=== PATIENT | male | born 1950 | race Caucasian/White ===

== ENCOUNTER 2021-09-05 10:42 | Outpatient (CLI) | payer MEDICARE, OTHER, SELFPAY ==
--- NOTE | 2021-09-05 10:46 | ECHOCS_ITS ---
Reason For Study: CHEST PAIN Procedure This was a 2D Doppler, Color Flow transthoracic echocardiogram. The study was technically difficult. Exam performed in department. Left Ventricle Normal LV size. Left ventricular systolic function is normal. The estimated ejection fraction is 60 %. Stage 2 diastolic dysfunction. No regional wall motion abnormalities noted. Right Ventricle Normal RV size. Normal systolic function. Atria The left atrium is moderately enlarged. The right atrium is mildly enlarged. Mitral Valve Anterior leaflet mitral valve prolapse. Mild-Moderate (1-2+) posteriorly directed mitral valve insufficiency. Tricuspid Valve Normal tricuspid valve. Mild (1+) tricuspid valve insufficiency. Pulmonary artery systolic pressure is 42 mmHg. Aortic Valve Normal aortic valve. Trisinus/trileaflet aortic valve. Mild (1+) aortic valve insufficiency. Pulmonic Valve Normal pulmonic valve. Great Vessels Normal aortic root. The pulmonary artery is normal size. Normal inferior vena cava. Pericardium/Pleural No pericardial effusion. Medication 22 gauge I.V. with prn adaptor inserted into right arm. Diluted definity 2.5ml given slow IV push to enhance endocardial definition. MMode/2D Measurements & Calculations LVIDd: 5.4 cm IVSd: 1.0 cm Ao root diam: 3.3 cm LVIDs: 3.7 cm LVPWd: 1.1 cm RVDd: 4.3 cm FS: 30.6 % LAV(MOD-bp): 99.7 ml LVAd ap4: 40.9 cm2 SV(MOD-sp4): 104.7 ml LAV(MOD-bp) Indexed: 45.7 ml/m2 LVLd ap4: 8.8 cm LAV(MOD-sp2): 95.6 ml EDV(MOD-sp4): 160.3 ml LAV(MOD-sp4): 103.3 ml EDV(sp4-el): 161.3 ml LVAs ap4: 21.8 cm2 LVLs ap4: 7.1 cm ESV(MOD-sp4): 55.6 ml ESV(sp4-el): 56.7 ml EF(MOD-sp4): 65.3 % EF(sp4-el): 64.8 % SV(sp4-el): 104.6 ml LA A4 area: 28.6 cm2 LA dimension(2D): 4.7 cm RA A4 area: 21.9 cm2 Time Measurements MV dec time: 0.21 sec Doppler Measurements & Calculations MV E max red: 90.0 cm/sec Lat Peak E' Red: 13.0 cm/sec Med Peak E' Red: 9.6 cm/sec MV A max red: 55.2 cm/sec E/E' lat: 6.9 E/E' med: 9.4 MV E/A: 1.6 Ao V2 max: 129.6 cm/sec AI max red: 496.5 cm/sec LV V1 max: 109.2 cm/sec Ao max P.7 mmHg AI max P.6 mmHg LV V1 max P.8 mmHg AI dec slope: 233.8 cm/sec2 AI P1/2t: 622.1 msec PA V2 max: 93.3 cm/sec TR max red: 313.8 cm/sec TR max P.4 mmHg ECHO/Echo Complete W/ Contrast Interpretation Summary Normal LV size. Left ventricular systolic function is normal. The estimated ejection fraction is 60 %. The left atrium is moderately enlarged. Stage 2 diastolic dysfunction. Mild (1+) aortic valve insufficiency. Pulmonary artery systolic pressure is 42 mmHg. Contrast injection was performed. Ordering Physician: Nathanael Lauren Referring Physician: ROSALES DAVIS Performed By: Iris Matamoros RDCS
== END 2021-09-05 23:59 | disposition home or self-care (01) ==
LOC: CVS 10:44
PROVIDERS: PCP Dentist; Referring Provider Internal Medicine Cardiovascular Disease; Visit Provider Internal Medicine Cardiovascular Disease
DX: R07.9 Chest pain, unspecified (principal); R00.2 Palpitations
CPT/HCPCS: 93306; Q9957; A4216; C8929

== ENCOUNTER 2021-09-16 07:00 | Outpatient (CLI) | payer MEDICARE, OTHER, SELFPAY ==
--- NOTE | 2021-09-16 12:08 | STRESSREP ---
Stress Test Report Exercise myocardial perfusion stress test. 71-year-old man with a history of atrial fibrillation. Stress protocol: Resting KG demonstrates normal sinus rhythm with a rate of 57 bpm normal intervals are noted resting blood pressure is 150/80 mmHg occasional premature ventricular complexes noted. Patient exercised according to regular Chadwick protocol for total duration of 6 minutes and 36 seconds completing 36 seconds into stage III of the Chadwick protocol the maximum heart rate attained was 139 bpm which was 92% of maximum predicted heart rate the maximum workload was 8.8 metabolic equivalents. At rest there were no ST or T wave changes noted suggest ischemia at peak exercise upsloping ST changes were noted with did not meet the criteria for ischemia. No evidence of QRS widening was noted occasional premature ventricular complex was noted. The peak blood pressure was 210/82 mmHg. Myocardial perfusion protocol. 14.6 mCi of technetium 99m sestamibi was injected at rest. The patient exercised according to regular Chadwick protocol. At peak exercise 44.6 mCi of technetium 99m sestamibi was injected stress images were obtained stress and rest images were reconstructed in comparing the short axis vertical long and horizontal long axis. Gated images were also obtained. Perfusion SPECT analysis: Review of the stress images demonstrate normal uptake of tracer noted in all areas of the myocardium. The resting images similarly demonstrate normal uptake of tracer noted in all areas of the myocardium. No areas of reversibility are noted suggest ischemia and no previous infarct is noted. Gated SPECT analysis: The gated ejection fraction is 65%. Conclusion: Normal exercise myocardial perfusion stress test at a high workload. Preserved ejection fraction.
== END 2021-09-16 23:59 | disposition home or self-care (01) ==
LOC: CVS 07:02
PROVIDERS: PCP Dentist; Referring Provider Internal Medicine Cardiovascular Disease; Visit Provider Internal Medicine Cardiovascular Disease
DX: R07.89 Other chest pain (principal); Z79.899 Other long term (current) drug therapy; Z51.81 Encounter for therapeutic drug level monitoring
CPT/HCPCS: 78452; 93017; A9500; A4216

== ENCOUNTER → 2023-01-15 | Outpatient (CLI) | payer MEDICARE, OTHER, SELFPAY | END | disposition home or self-care (01) | LOC: PSN 11:47 | PROVIDERS: PCP Family Medicine; Referring Provider Internal Medicine Cardiovascular Disease; Visit Provider Internal Medicine Cardiovascular Disease | DX: I49.3 Ventricular premature depolarization (principal) | CPT/HCPCS: 93225; 93226 ==

== ENCOUNTER → 2024-03-17 | Outpatient (CLI) | payer MEDICARE, OTHER, SELFPAY ==
[2024-03-17 11:06] LABS: Absolute Lymphocyte Count 1.76 X10^3/uL (0.83-4.51); Absolute Neutrophil Count 4.1 X10^3/uL (2.0-7.7); Basophil# 0.04 X10^3/uL; Basophil% 0.6 % (0-1); Eosinophil# 0.38 X10^3/uL; Eosinophils% 5.4 % (0-5); Hematocrit 47.1 % (40-54); Hemoglobin 15.3 g/dL (13.0-16.5); Lymphocyte # 1.76 X10^3/ul (0.83-4.51); Lymphocyte % 24.8 % (19-41); Mean Corp Hgb Conc 32.5 g/dL (32-36); Mean Corpuscular Hgb 29.6 pg (27.0-32.0); Mean Corpuscular Volume 91.1 fL (80-94); Mean Platelet Vol. 11.1 fl (6.2-12.0); Monocyte# 0.82 X10^3/uL; Monocyte% 11.6 % (0-10); NRBC Flagged by Analyzer 0 % (0-5); Neutrophil # 4.07 X10^3/uL (2.7-7.7); Neutrophil % 57.3 % (47-70); Platelet Count 144 K/mm3 (150-450); RBC Distribution Width CV 12.8 % (11.6-14.6); RBC Distribution Width SD 42.9 fl (35.1-43.9); Red Blood Count 5.17 M/mm3 (4.6-6.2); White Blood Count 7.1 K/mm3 (4.4-11.0)
[2024-03-17 11:30] LABS: ALB/GLOB Ratio 1.1 RATIO (0.9-2.4); AST(SGOT) 14 U/L (15-37); Alanine Aminotransfer ALT/SGPT 21 U/L (16-61); Albumin, Serum 3.5 g/dL (3.2-5.0); Alkaline Phosphatase 61 U/L (45-117); Anion Gap 2 (5-15); BUN 16 mg/dL (7-18); Calcium,Total 9.2 mg/dL (8.5-10.1); Chloride 107 mmol/L (98-107); Creatinine, Serum 0.89 mg/dL (0.70-1.30); EST Glomerular Filtration Rate 90 mL/min (>60); Est Glom Filt Rate - Afr Amer 109 mL/min (>60); Globulin 3.2 g/dL (2.2-4.2); Glucose 79 mg/dL (74-106); Magnesium 2.1 mg/dL (1.6-2.6); Potassium 4.4 mmol/L (3.5-5.1); Protein, Total 6.7 g/dL (6.4-8.2); Sodium Level 139 mmol/L (136-145); T4 Free Direct 0.94 ng/dL (0.76-1.46); Thyroid Stim Hormone (TSH) 0.666 uIU/mL (0.358-3.740)
== END | disposition home or self-care (01) ==
PROVIDERS: PCP Family Medicine; Referring Provider Nurse Practitioner Family; Visit Provider Nurse Practitioner Family
DX: I49.3 Ventricular premature depolarization (principal); R00.2 Palpitations; Z51.81 Encounter for therapeutic drug level monitoring; Z79.899 Other long term (current) drug therapy; I10 Essential (primary) hypertension; I34.1 Nonrheumatic mitral (valve) prolapse
CPT/HCPCS: 36415; 80053; 83735; 84439; 84443; 85025

== ENCOUNTER → 2024-03-28 | Outpatient (CLI) | payer MEDICARE, OTHER, SELFPAY ==
--- NOTE | 2024-03-28 07:00 | ECHOD_ITS ---
Reason For Study: MVP Procedure This was a 2D Doppler, Color Flow transthoracic echocardiogram. Apical window in supine. Exam performed in department. Left Ventricle Normal LV size. Mild concentric left ventricular hypertrophy. Left ventricular systolic function is normal. The left ventricular ejection fraction is 65 %. No regional wall motion abnormalities noted. Right Ventricle Normal RV size. Normal systolic function. Atria The left atrium is moderately enlarged. Normal right atrium. Mitral Valve Bileaflet mitral valve prolapse. Mild-Moderate (1-2+) eccentric mitral valve insufficiency. 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 Mild (1+) tricuspid valve insufficiency. Pulmonary artery systolic pressure is 40 mmHg. Aortic Valve Trisinus/trileaflet aortic valve. Mild (1+) aortic valve insufficiency. Pulmonic Valve Normal pulmonic valve. Great Vessels Normal aortic root. The pulmonary artery is normal size. Inferior vena cava collapse with respiration. Pericardium/Pleural No pericardial effusion. MMode/2D Measurements & Calculations LVIDd: 5.8 cm IVSd: 1.2 cm Ao root diam: 3.5 cm LVIDs: 3.6 cm LVPWd: 1.4 cm RVDd: 4.2 cm FS: 38.2 % LAV(MOD-bp): 97.9 ml LVAd ap4: 40.0 cm2 SV(MOD-sp4): 89.9 ml LAV(MOD-bp) Indexed: 45.5 ml/m2 LVLd ap4: 9.4 cm LAV(MOD-sp2): 86.0 ml EDV(MOD-sp4): 142.9 ml LAV(MOD-sp4): 99.2 ml EDV(sp4-el): 144.1 ml LVAs ap4: 20.7 cm2 LVLs ap4: 7.1 cm ESV(MOD-sp4): 53.0 ml ESV(sp4-el): 51.2 ml EF(MOD-sp4): 62.9 % EF(sp4-el): 64.5 % SV(sp4-el): 92.9 ml LA A4 area: 29.6 cm2 RA A4 area: 21.0 cm2 Time Measurements MV dec time: 0.26 sec Doppler Measurements & Calculations MV E max red: 74.6 cm/sec Lat Peak E' Red: 13.7 cm/sec Med Peak E' Red: 6.2 cm/sec MV A max rde: 60.1 cm/sec E/E' lat: 5.5 E/E' med: 12.1 MV E/A: 1.2 MV V2 max: 75.3 cm/sec Ao V2 max: 113.1 cm/sec MV max P.3 mmHg MV dec slope: 323.6 cm/sec2 Ao max P.1 mmHg MV V2 mean: 46.8 cm/sec Ao V2 mean: 73.0 cm/sec MV mean P.00 mmHg Ao mean P.5 mmHg MV V2 VTI: 26.5 cm Ao V2 VTI: 21.4 cm AV (velocity ratio): 0.90 LV V1 max: 108.7 cm/sec PA V2 max: 104.1 cm/sec TR max red: 302.7 cm/sec LV V1 max P.7 mmHg PA V2 mean: 78.4 cm/sec TR max P.6 mmHg LV V1 mean P.2 mmHg LV V1 mean: 66.7 cm/sec LV V1 VTI: 19.3 cm ECHO/Echo Complete Interpretation Summary Normal LV size. Left ventricular systolic function is normal. The left ventricular ejection fraction is 65 %. Mild concentric left ventricular hypertrophy. Bileaflet mitral valve prolapse. Mild-Moderate (1-2+) eccentric mitral valve insufficiency. 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 Ordering Physician: Rob Carrero Referring Physician: Rob Carrero Performed By: Anamaria Melgar RCS
--- OUTSIDE RECORDS SUMMARY | 2024-03-28 07:02 | XMS RPT_ITS | CCD ---
Author Organization [facility] Care Team Providers Care Quality Internship Name Role Phone RITIKA INFANTE Attending Unavailable RITIKA INFANTE Referring Unavailable RITIKA INFANTE Referring Unavailable RITIKA INFANTE Referring Unavailable RITIKA INFANTE Attending Unavailable RITIKA INFANTE Referring Unavailable Allergies Allergy Classification Reported Allergen(s) Allergy Type Date of Onset Reaction(s) Facility (1 source) Naproxen; Translations: [NAPROXEN] Drug Allergy 03-12-2012 [facility] Repository Problems Active Problems Problem Classification Problem Date Documented Da te Episodic/Chronic Heart valve disorders (1 source) Nonrheumatic mitral (valve) insufficiency; Translations: [Nonrheumatic mitral (valve) insufficiency] Onset: 04-09-2018 Chronic Past or Other Problems Problem Classification Problem Date Documented Da te Episodic/Chronic Cardiac dysrhythmias (1 source) Palpitations; Translations: [Palpitations] Onset: 04-09-2018 Episodic Results Test Name Value Interpretation Reference Range Facil ity Provider Note - ED v3on 10-0 Provider Note - ED v3 Provider Note: Chart Review HISTORY OF PRESENTING ILLNESS TOREY is a 71 year old Male and was seen by me at 08-Mar-2021 11:37. The historian is the patient. Triage Information: Most recent Vital Sign Value Date PAST MEDICAL HISTORY ALLERGIES/INTOLERANCES : Allergy Allergen: naproxen Type: Drug Reaction: Unknown HEALTH HISTORY: History of tachycardia and arrhythmia. No other known health issues. Family history: no pertinent history. Social history: is a [employer]. Non-smoker. OUTPATIENT MEDICATIONS: Home Medications Review Status for Reconciliation: Complete Med Status: Patient Currently Takes Medications Drug Name: propranolol 10 mg oral tablet Instructions: 1 tab(s) orally 2 times a day Drug Name: flecainide Instructions: null Drug Name: Ciprodex 0.3%-0.1% otic suspension Instructions: 4 drop(s) in each affected ear 2 times a day x 10 days Drug Name: Cipro 500 mg oral tablet Instructions: 1 tab(s) orally 2 times a day x 10 days SIGNIFICANT EVENTS: No known significant events or known past surgical history. CRITICAL CARE VITAL SIGNS: T PRBP SpO2O2(LPM) %FiO2 Method 08-Mar-2021 11:28:[id number] 98 MDM MDM/ED COURSE: This note was generated with voice recognition software and may contain errors including spelling, grammar, syntax, and misrecognization of what was dictated. CHIEF COMPLAINT bilat ear irritation HISTORY OF PRESENT ILLNESS Patient presents today for evaluation of bilat ear irritation (L>R) x 5-7 days - reports is now having some trouble hearing out of his L ear - typically has decreased hearing, but it has been worse recently. Reports has had similar sxs intermittently over the past 2 y ears and believes they were r/t seasonal allergies - reports sxs typically resolved without treatment in the past. He denies any known trauma to ear or recent swimming. Denies any recent nasal congestion, watery eyes, sore throat, cough, fevers/chills, lethargy, malaise, headaches, n/v, or other constitutional symptoms. He takes Zyrtec daily, but reports it does not really help his ear symptoms. He has not tried any other OTC medications or conservative measures for his symptoms. Follows regularly with PCP, but has never had these sxs evaluated in the past. REVIEW OF SYSTEMS 10 systems reviewed negative with exception of history of present illness listed above PHYSICAL EXAMINATION General: Pleasant, older male, in no acute distress. + mild hearing impairment. Eyes: Pupils are equal, round and reactive. Bilat conjunctiva clear; no exudate to eyes noted. HENT: Normocephalic. R TM with scaring, whitish discoloration, and distortion; R ear canal mildly edematous and erythematous, with scant milky otorrhea, whitish debris on inferior canal wall, and dark cerumen. Unable to visualize L TM d/t moderately severe edema of ear canal. Mild tenderness with manipulation of bilat tragus; no tenderness with manipulation of either pinna or over either mastoid. Nasal mucosa unremarkable; no sinus tenderness; no audible nasal congestion. Mucous membranes moist. No oral lesions; posterior pharynx unremarkable. Able to swallow without difficulty. Neck: Supple; tender high anterior cervical lymphadenopathy bilat. Respiratory: Respirations are easy and non-labored, with normal rate. Symmetrical chest wall expansion. Lungs are clear to auscultation - no wheezing, rhonchi, or rales. Breath sounds equal. No cough noted. Cardiovascular: Normal rate, Regular rhythm. Normal S1S2. No m/r/g. Musculoskeletal: Grossly normal. Integumentary: [place], warm, dry, and Intact. Normal skin turgor; no rashes appreciated. Neurologic: Alert, Oriented, Sensory and motor function grossly intact for age. Cognition and Speech: Oriented; Speech clear and coherent Psychiatric: Cooperative, Appropriate mood & affect. MEDICAL DECISION MAKING Course: Worsening; stable. Impression/Plan: Symptoms/exam consistent with AOE. Will start Ciprodex drops BID days, but may need f/u with PCP or ENT if sxs persist/worsen despite treatment, especially if swelling/discomfort progresses - if treated for bacterial infection without relief, may want to consider evaluation for fungal cause. Encouraged to prevent any further water/additional liquids from entering the ear canal as able, to rest, to push fluids, and can use PRN Tylenol/ibuprofen for management of discomfort. Warm compress may also be helpful. Reviewed expectations for resolution of infection and improvement in symptoms, and encouraged to RTC or see PCP/ENT if symptoms not improving over the 2-3 days, or to ER sooner if they worsen. Patient seems satisfied and agrees with plan of care; questions were encouraged and answered. Problem: bilat ear pain Data reviewed/analyzed: No lab work, imaging, or tests outside of physical exam done today; no previous documents available (more content not included)... Normal [facility] Provider Note - ED v2on 12-0 Provider Note - ED v2 Provider Note - ED v2: Chart Review: HISTORY OF PRESENTING ILLNESS TOREY is a 70 year old Male and was seen by me at 07-May-2020 13:52 for a chief complaint of cold symptoms . Other complaints include: Patient presents with sinus congestion and ear pressure that has been occurring for about a year. He stated it started with a sinus infection. He was treated with an antibiotic and ever since he has drainage a few days weekly. It has become an annoyance and he has come in to get it checked out. He denies any fever, chills, nausea, vomiting, or exposure to COVID-19. 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 The historian is the patient. Triage Information: Most recent Vital Sign Value Date PAST MEDICAL HISTORY ATTESTATION: I have reviewed and confirmed nurse's/medic's notes for patient's medications, allergies, medical history, and surgical history CURRENT OR FORMER SUBSTANCE USE: NO: Cigarette/Tobacco, e-Cigarette/Vaping, Alcohol and Street Drugs ALLERGIES/INTOLERANCES : Allergy Allergen: naproxen Type: Drug Reaction: Unknown HEALTH HISTORY: No documented data. OUTPATIENT MEDICATIONS: Home Medications Review Status for Reconciliation: Complete Med Status: Patient Currently Takes Medications Drug Name: propranolol 10 mg oral tablet Instructions: 1 tab(s) orally 2 times a day Drug Name: amoxicillin 875 mg oral tablet Instructions: 1 tab(s) orally 2 times a day SIGNIFICANT EVENTS: No documented data. REVIEW OF SYSTEMS CONSTITUTIONAL: Negative for: chills, fever and malaise ENMT Ears: POSITIVE for: discharge (clear) and itching Nose: POSITIVE for: congestion, discharge (clear) and sneezing Throat/Neck: POSITIVE for: throat pain RESULTS/VITAL SIGNS VITAL SIGNS: T PRBP SpO2O2(LPM) %FiO2 Method 07-May-2020 13:46:[id number] 8 97 PHYSICAL EXAM CONSTITUTIONAL: Well appearing, well nourished, awake, alert, oriented to person, place, time/situation and in no apparent distress. HENMT: Airway patent, ears with clear tympanic membranes bilaterally. Nasal mucosa clear. Mouth with normal mucosa. Throat erythematous erythematous and has no vesicles, no oropharyngeal exudates and uvula is midline. Face with no lymph node enlargement. No pressure with palpation over maxillary or frontal sinus cavities. CARDIOVASCULAR: Normal rate, regular rhythm. Heart sounds S1, S2. No murmurs, rubs or gallops. PMI non-displaced. RESPIRATORY: Breath sounds clear and equal bilaterally. MEDICAL DECISION MAKING/ED COURSE MDM/ED COURSE: 70-year-old male with allergies. We have discussed using a daily nonsedating antihistamine and Flonase to control the symptoms. I have ordered a antibiotic that we will be awaiting him in the pharmacy. He was informed to pick this up if he does not improve with the antihistamine and Flonase combination. Patient verbalized understanding of plan of care. CLINICAL IMPRESSION Diagnosis/Annotation: ED Dx Name:Multiple environmental allergies Code:Z91.09 Disposition: discharged Type: home ATTESTATION CRITICAL CARE TIME Is this a critically ill patient: no Electronic Signatures: Amy Walker (LAST TRIMMER-PRIMARY CLINICIAN) (Signed 07-May-2020 14:22) Authored: HPI, PMH, ROS, PE, Results/Vital Signs, MDM/ED Course, Clinical Impression, Attestation, Chart Review, Scores Last Updated: 07-May-2020 14:22 by Amy Walker (LAST TRIMMER-PRIMARY CLINICIAN) References: 1. Data Referenced From Provider Note - ED v2 07-May-2020 14:07 [facility] Provider Note - ED v2 This report has been cancelled. [facility] CNOVon 09-09-2018 CNOV Office Visit (CAWSTR ) TOREY CARBAJAL ([id number]) 1950 M Date Time Provider Department 09/09/18 9:45 AM RITIKA INFANTE During your visit today, we recorded the following information about you: Pulse Blood pressure Weight 55/minute 133/87 95.9 kg Ritika Infante MD 09/09/2018 4:32 PM Signed PERTINENT CARDIAC HISTORY Palpitations - VPDs Anxiety HTN HL MVP - mild MR Pericardial cyst ADHERENCE TO GUIDELINES AR-I or ARB for HF with prior LVEF<40 (NQF 0081) - N/A ASA or Plavix for ASHD (NQF 0067) - N/A Beta urvashi for ASHD with prior DC or prior LVEF<40 (NQF 0070) - N/A Beta urvashi for HF with prior LVEF<40 (NQF 0083) - N/A AR-I or ARB for ASHD with DM or prior LVEF<40 (NQF 0066) - N/A Statin therapy for ASHD or FHL or DM - N/A BMI documented and plan if >25 (NQF 0421) - lifestyle recommendation form Tobacco use screening and referral (NQ 0028) - lifestyle recommendation form Recommendation for whole food, plant based diet - lifestyle recommendation form CLINICAL IMPRESSION/PLAN: Torey Carbajal is doing well. His palpitations are probably due to benign ventricular ectopy. This is well-controlled. His has no evidence of obstructive coronary disease. He has mild valvular heart disease, which appears stable clinically. Echo can be repeated in one to 2 years. I recommend that he continue his current activity and follow-up in 8 months or as needed. Written and verbal health teaching given to patient, patient verbalizes understanding and agrees with treatment plan. DIAGNOSIS FOR VISIT: Palpitations Hypertension HISTORY OF PRESENT ILLNESS Torey Carbajal returns for follow-up of his multiple cardiac issues, as above. He reports stable exercise tolerance. He has been exercising to control his stress and this has been effective. He denies chest pain. He's had no orthopnea, edema, syncope, TIAs, amaurosis or claudication. He's had minimal palpitations He reports blood pressures at home in the 120-130 systolic range. ALLERGIES: ALLERGIES Allergen Reactions - Naproxen Intolerance Headache, not feeling well with it CURRENT OUTPATIENT MEDICATIONS: omeprazole (PRILOSEC) 20 mg capsule Take 40 mg by mouth once daily. lisinopril (ZESTRIL, PRINIVIL) 20 mg tablet Take 1 tablet by mouth twice daily. propranolol (INDERAL) 40 mg tablet Take 0.5 tablets by mouth twice daily. flecainide (TAMBOCOR) 100 mg tablet Take 1 tablet by mouth twice daily. nitroglycerin sublingual 0.4 mg SL tablet Dissolve 1 tablet under the tongue every 5 minutes as needed. FOR CHEST PAIN. IF NO RELIEF after two doses, CALL 911 IBUPROFEN 200 MG ORAL TAB as needed mupirocin (BACTROBAN) 2 % ointment Apply 1 application to affected area three times daily. PHYSICAL EXAMINATION: VITAL SIGNS: BP 133/87 Pulse 55 Wt 211 lb 6.4 oz (95.9kg) Chest: Clear to auscultation. Trachea is midline. Air entry is equal. Cardiac: Regular rhythm. S1 and S2 are normal. PMI is nondisplaced. There is a soft systolic ejection murmur. Carotids are brisk without bruits. JVP is less than 10 cm. Abdomen: Soft and nontender. There are no pulsatile masses or bruits. No liver enlargement. Bowel sounds are active. Extremities: No edema. Pulses are intact and symmetrical. Recent labs reviewed. Renal function is normal. LDL was 102. Magnesium and TSH are normal Electronically Signed: Ritika Infante MD September 09, 2018 10:00 AM CC: No primary care provider on file. Referring Provider: RITIKA INFANTE [[id number]] Allergies As of Date: 09/09/2018 Noted Allergy Reaction NAPROXEN 03/12/2012 5 - Intolerance Comments: Headache, not feeling well with it Date Reviewed: 09/09/2018 Reviewed by: Thomas Flowers RN - Fully Assessed Reason for Visit: Recheck [92] Primary Visit Diagnosis:Palpitations [R00.2] Other Visit Diagnosis:Hypertension , essential [I10] Order(s):nitroglycerin sublingual (NITROQUICK) 0.4 mg SL tabletDissolve 1 tablet under the tongue every 5 minutes as needed. FOR CHEST PAIN. 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 FOR CHEST PAIN. IF NO RELIEF after two doses, CALL 911 Medications Discontinued During This Encounter nitroglycerin sublingual 0.4 mg SL t* 1 Kyle* 5 04/29/2013 09/09/2018 Route: SUBLINGUAL Sig: Dissolve 1 tablet under the tongue every 5 minutes as needed. FOR CHEST PAIN. IF NO RELIEF after two doses, CALL 911 Disc: Reason for discontinue is not on file. Encounter Status:Closed by RITIKA INFANTE MD on 09/09/18 Normal [facility] PROGRESSon 09-09-2018 Protein mass conc HNO ID: [id number] Author: Ritika Infante Service: ? Author Type: Physician Type: Progress Notes Filed: 09/09/2018 4:32 PM Note Text: PERTINENT CARDIAC HISTORY Palpitations - VPDs Anxiety HTN HL MVP - mild MR Pericardial cyst ADHERENCE TO GUIDELINES AR-I or ARB for HF with prior LVEF<40 (NQF 0081) - N/A ASA or Plavix for ASHD (NQF 0067) - N/A Beta urvashi for ASHD with prior DC or prior LVEF<40 (NQF 0070) - N/A Beta urvashi for HF with prior LVEF<40 (NQF 0083) - N/A AR-I or ARB for ASHD with DM or prior LVEF<40 (NQF 0066) - N/A Statin therapy for ASHD or FHL or DM - N/A BMI documented and plan if >25 (NQF 0421) - lifestyle recommendation form Tobacco use screening and referral (NQF 0028) - lifestyle recommendation form Recommendation for whole food, plant based diet - lifestyle recommendation form CLINICAL IMPRESSION/PLAN: Torey Carbaajl is doing well. His palpitations are probably due to benign ventricular ectopy. This is well-controlled. His has no evidence of obstructive coronary disease. He has mild valvular heart disease, which appears stable clinically. Echo can be repeated in one to 2 years. I recommend that he continue his current activity and follow-up in 8 months or as needed. Written and verbal health teaching given to patient, patient verbalizes understanding and agrees with treatment plan. DIAGNOSIS FOR VISIT: Palpitations Hypertension HISTORY OF PRESENT ILLNESS Torey Carbajal returns for follow-up of his multiple cardiac issues, as above. He reports stable exercise tolerance. He has been exercising to control his stress and this has been effective. He denies chest pain. He's had no orthopnea, edema, syncope, TIAs, amaurosis or claudication. He's had minimal palpitations He reports blood pressures at home in the 120-130 systolic range. ALLERGIES: ALLERGIES Allergen Reactions - Naproxen Intolerance Headache, not feeling well with it CURRENT OUTPATIENT MEDICATIONS: omeprazole (PRILOSEC) 20 mg capsule Take 40 mg by mouth once daily. lisinopril (ZESTRIL, PRINIVIL) 20 mg tablet Take 1 tablet by mouth twice daily. propranolol (INDERAL) 40 mg tablet Take 0.5 tablets by mouth twice daily. flecainide (TAMBOCOR) 100 mg tablet Take 1 tablet by mouth twice daily. nitroglycerin sublingual 0.4 mg SL tablet Dissolve 1 tablet under the tongue every 5 minutes as needed. FOR CHEST PAIN. IF NO RELIEF after two doses, CALL 911 IBUPROFEN 200 MG ORAL TAB as needed mupirocin (BACTROBAN) 2 % ointment Apply 1 application to affected area three times daily. PHYSICAL EXAMINATION: VITAL SIGNS: BP 133/87 Pulse 55 Wt 211 lb 6.4 oz (95.9kg) Chest: Clear to auscultation. Trachea is midline. Air entry is equal. Cardiac: Regular rhythm. S1 and S2 are normal. PMI is nondisplaced. There is a soft systolic ejection murmur. Carotids are brisk without bruits. JVP is less than 10 cm. Abdomen: Soft and nontender. There are no pulsatile masses or bruits. No liver enlargement. Bowel sounds are active. Extremities: No edema. Pulses are intact and symmetrical. Recent labs reviewed. Renal function is normal. LDL was 102. Magnesium and TSH are normal Electronically Signed: Ritika Infante MD September 09, 2018 10:00 AM CC: No primary care provider on file. Normal [facility] Basic Metabolic Panlon 04-09 Anion gap molar conc 8 mmol/L Low 9-18 [facility] Calcium mass conc 10.0 mg/dL Normal 8.5-10.2 [facility] Chloride molar conc 101 mmol/L Normal 97-105 [facility] CO2 molar conc 30 mmol/L Normal 22-30 [facility] Creatinine mass conc 0.85 mg/dL Normal 0.73-1.22 [facility] eGFR- Amer. >60 Normal [facility] GFR/1.73 sq M predicted among non-blacks MDRD vol rate/area (S/P/Bld) mL/min/{1.73_m2} Normal [facility] Comment on above: Result Comment: eGFR (Estimated GFR) Units of measure: mL/min/1.73 meters squared eGFR is derived from the reexpressed MDRD Study equation using the following parameters: serum creatinine, age, gender and race. The creatinine assay has been calibrated to be traceable to IDMS. An eGFR <60 mL/min/1.73m2 for >3 months is consistent with chronic kidney disease. Refer to KDOQI guidelines for clinical interpretation. In patients with unstable renal function, e.g. those with acute kidney injury, the eGFR may not accurately reflect actual GFR. Glucose mass conc 82 mg/dL Normal 74-99 [facility] Potassium molar conc 4.6 mmol/L Normal 3.7-5.1 [facility] Sodium molar conc 139 mmol/L Normal 136-144 [facility] Urea nitrogen mass conc 13 mg/dL Normal 7-21 [facility]09[facility] ([facility] TOREY CARBAJAL ([id number]) 1950 M Date Time Provider Department 04/09/18 1:00 PM NURSE CARD ADMIN [facility] CAWSTR During your visit today, we recorded the following information about you: Thomas Flowers RN 04/09/2018 10:08 AM Signed Ekg completed per order. Pt tolerated procedure without distress. Thomas Flowers RN Referring Provider: RITIKA INFANTE [[id number]] Allergies As of Date: 04/09/2018 Noted Allergy Reaction NAPROXEN 03/12/2012 5 - Intolerance Comments: Headache, not feeling well with it Date Reviewed: 04/09/2018 Reviewed by: Thomas Flowers RN - Fully Assessed Reason for Visit: Nurse Visit [792] Visit Diagnoses:Palpitations [R00.2] Non-rheumatic mitral regurgitation [I34.0] Order(s):ECG COMPLETE W INTERPRETATION [ECG01] Order #: [id number] Prescriptions as of 04/09/2018 Sig: LISINOPRIL 20 MG TABLET Take 1 tablet by mouth twice * PROPRANOLOL 40 MG TABLET Take 0.5 tablets by mouth twi* FLECAINIDE 100 MG TABLET Take 1 tablet by mouth twice * MUPIROCIN 2 % TOPICAL OINTMENT Apply 1 application to affect* Patient not taking: Reported on 04/09/2018 NITROGLYCERIN 0.4 MG SUBLINGU* Dissolve 1 tablet under the t* Patient not taking: Reported on 04/09/2018 IBUPROFEN 200 MG TABLET as needed Problem List As Of Date 04/09/2018 Noted Resolved 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 Pt tolerated procedure without distress. Thomas Flowers RN Encounter Status:Closed by THOMAS FLOWERS RN on 04/09/18 [facility] CNOVon 04-09-2018 CNOV Office Visit (CAWSTR ) TOREY CARBAJAL ([id number]) 1950 M Date Time Provider Department 04/09/18 8:45 AM RITIKA INFANTE During your visit today, we recorded the following information about you: Pulse Blood pressure Weight 59/minute 172/87 93.9 kg Ritika Infante MD 04/09/2018 9:45 AM Signed LIFESTYLE CHANGE A healthy lifestyle is the most important component of your overall treatment plan. Please give serious thought to the following areas and commit to making intermediate manager changes. EAT A WHOLE FOOD, PLANT BASED DIET The nutrition your body gets is more important than the medicine you take. What matters most is the overall way you eat. We encourage you to minimize the use of animal products (which include dairy and all meats except fatty fish) and use whole, unprocessed plant foods to provide your protein, vitamins and other nutrients. We have a lot of information to share with you on this topic. This is not a diet . It is a way of life that you will keep with you. EXERCISE REGULARLY It is not important to spend hours in the gym, lifting weights and perspiring heavily. A total of 2-3 hours per week of aerobic (causing you to be moderately short of breath) exercise is sufficient to improve your health. Talk to us before you begin a new exercise program, if you have heart disease or experience shortness of breath or chest pain. REDUCE STRESS Chronic emotional and physical stress leads to disease. Ways of reducing stress include meditation, visualization, prayer, yoga and other forms of relaxation therapy. Consistency is the kaur. Find a technique that works for you and do it every day. CULTIVATE RELATIONSHIPS Loneliness and isolation have a major negative impact on health. Seek out others who can love, care for and nurture you. Avoid hurtful relationships. MAINTAIN IDEAL BODY WEIGHT The best way to do this is to do all the things above. Our bodies naturally find the right weight if we keep moving and feed ourselves the right food. If your BMI is greater than 25, we strongly recommend a referral to a weight management program. Please speak to us or your family physician about available programs. AVOID NICOTINE IN ALL FORMS This includes all tobacco products, whether chewed, smoked, vaped, or rubbed on the skin. Smoking cessation programs, which can make use of tobacco substitutes, medications to suppress cravings and behavior management, are available. Please contact your family physician about programs in your area. Ritika Infante MD 04/09/2018 5:33 PM Signed PERTINENT CARDIAC HISTORY Palpitations - VPDs Anxiety HTN HL MVP - mild MR Pericardial cyst ADHERENCE TO GUIDELINES AR-I or ARB for HF with prior LVEF<40 (NQF 0081) - N/A ASA or Plavix for ASHD (NQF 0067) - N/A Beta urvashi for ASHD with prior DC or prior LVEF<40 (NQF 0070) - N/A Beta urvashi for HF with prior LVEF<40 (NQF 0083) - N/A AR-I or ARB for ASHD with DM or prior LVEF<40 (NQF 0066) - N/A Statin therapy for ASHD or FHL or DM - N/A BMI documented and plan if >25 (NQF 0421) - lifestyle recommendation form Tobacco use screening and referral (NQF 0028) - lifestyle recommendation form Recommendation for whole food, plant based diet - lifestyle recommendation form CLINICAL IMPRESSION/PLAN: Torey Carbajal is doing well. He was reassured that there is no significant arrhythmia. I advised him to continue his current medication. Basic profile and magnesium level will be drawn. He has noted that his blood pressure goes up with stress. His most recent office blood pressures have been in normal range. I will see him in 6 months or as needed. He is advised to try not to miss doses of medication and to call me with a report of his vital signs in the next few weeks. Written and verbal health teaching given to patient, patient verbalizes understanding and agrees with treatment plan. DIAGNOSIS FOR VISIT: Ventricular arrhythmia Hypertension HISTORY OF PRESENT ILLNESS Torey Carbajal returns for follow-up of his palpitations and hypertension. He continues to be quite anxious. He is undergoing some family stress at this time. He has found a refuge in exercising. He reports that he feels quite well when he is working and has had no exertional symptoms of shortness of breath or chest discomfort. His blood pressure has been more elevated and he has increased his lisinopril to twice daily. He occasionally misses doses of his other medication He has had a low-grade tightness in the chest which he relates to anxiety. He does not use nitroglycerin. This occurs at rest. He has had no syncope, TIAs, amaurosis or claudication. Palpitations have been more problematic recently. ALLERGIES: ALLERGIES Allergen Reactions - Naproxen Intolerance Headache, not feeling well with it CURRENT OUTPATIENT MEDICATIONS: lisinopril (ZESTRIL, PRINIVIL) 20 mg tablet Take 1 tablet by mouth once daily. propranolol (INDERAL) 40 mg tablet Take 0.5 tablets by mouth twice daily. flecainide (TAMBOCOR) 100 mg tablet Take 1 tablet by mouth twice daily. IBUPROFEN 200 MG ORAL TAB as needed mupirocin (BACTROBAN) 2 % ointment Apply 1 application to affected area three times daily. nitroglycerin sublingual 0.4 mg SL tablet Dissolve 1 tablet under the tongue every 5 minutes as needed. FOR CHEST PAIN. IF NO RELIEF after two doses, CALL 911 PHYSICAL EXAMINATION: VITAL SIGNS: BP 172/87 Pulse 59 Wt 207 lb 1.6 oz (93.9kg) Chest: Clear to auscultation. Trachea is midline. Air entry is equal. Cardiac: Regular rhythm. S1 and S2 are normal. PMI is nondisplaced. There is a soft systolic ejection murmur.. Carotids are brisk without bruits. JVP is less than 10 cm. Abdomen: Soft and nontender. There are no pulsatile masses or bruits. No liver enlargement. Bowel sounds are active. Extremities: No edema. Pulses are intact and symmetrical. EKG shows sinus bradycardia with first-degree AV block. There is no significant change since 08/31/16. No arrhythmias are seen. Recent labs were reviewed. Renal function is normal. LDL is acceptable. Stress echocardiogram was reviewed. Left ventricular function is normal. He has minimal mitral and aortic insufficiency. No significant changes were noted. There was no evidence of ischemia. Electronically Signed: Ritika Infante MD April 09, 2018 9:45 AM CC: No primary care provider on file. Referring Provider: RITIKA INFANTE [[id number]] Allergies As of Date: 04/09/2018 Noted Allergy Reaction NAPROXEN 03/12/2012 5 - Intolerance Comments: Headache, not feeling well with it Date Reviewed: 04/09/2018 Reviewed by: Thomas Flowers RN - Fully Assessed Reason for Visit: Recheck [92] Primary Visit Diagnosis:Palpitations [R00.2] Other Visit Diagnosis:Non-rheumati c mitral regurgitation [I34.0] Order(s):ECG COMPLETE W INTERPRETATION [ECG01] Order #: [id number] FUTURE BASIC METABOLIC PNL [SQBMP] Order #: [id number] FUTURE MAGNESIUM BLD [SQMG1] Order #: [id number] FUTURE lisinopril (ZESTRIL, PRINIVIL) 20 mg tabletTake 1 tablet by mouth twice daily.Disp: 180 tabletRfl: 3 TSH BLD [SQTSH] Order #: [id number] FUTURE Prescriptions as of 04/09/2018 Sig: LISINOPRIL 20 MG TABLET Take 1 tablet by mouth twice * PROPRANOLOL 40 MG TABLET Take 0.5 tablets by mouth twi* FLECAINIDE 100 MG TABLET Take 1 tablet by mouth twice * IBUPROFEN 200 MG TABLET as needed MUPIROCIN 2 % TOPICAL OINTMENT Apply 1 application to affect* Patient not taking: Reported on 04/09/2018 NITROGLYCERIN 0.4 MG SUBLINGU* Dissolve 1 tablet under the t* Patient not taking: Reported on 04/09/2018 Problem List As Of Date 04/09/2018 Noted Resolved 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 Please give serious thought to the following areas and commit to making intermediate manager changes. EAT A WHOLE FOOD, PLANT BASED DIET The nutrition your body gets is more important than the medicine you take. What matters most is the overall way you eat. We encourage you to minimize the use of animal products (which include dairy and all meats except fatty fish) and use whole, unprocessed plant foods to provide your protein, vitamins and other nutrients. We have a lot of information to share with you on this topic. This is not a diet . It is a way of life that you will keep with you. EXERCISE REGULARLY It is not important to spend hours in the gym, lifting weights and perspiring heavily. A total of 2-3 hours per week of aerobic (causing you to be moderately short of breath) exercise is sufficient to improve your health. Talk to us before you begin a new exercise program, if you have heart disease or experience shortness of breath or chest pain. REDUCE STRESS Chronic emotional and physical stress leads to disease. Ways of reducing stress include meditation, visualization, prayer, yoga and other forms of relaxation therapy. Consistency is the kaur. Find a technique that works for you and do it every day. CULTIVATE RELATIONSHIPS Loneliness and isolation have a major negative impact on health. Seek out others who can love, care for and nurture you. Avoid hurtful relationships. MAINTAIN IDEAL BODY WEIGHT The best way to do this is to do all the things above. Our bodies naturally find the right weight if we keep moving and feed ourselves the right food. If your BMI is greater than 25, we strongly recommend a referral to a weight management program. Please speak to us or your family physician about available programs. AVOID NICOTINE IN ALL FORMS This includes all tobacco products, whether chewed, smoked, vaped, or rubbed on the skin. Smoking cessation programs, which can make use of tobacco substitutes, medications to suppress cravings and behavior management, are available. Please contact your family physician about programs in your area. Prescriptions ordered this encounter Disp Refills Start End LISINOPRIL 20 MG TABLET 180 * 3 04/09/2018 Route: ORAL Sig: Take 1 tablet by mouth twice daily. Medications Discontinued During This Encounter lisinopril (ZESTRIL, PRINIVIL) 20 mg* 90 t* 3 03/14/2018 04/09/2018 Route: ORAL Sig: Take 1 tablet by mouth once daily. Patient taking differently: Take 20 mg by mouth twice daily. Disc: Reason for discontinue is not on file. Encounter Status:Closed by RITIKA INFANTE MD on 04/09/18 [facility] EKG1on 04-09-2018 EKG1 NAME : TOREY CARBAJAL PID : [id number] : 1950 Gender : Male Race : ORD : Procedure Date : Apr 09 2018 10:24:38 Edit Date : Apr 10 2018 08:29:52 Diagnosis:SINUS BRADYCARDIA WITH 1ST DEGREE AV BLOCK INCOMPLETE RIGHT BUNDLE BRANCH BLOCK BORDERLINE ECG NO SIGNIFICANT CHANGE FROM PREVIOUS ECG Confirmed by RITIKA INFANTE MD ([id number]) on 04/10/2018 8:29:47 AM Ventricular Rate : 57 BPM Atrial Rate : 57 BPM P-R Interval : 218 ms QRS Duration : 116 ms Q-T Interval : 410 ms QTC Calculation(Bezet) : 399 ms P Concord : 58 degrees R Concord : 36 degrees T Concord : 43 degrees Test Reason : Location : 136 : [place] Overread By : RITIKA INFANTE MD Edited By : RITIKA INFANTE MD Referred By : RITIKA INFANTE Acquired by : MAJO [facility] EKG1 NAME : TOREY CARBAJAL PID : [id number] : 1950 Gender : Male Race : ORD : Procedure Date : Apr 09 2018 10:24:53 Edit Date : Apr 10 2018 08:29:55 Diagnosis:SINUS BRADYCARDIA WITH 1ST DEGREE AV BLOCK POSSIBLE LEFT ATRIAL ENLARGEMENT INCOMPLETE RIGHT BUNDLE BRANCH BLOCK BORDERLINE ECG Confirmed by RITIKA INFANTE MD ([id number]) on 04/10/2018 8:29:52 AM Ventricular Rate : 57 BPM Atrial Rate : 57 BPM P-R Interval : 216 ms QRS Duration : 118 ms Q-T Interval : 404 ms QTC Calculation(Bezet) : 393 ms P Concord : 65 degrees R Concord : 49 degrees T Concord : 47 degrees Test Reason : Location : 136 : [place] Overread By : RITIKA INFANTE MD Edited By : RITIKA INFANTE MD Referred By : RITIKA INFANTE Acquired by : Veronique KASPER [facility] Magnesiumon 04-09-2018 Magnesium mass conc 2.2 mg/dL Normal 1.7-2.3 [facility] PROGRESSon 04-09-2018 Protein mass conc HNO ID: [id number] Author: Ritika Infante Service: (none) Author Type: Physician Type: Progress Notes Filed: 04/09/2018 5:33 PM Note Text: PERTINENT CARDIAC HISTORY Palpitations - VPDs Anxiety HTN HL MVP - mild MR Pericardial cyst ADHERENCE TO GUIDELINES AR-I or ARB for HF with prior LVEF<40 (NQF 0081) - N/A ASA or Plavix for ASHD (NQF 0067) - N/A Beta urvashi for ASHD with prior DC or prior LVEF<40 (NQF 0070) - N/A Beta urvashi for HF with prior LVEF<40 (NQF 0083) - N/A AR-I or ARB for ASHD with DM or prior LVEF<40 (NQF 0066) - N/A Statin therapy for ASHD or FHL or DM - N/A BMI documented and plan if >25 (NQF 0421) - lifestyle recommendation form Tobacco use screening and referral (NQF 0028) - lifestyle recommendation form Recommendation for whole food, plant based diet - lifestyle recommendation form CLINICAL IMPRESSION/PLAN: Torey Carbajal is doing well. He was reassured that there is no significant arrhythmia. I advised him to continue his current medication. Basic profile and magnesium level will be drawn. He has noted that his blood pressure goes up with stress. His most recent office blood pressures have been in normal range. I will see him in 6 months or as needed. He is advised to try not to miss doses of medication and to call me with a report of his vital signs in the next few weeks. Written and verbal health teaching given to patient, patient verbalizes understanding and agrees with treatment plan. DIAGNOSIS FOR VISIT: Ventricular arrhythmia Hypertension HISTORY OF PRESENT ILLNESS Torey Carbajal returns for follow-up of his palpitations and hypertension. He continues to be quite anxious. He is undergoing some family stress at this time. He has found a refuge in exercising. He reports that he feels quite well when he is working and has had no exertional symptoms of shortness of breath or chest discomfort. His blood pressure has been more elevated and he has increased his lisinopril to twice daily. He occasionally misses doses of his other medication He has had a low-grade tightness in the chest which he relates to anxiety. He does not use nitroglycerin. This occurs at rest. He has had no syncope, TIAs, amaurosis or claudication. Palpitations have been more problematic recently. ALLERGIES: ALLERGIES Allergen Reactions - Naproxen Intolerance Headache, not feeling well with it CURRENT OUTPATIENT MEDICATIONS: lisinopril (ZESTRIL, PRINIVIL) 20 mg tablet Take 1 tablet by mouth once daily. propranolol (INDERAL) 40 mg tablet Take 0.5 tablets by mouth twice daily. flecainide (TAMBOCOR) 100 mg tablet Take 1 tablet by mouth twice daily. IBUPROFEN 200 MG ORAL TAB as needed mupirocin (BACTROBAN) 2 % ointment Apply 1 application to affected area three times daily. nitroglycerin sublingual 0.4 mg SL tablet Dissolve 1 tablet under the tongue every 5 minutes as needed. FOR CHEST PAIN. IF NO RELIEF after two doses, CALL 911 PHYSICAL EXAMINATION: VITAL SIGNS: BP 172/87 Pulse 59 Wt 207 lb 1.6 oz (93.9kg) Chest: Clear to auscultation. Trachea is midline. Air entry is equal. Cardiac: Regular rhythm. S1 and S2 are normal. PMI is nondisplaced. There is a soft systolic ejection murmur.. Carotids are brisk without bruits. JVP is less than 10 cm. Abdomen: Soft and nontender. There are no pulsatile masses or bruits. No liver enlargement. Bowel sounds are active. Extremities: No edema. Pulses are intact and symmetrical. EKG shows sinus bradycardia with first-degree AV block. There is no significant change since 08/31/16. No arrhythmias are seen. Recent labs were reviewed. Renal function is normal. LDL is acceptable. Stress echocardiogram was reviewed. Left ventricular function is normal. He has minimal mitral and aortic insufficiency. No significant changes were noted. There was no evidence of ischemia. Electronically Signed: Ritika Infante MD April 09, 2018 9:45 AM CC: No primary care provider on file. Normal [facility] TSHon 04-09-2018 Thyrotropin Qn 1.200 uU/mL Normal 0.400-5.500 [facility] Comment on above: Performed By: #### T #### [facility] [address] [address] OBSOLETEon 03-15-2017 OBSOLETE Refill (AGCARDWST) ---TOREY CARBAJAL ([id number]) 1950 [facility] Time Provider [id number]/12/17 RITIKA INFANTE During your visit today, we recorded the following information about you:Gloria Harvey MA 03/15/2017 9:00 AM SignedPatient phones requesting refills as follows:Pending Prescriptions Disp Refills LISINOPRIL 20 MG TABLET 90 tablet 3 Sig: Take 1 tablet by mouth once daily. SABINA: No PROPRANOLOL 40 MG TABLET 90 tablet 3 Sig: Take 0.5 tablets by mouth twice daily. SABINA: No FLECAINIDE 100 MG TABLET 180 tablet 3 Sig: Take 1 tablet by mouth twice daily. SABINA: No Please review and advise.Brown Madrigal MD 03/15/2017 12:30 PM SignedThe following approved medication requests have been transmitted electronically.Signed Prescriptions Disp Refills lisinopril (ZESTRIL, PRINIVIL) 20 mg tablet 90 tablet 3 Sig: Take 1 tablet by mouth once daily. SABINA: No Authorizing Provider: RITIKA INFANTE propranolol (INDERAL) 40 mg tablet 90 tablet 3 Sig: Take 0.5 tablets by mouth twice daily. SABINA: No Authorizing Provider: RITIKA INFANTE flecainide (TAMBOCOR) 100 mg tablet 180 tablet 3 Sig: Take 1 tablet by mouth twice daily. SABINA: No Authorizing Provider: RITIKA INFANTE MDAllergies As of Date: 03/15/2017 Noted Allergy ReactionNAPROXEN 03/12/2012 5 - Intolerance Comments: Headache, not feeling well with itDate Reviewed: 09/29/2016Reviewed by: Kia Victoria LPN - Fully AssessedReason for Visit: Refill Request [94]Order(s):lisinopri l (ZESTRIL, PRINIVIL) 20 mg tabletTake 1 tablet by mouth once daily.Disp: 90 tabletRfl: 3 propranolol (INDERAL) 40 mg tabletTake 0.5 tablets by mouth twice daily.Disp: 90 tabletRfl: 3 flecainide (TAMBOCOR) 100 mg tabletTake 1 tablet by mouth twice daily.Disp: 180 tabletRfl: 3Prescriptions as of 03/15/2017 Sig: LISINOPRIL 20 MG TABLET Take 1 tablet by mouth once d* PROPRANOLOL 40 MG TABLET Take 0.5 tablets by mouth twi* FLECAINIDE 100 MG TABLET Take 1 tablet by mouth twice * MUPIROCIN 2 % TOPICAL OINTMENT Apply 1 application to affect* NITROGLYCERIN 0.4 MG SUBLINGU* Dissolve 1 tablet under the t* IBUPROFEN 200 MG TABLET as neededProblem List As Of Date 03/15/2017 Noted Resolved 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 PROPRANOLOL 40 MG TABLET 90 t* 3 03/15/2017 Route: ORAL Sig: Take 0.5 tablets by mouth twice daily. FLECAINIDE 100 MG TABLET 180 * 3 03/15/2017 Route: ORAL Sig: Take 1 tablet by mouth twice daily.Medications Discontinued During This Encounter lisinopril (ZESTRIL, PRINIVIL) 20 mg* 90 t* 3 09/05/2016 03/15/2017 Class: [facility] Route: ORAL Sig: Take 1 tablet by mouth once daily. Disc: Reason for discontinue is not on file. propranolol (INDERAL) 40 mg tablet 90 t* 3 09/05/2016 03/15/2017 Class: [facility] Route: ORAL Sig: Take 0.5 tablets by mouth twice daily. Disc: Reason for discontinue is not on file. flecainide (TAMBOCOR) 100 mg tablet 180 * 3 09/05/2016 03/15/2017 Class: [facility] Route: ORAL Sig: Take 1 tablet by mouth twice daily. Disc: Reason for discontinue is not on file. Status:Closed by GLORIA HARVEY MA on 03/15/17 Normal [facility] Encounters Encounter Date Encounter Type Care Provider Facility Start: 09-09-2018 End: 09-10-2018 Patient encounter procedure RITIKA Carmichael [facility] Start: 04-09-2018 End: 04-09-2018 Patient encounter procedure RITIKA Carmichael [facility] Start: 04-09-2018 End: 04-11-2018 Patient encounter procedure RITIKA Carmichael [facility] Summary Purpose Family History No Family History Records FoundNo Family History Records FoundNo Family History Records Found Advance Directives No Advanced Directives Records FoundNo Advanced Directives Records FoundNo Advanced Directives Records Found Additional Source Comments (unrecognized sect ion and content) No Status Records FoundNo Status Records FoundNo Status Records Found INFORMATION SOURCE (unrecogn ized section and content) DATE CREATED AUTHOR 11/27/2017 [facility] DATE CREATED AUTHOR AUTHOR'S ORGANIZ ATION 09/11/2018 [facility] DATE CREATED AUTHOR AUTHOR'S ORGANIZ ATION 03/17/2021 [facility] FOR RECORDS PERTAINING TO PATIENTS WHO ARE OR HAVE BEEN ENROLLED IN A CHEMICAL DEPENDENCY/SUBSTANCEABUSE PROGRAM, SOME INFORMATION MAY BE OMITTED. This clinical summary was aggregated from multiple sources. Caution should be exercised in using it in the provision of clinical care. This summary normalizes information from multiple sources, and as a consequence, information in this document may materially change the coding, format and clinical context of patient data. In addition, data may be omitted in some cases. CLINICAL DECISIONS SHOULD BE BASED ON THE PRIMARY CLINICAL RECORDS. [facility]. provides no warranty or guarantee of the accuracy or completeness of information in this document.
--- NOTE | 2024-03-28 15:27 | STRESSREP ---
Stress Test Report Exercise myocardial perfusion stress test. 74-year-old man with a history of premature ventricular complexes on flecainide Stress protocol: Resting EKG demonstrates normal sinus rhythm with a rate of 62 bpm resting blood pressure is 148/80 mmHg. The patient exercised according to the regular Chadwick protocol for a total duration of 6 minutes attaining a maximum heart rate of 131 bpm which was 88% of maximum predicted heart rate; the maximum workload was 7.3 metabolic equivalents. At rest there were no ST or T wave changes noted to suggest ischemia and at peak exercise upsloping ST changes only were noted which did not meet the criteria for ischemia. No clinical angina was noted the test was terminated due to the target heart rate being achieved/fatigue. The peak blood pressure was 190/72 mmHg. Rate-pressure product was 24,100. Myocardial perfusion protocol. 9.8 mCi of technetium 99m sestamibi was injected at rest. The patient exercised according to regular Chadwick protocol for total duration of 6 minutes and at peak exercise 32.0 mCi of technetium 99m sestamibi was injected stress images were obtained stress and rest images were reconstructed in comparing the short axis vertical long and horizontal long axis. Gated images were also obtained. Perfusion SPECT analysis: Review of the stress images demonstrate normal uptake of tracer noted in all areas of the myocardium. The resting images similarly demonstrate normal uptake of tracer noted in all areas of the myocardium. No areas of reversibility are noted to suggest ischemia no previous infarct was noted. Gated SPECT analysis: The gated ejection fraction is 71%. Conclusion: Normal exercise myocardial perfusion stress test at a moderate workload Preserved ejection fraction.
== END | disposition home or self-care (01) ==
LOC: CVS 07:00
PROVIDERS: PCP Family Medicine; Referring Provider Nurse Practitioner Family; Visit Provider Nurse Practitioner Family
DX: I34.1 Nonrheumatic mitral (valve) prolapse (principal); I49.3 Ventricular premature depolarization; Z51.81 Encounter for therapeutic drug level monitoring; Z79.899 Other long term (current) drug therapy; I10 Essential (primary) hypertension; I45.10 Unspecified right bundle-branch block; R00.2 Palpitations; R07.9 Chest pain, unspecified
CPT/HCPCS: 78452; 93017; 93306; A9500; A4216

== ENCOUNTER → 2024-11-12 | Outpatient (CLI) | payer MEDICARE, OTHER, SELFPAY ==
[2024-11-12 16:17] LABS: Absolute Lymphocyte Count 2.02 X10^3/uL (0.83-4.51); Basophil# 0.04 X10^3/uL; Basophil% 0.5 % (0-1); Eosinophil# 0.19 X10^3/uL; Eosinophils% 2.4 % (0-5); Hematocrit 47.7 % (40-54); Hemoglobin 16.1 g/dL (13.0-16.5); Lymphocyte # 2.02 X10^3/ul (0.83-4.51); Lymphocyte % 25.1 % (19-41); Mean Corp Hgb Conc 33.8 g/dL (32-36); Mean Corpuscular Hgb 29.9 pg (27.0-32.0); Mean Corpuscular Volume 88.5 fL (80-94); Mean Platelet Vol. 11.4 fl (6.2-12.0); Monocyte# 0.76 X10^3/uL; Monocyte% 9.4 % (0-10); NRBC Flagged by Analyzer 0 % (0-5); Neutrophil # 5.03 X10^3/uL (2.7-7.7); Neutrophil % 62.4 % (47-70); Platelet Count 158 K/mm3 (150-450); RBC Distribution Width CV 13.1 % (11.6-14.6); RBC Distribution Width SD 42.5 fl (35.1-43.9); Red Blood Count 5.39 M/mm3 (4.6-6.2); White Blood Count 8.1 K/mm3 (4.4-11.0)
[2024-11-12 17:33] LABS: Anion Gap 11 (5-15); BUN 19 mg/dL (4-19); BUN/Creat Ratio 22.2 RATIO (10-20); Calcium,Total 9.2 mg/dL (7.6-11.0); Carbon Dioxide 23.7 mmol/L (21.0-32.0); Chloride 108 mmol/L (98-108); Creatinine, Serum 0.87 mg/dL (0.70-1.20); EST Glomerular Filtration Rate 92 (>60); Glucose 104 mg/dL (70-99); Magnesium 2.2 mg/dL (1.5-2.2); Potassium 4.4 mmol/L (3.3-5.1); Sodium Level 142 mmol/L (133-145); Thyroid Stim Hormone (TSH) 0.856 uIU/mL (0.300-4.200)
== END | disposition home or self-care (01) ==
LOC: LAB 15:47
PROVIDERS: PCP Family Medicine; Referring Provider Student in an Organized Health Care Education/Training Program; Visit Provider Student in an Organized Health Care Education/Training Program
DX: I48.91 Unspecified atrial fibrillation (principal)
CPT/HCPCS: 36415; 80048; 83735; 84443; 85025

== ENCOUNTER 2024-12-22 10:14 | Day surgery (SDC) | payer MEDICARE, OTHER, SELFPAY ==
--- NOTE | 2024-12-12 10:22 | RAD_ITS ---
EXAM: XR Chest, 2 Views CLINICAL INDICATION: ATRIAL FIBRILLATION, PREPROCEDURAL FOR DCCV TECHNIQUE: Frontal and lateral views of the chest. COMPARISON: No relevant prior studies available. FINDINGS: LUNGS AND PLEURAL SPACES: Unremarkable. No consolidation. No pneumothorax. HEART: Unremarkable. No cardiomegaly. MEDIASTINUM: Unremarkable. Normal mediastinal contour. BONES/JOINTS: Unremarkable. No acute fracture. RAD/Chest PA and Lateral IMPRESSION: No acute cardiopulmonary process. Reading [facility]
[2024-12-12 12:10] LABS: Prothrombin Time (Protime)PT. 16.4 SECONDS (11.7-14.9)
[2024-12-12 13:10] LABS: Anion Gap 9 (5-15); BUN 17 mg/dL (4-19); BUN/Creat Ratio 19.3 RATIO (10-20); Calcium,Total 9.1 mg/dL (7.6-11.0); Carbon Dioxide 26.3 mmol/L (21.0-32.0); Chloride 106 mmol/L (98-108); Glucose 93 mg/dL (70-99); Potassium 4.2 mmol/L (3.3-5.1)
[2024-12-19 08:52] VITALS: BMI 28.0
--- NOTE | 2024-12-22 12:12 | PRO.PCM_ITS ---
Non-invasive Procedural Procedure Information Date of Procedure: 12/22/24 Pre-Procedure Diagnosis: Atrial fibrillation Post-Procedure Diagnosis: Atrial fibrillation Procedure Performed:: DC cardioversion quality control technician: No Procedure Time Out: 12:00 Procedure Start Time: 12:07 Procedure Stop Time: 12:12 Special Medications: Intravenous propofol 50 mg Description of procedure: Patient was brought to cardiac catheterization lab in the postabsorptive nonsedated state. Informed consent was obtained. Patient was seen by Dr. Ruiz of the critical care division. Anterior posterior pads were applied. Informed consent was obtained. The patient was administered 50 mg of intravenous propofol. 200 J of synchronized biphasic DC cardioversion energy were applied with prompt reversal to sinus rhythm. Patient tolerated the procedure well. Follow-up will be as per office protocol. Procedure findings: Successful DC cardioversion from atrial fibrillation to sinus rhythm. Premature ventricular complexes noted. Complications Complications: No
--- NOTE | 2024-12-22 13:03 | PCM.OP.PRO2 ---
Procedures Pulmonary Pulmonary Procedures /Diagnostic Testin Con Sedation Non-invasive Procedural Procedure Information Date of Procedure: 12/22/24 Description of procedure: CONSCIOUS SEDATION REPORT DATE OF SERVICE: December 22, 2024 BRIEF HISTORY OF PRESENT ILLNESS: The patient is a 74-year-old male who presented to [facility] to undergo an elective outpatient cardioversion due to underlying atrial fibrillation. The patient denied any prior anesthetic complications. He is systemically anticoagulated on Eliquis. His last surface echocardiogram demonstrated an ejection fraction of approximately 65%. He has never been diagnosed with obstructive sleep apnea. PHYSICAL EXAMINATION: VITAL SIGNS: Reviewed and were acceptable. GENERAL: The patient is a male, in no apparent distress, speaking in full sentences. HEENT: Normocephalic, atraumatic. Mucous membranes are moist and pink. Good mouth opening noted. Trachea is midline. MPII CHEST: S1, S2 irregularly irregular. No murmurs, rubs or gallops were noted. LUNGS: Clear to auscultation bilaterally without appreciable wheezes, rales or rhonchi. ABDOMEN: Soft, nontender, nondistended. Positive bowel sounds. EXTREMITIES: There is no clubbing, cyanosis or edema. ASA Class: II DESCRIPTION OF PROCEDURE: After confirmation of informed consent, the patient's anesthesia plan was reviewed in detail. Propofol was chosen. Risks and benefits were reviewed and the patient agreed to proceed. At 1208, the patient was given 50 mg of propofol. The patient achieved an appropriate level of sedation and was given a 200 joule synchronized cardioversion by Dr. Lauren at the bedside. This was successful in achieving normal sinus rhythm. The patient was monitored until 1222, at which time he reached his baseline mental status and function. The patient tolerated the procedure well. COMPLICATIONS: None ESTIMATED BLOOD LOSS: None RECOMMENDATIONS: Okay to recover in usual fashion.
== END 2024-12-22 13:20 | disposition home or self-care (01) ==
PROVIDERS: Student in an Organized Health Care Education/Training Program; PCP Family Medicine; Referring Provider Internal Medicine Cardiovascular Disease; Visit Provider Internal Medicine Cardiovascular Disease
DX: I48.91 Unspecified atrial fibrillation (principal); I49.3 Ventricular premature depolarization; I10 Essential (primary) hypertension; I34.1 Nonrheumatic mitral (valve) prolapse; F41.9 Anxiety disorder, unspecified; Z79.01 Long term (current) use of anticoagulants; Z79.899 Other long term (current) drug therapy
CPT/HCPCS: 36415; 71046; 80048; 85610; 92960; 93005

== ENCOUNTER → 2025-01-02 | Outpatient (CLI) | payer MEDICARE, OTHER, SELFPAY ==
[2025-01-02 11:27] LABS: Hematocrit 49.2 % (40-54); Hemoglobin 16.1 g/dL (13.0-16.5); Immature Granulocytes Count 0.040 X10^3/uL (0.0-0.0); Mean Corp Hgb Conc 32.7 g/dL (32-36); Mean Corpuscular Volume 92.7 fL (80-94); Mean Platelet Vol. 12.0 fl (6.2-12.0); NRBC Flagged by Analyzer 0 % (0-5); Platelet Count 136 K/mm3 (150-450); RBC Distribution Width CV 13.9 % (11.6-14.6); RBC Distribution Width SD 46.8 fl (35.1-43.9); Red Blood Count 5.31 M/mm3 (4.6-6.2); White Blood Count 8.7 K/mm3 (4.4-11.0)
[2025-01-02 12:37] LABS: Anion Gap 8 (5-15); BUN 22 mg/dL (4-19); BUN/Creat Ratio 22.4 RATIO (10-20); Calcium,Total 9.3 mg/dL (7.6-11.0); Carbon Dioxide 26.9 mmol/L (21.0-32.0); Chloride 105 mmol/L (98-108); Glucose 120 mg/dL (70-99); Magnesium 2.2 mg/dL (1.5-2.2); Potassium 5.0 mmol/L (3.3-5.1); Pro- Brain NATRIURETIC PEPTIDE 2709 pg/mL (<=900)
--- OUTSIDE RECORDS SUMMARY | 2025-01-02 17:53 | XMS RPT_ITS | CCD ---
Author Organization [facility] Care Team Providers Care Plant Care Worker Name Role Phone RITIKA VELÁSQUEZ Attending Unavailable CHRISTEN, RITIKA E Referring Unavailable CHRISTEN, RITIKA E Referring Unavailable CHRISTEN, RITIKA E Referring Unavailable CHRISTENRITIKA SUMMERS E Attending Unavailable RITIKA VELÁSQUEZ E Referring Unavailable Dr. Sami Gonzalez Primary Care Provider Dr. Sami Gonzalez Referring Provider Dr. Nathanael Lauren Attending Provider Dr. Nathanael Lauren Referring Provider Dr. Nathanael Lauren Other Provider Dr. Sami Gonzalez Referring Provider Dr. Nathanael Lauren Attending Provider Dr. Devon Vega Primary Care Provider Dr. Devon Vega DO Primary Care Provider Dr. Devon Vega DO Referring Provider Shantal Olivas Attending Provider [phone] Guillaume Ruby Attending Provider [phone] Guillaume Ruby Referring Provider [phone] Dr. Nathanael Lauren MD Attending Provider [phone] Dr. Nathanael Lauren MD Referring Provider [phone] Guillaume Ruby Other Provider Dr. Nathanael Lauren MD Other Provider Dr. lFo Ruiz DO Attending Provider Devon Vega Primary Care Unavailable Devon Vega Referring Unavailable Shantal Perrin NP Attending Unavailable Gary, Devon Primary Care Unavailable Leonidas, Nathanael Referring Unavailable Leonidas, Nathanael Attending Unavailable Roof YEAST CAKE CUTTER, Rob H Attending Unavailable Gary, Devon Primary Care Unavailable Roof YEAST CAKE CUTTER, Rob H Referring Unavailable Roof YEAST CAKE CUTTER, Rob H Attending Unavailable Gary, Devon Primary Care Unavailable Roof YEAST CAKE CUTTER, Rob H Referring Unavailable Gary, Devon Primary Care Unavailable Demiter, Guillaume Referring Unavailable Demiter, Guillaume Attending Unavailable Gary, Devon Primary Care Unavailable Leonidas, Nathanael Attending Unavailable Demiter, Guillaume Consulting Unavailable Leonidas, [place] Referring Unavailable Gary, Devon Primary Care Unavailable Leonidas, [place] Attending Unavailable Gary, Devon Primary Care Unavailable Leonidas, [place] Referring Unavailable Flo Ruiz Attending Unavailable Demiter, Guillaume Consulting Unavailable Leonidas, Nathanael Consulting Unavailable Gary, Devon Primary Care Unavailable Leonidas, [place] Referring Unavailable Leonidas, Nathanael Attending Unavailable Demiter, Guillaume Consulting Unavailable Leonidas, [place] Consulting Unavailable Gary, Devon Primary Care Unavailable Gary, Devon Referring Unavailable Demiter, Guillaume Attending Unavailable Gary, Devon Primary Care Unavailable Gary, Devon Referring Unavailable Demiter, Guillaume Attending Unavailable Gary, Devon Primary Care Unavailable Gary, Devon Referring Unavailable Leonidas, Nathanael Attending Unavailable Roof YEAST CAKE CUTTER, Rob H Attending Unavailable Gary, Devon Referring Unavailable Gary, Devon Primary Care Unavailable Amanda YBRNE, Tiffanie Arboleda Attending Provider Allergies Allergy Classification Reported Allergen(s) Allergy Type Date of Onset Reaction(s) Facility (11 sources) Naproxen; Translations: [NAPROXEN] Drug Allergy 03-12-2012 unknown [facility] Medications Current Medications Medication Drug Class(es) Dates Sig (Normalized) Sig (Original) citalopram 10 mg oral tablet (6 sources) Serotonin Reuptake Inhibitor Start: 09-19-2024 take 1 tablet by mouth once daily Citalopram 10 mg tablet Active 10 mg PO daily September 19, 2024 12:00am furosemide 40 mg oral tablet (1 source) Loop Diuretic Start: 01-02-2025 take 1 tablet by mouth once daily in the morning Furosemide (Lasix) 40 mg tablet Active 40 mg PO EVERY MORNING 10 January 02, 2025 12:00am lisinopril 20 mg oral tablet (20 sources) Angiotensin Converting Enzyme Inhibitor Start: 12-12-2024 End: 12-12-2024 take 1 tablet by mouth once daily Lisinopril 20 mg tablet Active 20 mg PO daily 180 0 December 12, 2024 9:44am Start: 09-22-2024 End: 12-12-2024 take 1 tablet by mouth twice daily Lisinopril 20 mg tablet Discontinued 20 mg PO TWICE A DAY 180 3 September 22, 2024 9:55am December 12, 2024 9:19am Start: 03-31-2024 End: 09-22-2024 take 2 tablets by mouth once daily Lisinopril 20 mg tablet Discontinued 40 mg PO DAILY 90 March 31, 2024 11:06am September 22, 2024 9:56am Start: 09-05-2021 End: 03-31-2024 take 1 tablet by mouth once daily Lisinopril 20 mg tablet Discontinued 20 mg PO DAILY 90 October 30, 2023 10:41am March 31, 2024 11:06am rivaroxaban 20 mg oral tablet (1 source) Factor Xa Inhibitor Start: 12-30-2024 take 1 tablet by mouth once daily at dinner Rivaroxaban (Xarelto) 20 mg tablet Active 20 mg PO daily 90 3 December 30, 2024 12:00am must administer with evening meal Completed/Discontinued Medications Medication Drug Class(es) Dates Sig (Normalized) Sig (Original) apixaban 5 mg oral tablet (11 sources) Factor Xa Inhibitor Start: 11-12-2024 End: 12-30-2024 take 1 tablet by mouth twice daily Apixaban (Eliquis) 5 mg tablet Discontinued 5 mg PO TWICE A DAY 180 3 November 14, 2024 4:28pm December 30, 2024 11:08am Faxing to [facility] Reference ID: [id number] Patient phone: [phone] aspirin 81 mg delayed release oral tablet (6 sources) Platelet Aggregation Inhibitor, Nonsteroidal Anti-inflammatory Drug Start: 11-11-2024 End: 11-12-2024 take 1 tablet by mouth once daily Aspirin (Adult Aspirin Regimen) 81 mg tablet,delayed release (DR/EC) Discontinued 81 mg PO daily November 11, 2024 12:00am November 12, 2024 3:51pm flecainide acetate 100 mg oral tablet (20 sources) Antiarrhythmic Start: 08-11-2021 End: 01-02-2025 take 1 tablet by mouth every twelve hours Flecainide 100 mg tablet Discontinued 100 mg PO Q12H 180 September 22, 2024 9:56am January 02, 2025 10:13am omeprazole 40 mg delayed release oral capsule (9 sources) Proton Pump Inhibitor Start: 08-11-2021 End: 08-12-2021 take 1 capsule by mouth once daily Omeprazole 40 mg capsule,delayed release(DR/EC) Discontinued 40 mg PO DAILY August 11, 2021 1:00am August 12, 2021 12:15pm propranolol hydrochloride 10 mg oral tablet (20 sources) beta-Adrenergic Bhupendra Start: 12-12-2024 End: 12-12-2024 take 1 tablet by mouth once daily in the evening Propranolol 10 mg tablet Discontinued 10 mg PO EVERY EVENING December 12, 2024 9:18am December 12, 2024 9:46am Start: 09-19-2024 End: 11-12-2024 take 1 tablet by mouth at bedtime Propranolol 10 mg tablet Discontinued 10 mg PO AT BEDTIME 30 September 19, 2024 9:29am November 12, 2024 3:51pm Start: 09-19-2024 End: 01-02-2025 take 1 tablet by mouth twice daily Propranolol 10 mg tablet Discontinued 10 mg PO TWICE A DAY December 12, 2024 9:45am January 02, 2025 10:13am Start: 10-30-2023 End: 09-19-2024 take 1 tablet by mouth at bedtime Propranolol 20 mg tablet Discontinued 20 mg PO AT BEDTIME 90 October 30, 2023 10:41am September 19, 2024 9:32am Start: 09-05-2021 End: 10-30-2023 Propranolol 40 mg tablet Discontinued 20 mg PO AT BEDTIME 90 September 16, 2021 1:20pm January 04, 2023 9:06am Start: 09-05-2021 End: 01-04-2023 take 20 mg by mouth at bedtime Propranolol Active 20 M G PO AT BEDTIME January 04, 2023 9:05am Start: 08-12-2021 End: 09-05-2021 Propranolol 40 mg tablet Discontinued 20 mg PO TWICE A DAY August 12, 2021 12:15pm September 05, 2021 6:02pm Start: 08-12-2021 End: 09-05-2021 take 20 mg by mouth twice daily Propranolol Discontinu ed 20 MG PO TWICE A DAY August 12, 2021 12:15pm September 05, 2021 6:02pm Start: 08-11-2021 End: 08-12-2021 take 1 tablet by mouth once daily Propranolol 40 mg tablet Discontinued 40 mg PO DAILY August 11, 2021 1:00am August 12, 2021 12:15pm Problems Problem Classification Problem Date Documented Da te Episodic/Chronic Cardiac dysrhythmias (20 sources) Multiple premature ventricular complexes; Translations: [Ventricular premature depolarization] Onset: 12-22-2024 Chronic Cardiac dysrhythmias (11 sources) Palpitations; Translations: [Intermittent palpitations] Onset: 04-09-2018 08-11-2021 Episodic Conduction disorders (10 sources) Incomplete right bundle branch block; Translations: [Unspecified right bundle-branch block] Onset: 12-29-2024 08-11-2021 Chronic Essential hypertension (20 sources) Essential hypertension; Translations: [Essential (primary) hypertension] Onset: 03-17-2024 Chronic Heart valve disorders (20 sources) Nonrheumatic mitral (valve) insufficiency; Translations: [Mitral valve prolapse] Onset: 04-09-2018 Chronic Other aftercare (3 sources) Patient encounter status; Translations: [Encounter for therapeutic drug level monitoring] 08-11-2021 Episodic Other aftercare (3 sources) Encounter for therapeutic drug level monitoring; Translations: [Encounter for therapeutic drug monitoring] Onset: 12-29-2024 Episodic Other aftercare (13 sources) Long-term current use of drug therapy; Translations: [Encounter for therapeutic drug level monitoring] 08-11-2021 Episodic Other aftercare (1 source) Other roasterman (current) drug therapy; Translations: [Other chcf (current) drug therapy] Onset: 12-29-2024 Episodic Results Test Name Value Interpretation Reference Range Facility Procedure Reporton Procedure Report [facility] Medical Records Department [facility] [place] [address] [place] [address] Procedure Report 12/22/24 1303 MR#: [id number] Acct: [id number] Name: TOREY CARBAJAL Rep #: [id number] : 1950 74 From: Flo Ruiz DO PCP: Dr. Devon Vega DO Status:REG [facility] Location: [facility] Procedures Pulmonary Pulmonary Procedures /Diagnostic Testin Con Sedation Non-invasive Procedural Procedure Information Date of Procedure: 12/22/24 Description of procedure: CONSCIOUS SEDATION REPORT DATE OF SERVICE: December 22, 2024 BRIEF HISTORY OF PRESENT ILLNESS: The patient is a 74-year-old male who presented to [facility] to undergo an elective outpatient cardioversion due to underlying atrial fibrillation. The patient denied any prior anesthetic complications. He is systemically anticoagulated on Eliquis. His last surface echocardiogram demonstrated an ejection fraction of approximately 65%. He has never been diagnosed with obstructive sleep apnea. PHYSICAL EXAMINATION: VITAL SIGNS: Reviewed and were acceptable. GENERAL: The patient is a male, in no apparent distress, speaking in full sentences. HEENT: Normocephalic, atraumatic. Mucous membranes are moist and pink. Good mouth opening noted. Trachea is midline. MPII CHEST: S1, S2 irregularly irregular. No murmurs, rubs or gallops were noted. LUNGS: Clear to auscultation bilaterally without appreciable wheezes, rales or rhonchi. ABDOMEN: Soft, nontender, nondistended. Positive bowel sounds. EXTREMITIES: There is no clubbing, cyanosis or edema. ASA Class: II DESCRIPTION OF PROCEDURE: After confirmation of informed consent, the patient's anesthesia plan was reviewed in detail. Propofol was chosen. Risks and benefits were reviewed and the patient agreed to proceed. At 1208, the patient was given 50 mg of propofol. The patient achieved an appropriate level of sedation and was given a 200 joule synchronized cardioversion by Dr. Lauren at the bedside. This was successful in achieving normal sinus rhythm. The patient was monitored until 1222, at which time he reached his baseline mental status and function. The patient tolerated the procedure well. COMPLICATIONS: None ESTIMATED BLOOD LOSS: None RECOMMENDATIONS: Okay to recover in usual fashion. 12/22/24 1305 Cosigner Signature (if applicable): CC: Dr. Nathanael Lauren MD; Dr. Flo Ruiz DO; Dr. Devon Vega DO Signed Normal [facility] Procedure Report [facility] Medical Records Department [address] [place] [address] Procedure Report 12/22/24 1212 MR#: [id number] Acct: [id number] Name: TOREY CARBAJAL Rep #: [id number] : 1950 74 From: Nathanael Lauren MD PCP: Dr. Devon Vega DO Status:REG [facility] Location: [facility] Non-invasive Procedural Procedure Information Date of Procedure: 12/22/24 Pre-Procedure Diagnosis: Atrial fibrillation Post-Procedure Diagnosis: Atrial fibrillation Procedure Performed:: DC cardioversion computer education teacher: No Procedure Time Out: 12:00 Procedure Start Time: 12:07 Procedure Stop Time: 12:12 Special Medications: Intravenous propofol 50 mg Description of procedure: Patient was brought to cardiac catheterization lab in the postabsorptive nonsedated state. Informed consent was obtained. Patient was seen by Dr. Ruiz of the critical care division. Anterior posterior pads were applied. Informed consent was obtained. The patient was administered 50 mg of intravenous propofol. 200 J of synchronized biphasic DC cardioversion energy were applied with prompt reversal to sinus rhythm. Patient tolerated the procedure well. Follow-up will be as per office protocol. Procedure findings: Successful DC cardioversion from atrial fibrillation to sinus rhythm. Premature ventricular complexes noted. Complications Complications: No 12/22/24 1214 Cosigner Signature (if applicable): CC: Dr. Nathanael Lauren MD; Dr. Devon Vega DO Signed Normal [facility] Anion gap in Serum or Plasma Ordered By: Guillaume Singh on 12-12-2024 Anion gap [Moles/Vol] 9 mmol/L - [facility] BUN/creatinine ratioOrdered By: Guillaume Singh on 12-12-2024 Urea nitrogen/Creatinine [Mass ratio] 19.3 mg/mg - [facility] Basic Metabolic Profile (BMP )on 12-12-2024 BUN/CRE 19.3 RATIO Normal - [facility] Comment on above: Performed By: #### L 500.2500, L300.3900 #### [facility] [address] [place], [address] Calcium [Mass/Vol] 9.1 mg/dL Normal 7.6-11.0 [facility] Comment on above: Performed By: #### L 500.2500, L300.3900 #### [facility] [address] [place], [address] Chloride [Moles/Vol] 106 mmol/L Normal 98-108 [facility] Comment on above: Performed By: #### L 500.2500, L300.3900 #### [facility] [address] [place], [address] CO2 [Moles/Vol] 26.3 mmol/L Normal 21.0-32.0 [facility] Comment on above: Performed By: #### L 500.2500, L300.3900 #### [facility] [address] [place], [address] Creatinine [Mass/Vol] 0.88 mg/dL Normal 0.70-1.20 [facility] Comment on above: Performed By: #### L 500.2500, L300.3900 #### [facility] [address] [place], [address] GAP 9 Normal 5-15 [facility] Comment on above: Performed By: #### L 500.2500, L300.3900 #### [facility] [address] [place], [address] GFR/1.73 sq M.predicted among non-blacks MDRD (S/P/Bld) [Vol rate/Area] 91 mL/min/{1.73_m2} Normal >60 [facility] Comment on above: Result Comment: mL/m in/1.73m2 CKD-EPI Creatinine Equation (2020) Performed By: #### L 500.2500, L300.3900 #### [facility] [address] [place], [address] Glucose [Mass/Vol] 93 mg/dL Normal 70-99 [facility] Comment on above: Performed By: #### L 500.2500, L300.3900 #### [facility] [address] [place], [address] Potassium [Moles/Vol] 4.2 mmol/L Normal 3.3-5.1 [facility] Comment on above: Performed By: #### L 500.2500, L300.3900 #### [facility] [address] [place], [address] Sodium [Moles/Vol] 141 mmol/L Normal 133-145 [facility] Comment on above: Performed By: #### L 500.2500, L300.3900 #### [facility] [address] [place], [address] Urea nitrogen [Mass/Vol] 17 mg/dL Normal 4-19 [facility] Comment on above: Performed By: #### L 500.2500, L300.3900 #### [facility] [address] [place], [address] Carbon dioxide, total [Moles /volume] in Central venous bloodOrdered By: Guillaume Singh on 12-12-2024 CO2 [Moles/Vol] 26.3 mmol/L 21.0-32.0 [facility] Cardiology Visit Reporton Cardiology Visit Report [facility] [address] [place] [address] OFFICE VISIT Date of Service: 12/12/24 MR#: [id number] Acct: [id number] Name: TOREY CARBAJAL Rep #: [id number] : 1950 Provider: CATY Manuel Age/Sex: 74/M [place] [facility] [place]: Signed HPI HPI History of Present Illness Details: Torey Carbajal is a 74-year-old male who presents to office today with acute concerns of palpitations and irregular heart rhythm that began on 11/07/2024. Patient called our office 11/11/2024 with concerns of elevated heart rate at 120 and a blood pressure 100/60 with associated dizziness and chest pain. Family member checked him out and had concerns of atrial fibrillation. His chest pain resolved; however, he continued to experience constant fluttering. Patient was seen here approximately 2 months ago and was instructed to decrease his propranolol; however, he had discontinued it altogether approximately 1 week ago. Patient does have a history of PVCs which was treated with flecainide and beta-bhupendra in the past and a history of mitral valve prolapse. Upon presentation today, patient reports he still notices palpitations. He reports he feels his heart is racing at most times. He notices this most at rest, specifically with lying down. A month ago, he was experiencing chest pain but reports this has mostly resolved. He continues to notice very mild pressure with no direct correlation, nothing makes this occur, worse, or better. He was riding his bike yesterday and denies any anginal or anginal equivalent symptoms at that time. He notices occasional dizziness, lightheadedness and hot flashes. Further ROS below. Intake Vital Signs 11/12/24 06:48 12/12/24 09:16 Height 6 ft 6 ft Weight: 207 lb 207 lb BMI 28.0 28.0 BP 136/93 H 127/88 H Blood Pressure Location Lt brachial Lt brachial Position Sitting Sitting Respiration 18 18 Pulse 113 H 77 Pulse Source Monitor Monitor Pulse Oximetry (%) 96 95 Oxygen Delivery Method room air Intake Visit Reasons: 4 WK FU Diamond Die Maker Required: No Accompanied by: Self Is patient in pain?: No Allergies naproxen Adverse Reaction (Verified 12/12/24 09:16) unknown Medications ???Medication ???Instructions ???Recorded ???Confirmed ???Type citalopram 10 mg tablet 10 mg PO QDAY 09/19/24 12/12/24 Hi story flecainide 100 mg tablet 100 mg PO Q12H #180 tabs 09/22/24 12/12/24 Rx apixaban 5 mg tablet (Eliquis) 5 mg PO BID [facility]ing [facility] 12/12/24 Rx [facility] tabs lisinopril 20 mg tablet 20 mg PO QDAY #180 tabs 12/12/24 Rx propranolol 10 mg tablet 10 mg PO BID 12/12/24 12/12/24 His tory Have you fallen in the past year?: No PFSH Medical History Multiple premature ventricular complexes Nonrheumatic mitral (valve) prolapse Renal stone Anxiety Incomplete right bundle branch block Essential hypertension Social History Smoking Status: Never smoker alcohol intake: current alcohol intake frequency: a few times a week substance use type: does not use caffeine: Yes Type: coffee Number of servings: 1 ROS Const Const: Negative for fatigue or weakness Eyes Eyes: Negative for blurry vision or change in vision ENT ENT: Positive for dizziness (occasional); Negative for balance problems Cardio Chest Pain: Yes Palpitations: Yes Edema: None Muscle aches with walking: None Resp Respiratory: Negative for SOB with activity, SOB at rest or SOB orthopnea SOB lying down GI GI: Negative nausea, vomiting or heartburn : Negative for hematuria Musc Musc: Negative for muscle weakness or balance problems Neuro Neuro: Positive for dizziness (occasional); Negative for lightheadedness, near syncope, syncope, weakness or blurry vision Endo Endo: Negative for fatigue Cardiology Exam Const Appearance: cooperative, comfortable, no acute distress and well developed; Negative diaphoretic or ill appearing Nutritional Appearance: average body habitus Orientation: alert and oriented x3 Ambulating without assistive device Head Head: normal to inspection, normocephalic and atraumatic Ears: hearing grossly normal bilaterally Nose: external nose normal and Negative epistaxis Face and Sinus: face symmetric Eyes General: appearance normal, both eyes and all related structures Eyelids: eyelids normal Conjunctivae: conjunctivae normal; Negative scleral icterus EOM: EOM intact bilaterally Neck Neck: no JVD Carotids: normal carotid upstroke; Negative bruit Neck Mass: Negative Neck mass Chest Chest inspection: normal respiratory effort; Negative respiratory distress, audible wheezes or tachypneic Au (more content not included)... Normal [facility] Chest PA and Lateralon 12-12 Chest PA and Lateral [facility] [address] [place] [address] Chest PA and Lateral MR#: [id number] Acct: [id number] Name: TOREY CARBAJAL Rep #: [id number] : 1950 M 74 From: [place] MD PCP: Dr. Devon Vega DO Status: PRE SDC Study: Chest PA and Lateral Date of Exam: 12/12/24 Exam# [id number] Ordering Dr: Guillaume Singh EXAM: XR Chest, 2 Views CLINICAL INDICATION: ATRIAL FIBRILLATION, PREPROCEDURAL FOR DCCV TECHNIQUE: Frontal and lateral views of the chest. COMPARISON: No relevant prior studies available. FINDINGS: LUNGS AND PLEURAL SPACES: Unremarkable. No consolidation. No pneumothorax. HEART: Unremarkable. No cardiomegaly. MEDIASTINUM: Unremarkable. Normal mediastinal contour. BONES/JOINTS: Unremarkable. No acute fracture. RAD/Chest PA and Lateral IMPRESSION: No acute cardiopulmonary process. Reading Location: [facility] CC: Dr. Devon Vega DO; CATY Manuel Dental Technician Apprentice: Signed Normal [facility] Chloride assayOrdered By: Susanne Singh on 12-12-2024 Chloride [Moles/Vol] 106 mmol/L 98-108 [facility] Glomerular filtration rate ( GFR) estimation/1.73 sq m using serum, plasma, or whole bOrdered By: Guillaume Singh on 12-12-2024 GFR/1.73 sq M.predicted among non-blacks MDRD (S/P/Bld) [Vol rate/Area] 91 mL/min/{1.73_m2} >60 [facility] Comment on above: mL/min/1.73m2 CKD-EP I Creatinine Equation (2020) International normalized rat io (INR) calculationOrdered By: Guillaume Singh on 12-12-2024 INR Coag (Bld) [Relative time] 1.3 {INR} [facility] Potassium measurement (mass/ volume)Ordered By: Guillaume Singh on 12-12-2024 Potassium (Unsp spec) [Mass/Vol] 4.2 mmol/L 3.3-5.1 [facility] Prothrombin Time w/INRon INR Coag (PPP) [Relative time] 1.3 {INR} Normal [facility] Comment on above: Performed By: #### L 500.2500, L300.3900 #### [facility] [address] [place], [address] PT Coag (PPP) [Time] 16.4 s High 11.7-14.9 [facility] Comment on above: Performed By: #### L 500.2500, L300.3900 #### [facility] [address] [place], [place], [address] Prothrombin timeOrdered By: Guillaume Singh on 12-12-2024 PT Coag (PPP) [Time] 16.4 s High 11.7-14.9 [facility] Serum creatinine measurement (mass/volume)Ordered By: Guillaume Singh on 12-12-2024 Creatinine [Mass/Vol] 0.88 mg/dL 0.70-1.20 [facility] Serum glucose measurement (m ass/volume)Ordered By: Guillaume Singh on 12-12-2024 Glucose [Mass/Vol] 93 mg/dL 70-99 [facility] Serum or plasma calcium jaime urement (mass/volume)Ordered By: Guillaume Singh on 12-12-2024 Calcium [Mass/Vol] 9.1 mg/dL 7.6-11.0 [facility] Serum or plasma urea nitroge n measurement (mass/volume)Ordered By: Guillaume Singh on 12-12-2024 Urea nitrogen [Mass/Vol] 17 mg/dL 4-19 [facility] Sodium levelOrdered By: Catarina Singh on 12-12-2024 Sodium [Moles/Vol] 141 mmol/L 133-145 [facility] Absolute lymphocyte countOrd ered By: Guillaume Singh on 11-12-2024 Lymphocytes Auto (Unsp spec) [#/Vol] 2.02 10*3/uL 0.83-4.51 [facility] Absolute neutrophil countOrd ered By: Guillaume Singh on 11-12-2024 Neutrophils (Bld) [#/Vol] 5.0 10*3/uL 2.0-7.7 [facility] Anion gap in Serum or Plasma Ordered By: Guillaume Singh on 11-12-2024 Anion gap [Moles/Vol] 11 mmol/L 5-15 [facility] Automated lymphocyte count a s percentage of total leukocytesOrdered By: Guillaume Singh on 11-12-2024 Lymphocytes/100 WBC Auto (Unsp spec) 25.1 % 19-41 [facility] BUN/creatinine ratioOrdered By: Guillaume Singh on 11-12-2024 Urea nitrogen/Creatinine [Mass ratio] 22.2 mg/mg High 10-20 [facility] Basic Metabolic Profile (BMP )on 11-12-2024 BUN/CRE 22.2 RATIO High - [facility] Comment on above: Performed By: #### L 100.0100, L501.5200, L500.2500, L501.9520 #### [facility] [address] [place], [address] Calcium [Mass/Vol] 9.2 mg/dL Normal 7.6-11.0 [facility] Comment on above: Performed By: #### L 100.0100, L501.5200, L500.2500, L501.9520 #### [facility] [address] [place], [address] Chloride [Moles/Vol] 108 mmol/L Normal 98-108 [facility] Comment on above: Performed By: #### L 100.0100, L501.5200, L500.2500, L501.9520 #### [facility] [address] [place], [address] CO2 [Moles/Vol] 23.7 mmol/L Normal 21.0-32.0 [facility] Comment on above: Performed By: #### L 100.0100, L501.5200, L500.2500, L501.9520 #### [facility] [address] [place], [address] Creatinine [Mass/Vol] 0.87 mg/dL Normal 0.70-1.20 [facility] Comment on above: Performed By: #### L 100.0100, L501.5200, L500.2500, L501.9520 #### [facility] [address] [place], [address] GAP 11 Normal 5-15 [facility] Comment on above: Performed By: #### L 100.0100, L501.5200, L500.2500, L501.9520 #### [facility] [address] [place], [address] GFR/1.73 sq M.predicted among non-blacks MDRD (S/P/Bld) [Vol rate/Area] 92 mL/min/{1.73_m2} Normal >60 [facility] Comment on above: Result Comment: mL/m in/1.73m2 CKD-EPI Creatinine Equation (2020) Performed By: #### L 100.0100, L501.5200, L500.2500, L501.9520 #### [facility] [address] [place], [address] Glucose [Mass/Vol] 104 mg/dL High 70-99 [facility] Comment on above: Performed By: #### L 100.0100, L501.5200, L500.2500, L501.9520 #### [facility] [address] [place], [address] Potassium [Moles/Vol] 4.4 mmol/L Normal 3.3-5.1 [facility] Comment on above: Performed By: #### L 100.0100, L501.5200, L500.2500, L501.9520 #### [facility] [address] [place], [address] Sodium [Moles/Vol] 142 mmol/L Normal 133-145 [facility] Comment on above: Performed By: #### L 100.0100, L501.5200, L500.2500, L501.9520 #### [facility] [address] [place], [address] Urea nitrogen [Mass/Vol] 19 mg/dL Normal 4-19 [facility] Comment on above: Performed By: #### L 100.0100, L501.5200, L500.2500, L501.9520 #### [facility] [address] [place], [address] Basophil percentageOrdered B y: Guillaume Adameiter on 11-12-2024 Basophils/100 WBC (Bld) 0.5 % 0-1 [facility] [place] CBC W/Diff, Automatedon 11-02 Absolute Lymph 2.02 X10 3/uL Normal 0.83-4.51 [facility] Comment on above: Performed By: #### L 100.0100, L501.5200, L500.2500, L501.9520 #### [facility] [address] [place], [address] Absolute Neut 5.0 X10 3/uL Normal 2.0-7.7 [facility] Comment on above: Performed By: #### L 100.0100, L501.5200, L500.2500, L501.9520 #### [facility] [address] [place], [address] Basophils/100 WBC (Bld) 0.5 % Normal 0-1 [facility] Comment on above: Performed By: #### L 100.0100, L501.5200, L500.2500, L501.9520 #### [facility] [address] [place], [address] Eosinophils/100 WBC (Bld) 2.4 % Normal 0-5 [facility] Comment on above: Performed By: #### L 100.0100, L501.5200, L500.2500, L501.9520 #### [facility] [address] [place], [address] Erythrocyte distribution width (RBC) [Ratio] 13.1 % Normal 11.6-14.6 [facility] Comment on above: Performed By: #### L 100.0100, L501.5200, L500.2500, L501.9520 #### [facility] [address] [place], [address] Hematocrit (Bld) [Volume fraction] 47.7 % Normal 40-54 [facility] Comment on above: Performed By: #### L 100.0100, L501.5200, L500.2500, L501.9520 #### [facility] [address] [place], [address] Hemoglobin (Bld) [Mass/Vol] 16.1 g/dL Normal 13.0-16.5 [facility] Comment on above: Performed By: #### L 100.0100, L501.5200, L500.2500, L501.9520 #### [facility] [address] [place], [address] IG% 0.200 Normal 0.0-0.9 [facility] Comment on above: Result Comment: IG% - Immature Granulocytes (promyelocytes, myelocytes and metamyelocytes) > 1% indicates that a LEFT SHIFT is Present. Performed By: #### L 100.0100, L501.5200, L500.2500, L501.9520 #### [facility] [address] [place], [address] Lymphocytes/100 WBC (Bld) 25.1 % Normal 19-41 [facility] Comment on above: Performed By: #### L 100.0100, L501.5200, L500.2500, L501.9520 #### [facility] [address] [place], [address] MCH (RBC) [Entitic mass] 29.9 pg Normal 27.0-32.0 [facility] Comment on above: Performed By: #### L 100.0100, L501.5200, L500.2500, L501.9520 #### [facility] [address] [place], [address] MCHC (RBC) [Mass/Vol] 33.8 g/dL Normal 32-36 [facility] Comment on above: Performed By: #### L 100.0100, L501.5200, L500.2500, L501.9520 #### [facility] [address] [place], [address] MCV (RBC) [Entitic vol] 88.5 fL Normal 80-94 [facility] Comment on above: Performed By: #### L 100.0100, L501.5200, L500.2500, L501.9520 #### [facility] [address] [place], [address] Monocytes/100 WBC (Bld) 9.4 % Normal 0-10 [facility] Comment on above: Performed By: #### L 100.0100, L501.5200, L500.2500, L501.9520 #### [facility] [address] [place], [address] Neutrophils/100 WBC (Bld) 62.4 % Normal 47-70 [facility] Comment on above: Performed By: #### L 100.0100, L501.5200, L500.2500, L501.9520 #### [facility] [address] [place], [address] Nucleated RBC (Bld) [#/Vol] 0 10*3/uL Normal 0-5 [facility] Comment on above: Performed By: #### L 100.0100, L501.5200, L500.2500, L501.9520 #### [facility] [address] [place], [address] Platelet mean volume (Bld) [Entitic vol] 11.4 fL Normal 6.2-12.0 [facility] Comment on above: Performed By: #### L 100.0100, L501.5200, L500.2500, L501.9520 #### [facility] [address] [place], [address] Platelets (Bld) [#/Vol] 158 10*3/uL Normal 150-450 [facility] Comment on above: Performed By: #### L 100.0100, L501.5200, L500.2500, L501.9520 #### [facility] [address] [place], [address] RBC (Bld) [#/Vol] 5.39 10*6/uL Normal 4.6-6.2 [facility] Comment on above: Performed By: #### L 100.0100, L501.5200, L500.2500, L501.9520 #### [facility] [address] [place], [address] RDW SD 42.5 fl Normal 35.1-43.9 [facility] Comment on above: Performed By: #### L 100.0100, L501.5200, L500.2500, L501.9520 #### [facility] [address] [place], [address] WBC (Bld) [#/Vol] 8.1 10*3/uL Normal 4.4-11.0 [facility] Comment on above: Performed By: #### L 100.0100, L501.5200, L500.2500, L501.9520 #### [facility] [address] [place], [address] Carbon dioxide, total [Moles /volume] in Central venous bloodOrdered By: Guillaume Singh on 11-12-2024 CO2 [Moles/Vol] 23.7 mmol/L 21.0-32.0 [facility] Cardiology Visit Reporton Cardiology Visit Report [facility] [address] [place] [address] OFFICE VISIT Date of Service: 11/12/24 MR#: [id number] Acct: [id number] Name: TOREY CARBAJAL Rep #: [id number] : 1950 Provider: CATY Manuel Age/Sex: 74/M [place] [facility]: Signed HPI HPI History of Present Illness Details: Torey Carbajal is a 74-year-old male who presents to office today with acute concerns of palpitations and irregular heart rhythm that began on 11/07/2024. Patient called our office 11/11/2024 with concerns of elevated heart rate at 120 and a blood pressure 100/60 with associated dizziness and chest pain. Family member checked him out and had concerns of atrial fibrillation. His chest pain resolved; however, he continued to experience constant fluttering. Patient was seen here approximately 2 months ago and was instructed to decrease his propranolol; however, he had discontinued it altogether approximately 1 week ago. Patient does have a history of PVCs which was treated with flecainide and beta-bhupendra in the past and a history of mitral valve prolapse. Upon presentation to office today, patient reports ongoing palpitations described as feeling like his heart is beating fast at times. He reports chronic shortness of breath at rest and with activity that is unchanged and he relates this to aging. He reports ongoing chest pain that is described as an aching feeling with intermittent sharp pains that is most noticed at rest and resolves with activity. After experiencing palpitations/rapid heart rate on Sunday and his son-in-law's concerns of irregular rhythm, patient initiated baby aspirin daily and restarted his propranolol at 10 mg twice daily. Further ROS below. 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 Is patient in pain?: No Allergies naproxen Adverse Reaction (Verified 11/12/24 14:36) unknown Medications ???Medication ???Instructions ???Recorded ???Confirmed ???Type citalopram 10 mg tablet 10 mg PO QDAY 09/19/24 11/12/24 Hi story flecainide 100 mg tablet 100 mg PO Q12H #180 tabs 09/22/24 11/12/24 Rx lisinopril 20 mg tablet 20 mg PO BID #180 tabs 09/22/24 Rx propranolol 10 mg tablet 10 mg PO BID 11/12/24 History apixaban 5 mg tablet (Eliquis) 5 mg PO BID Faxing to [facility] tabs Ejection fraction %: 65 Have you fallen in the past year?: No PFSH Medical History Multiple premature ventricular complexes Nonrheumatic mitral (valve) prolapse Renal stone Anxiety Incomplete right bundle branch block Essential hypertension Social History Smoking Status: Never smoker alcohol intake: current alcohol intake frequency: a few times a week substance use type: does not use caffeine: Yes Type: coffee Number of servings: 1 ROS Const Const: Negative for fatigue, weakness, headache(s) or frequent falls Eyes Eyes: Negative for blurry vision ENT ENT: Negative for headache(s), dizziness or Nosebleed/epistaxis Cardio Chest Pain: Yes Palpitations: Yes Edema: None Muscle aches with walking: None Resp Respiratory: Positive for SOB with activity and SOB at rest; Negative for SOB orthopnea SOB lying down GI GI: Negative nausea, vomiting, heartburn, bright, red blood in stools or black,tarry stools : Negative for hematuria Neuro Neuro: Negative for dizziness, lightheadedness, near syncope, syncope, frequent falls, headache(s), weakness or blurry vision Endo Endo: Negative for fatigue Cardiology Exam Const Appearance: cooperative, comfortable, no acute distress and well developed; Negative diaphoretic or ill appearing Nutritional Appearance: average body habitus Orientation: alert and oriented x3 Ambulating without assistive device Head Head: normal to inspection, normocephalic and atraumatic Ears: hearing grossly normal bilaterally Nose: external nose normal and Negative epistaxis Face and Sinus: face symmetric Eyes General: appearance normal, both eyes and all related structures Eyelids: eyelids normal Conjunctivae: conjunctivae normal; Negative scleral icterus EOM: EOM intact bilaterally Neck Neck: no JVD Neck Mass: Negative Neck mass Chest Chest inspection: normal respiratory effort; Negative respiratory distress, audible wheezes or tachypneic Auscultation: Bi (more content not included)... Normal [facility] Chloride assayOrdered By: Susanne Singh on 11-12-2024 Chloride [Moles/Vol] 108 mmol/L 98-108 [facility] Eosinophil percentageOrdered By: Guillaume Singh on 11-12-2024 Eosinophils/100 WBC (Bld) 2.4 % 0-5 [facility] Erythrocyte distribution wid th ratioOrdered By: Guillaume Singh on 11-12-2024 Erythrocyte distribution width (RBC) [Ratio] 13.1 % 11.6-14.6 [facility] Erythrocyte distribution wid th standard deviationOrdered By: Guillaume Singh on 11-12-2024 Erythrocyte distribution width (RBC) [Ratio] 42.5 fl 35.1-43.9 [facility] Glomerular filtration rate ( GFR) estimation/1.73 sq m using serum, plasma, or whole bOrdered By: Guillaume Singh on 11-12-2024 GFR/1.73 sq M.predicted among non-blacks MDRD (S/P/Bld) [Vol rate/Area] 92 mL/min/{1.73_m2} >60 [facility] Comment on above: mL/min/1.73m2 CKD-EP I Creatinine Equation (2020) Hematocrit Auto (Bld) [Volum e fraction]Ordered By: Guillaume Sinhg on 11-12-2024 Hematocrit (Bld) [Volume fraction] 47.7 % 40-54 [facility] Hemoglobin measurementOrdere d By: Guillaume Singh on 11-12-2024 Hemoglobin (Bld) [Mass/Vol] 16.1 g/dL 13.0-16.5 [facility] Immature granulocytes/100 WB C Auto (Bld)Ordered By: Guillaume Singh on 11-12-2024 Immature granulocytes/100 WBC (Bld) 0.200 % 0.0-0.9 [facility] Comment on above: IG% - Immature Granu locytes (promyelocytes, myelocytes and metamyelocytes) > 1% indicates that a LEFT SHIFT is Present. MCV (mean corpuscular volume ) determinationOrdered By: Guillaume Singh on 11-12-2024 MCV (RBC) [Entitic vol] 88.5 fL 80-94 [facility] Magnesiumon 11-12-2024 Magnesium [Mass/Vol] 2.2 mg/dL Normal 1.5-2.2 [facility] Comment on above: Performed By: #### L 501.9520, L500.4050, L506.0400, L100.0100, L501.5200 #### [facility] [address] [place] [address], [address] Magnesium measurement (mass/ volume)Ordered By: Guillaume Singh on 11-12-2024 Magnesium (Unsp spec) [Mass/Vol] 2.2 mg/dL 1.5-2.2 [facility] Mean corpuscular hemoglobin (MCH) determinationOrdered By: Guillaume Singh on 11-12-2024 MCH (RBC) [Entitic mass] 29.9 pg 27.0-32.0 [facility] Mean corpuscular hemoglobin concentration (MCHC) determinationOrdered By: Guillaume Singh on 11-12-2024 MCHC (RBC) [Mass/Vol] 33.8 g/dL 32-36 [facility] Mean platelet volume determi nationOrdered By: Guillaume Singh on 11-12-2024 Platelet mean volume (Bld) [Entitic vol] 11.4 fL 6.2-12.0 [facility] Monocyte percentageOrdered B y: Guillaume Singh on 11-12-2024 Monocytes/100 WBC (Bld) 9.4 % 0-10 [facility] Neutrophil percentageOrdered By: Guillaume Singh on 11-12-2024 Neutrophils/100 WBC (Bld) 62.4 % 47-70 [facility] Nucleated red blood cell per centageOrdered By: Guillaume Singh on 11-12-2024 Nucleated RBC/100 WBC (Bld) [Ratio] 0 % 0-5 [facility] Platelet countOrdered By: Susanne Singh on 11-12-2024 Platelets (Bld) [#/Vol] 158 10*3/uL 150-450 [facility] Potassium measurement (mass/ volume)Ordered By: Guillaume Singh on 11-12-2024 Potassium (Unsp spec) [Mass/Vol] 4.4 mmol/L 3.3-5.1 [facility] RBC Auto (Bld) [#/Vol]Ordere d By: Guillaume Singh on 11-12-2024 RBC (Bld) [#/Vol] 5.39 10*6/uL 4.6-6.2 [facility] Serum creatinine measurement (mass/volume)Ordered By: Guillaume Singh on 11-12-2024 Creatinine [Mass/Vol] 0.87 mg/dL 0.70-1.20 [facility] Serum glucose measurement (m ass/volume)Ordered By: Guillaume Singh on 11-12-2024 Glucose [Mass/Vol] 104 mg/dL High 70-99 [facility] Serum or plasma calcium jaime urement (mass/volume)Ordered By: Guillaume Singh on 11-12-2024 Calcium [Mass/Vol] 9.2 mg/dL 7.6-11.0 [facility] Serum or plasma urea nitroge n measurement (mass/volume)Ordered By: Guillaume Singh on 11-12-2024 Urea nitrogen [Mass/Vol] 19 mg/dL 4-19 [facility] Sodium levelOrdered By: Catarina Singh on 11-12-2024 Sodium [Moles/Vol] 142 mmol/L 133-145 [facility] TSH DL <= 0.005 mIU/L QnOrde red By: Guillaume Singh on 11-12-2024 TSH Qn 0.856 uIU/mL 0.300-4.200 [facility] Thyroid Stim Hormone (TSH)on 11-12-2024 TSH 0.856 uIU/mL Normal 0.300-4.200 [facility] Comment on above: Performed By: #### L 501.9520, L500.4050, L506.0400, L100.0100, L501.5200 #### [facility] [address] [place], [address] White blood cell (WBC) count Ordered By: Guillaume Singh on 11-12-2024 WBC (Bld) [#/Vol] 8.1 10*3/uL 4.4-11.0 [facility] 12 Lead EKG performed by [facility] on 09-19-2024 12 Lead EKG performed by [facility] [address] [place] [address] 12 Lead EKG performed by [facility] 09/19/24 0732 MR#: [id number] Acct: [id number] Name: TOREY CRABAJAL Rep #: [id number] : 1950 74 From: Shantal Perrin [employer]C Attending Dr: Shantal Perrin, [employer] Status: DEP A MB Ordering Dr: Shantal Perrin [employer]TER [employer] Date: 09/19/24 Location: [facility] Sex: M C Admitted: [facility]/12 Lead EKG performed by [facility] ECG Report Interpretation ------Sinus Bradycardia -First degree A-V block Dominguez = 242-Nonspecific QRS widening. -Poor R-wave progression -nonspecific -consider old anterior infarct. [employer] ally signed on 09/24/2024 at 16:26 by Nathanael Lauren Software Version [id number] 09/24/24 1630 Date Shantal Perrin NP [employer] CC: Dr. Devon Vega DO Date Dictated: 09/19/2432 Date Transcribed: 09/19/24731 Dental Technician Apprentice: LUISITO Signed Normal [facility] Cardiology Visit Reporton Cardiology Visit Report [facility] [address] [place] [address] OFFICE VISIT Date of Service: 09/19/24 MR#: [id number] Acct: [id number] Name: TOREY CARBAJAL Rep #: [id number] : 1950 Provider: MALINDA squires Age/Sex: 74/M [place] [facility]: Signed HPI HPI History of Present Illness Details: This is a 74-year-old man who presents today for a cardiovascular outpatient follow-up. He initially established in August 2021. He apparently had premature ventricular complexes many years ago with mild mitral valve prolapse and was put on flecainide as well as a beta-bhupendra. He says that he has tolerated this quite well with occasional palpitations only. He has been having serial echocardiograms performed. His last echocardiogram from September 2021 demonstrated an ejection fraction of 60%, stage II diastolic dysfunction, and mild aortic regurgitation. His stress test from the same visit demonstrated no evidence of ischemia at a high workload. He does also have a history of anxiety. From a cardiac standpoint, the patient is doing well. He does have palpitations daily. He does have occasional midsternal chest pain. He describes this as an aching/burning sensation after eating/meals/laying flat. He states this is nothing new. He takes TUMS occasionally. He states that he does clear his throat frequently. He denies pressure or heaviness. He denies SOB, Orthopnea, and PND. He does not have bleeding issues; no blood in urine, stool, or nosebleeds. He denies any decrease in energy level, myalgias, or claudication. He does not have edema, or sudden weight gain. He denies lightheadedness, dizziness, syncopal or near syncopal episodes, and headaches. 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 Is patient in pain?: No Allergies naproxen Adverse Reaction (Verified 09/19/24 09:23) unknown Medications ???Medication ???Instructions ???Recorded ???Confirmed ???Type lisinopril 20 mg tablet 40 mg (2 x 20 mg) PO DAILY #90 tab s 03/31/24 09/19/24 Rx citalopram 10 mg tablet 10 mg PO QDAY 09/19/24 09/19/24 Hi story flecainide 100 mg tablet 100 mg PO Q12H #180 tabs 09/19/24 09/19/24 Rx propranolol 10 mg tablet 10 mg PO QHS #30 tabs 09/19/24 Rx Ejection fraction %: 65 Have you fallen in the past year?: Yes PFSH Medical History Multiple premature ventricular complexes Nonrheumatic mitral (valve) prolapse Renal stone Anxiety Incomplete right bundle branch block Essential hypertension Social History Smoking Status: Never smoker alcohol intake: current alcohol intake frequency: a few times a week substance use type: does not use caffeine: Yes Type: coffee Number of servings: 1 ROS Const Const: Negative for fatigue, weakness, headache(s) or frequent falls Eyes Eyes: Negative for blurry vision ENT ENT: Negative for headache(s), dizziness or Nosebleed/epistaxis Cardio Chest Pain: Yes Frequency: daily Character: other (aching/burning) Onset: with meals and positional Location: mid sternal Palpitations: Yes Edema: None Muscle aches with walking: None Resp Respiratory: Negative for SOB with activity, SOB at rest or SOB orthopnea SOB lying down GI GI: Negative nausea, vomiting, heartburn, bright, red blood in stools or black,tarry stools : Negative for hematuria Neuro Neuro: Negative for dizziness, lightheadedness, near syncope, syncope, frequent falls, headache(s), weakness or blurry vision Endo Endo: Negative for fatigue Cardiology Exam Const Appearance: cooperative, healthy appearing, comfortable and no acute distress Nutritional Appearance: well nourished and overweight Orientation: alert, awake and oriented x3 Head Head: normal to inspection Ears: hearing grossly normal bilaterally Nose: external nose normal Face and Sinus: face symmetric Mouth: oral mucosae normal Eyes General: appearance normal, both eyes and all related structures Eyelids: eyelids normal EOM: EOM intact bilaterally Neck Neck: normal visual inspection and no JVD Carotids: normal carotid upstroke Chest Chest inspection: normal inspection of the chest, symmetric chest movement and normal respiratory effort; Negative cough Auscultation: Bilateral: Clear to Auscultation Cardio Rate: bradycardic Rhythm: regular rhythm and ectopic beats Heart sounds: S1 normal, S2 normal and murmur; Negative rub or gallop Murmur (more content not included)... Normal [facility] Echo Completeon 03-28-2024 Echo Complete [facility] [address] [place] [address] Echo Complete 03/28/24 0935 MR#: [id number] Acct: [id number] Name: TOREY CARBAJAL Rep #: [id number] : 1950 74 From: Nathanael Lauren MD Attending Dr: MALINDA Escobedo Status: REG I Ordering Dr: Rob Carrero NP [employer] Date: 03/28/24 Location: [facility] [facility] Sex: M C Admitted: Reason For Study: MVP Procedure This was a 2D Doppler, Color Flow transthoracic echocardiogram. Apical window in supine. Exam performed in department. Left Ventricle Normal LV size. Mild concentric left ventricular hypertrophy. Left ventricular systolic function is normal. The left ventricular ejection fraction is 65 %. No regional wall motion abnormalities noted. Right Ventricle Normal RV size. Normal systolic function. Atria The left atrium is moderately enlarged. Normal right atrium. Mitral Valve Bileaflet mitral valve prolapse. Mild-Moderate (1-2+) eccentric mitral valve insufficiency. 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 Mild (1+) tricuspid valve insufficiency. Pulmonary artery systolic pressure is 40 mmHg. Aortic Valve Trisinus/trileaflet aortic valve. Mild (1+) aortic valve insufficiency. Pulmonic Valve Normal pulmonic valve. Great Vessels Normal aortic root. The pulmonary artery is normal size. Inferior vena cava collapse with respiration. Pericardium/Pleural No pericardial effusion. MMode/2D Measurements Calculations LVIDd: 5.8 cm IVSd: 1.2 cm Ao root diam: 3.5 cm LVIDs: 3.6 cm LVPWd: 1.4 cm RVDd: 4.2 cm FS: 38.2 % _ LAV(MOD-bp): 97.9 ml LVAd ap4: 40.0 cm2 SV(MOD-sp4): 89.9 ml LAV(MOD-bp) Indexed: 45.5 ml/m2 LVLd ap4: 9.4 cm LAV(MOD-sp2): 86.0 ml EDV(MOD-sp4): 142.9 ml LAV(MOD-sp4): 99.2 ml EDV(sp4-el): 144.1 ml LVAs ap4: 20.7 cm2 LVLs ap4: 7.1 cm ESV(MOD-sp4): 53.0 ml ESV(sp4-el): 51.2 ml EF(MOD-sp4): 62.9 % EF(sp4-el): 64.5 % _ SV(sp4-el): 92.9 ml LA A4 area: 29.6 cm2 RA A4 area: 21.0 cm2 Time Measurements MV dec time: 0.26 sec Doppler Measurements Calculations MV E max red: 74.6 cm/sec Lat Peak E' Red: 13.7 cm/sec Med Peak E' Red: 6.2 cm/sec MV A max red: 60.1 cm/sec E/E' lat: 5.5 E/E' med: 12.1 MV E/A: 1.2 _ MV V2 max: 75.3 cm/sec Ao V2 max: 113.1 cm/sec MV max P.3 mmHg MV dec slope: 323.6 cm/sec2 Ao max P.1 mmHg MV V2 mean: 46.8 cm/sec Ao V2 mean: 73.0 cm/sec MV mean P.00 mmHg Ao mean P.5 mmHg MV V2 VTI: 26.5 cm Ao V2 VTI: 21.4 cm AV (velocity ratio): 0.90 _ LV V1 max: 108.7 cm/sec PA V2 max: 104.1 cm/sec TR max red: 302.7 cm/sec LV V1 max P.7 mmHg PA V2 mean: 78.4 cm/sec TR max P.6 mmHg LV V1 mean P.2 mmHg LV V1 mean: 66.7 cm/sec LV V1 VTI: 19.3 cm ECHO/Echo Complete Interpretation Summary Normal LV size. Left ventricular systolic function is normal. The left ventricular ejection fraction is 65 %. Mild concentric left ventricular hypertrophy. Bileaflet mitral valve prolapse. Mild-Moderate (1-2+) eccentric mitral valve insufficiency. 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 Ordering Physician: Rob Carrero Referring Physician: Rob Carrero Performed By: Anamaria Melgar RCS 03/28/24 1232 Date Nathanael Lauren MD CC: YE[employer] CAKE CUTTER-C Rob Carrero; Dr. Devon Vega, DO Date Dictated: 03/28/2435 Date Transcribed: 03/28/24 123 Dental Technician Apprentice: Signed Normal [facility] Stress Reporton 03-28-2024 Stress Report [facility] [address] [place] [address] MR#: [id number] Acct: [id number] Name: TOREY CARBAJAL Rep #: [id number] : 1950 74 From: Nathanael Lauren MD Primary Care: Dr. Devon Vega, DO Status: REG CLI Referring Dr: Rob Carrero NP [employer] C[employer]TER-C Sex: M C Stress Test Report Exercise myocardial perfusion stress test. 74-year-old man with a history of premature ventricular complexes on flecainide Stress protocol: Resting EKG demonstrates normal sinus rhythm with a rate of 62 bpm resting blood pressure is 148/80 mmHg. The patient exercised according to the regular Chadwick protocol for a total duration of 6 minutes attaining a maximum heart rate of 131 bpm which was 88% of maximum predicted heart rate; the maximum workload was 7.3 metabolic equivalents. At rest there were no ST or T wave changes noted to suggest ischemia and at peak exercise upsloping ST changes only were noted which did not meet the criteria for ischemia. No clinical angina was noted the test was terminated due to the target heart rate being achieved/fatigue. The peak blood pressure was 190/72 mmHg. Rate-pressure product was 24,100. Myocardial perfusion protocol. 9.8 mCi of technetium 99m sestamibi was injected at rest. The patient exercised according to regular Chadwick protocol for total duration of 6 minutes and at peak exercise 32.0 mCi of technetium 99m sestamibi was injected stress images were obtained stress and rest images were reconstructed in comparing the short axis vertical long and horizontal long axis. Gated images were also obtained. Perfusion SPECT analysis: Review of the stress images demonstrate normal uptake of tracer noted in all areas of the myocardium. The resting images similarly demonstrate normal uptake of tracer noted in all areas of the myocardium. No areas of reversibility are noted to suggest ischemia no previous infarct was noted. Gated SPECT analysis: The gated ejection fraction is 71%. Conclusion: Normal exercise myocardial perfusion stress test at a moderate workload Preserved ejection fraction. 03/28/241528 Date Nathanael Lauren MD CC: YE[employer] CAKE CUTTER-C Rob Carrero; Dr. Devon Vega, DO Date Dictated: 03/28/241526 Date Transcribed: 03/28/241526 Dental Technician Apprentice: CO Signed Normal [facility] 12 Lead EKG performed by [facility] on 03-17-2024 12 Lead EKG performed by [facility] [address] [place] [address] 12 Lead EKG performed by [facility] 03/17/24819 MR#: [id number] Acct: [id number] Name: TOREY CARBAJAL Rep #: [id number] : 1950 74 From: Rob Carrero NP [employer]KE CUTTER-C Attending Dr: Rob Carrero YE[employer] CAKE CUTTER-C Status: DEP AMB Ordering Dr: Rob Carrero NP [employer] C[employer]TER-C Date: 03/17/24 [place] [facility] [place] C Admitted: [facility]/12 Lead EKG performed by [facility] ECG Report Interpretation ------Sinus Bradycardia -First degree A-V block Dominguez = 248-Incomplete right bundle branch block. ABNORMAL Electronically signed on 03/21/2024 at 09:57 by Nathanael Lauren Software Version [id number] 03/21/2458 Date Rob Carrero NP [employer] C[employer]TER-C CC: Dr. Devon Vega, DO Date Dictated: 03/17/24819 Date Transcribed: 10/14/24 0820 Dental Technician Apprentice: JHR Signed Normal [facility] CBC W/Diff, Automatedon 10- Absolute Lymph 1.76 X10 3/uL Normal 0.83-4.51 [facility] Comment on above: Performed By: #### L 501.9520, L500.4050, L506.0400, L100.0100, L501.5200 #### [facility] [address] [place], [address] Absolute Neut 4.1 X10 3/uL Normal 2.0-7.7 [facility] Comment on above: Performed By: #### L 501.9520, L500.4050, L506.0400, L100.0100, L501.5200 #### [facility] [address] [place], [address] Basophils/100 WBC (Bld) 0.6 % Normal 0-1 [facility] Comment on above: Performed By: #### L 501.9520, L500.4050, L506.0400, L100.0100, L501.5200 #### [facility] [address] [place], [address] Eosinophils/100 WBC (Bld) 5.4 % High 0-5 [facility] Comment on above: Performed By: #### L 501.9520, L500.4050, L506.0400, L100.0100, L501.5200 #### [facility] [address] [place], [address] Erythrocyte distribution width (RBC) [Ratio] 12.8 % Normal 11.6-14.6 [facility] Comment on above: Performed By: #### L 501.9520, L500.4050, L506.0400, L100.0100, L501.5200 #### [facility] [address] [place], [address] Hematocrit (Bld) [Volume fraction] 47.1 % Normal 40-54 [facility] Comment on above: Performed By: #### L 501.9520, L500.4050, L506.0400, L100.0100, L501.5200 #### [facility] [address] [place], [address] Hemoglobin (Bld) [Mass/Vol] 15.3 g/dL Normal 13.0-16.5 [facility] Comment on above: Performed By: #### L 501.9520, L500.4050, L506.0400, L100.0100, L501.5200 #### [facility] [address] [place], [address] IG% 0.300 Normal 0.0-0.9 [facility] Comment on above: Result Comment: IG% - Immature Granulocytes (promyelocytes, myelocytes and metamyelocytes) > 1% indicates that a LEFT SHIFT is Present. Performed By: #### L 501.9520, L500.4050, L506.0400, L100.0100, L501.5200 #### [facility] [address] [place], [address] Lymphocytes/100 WBC (Bld) 24.8 % Normal 19-41 [facility] Comment on above: Performed By: #### L 501.9520, L500.4050, L506.0400, L100.0100, L501.5200 #### [facility] [address] [place], [address] MCH (RBC) [Entitic mass] 29.6 pg Normal 27.0-32.0 [facility] Comment on above: Performed By: #### L 501.9520, L500.4050, L506.0400, L100.0100, L501.5200 #### [facility] [address] [place], [address] MCHC (RBC) [Mass/Vol] 32.5 g/dL Normal 32-36 [facility] Comment on above: Performed By: #### L 501.9520, L500.4050, L506.0400, L100.0100, L501.5200 #### [facility] [address] [place], [address] MCV (RBC) [Entitic vol] 91.1 fL Normal 80-94 [facility] Comment on above: Performed By: #### L 501.9520, L500.4050, L506.0400, L100.0100, L501.5200 #### [facility] [address] [place], [address] Monocytes/100 WBC (Bld) 11.6 % High 0-10 [facility] Comment on above: Performed By: #### L 501.9520, L500.4050, L506.0400, L100.0100, L501.5200 #### [facility] [address] [place], [address] Neutrophils/100 WBC (Bld) 57.3 % Normal 47-70 [facility] Comment on above: Performed By: #### L 501.9520, L500.4050, L506.0400, L100.0100, L501.5200 #### [facility] [address] [place], [address] Nucleated RBC (Bld) [#/Vol] 0 10*3/uL Normal 0-5 [facility] Comment on above: Performed By: #### L 501.9520, L500.4050, L506.0400, L100.0100, L501.5200 #### [facility] [address] [place], [address] Platelet mean volume (Bld) [Entitic vol] 11.1 fL Normal 6.2-12.0 [facility] Comment on above: Performed By: #### L 501.9520, L500.4050, L506.0400, L100.0100, L501.5200 #### [facility] [address] [place], [address] Platelets (Bld) [#/Vol] 144 10*3/uL Low 150-450 [facility] Comment on above: Performed By: #### L 501.9520, L500.4050, L506.0400, L100.0100, L501.5200 #### [facility] [address] [place], [address] RBC (Bld) [#/Vol] 5.17 10*6/uL Normal 4.6-6.2 [facility] Comment on above: Performed By: #### L 501.9520, L500.4050, L506.0400, L100.0100, L501.5200 #### [facility] [address] [place], [address] RDW SD 42.9 fl Normal 35.1-43.9 [facility] Comment on above: Performed By: #### L 501.9520, L500.4050, L506.0400, L100.0100, L501.5200 #### [facility] [address] [place], [address] WBC (Bld) [#/Vol] 7.1 10*3/uL Normal 4.4-11.0 [facility] Comment on above: Performed By: #### L 501.9520, L500.4050, L506.0400, L100.0100, L501.5200 #### [facility] [address] [place], [address] Cardiology Visit Reporton Cardiology Visit Report [facility] [address] [place] [address] OFFICE VISIT Date of Service: 03/17/24 MR#: [id number] Acct: [id number] Name: TOREY CARBAJAL Rep #: [id number] : 1950 Provider: MALINDA gillis Age/Sex: 74/M Location: [facility] Status: Signed [facility] History of Present Illness Details: 74-year-old man who is here for a cardiovascular outpatient follow-up. He initially established in August 2021. He apparently had premature ventricular complexes many years ago with mild mitral valve prolapse and was put on flecainide as well as a beta-bhupendra. He says that he has tolerated this quite well with occasional palpitations only. He has been having serial echocardiograms performed. His last echocardiogram from September 2021 demonstrated an ejection fraction of 60%, stage II diastolic dysfunction, and mild aortic regurgitation. His stress test from the same visit demonstrated no evidence of ischemia at a high workload. He does also have a history of anxiety. He states intermittent chest pain with stress/anxiety. He denies chest pain with activity and states he feels better with activity. He denies arm, jaw, or neck discomfort. He acknowledges occasional palpitations during increased stress or when he forgets his medications. He denies bilateral lower extremity edema. He denies shortness of breath with activity, shortness of breath at rest, orthopnea, cough, or PND. He denies lightheadedness, dizziness, near-syncope, or syncope. He denies fatigue or weakness. He states lower blood pressure after eating a big meal. 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 Is patient in pain?: No Allergies naproxen Adverse Reaction (Verified 03/17/24 09:29) unknown Medications ???Medication ???Instructions ???Recorded ???Confirmed ???Type flecainide 100 mg tablet 100 mg PO Q12H #180 tabs 10/30/23 03/17/24 Rx lisinopril 20 mg tablet 20 mg PO DAILY #90 tabs 10/30/23 03/17/24 Rx propranolol 20 mg tablet 20 mg PO QHS #90 tabs 10/30/23 03/17/24 Rx Have you fallen in the past year?: No PFSH Medical History Anxiety Essential hypertension Incomplete right bundle branch block Multiple premature ventricular complexes Nonrheumatic mitral (valve) prolapse Renal stone Social History Smoking Status: Never smoker alcohol intake: current alcohol intake frequency: a few times a week substance use type: does not use caffeine: Yes Type: coffee Number of servings: 1 ROS Const Const: Negative for fatigue, weakness, headache(s), frequent falls, difficulty sleeping or excessive sweating Eyes Eyes: Negative for loss of peripheral vision, transient loss of vision, blurry vision, double vision or tunnel vision ENT ENT: Negative for headache(s), dizziness, Nosebleed/epistaxis or balance problems Cardio Chest Pain: Yes Palpitations: Yes Edema: None Muscle aches with walking: None Resp Respiratory: Negative for SOB with activity, SOB at rest, SOB orthopnea SOB lying down, Cough or paroxysmal nocturnal dyspnea GI GI: Negative nausea, vomiting or heartburn : Negative for hematuria Musc Musc: Negative for muscle aches/ myalgia, muscle weakness, joint pain or balance problems Skin Skin: Negative non-healing lesions, rash or unusual bruising Neuro Neuro: Negative for dizziness, lightheadedness, near syncope, syncope, orthostatic symptoms, frequent falls, headache(s), weakness, confusion, memory loss, blurry vision, double vision, vertigo or lack of coordination [place] Hematologic/Lymphati c: Negative for easy bleeding or easy bruising Endo Endo: Negative for fatigue, excessive sweating, flushing or increased thirst/drinking Psych Psych: Negative for anxiety or depression Allergy Allergy/Immunology: Negative for hives and Negative for rash Cardiology Exam Const Appearance: cooperative, healthy appearing, comfortable and no acute distress Nutritional Appearance: well nourished and overweight Orientation: alert, awake and oriented x3 Head Head: normal to inspection Ears: hearing grossly normal bilaterally Nose: external nose normal Face and Sinus: face symmetric Mouth: oral mucosae normal Eyes General: appearance normal, both eyes and all related structures Eyelids: eyelids normal EOM: EOM intact bilaterally Neck Neck: normal visual inspection and no JVD Carotids: normal carotid upstroke Chest Chest inspec (more content not included)... Normal [facility] Comprehensive Metabolic Prof ilon 03-17-2024 Albumin [Mass/Vol] 3.5 g/dL Normal 3.2-5.0 [facility] Comment on above: Performed By: #### L 501.9520, L500.4050, L506.0400, L100.0100, L501.5200 #### [facility] [address] [place], [address] Albumin/Globulin [Mass ratio] 1.1 {ratio} Normal 0.9-2.4 [facility] Comment on above: Performed By: #### L 501.9520, L500.4050, L506.0400, L100.0100, L501.5200 #### [facility] [address] [place], [address] ALK P 61 U/L Normal 45-117 [facility] Comment on above: Performed By: #### L 501.9520, L500.4050, L506.0400, L100.0100, L501.5200 #### [facility] [address] [place], [address] ALT [Catalytic activity/Vol] 21 U/L Normal 16-61 [facility] Comment on above: Performed By: #### L 501.9520, L500.4050, L506.0400, L100.0100, L501.5200 #### [facility] [address] [place], [address] AST [Catalytic activity/Vol] 14 U/L Low 15-37 [facility] Comment on above: Performed By: #### L 501.9520, L500.4050, L506.0400, L100.0100, L501.5200 #### [facility] [address] [place], [address] Bilirubin [Mass/Vol] 1.30 mg/dL High 0.20-1.00 [facility] Comment on above: Result Comment: For patients on eltrombopag therapy, use of Dimension [place] TBIL is not recommended. Performed By: #### L 501.9520, L500.4050, L506.0400, L100.0100, L501.5200 #### [facility] [address] [place], [address] BUN/CRE 18.0 RATIO Normal 10-20 [facility] Comment on above: Performed By: #### L 501.9520, L500.4050, L506.0400, L100.0100, L501.5200 #### [facility] [address] [place], [address] CA,Total 9.2 mg/dL Normal 8.5-10.1 [facility] Comment on above: Performed By: #### L 501.9520, L500.4050, L506.0400, L100.0100, L501.5200 #### [facility] [address] [place], [address] Chloride [Moles/Vol] 107 mmol/L Normal 98-107 [facility] Comment on above: Performed By: #### L 501.9520, L500.4050, L506.0400, L100.0100, L501.5200 #### [facility] [address] [place], [address] CO2 [Moles/Vol] 30.0 mmol/L Normal 21.0-32.0 [facility] Comment on above: Performed By: #### L 501.9520, L500.4050, L506.0400, L100.0100, L501.5200 #### [facility] [address] [place], [address] Creatinine [Mass/Vol] 0.89 mg/dL Normal 0.70-1.30 [facility] Comment on above: Result Comment: The validity of the calculated GFR GFRAA in patients over 70 years has not been determined. Clinical correlation is essential. Performed By: #### L 501.9520, L500.4050, L506.0400, L100.0100, L501.5200 #### [facility] [address] [place], [address] EST GFR - AA 109 mL/min Normal >60 [facility] Comment on above: Result Comment: Afri can Cymraes GFR Calc Performed By: #### L 501.9520, L500.4050, L506.0400, L100.0100, L501.5200 #### [facility] [address] [place], [address] GAP 2 Low 5-15 [facility] Comment on above: Performed By: #### L 501.9520, L500.4050, L506.0400, L100.0100, L501.5200 #### [facility] [address] [place], [address] GFR/1.73 sq M.predicted among non-blacks MDRD (S/P/Bld) [Vol rate/Area] 90 mL/min/{1.73_m2} Normal >60 [facility] Comment on above: Result Comment: Non- GFR Calc Performed By: #### L 501.9520, L500.4050, L506.0400, L100.0100, L501.5200 #### [facility] [address] [place], [address] Globulin (S) [Mass/Vol] 3.2 g/dL Normal 2.2-4.2 [facility] Comment on above: Performed By: #### L 501.9520, L500.4050, L506.0400, L100.0100, L501.5200 #### [facility] [address] [place], [address] Glucose [Mass/Vol] 79 mg/dL Normal 74-106 [facility] Comment on above: Performed By: #### L 501.9520, L500.4050, L506.0400, L100.0100, L501.5200 #### [facility] [address] [place], [address] Potassium [Moles/Vol] 4.4 mmol/L Normal 3.5-5.1 [facility] Comment on above: Performed By: #### L 501.9520, L500.4050, L506.0400, L100.0100, L501.5200 #### [facility] [address] [place], [address] Sodium [Moles/Vol] 139 mmol/L Normal 136-145 [facility] Comment on above: Performed By: #### L 501.9520, L500.4050, L506.0400, L100.0100, L501.5200 #### [facility] [address] [place], [address] T PROT 6.7 g/dL Normal 6.4-8.2 [facility] Comment on above: Performed By: #### L 501.9520, L500.4050, L506.0400, L100.0100, L501.5200 #### [facility] [address] [place], [address] Urea nitrogen [Mass/Vol] 16 mg/dL Normal 7-18 [facility] Comment on above: Performed By: #### L 501.9520, L500.4050, L506.0400, L100.0100, L501.5200 #### [facility] [address] [place], [address] Magnesiumon 03-17-2024 Magnesium [Mass/Vol] 2.1 mg/dL Normal 1.6-2.6 [facility] Comment on above: Performed By: #### L 501.9520, L500.4050, L506.0400, L100.0100, L501.5200 #### [facility] [address] [place], [address] T4 Free Directon 03-17-2024 T4 FREE DIRECT 0.94 ng/dL Normal 0.76-1.46 [facility] Comment on above: Performed By: #### L 501.9520, L500.4050, L506.0400, L100.0100, L501.5200 #### [facility] [address] [place], [address] Thyroid Stim Hormone (TSH)on 03-17-2024 TSH 0.666 uIU/mL Normal 0.358-3.740 [facility] Comment on above: Performed By: #### L 501.9520, L500.4050, L506.0400, L100.0100, L501.5200 #### [facility] [address] [place], [place], [address] Provider Note - ED v3on Provider Note - ED v3 Provider Note: Chart Review HISTORY OF PRESENTING ILLNESS TOREY is a 71 year old Male and was seen by me at 08-Mar-2021 11:37. The historian is the patient. Triage Information: Most recent Vital Sign Value Date PAST MEDICAL HISTORY ALLERGIES/INTOLERANC ES: Allergy Allergen: naproxen Type: Drug Reaction: Unknown [...] SIGNS: T PRBP SpO2O2(LPM) %FiO2 Method 08-Mar-2021 11:28:[id number] /87 98 MDM MDM/ED COURSE: This note was [...] S1S2. No m/r/g. Musculoskeletal: Grossly normal. Integumentary: [place], warm, dry, and Intact. Normal skin turgor; [...] documents available (more content not included)... Normal [facility] Provider Note - ED v2on 12-0 Provider [...] NO: Cigarette/Tobacco, e-Cigarette/Vaping, Alcohol and Street Drugs ALLERGIES/INTOLERANC ES: Allergy Allergen: naproxen Type: Drug Reaction: Unknown [...] SIGNS: T PRBP SpO2O2(LPM) %FiO2 Method 07-May-2020 13:46:[id number] /78 97 PHYSICAL EXAM CONSTITUTIONAL: Well appearing, well [...] understanding of plan of care. CLINICAL IMPRESSION Diagnosis/Annotation : ED Dx Name:Multiple environmental allergies Code:Z91.09 Disposition: discharged Type: home ATTESTATION CRITICAL CARE TIME Is this a critically ill patient: no Electronic Signatures: Amy Walker (PALLET RECTIFIER-PRIMARY CLASS TEACHER) (Signed 07-May-2020 14:22) Authored: HPI, PMH, ROS, PE, Results/Vital Signs, MDM/ED Course, Clinical Impression, Attestation, Chart Review, Scores Last Updated: 07-May-2020 14:22 by Amy Walker (PALLET RECTIFIER-PRIMARY CLASS TEACHER) References: 1. Data Referenced From Provider Note - ED v2 07-May-2020 14:07 [facility] Provider Note - ED v2 This report has be en cancelled. [facility] CNOVon 09-09-2018 CNOV Office Visit (CAWSTR) TOREY CARBAJAL ([id number]) 1950 M Date Time Provider Department 09/09/18 9:45 AM RITIKA VELÁSQUEZWSTR During your visit today, we recorded the following information about you: Pulse Blood pressure Weight 55/minute 133/87 95.9 kg Ritika Velásquez MD 09/09/2018 4:32 PM Signed PERTINENT CARDIAC HISTORY Palpitations - VPDs Anxiety HTN HL MVP - mild MR Pericardial cyst ADHERENCE TO GUIDELINES AR-I or ARB for HF with prior LVEF<40 (NQF 0081) - N/A ASA or Plavix for ASHD (NQF 0067) - N/A Beta bhupendra for ASHD with prior NH or prior LVEF<40 (NQF 0070) - N/A Beta bhupendra for HF with prior LVEF<40 (NQF 0083) [...] and TSH are normal Electronically Signed: Ritika Velásquez MD September 09, 2018 10:00 AM CC: No primary care provider on file. Referring Provider: RITIKA VELÁSQUEZ [[id number]] Allergies As of Date: 09/09/2018 Noted Allergy Reaction NAPROXEN 03/12/2012 5 - Intolerance Comments: Headache, not feeling well with it Date Reviewed: 09/09/2018 Reviewed by: Thomas Flowers RN - Fully Assessed Reason for Visit: Recheck [92] Primary Visit Diagnosis:Palpitatio ns [R00.2] Other Visit Diagnosis:Hypertensi on, essential [I10] Order(s):nitroglycer in sublingual (NITROQUICK) 0.4 mg SL tabletDissolve 1 [...] not on file. Encounter Status:Closed by RITIKA VELÁSQUEZ MD on 09/09/18 Normal [facility] PROGRESSon 09-09-2018 Protein mass conc HNO ID: [id number] Author: Ritika Velásquez Service: ? Author Type: Physician Type: Progress Notes Filed: 09/09/2018 4:32 PM Note Text: PERTINENT CARDIAC HISTORY Palpitations - VPDs Anxiety HTN HL MVP - mild MR Pericardial cyst ADHERENCE TO GUIDELINES AR-I or ARB for HF with prior LVEF<40 (NQF 0081) - N/A ASA or Plavix for ASHD (NQF 0067) - N/A Beta bhupendra for ASHD with prior NH or prior LVEF<40 (NQF 0070) - N/A Beta bhupendra for HF with prior LVEF<40 (NQF 0083) [...] and TSH are normal Electronically Signed: Ritika Velásquez MD September 09, 2018 10:00 AM CC: No primary care provider on file. Normal [facility] Basic Metabolic Panlon 04-09 Anion gap molar conc 8 mmol/L Low 9-18 [facility] Calcium mass conc 10.0 mg/dL Normal 8.5-10.2 [facility] Chloride molar conc 101 mmol/L Normal 97-105 [facility] CO2 molar conc 30 mmol/L Normal 22-30 [facility] Creatinine mass conc 0.85 mg/dL Normal 0.73-1.22 [facility] eGFR- Amer. >60 Normal [facility] GFR/1.73 sq M predicted among non-blacks MDRD vol rate/area (S/P/Bld) mL/min/{1.73_m2} Normal [facility] Comment on above: Result Comment: eGFR (Estimated [...] Glucose mass conc 82 mg/dL Normal 74-99 [facility] Potassium molar conc 4.6 mmol/L Normal 3.7-5.1 [facility] Sodium molar conc 139 mmol/L Normal 136-144 [facility] Urea nitrogen mass conc 13 mg/dL Normal 7-21 [facility] CNNURSEon 04-09-2018 [facility] TOREY CARBAJAL ([id number]) 1950 M Date Time Provider Department 04/09/18 1:00 PM NURSE CARD ADMIN [facility] CAWSTR During your visit today, we recorded the following information about you: Thomas Flowers RN 04/09/2018 10:08 AM Signed Ekg completed per order. Pt tolerated procedure without distress. Thomas Flowers RN Referring Provider: RITIKA VELÁSQUEZ [[id number]] Allergies As of Date: 04/09/2018 Noted Allergy Reaction NAPROXEN 03/12/2012 5 - Intolerance Comments: Headache, not feeling well with it Date Reviewed: 04/09/2018 Reviewed by: Thomas Flowers RN - Fully Assessed Reason for Visit: Nurse Visit [792] Visit Diagnoses:Palpitatio ns [R00.2] Non-rheumatic mitral regurgitation [I34.0] Order(s):ECG COMPLETE W INTERPRETATION [ECG01] Order #: [id number] Prescriptions as of 04/09/2018 Sig: LISINOPRIL 20 [...] Status:Closed by THOMAS FLOWERS RN on 04/09/18 [facility] CNOVon 04-09-2018 CNOV Office Visit (CAWSTR) TOREY CARBAJAL ([id number]) 1950 M Date Time Provider Department 04/09/18 8:45 AM RITIKA VELÁSQUEZ During your visit today, we recorded the following information about you: Pulse Blood pressure Weight 59/minute 172/87 93.9 kg Ritika Velásquez MD 04/09/2018 9:45 AM Signed LIFESTYLE CHANGE A healthy lifestyle is the most important component of your overall treatment plan. Please give serious thought to the following areas and commit to making roasterman changes. EAT A WHOLE FOOD, PLANT BASED [...] on this topic. This is not a diet. It is a way of life that [...] physician about programs in your area. Ritika Velásquez MD 04/09/2018 5:33 PM Signed PERTINENT CARDIAC HISTORY Palpitations - VPDs Anxiety HTN HL MVP - mild MR Pericardial cyst ADHERENCE TO GUIDELINES AR-I or ARB for HF with prior LVEF<40 (NQF 0081) - N/A ASA or Plavix for ASHD (NQF 0067) - N/A Beta bhupendra for ASHD with prior NH or prior LVEF<40 (NQF 0070) - N/A Beta bhupendra for HF with prior LVEF<40 (NQF 0083) [...] no evidence of ischemia. Electronically Signed: Ritika Velásquez MD April 09, 2018 9:45 AM CC: No primary care provider on file. Referring Provider: RITIKA VELÁSQUEZ [[id number]] Allergies As of Date: 04/09/2018 Noted Allergy Reaction NAPROXEN 03/12/2012 5 - Intolerance Comments: Headache, not feeling well with it Date Reviewed: 04/09/2018 Reviewed by: Thomas Flowers RN - Fully Assessed Reason for Visit: Recheck [92] Primary Visit Diagnosis:Palpitatio ns [R00.2] Other Visit Diagnosis:Non-rheuma tic mitral regurgitation [I34.0] Order(s):ECG COMPLETE W INTERPRETATION [ECG01] Order #: [id number] FUTURE BASIC METABOLIC PNL [SQBMP] Order #: [id number] FUTURE MAGNESIUM BLD [SQMG1] Order #: [id number] FUTURE lisinopril (ZESTRIL, PRINIVIL) 20 mg tabletTake 1 tablet by mouth twice daily.Disp: 180 tabletRfl: 3 TSH BLD [SQTSH] Order #: [id number] FUTURE Prescriptions as of 04/09/2018 Sig: LISINOPRIL [...] the following areas and commit to making chcf changes. EAT A WHOLE FOOD, PLANT BASED [...] on this topic. This is not a diet. It is a way of life that [...] not on file. Encounter Status:Closed by RITIKA VELÁSQUEZ MD on 04/09/18 [facility] EKG1on 04-09-2018 EKG1 NAME : TOREY CARBAJAL PID : [id number] : 1950 Gender : Male Race : ORD : Procedure Date : Apr 09 2018 10:24:38 Edit Date : Apr 10 2018 08:29:52 Diagnosis:SINUS BRADYCARDIA WITH 1ST DEGREE AV BLOCK INCOMPLETE RIGHT BUNDLE BRANCH BLOCK BORDERLINE ECG NO SIGNIFICANT CHANGE FROM PREVIOUS ECG Confirmed by RITIKA VELÁSQUEZ MD ([id number]) on 04/10/2018 8:29:47 AM Ventricular Rate : 57 BPM Atrial Rate : 57 BPM P-R Interval : 218 ms QRS Duration : 116 ms Q-T Interval : 410 ms QTC Calculation(Bezet) : 399 ms P Rockholds : 58 degrees R Rockholds : 36 degrees T Rockholds : 43 degrees Test Reason : Location : 136 : [facility] Overread By : RITIKA VELÁSQUEZ MD Edited By : RITIKA VELÁSQUEZ MD Referred By : RITIKA VELÁSQUEZ Acquired by : MAJO [facility] EKG1 NAME : TOREY CARBAJAL PID : [id number] : 1950 Gender : Male Race : ORD : Procedure Date : Apr 09 2018 10:24:53 Edit Date : Apr 10 2018 08:29:55 Diagnosis:SINUS BRADYCARDIA WITH 1ST DEGREE AV BLOCK POSSIBLE LEFT ATRIAL ENLARGEMENT INCOMPLETE RIGHT BUNDLE BRANCH BLOCK BORDERLINE ECG Confirmed by RITIKA VELÁSQUEZ MD ([id number]) on 04/10/2018 8:29:52 AM Ventricular Rate : 57 BPM Atrial Rate : 57 BPM P-R Interval : 216 ms QRS Duration : 118 ms Q-T Interval : 404 ms QTC Calculation(Bezet) : 393 ms P Rockholds : 65 degrees R Rockholds : 49 degrees T Rockholds : 47 degrees Test Reason : Location : 136 : [facility] Overread By : RITIKA VELÁSQUEZ MD Edited By : RITIKA VELÁSQUEZ MD Referred By : RITIKA VELÁSQUEZ Acquired by : Veronique KASPER [facility] Magnesiumon 04-09-2018 Magnesium mass conc 2.2 mg/dL Normal 1.7-2.3 [facility] PROGRESSon 04-09-2018 Protein mass conc HNO ID: [id number] Author: Ritika Velásquez Service: (none) Author Type: Physician Type: Progress Notes Filed: 04/09/2018 5:33 PM Note Text: PERTINENT CARDIAC HISTORY Palpitations - VPDs Anxiety HTN HL MVP - mild MR Pericardial cyst ADHERENCE TO GUIDELINES AR-I or ARB for HF with prior LVEF<40 (NQF 0081) - N/A ASA or Plavix for ASHD (NQF 0067) - N/A Beta bhupendra for ASHD with prior NH or prior LVEF<40 (NQF 0070) - N/A Beta bhupendra for HF with prior LVEF<40 (NQF 0083) [...] no evidence of ischemia. Electronically Signed: Ritika Velásquez MD April 09, 2018 9:45 AM CC: No primary care provider on file. Normal [facility] TSHon 04-09-2018 Thyrotropin Qn 1.200 uU/mL Normal 0.400-5.500 [facility] Comment on above: Performed By: #### T #### [facility] [address] [address] OBSOLETEon 03-15-2017 OBSOLETE Refill (AGCARDWST)--------- CAREN CARBAJAL ([id number]) 1950 [place] Time Provider Promrygjft84/12/17 RITIKA VELÁSQUEZ During your visit today, we recorded the [...] following approved medication requests have been transmitted electronically.Nini d Prescriptions Disp Refills lisinopril (ZESTRIL, PRINIVIL) 20 mg tablet 90 tablet 3 Sig: Take 1 tablet by mouth once daily. SABINA: No Authorizing Provider: RITIKA VELÁSQUEZ propranolol (INDERAL) 40 mg tablet 90 tablet 3 Sig: Take 0.5 tablets by mouth twice daily. SABINA: No Authorizing Provider: RITIKA VELÁSQUEZ flecainide (TAMBOCOR) 100 mg tablet 180 tablet 3 Sig: Take 1 tablet by mouth twice daily. SABINA: No Authorizing Provider: RITIKA VELÁSQUEZ MDAllergies As of Date: 03/15/2017 Noted Allergy ReactionNAPROXEN 03/12/2012 5 - Intolerance Comments: Headache, not feeling well with itDate Reviewed: 09/29/2016Reviewed by: Kia Victoria LOCK MAINTENANCE SUPERVISOR - Fully AssessedReason for Visit: Refill Request [94]Order(s):lisinop ril (ZESTRIL, PRINIVIL) 20 mg tabletTake 1 tablet [...] [I49.49] INVALID FOR* Atrial fibrillation [I48.91] INVALID FOR*03/12/2012Prescr iptions ordered this encounter Disp Refills Start End [...] Status:Closed by GLORIA HARVEY MA on 03/15/17 [facility] Vital Signs Date Time Vital Sign Value Performing Clinician Frank quiñonez 01-02-2025 07:10-0400 Body height 182.[address] Devon Vega DO Work Phone: [facility] 01-02-2025 07:10-0400 Body mass index (BMI) [Ratio] 29.4 kg/m2 Dr. Devon Vega DO Work Phone: [facility] 01-02-2025 07:10-0400 Body weight 98.[address] Devon Vega DO Work Phone: [facility] 01-02-2025 07:10-0400 Diastolic blood pressure 90 mm[Hg] Dr. Devon Vega DO Work Phone: [facility] 01-02-2025 07:10-0400 Heart rate 43 /min Dr. Devon Vega DO Work Phone: [facility] 01-02-2025 07:10-0400 Respiratory rate 18 /min Dr. Devon Vega DO Work Phone: [facility] 01-02-2025 07:10-0400 SaO2% (BldA) [Mass fraction] 98 % Dr. Devon Vega DO Work Phone: [facility] 01-02-2025 07:10-0400 Systolic blood pressure 124 mm[Hg] Dr. Devon Vega DO Work Phone: [facility] 12-22-2024 10:49-0400 Body height 182.[address] Devon Vega DO Work Phone: [facility] 12-22-2024 10:49-0400 Body weight 93.[address] Devon Vega DO Work Phone: [facility] 12-19-2024 08:52-0400 Body mass index (BMI) [Ratio] 28 kg/m2 Dr. Devon Vega DO Work Phone: [facility] 12-12-2024 09:16-0400 Body height 182.[address] Devon Vega DO Work Phone: [facility] 12-12-2024 09:16-0400 Body mass index (BMI) [Ratio] 28 kg/m2 Dr. Devon Vega DO Work Phone: [facility] 12-12-2024 09:16-0400 Body weight 93.[address] Devon Vega DO Work Phone: [facility] 12-12-2024 09:16-0400 Diastolic blood pressure 88 mm[Hg] Dr. Devon Vega DO Work Phone: [facility] 12-12-2024 09:16-0400 Heart rate 77 /min Dr. Devon Vega DO Work Phone: [facility] 12-12-2024 09:16-0400 Respiratory rate 18 /min Dr. Devon Vega DO Work Phone: [facility] 12-12-2024 09:16-0400 SaO2% (BldA) [Mass fraction] 95 % Dr. Devon Vega DO Work Phone: [facility] 12-12-2024 09:16-0400 Systolic blood pressure 127 mm[Hg] Dr. Devon Vega DO Work Phone: [facility] 11-12-2024 06:48-0400 Body height 182.[address] Devon Vega DO Work Phone: [facility] 11-12-2024 06:48-0400 Body mass index (BMI) [Ratio] 28 kg/m2 Dr. Devon Vega DO Work Phone: [facility] 11-12-2024 06:48-0400 Body weight 93.[address] Devon Vega DO Work Phone: [facility] 11-12-2024 06:48-0400 Diastolic blood pressure 93 mm[Hg] Dr. Devon Vega DO Work Phone: [facility] 11-12-2024 06:48-0400 Heart rate 113 /min Dr. Devon Vega DO Work Phone: [facility] 11-12-2024 06:48-0400 Respiratory rate 18 /min Dr. Devon Vega DO Work Phone: [facility] 11-12-2024 06:48-0400 SaO2% (BldA) [Mass fraction] 96 % Dr. Devon Vega DO Work Phone: [facility] 11-12-2024 06:48-0400 Systolic blood pressure 136 mm[Hg] Dr. Devon Vega DO Work Phone: [facility] 09-19-2024 07:33-0400 Body mass index (BMI) [Ratio] 27.9 kg/m2 Dr. Devon Vega DO Work Phone: [facility] 09-19-2024 07:33-0400 Body weight 93.[address] Devon Vega DO Work Phone: [facility] 09-19-2024 07:33-0400 Diastolic blood pressure 78 mm[Hg] Dr. Devon Vega DO Work Phone: [facility] 09-19-2024 07:33-0400 Heart rate 56 /min Dr. Devon Vega DO Work Phone: [facility] 09-19-2024 07:33-0400 Respiratory rate 18 /min Dr. Devon Vega DO Work Phone: [facility] 09-19-2024 07:33-0400 SaO2% (BldA) [Mass fraction] 97 % Dr. Devon Vega DO Work Phone: [facility] 09-19-2024 07:33-0400 Systolic blood pressure 132 mm[Hg] Dr. Devon Vega DO Work Phone: [facility] 01-04-2023 09:06-0400 Body weight 92.[address] Sami Gonzalez Work Phone: [facility] 01-04-2023 09:06-0400 Diastolic blood pressure 78 mm[Hg] Dr. Sami Gonzalez Work Phone: [facility] 01-04-2023 09:06-0400 Heart rate 47 /min Dr. Sami Gonzalez Work Phone: [facility] 01-04-2023 09:06-0400 Respiratory rate 18 /min Dr. Sami Gonzalez Work Phone: [facility] 01-04-2023 09:06-0400 Systolic blood pressure 143 mm[Hg] Dr. Sami Gonzalez Work Phone: [facility] 01-04-2023 08:37-0400 Body height 182.[address] Sami Gonzalez Work Phone: [facility] 08-12-2021 10:15-0500 Body height 182.[address] Sami Gonzalez Work Phone: [facility] Work Phone: 08-12-2021 10:15-0500 Body mass index (BMI) [Ratio] 28.6 kg/m2 Dr. Sami Gonzalez Work Phone: [facility] Work Phone: 08-12-2021 10:15-0500 Body weight 95.[address] Sami Gonzalez Work Phone: [facility] Work Phone: 08-12-2021 10:15-0500 Diastolic blood pressure 85 mm[Hg] Dr. Sami Gonzalez Work Phone: [facility] Work Phone: 08-12-2021 10:15-0500 Heart rate 54 /min Dr. Sami Gonzalez Work Phone: [facility] Work Phone: 08-12-2021 10:15-0500 Respiratory rate 16 /min Dr. Sami Gonzalez Work Phone: [facility] Work Phone: 08-12-2021 10:15-0500 SaO2% (BldA) [Mass fraction] 97 % Dr. Sami Gonzalez Work Phone: [facility] Work Phone: 08-12-2021 10:15-0500 Systolic blood pressure 156 mm[Hg] Dr. Sami Gonzalez Work Phone: [facility] Work Phone: Encounters Encounter Date Encounter Type Care Provider Facility Start: 01-05-2025 ambulatory Devon Vega Facility: [facility] Start: 01-02-2025 End: 01-02-[address] Devon Vega DO Work Phone: -[facility] Start: 01-02-2025 End: 01-02-2025 Patient encounter procedure Tiffanie BYRNE -[facility] Work Phone: Start: 12-29-2024 End: 12-29-[address] Nathanael Lauren MD -[facility] Work Phone: Start: 12-29-2024 End: 12-29-[address] Devon Vega DO Work Phone: [facility] Start: 12-22-2024 ambulatory Devon Vega Facility: [facility] Start: 12-22-2024 Non-patient / Non-visit Dr. Flo briggs DO -[facility] Start: 12-22-2024 End: 12-22-2024 Admission to same day surgery center Dr. Nathanael Lauren MD -[facility] Procedures Work Phone: Start: 12-22-2024 End: 12-22-[address] Devon Vega DO Work Phone: -[facility]/Special Procedures Start: 12-12-2024 End: 12-12-2024 Patient encounter procedure Guillaume Singh PA -[facility] Work Phone: Start: 12-12-2024 End: 12-12-[address] Devon Vega DO Work Phone: -[facility] Start: 11-12-2024 End: 11-12-[address] Devon Vega DO Work Phone: [facility] Work Phone: Start: 11-12-2024 End: 11-12-2024 Patient encounter procedure Guillaume Singh PA -Laboratory Work Phone: Start: 11-12-2024 End: 11-12-2024 Patient encounter procedure Guillaumeann Singh PA -[facility] Work Phone: Start: 11-12-2024 End: 11-12-[address] Devon Vega DO Work Phone: [facility] Work Phone: Start: 11-12-2024 End: 11-12-2024 ambulatory Devon Vega Facility:[facility] Start: 09-19-2024 End: 09-19-2024 Patient encounter procedure Shantal Perrin [employer]-C -[facility] Work Phone: Start: 09-19-2024 End: 09-19-2024 ambulatory Devon ReillyGary Facility:[facility] Start: 03-28-2024 ambulatory Devon [facility] Facility: [facility] Start: 03-28-2024 End: 03-28-2024 ambulatory Rob Downs Magan [employer] Facility:[facility] Start: 03-17-2024 End: 03-17-2024 ambulatory Rob Downs Magna [employer] Facility:[facility] Start: 03-17-2024 End: 03-17-2024 ambulatory Rob Downs Magan [employer] Facility:[facility] Start: 01-15-2023 End: 01-15-[address] aSmi Gonzalez Work Phone: [facility] Work Phone: Start: 01-15-2023 End: 01-15-[address] Sami Gonzalez Work Phone: [facility]-Pulmonary Services/Neurology Work Phone: Start: 01-04-2023 End: 01-04-[address] Sami Gonzalez Work Phone: [facility] Work Phone: Start: 09-16-2021 Non-patient / Non-visit Dr. Becky Gonzalez Work Phone: [facility] Start: 09-16-2021 End: 09-16-[address] [facility] Start: 09-05-2021 Non-patient / Non-visit Dr. Becky Gonzalez Work Phone: [facility] Start: 09-05-2021 End: 09-05-[address] [facility] Start: 08-12-2021 End: 08-12-[address] [facility] Start: 09-09-2018 End: 09-10-2018 Patient encounter procedure RITIKA VELÁSQUEZ [facility] Start: 04-09-2018 End: 04-09-2018 Patient encounter procedure RITIKA VELÁSQUEZ [facility] Start: 04-09-2018 End: 04-11-2018 Patient encounter procedure RITIKA VELÁSQUEZ [facility] Procedures Date Procedure Procedure Detail Performing Clinician Start: 12-12-2024 X-ray of chest, PA a nd lateral views Dr. Devon Vega DO Work Phone: Start: 09-19-2024 Evaluation of diagno stic study results Dr. Devon Vega DO Work Phone: Start: 09-16-2021 Radionuclide imaging of perfusion of myocardium under exercise stress Dr. Sami Gonzalez Work Phone: Plan of Treatment Date Care Activity Detail Author Start: 01-02-2025 Evaluation of diagno stic study results [facility] Start: 12-29-2024 Evaluation of diagno stic study results [facility] Start: 12-22-2024 Patient discharge [facility] Start: 12-12-2024 Evaluation of diagno stic study results [facility] Start: 11-12-2024 Evaluation of diagno stic study results [facility] Basic metabolic 2007 panel with ionized calcium - Serum or Plasma [facility] Basic metabolic 2007 panel with ionized calcium - Serum or Plasma [facility] Basic metabolic 2007 panel with ionized calcium - Serum or Plasma [facility] Cardioversion [facility] CBC W Auto Different ial panel - Blood [facility] CBC W Auto Different ial panel - Blood [facility] Electrocardiographic procedure [facility] Magnesium measurement [facility] Magnesium measurement [facility] Natriuretic peptide. B prohormone N-Terminal [Mass/volume] in Serum or Plasma [facility] Prothrombin time [facility] Thyroid stimulating hormone measurement [facility] Thyroid stimulating hormone measurement [facility] XR Chest PA and Lateral [facility] Payers Date Payer Category Payer Self-pay [id number] 2024 Medicare [id number] 2024 Private Health Insurance [id number] Unknown [id number] Unknown [id number] 2.16.8 [id number] Unknown [id number] 2.16.8 [id number] Unknown [id number] 2.16.8 [id number] Unknown [id number] 2.16.8 [id number] Unknown [id number] 2.16.8 [id number] Unknown [id number] 2.16.8 [id number] Unknown [id number] 2.16.8 [id number] Unknown [id number] 2.16.8 [id number] Unknown [id number] 2.16.8 [id number] Unknown [id number] 2.16.8 [id number] Unknown [id number] 2.16.8 [id number] Unknown [id number] 2.16.8 [id number] Unknown [id number] 2.16.8 [id number] Social History Date Type Detail Facility Start: 08-12-2021 End: 01-04-2023 Tobacco smoking status NHIS Unknown if ever smoked [facility] Start: 1950 Sex Assigned At Male W [facility] Start: 02-05-2024 End: 12-22-2024 Tobacco smoking status NHIS Never smoked tobacco (finding) [facility] Procedure note 12-22-2024 Note Date & Type Note Facility 12-22-2024 Procedure note [facility] Procedure note 12-22-2024 Note Date & Type Note Facility 12-22-2024 Procedure note [facility] Radiology Diagnostic study note 12-12-2024 Note Date & Type Note Facility 12-12-2024 Radiology Diagnostic study note [facility] Imaging Services [address] [place], [place] [address] Chest PA and Lateral MR#: [id number] Acct: [id number] Name: TOREY CARBAJAL Rep #: [id number] : 1950 M 74 From: [place] MD PCP: Dr. Devon Vega DO Status: PRE SDC Study:Chest PA and Lateral Date of Exam: 12/12/24 Exam# [id number] Ordering Dr: Guillaume Singh EXAM: XR Chest, 2 Views CLINICAL INDICATION: ATRIAL FIBRILLATION, PREPROCEDURAL FOR DCCV TECHNIQUE: Frontal and lateral views of the chest. COMPARISON: No relevant prior studies available. FINDINGS: LUNGS AND PLEURAL SPACES: Unremarkable. No consolidation. No pneumothorax. HEART: Unremarkable. No cardiomegaly. MEDIASTINUM: Unremarkable. Normal mediastinal contour. BONES/JOINTS: Unremarkable. No acute fracture. RAD/Chest PA and Lateral IMPRESSION: No acute cardiopulmonary process. Reading [facility] CC: Dr. Devon Vega DO; CATY Manuel ~ Dental Technician Apprentice: Signed [facility] Evaluation note 09-19-2024 Note Date & Type Note Facility 09-19-2024 Evaluation note Diagnosis Onset Date Resolution Encounter for monitoring flecainide therapy acute September 19, 2024 8:53am Multiple premature ventricular complexes acute September 8:53am Essential hypertension chronic Ap 2024 8:53am Nonrheumatic mitral (valve) prolapse chronic September 19 8:53am [facility] Work Phone: Evaluation note 09-19-2024 Note Date & Type Note Facility 09-19-2024 Evaluation note Diagnosis Onset Date Resolution Encounter for monitoring flecainide therapy acute September 19, 2024 8:53am Essential hypertension chronic Ap ril 2024 8:53am Multiple premature ventricular complexes chronic September 8:53am Nonrheumatic mitral (valve) prolapse chronic September 19 8:53am New onset atrial fibrillation acute November 12, 2024 2:30pm Essential hypertension chronic Ju ne 2024 2:30pm Multiple premature ventricular complexes chronic November 12, 2024 2:30pm Nonrheumatic mitral (valve) prolapse chronic November 12, 2024 2:30pm [facility] Work Phone: Evaluation note 09-19-2024 Note Date & Type Note Facility 09-19-2024 Evaluation note Diagnosis Onset Date Resolution Encounter for monitoring flecainide therapy acute September 19, 2024 8:53am Essential hypertension chronic Ap ril 2024 8:53am Multiple premature ventricular complexes chronic September 8:53am Nonrheumatic mitral (valve) prolapse chronic September 19 8:53am New onset atrial fibrillation acute November 12, 2024 2:30pm Essential hypertension chronic Ju ne 2024 2:30pm Multiple premature ventricular complexes chronic November 12, 2024 2:30pm Nonrheumatic mitral (valve) prolapse chronic November 12, 2024 2:30pm New onset atrial fibrillation acute December 12, 2024 9:09am Essential hypertension chronic Ju ly 2024 9:09am Multiple premature ventricular complexes chronic December 12, 2024 9:09am Nonrheumatic mitral (valve) prolapse chronic December 12, 2024 9:09am [facility] Work Phone: Evaluation note 09-19-2024 Note Date & Type Note Facility 09-19-2024 Evaluation note Diagnosis Onset Date Resolution Encounter for monitoring flecainide therapy acute September 19, 2024 8:53am Essential hypertension chronic Ap ril 2024 8:53am Multiple premature ventricular complexes chronic September 8:53am Nonrheumatic mitral (valve) prolapse chronic September 19 8:53am New onset atrial fibrillation acute November 12, 2024 2:30pm Essential hypertension chronic Ju 2024 2:30pm Multiple premature ventricular complexes chronic November 12, 2024 2:30pm Nonrheumatic mitral (valve) prolapse chronic November 12, 2024 2:30pm New onset atrial fibrillation acute December 12, 2024 9:09am Essential hypertension chronic Ju 2024 9:09am Multiple premature ventricular complexes chronic December 12, 2024 9:09am Nonrheumatic mitral (valve) prolapse chronic December 12, 2024 9:09am Encounter for monitoring flecainide therapy acute January 02, 2025 9:16am New onset atrial fibrillation acute January 02, 2025 9:16am Essential hypertension chronic Au 2024 9:16am Nonrheumatic mitral (valve) prolapse chronic January 02 9:16am [facility] Work Phone: Evaluation note Note Date & Type Note Facility Evaluation note Diagnosis Onset Date Encounter for monitoring flecainide therapy acute Essential hypertension acute Multiple premature ventricular complexes acute Nonrheumatic mitral (valve) prolapse [facility] Work Phone: Evaluation note Note Date & Type Note Facility Evaluation note Diagnosis Onset Date Multiple premature ventricular complexes acute Essential hypertension chron ic Nonrheumatic mitral (valve) prolapse [facility] Work Phone: Reason for referral (narrative) Note Date & Type Note Facility Reason for referral (narrative) No reason for referral information available [facility] Work Phone: Summary Purpose Family History No Family History Records FoundNo Family History Records FoundNo Family History Records FoundNo Family History Records Found Advance Directives Advance Directive Response Recorded Date/ Time Advance Directives on File No December 22, 2024 10:49am Living Will Yes December 22, 2024 10:49am Do you have a Healthcare Power of Manager Food Safety? Yes December 22, 2024 10:49am Name of Medical Power of Manager Food Safety spouse December 22, 2024 10:49am Advance Directives Yes December 22 10:49am Chief Complaint and Reason for Visit Chief Complaint PALP. EST CARE. CHEST PAIN Reason for Visit Encounter for monito ring flecainide therapy Essential hypertension Multiple premature ventricular complexes Nonrheumatic mitral (valve) prolapse Chief Complaint PALP. EST CARE. CHEST PAIN DRUG MONITORING DRUG MONITORING Reason for Visit Encounter for monito ring flecainide therapy Essential hypertension Multiple premature ventricular complexes Nonrheumatic mitral (valve) prolapse Chief Complaint 1 Y FU Ventricular premature depolarization Reason for Visit Multiple premature v entricular complexes Essential hypertension Nonrheumatic mitral (valve) prolapse Chief Complaint Admit Date 6 M FU September 19, 2024 8:5 3am New onset a-fib?see clinical note November [id number] 2:30pm Reason for Visit Admit Date Encounter for monitoring flecainide ther apy September 19, 2024 8:53am Multiple premature ventricular complexes September 19, 2024 8:53am Essential hypertension September 19, 2024 8:53am Nonrheumatic mitral (valve) prolapse Apr 2024 8:53am Chief Complaint Admit Date 6 M FU September 19, 2024 8:5 3am New onset a-fib?see clinical note November [id number] 2:30pm E-ORDER November 12, 2024 3:42 pm Reason for Visit Admit Date Encounter for monitoring flecainide ther apy September 19, 2024 8:53am Essential hypertension September 19, 2024 8:53am Multiple premature ventricular complexes September 19, 2024 8:53am Nonrheumatic mitral (valve) prolapse Apr 2024 8:53am New onset atrial fibrillation November 12, 2024 2:30pm Essential hypertension November 12, 2024 2 :30pm Multiple premature ventricular complexes November 12, 2024 2:30pm Nonrheumatic mitral (valve) prolapse Ruben 2024 2:30pm Chief Complaint Admit Date 6 M FU September 19, 2024 8:5 3am New onset a-fib?see clinical note November [id number] 2:30pm E-ORDER November 12, 2024 3:42 pm 4 WK FU December 12, 2024 9:09 am Reason for Visit Admit Date Encounter for monitoring flecainide ther apy September 19, 2024 8:53am Essential hypertension September 19, 2024 8:53am Multiple premature ventricular complexes September 19, 2024 8:53am Nonrheumatic mitral (valve) prolapse Apr 2024 8:53am New onset atrial fibrillation November 12, 2024 2:30pm Essential hypertension November 12, 2024 2 :30pm Multiple premature ventricular complexes November 12, 2024 2:30pm Nonrheumatic mitral (valve) prolapse Ruben e 2024 2:30pm New onset atrial fibrillation December 12, 2024 9:09am Essential hypertension December 12, 2024 9 :09am Multiple premature ventricular complexes December 12, 2024 9:09am Nonrheumatic mitral (valve) prolapse Hussein 2024 9:09am Chief Complaint Admit Date 6 M FU September 19, 2024 8:5 3am New onset a-fib?see clinical note November [id number] 2:30pm E-ORDER November 12, 2024 3:42 pm 4 WK FU December 12, 2024 9:09 am Unspecified atrial fibrillation December 10:14am Unspecified atrial fibrillation December 12:12pm Unspecified atrial fibrillation December 1:03pm Chief Complaint Admit Date 6 M FU September 19, 2024 8:5 3am New onset a-fib?see clinical note November [id number] 2:30pm E-ORDER November 12, 2024 3:42 pm 4 WK FU December 12, 2024 9:09 am Unspecified atrial fibrillation December 10:14am Unspecified atrial fibrillation December 12:12pm Unspecified atrial fibrillation December 1:03pm 1 W DCCV December 29, 2024 12:5 9pm Chief Complaint Admit Date 6 M FU September 19, 2024 8:5 3am New onset a-fib?see clinical note November [id number] 2:30pm E-ORDER November 12, 2024 3:42 pm 4 WK December 12, 2024 9:09 am Unspecified atrial fibrillation December 10:14am Unspecified atrial fibrillation December 12:12pm Unspecified atrial fibrillation December 1:03pm 1 W DCCV December 29, 2024 12:5 9pm See Clinical Note January 02, 2025 9:1 6am Reason for Visit Admit Date Encounter for monitoring flecainide ther apy September 19, 2024 8:53am Essential hypertension September 19, 2024 8:53am Multiple premature ventricular complexes September 19, 2024 8:53am Nonrheumatic mitral (valve) prolapse Apr 2024 8:53am New onset atrial fibrillation November 12, 2024 2:30pm Essential hypertension November 12, 2024 2 :30pm Multiple premature ventricular complexes November 12, 2024 2:30pm Nonrheumatic mitral (valve) prolapse Ruben 2024 2:30pm New onset atrial fibrillation December 12, 2024 9:09am Essential hypertension December 12, 2024 9 :09am Multiple premature ventricular complexes December 12, 2024 9:09am Nonrheumatic mitral (valve) prolapse Dec 9:09am Encounter for monitoring flecainide ther apy January 02, 2025 9:16am New onset atrial fibrillation January 9:16am Essential hypertension January 02, 2025 9:16am Nonrheumatic mitral (valve) prolapse Jan 9:16am Additional Source Comments (unrecognized sect ion and content) No Status Records FoundNo Status Records FoundNo Status Records FoundNo Status Records Found INFORMATION SOURCE (unrecogn ized section and content) DATE CREATED AUTHOR 11/27/2017 [facility] DATE CREATED AUTHOR AUTHOR'S ORGANIZ ATION 09/11/2018 [facility] DATE CREATED AUTHOR AUTHOR'S ORGANIZ ATION 03/17/2021 [facility] DATE CREATED AUTHOR AUTHOR'S ORGANIZ ATION 01/01/2025 [facility] Goals (unrecognized section and content) Goals may be documented in a n alternate sectionGoals may be documented in an alternate sectionGoals may be documented in an alternate sectionGoals may be documented in an alternate sectionGoals may be documented in an alternate sectionGoals may be documented in an alternate sectionGoals may be documented in an alternate sectionGoals may be documented in an alternate sectionGoals may be documented in an alternate section Care Teams (unrecognized sec tion and content) Team Status: Active Member Role Status Dates Dr. Sami Gonzalez MD Family Provider Active Dr. Devon Vega DO Primary Care Provider Active Team Status: Inactive Member Role Status Dates Dr. Sami Gonzalez MD Referring Provider Active Dr. Nathanael Lauren MD Attending Provider Active Dr. Devon Vega DO Primary Care Provider Active Team Status: Inactive Member Role Status Dates Dr. Devon Vega DO Primary Care Provider Active Dr. Nathanael Lauren MD Attending Provider, Referring Pro vider Active Team Status: Active Member Role Status Dates Dr. Devon Vega DO Primary Care Provider Active Team Status: Inactive Member Role Status Dates Dr. Devon Vega DO Primary Care Provider Active Start: September 19, 2024 End: September 19, 2024 Dr. Devon Vega DO Referring Provider Active Start: September 19, 2024 End: September 19, 2024 Shantal Perrin NP, [employer] Attending Provider Active Start: September 19, 2024 End: September 19, 2024 Team Status: Inactive Member Role Status Dates Dr. Devon Vega DO Primary Care Provider Active Start: November 12, 2024 End: November 12, 2024 Dr. Devon Vega DO Referring Provider Active Start: November 12, 2024 End: November 12, 2024 CATY Manuel Attending Provider Active St art: November 12, 2024 End: November 12, 2024 Team Status: Inactive Member Role Status Dates Dr. Devon Vega DO Primary Care Provider Active Start: November 12, 2024 End: November 12, 2024 CATY Manuel Attending Provider Active St art: November 12, 2024 End: November 12, 2024 CATY Manuel Referring Provider Active St art: November 12, 2024 End: November 12, 2024 Team Status: Active Member Role/Relationship Status Dates Dr. Devon Vega DO Primary Care Provider Active Team Status: Inactive Member Role/Relationship Status Dates Dr. Devon Vega DO Primary Care Provider Active Start: September 19, 2024 End: September 19, 2024 Dr. Devon Vega DO Referring Provider Active Start: September 19, 2024 End: September 19, 2024 Shantal Perrin NP, [employer] Attending Provider Active Start: September 19, 2024 End: September 19, 2024 Team Status: Inactive Member Role/Relationship Status Dates Dr. Devon Vega DO Primary Care Provider Active Start: November 12, 2024 End: November 12, 2024 Dr. Devon Vega DO Referring Provider Active Start: November 12, 2024 End: November 12, 2024 CATY Manuel Attending Provider Active St art: November 12, 2024 End: November 12, 2024 Team Status: Inactive Member Role/Relationship Status Dates Dr. Devon Vega DO Primary Care Provider Active Start: November 12, 2024 End: November 12, 2024 CATY Manuel Attending Provider Active St art: November 12, 2024 End: November 12, 2024 CATY Manuel Referring Provider Active St art: November 12, 2024 End: November 12, 2024 Team Status: Inactive Member Role/Relationship Status Dates Dr. Devon Vega DO Primary Care Provider Active Start: December 12, 2024 End: December 12, 2024 Dr. Devon Vega DO Referring Provider Active Start: December 12, 2024 End: December 12, 2024 CATY Manuel Attending Provider Active St art: December 12, 2024 End: December 12, 2024 Team Status: Inactive Member Role/Relationship Status Dates Dr. Devon Vega DO Primary Care Provider Active Start: December 22, 2024 End: December 22, 2024 Dr. Nathanael Lauren MD Attending Provider Active S tart: December 22, 2024 End: December 22, 2024 Dr. Nathanael Lauren MD Referring Provider Active S tart: December 22, 2024 End: December 22, 2024 CATY Manuel Other Provider Active Start: December 22, 2024 End: December 22, 2024 Team Status: Active Member Role/Relationship Status Dates Dr. Devon Vega DO Primary Care Provider Active Start: December 22, 2024 Dr. Nathanael Lauren MD Attending Provider Active S tart: December 22, 2024 Dr. Nathanael Lauren MD Referring Provider Active S tart: December 22, 2024 Dr. Nathanael Lauren MD Other Provider Active Start : December 22, 2024 CATY Manuel Other Provider Active Start: December 22, 2024 Team Status: Active Member Role/Relationship Status Dates Dr. Devon Vega DO Primary Care Provider Active Start: December 22, 2024 Dr. Nathanael Lauren MD Referring Provider Active S tart: December 22, 2024 Dr. Nathanael Lauren MD Other Provider Active Start : December 22, 2024 CATY Manuel Other Provider Active Start: December 22, 2024 Dr. Flo Ruiz DO Attending Provider Active S tart: December 22, 2024 Team Status: Inactive Member Role/Relationship Status Dates Dr. Devon Vega DO Primary Care Provider Active Start: December 29, 2024 End: December 29, 2024 Dr. Devon Vega DO Referring Provider Active Start: December 29, 2024 End: December 29, 2024 Dr. Nathanael Lauren MD Attending Provider Active S tart: December 29, 2024 End: December 29, 2024 Team Status: Inactive Member Role/Relationship Status Dates Dr. Devon Vega DO Primary Care Provider Active Start: January 02, 2025 End: January 02, 2025 Dr. Devon Vega DO Referring Provider Active Start: January 02, 2025 End: January 02, 2025 Tiffanie BYRNE, PA Attending Provider Active Start: January 02, 2025 End: January 02, 2025 FOR RECORDS PERTAINING TO PATIENTS WHO ARE [...] BE BASED ON THE PRIMARY CLINICAL RECORDS. [facility] [employer] provides no warranty or guarantee of the accuracy or completeness of information in this document.
== END | disposition home or self-care (01) ==
LOC: LAB 10:42
PROVIDERS: PCP Family Medicine; Referring Provider Physician Assistant Medical; Visit Provider Physician Assistant Medical
DX: I48.91 Unspecified atrial fibrillation (principal); Z51.81 Encounter for therapeutic drug level monitoring; Z79.899 Other long term (current) drug therapy; R06.09 Other forms of dyspnea
CPT/HCPCS: 36415; 80048; 83735; 83880; 84443; 85025

== ENCOUNTER → 2025-01-05 | Outpatient (CLI) | payer MEDICARE, OTHER, SELFPAY ==
--- NOTE | 2025-01-05 07:04 | EKG12_ITS ---
Test Reason : PVC'S Blood Pressure : */* mmHG Vent. Rate : 61 BPM Atrial Rate : 61 BPM P-R Int : 188 ms QRS Dur : 108 ms QT Int : 426 ms P-R-T Axes : 45 30 71 degrees QTcB Int : 428 ms Sinus rhythm with occasional Premature ventricular complexes Possible Left atrial enlargement Incomplete right bundle branch block Possible Anterior infarct , age undetermined Abnormal ECG Confirmed by DORA LENNON, NATHANAEL ([id number]), state editor LIZ FLORES ([id number]) on 01/05/2025 8:23:54 AM Referred By: Nathanael Lauren Confirmed By: NATHANAEL LAUREN MD
--- OUTSIDE RECORDS SUMMARY | 2025-01-05 07:16 | XMS RPT_ITS | CCD ---
Author Organization [facility] Team Providers Care Vegetable Cutter Name Role Phone RITIKA VELÁSQUEZ Attending Unavailable CHRISTEN, RITIKA E Referring Unavailable CHRISTEN, RITIKA E Referring Unavailable CHRISTENLANEY SUMMERSNETH E Referring Unavailable CHRISTENRITIKA SUMMERS E Attending Unavailable RITIKA VELÁSQUEZ Referring Unavailable Dr. Sami Gonzalez Primary Care Provider Dr. Sami Gonzalez Referring Provider Dr. Nathanael Lauren Attending Provider [phone] Nathanael Lauren Referring Provider [phone] Nathanael Lauren Other Provider Dr. Sami Gonzalez Referring Provider Dr. Nathanael Lauren Attending Provider [phone] Devon Vega Primary Care Provider Dr. Devon Vega DO Primary Care Provider Dr. Devon Vega DO Referring Provider Shantal Olivas Attending Provider [phone] Guillaume Ruby Attending Provider [phone] Guillaume Ruby Referring Provider [phone] Dr. Nathanael Lauren MD Attending Provider [phone] Dr. Nathanael Lauren MD Referring Provider [phone] Guillaume Ruby Other Provider Dr. Nathanael Lauren MD Other Provider Dr. Flo Ruiz DO Attending Provider Tiffanie Andrade Attending Provider [phone] Gary, Devon Primary Care Unavailable Roof HEAD OF CYTOGENETICS, Rob Downs Attending Unavailable Magan HEAD OF CYTOGENETICS, Rob Downs Referring Unavailable Demiter, Guillaume Attending Unavailable Demiter, Guillaume Referring Unavailable Gary, Devon Primary Care Unavailable Leonidas, Nathanael Attending Unavailable Leonidas, Towner Referring Unavailable Gary, Devon Primary Care Unavailable Demiter, Guillaume Consulting Unavailable Leonidas, Nathanael Attending Unavailable Leonidas, Nathanael Referring Unavailable Gary, Devon Primary Care Unavailable Flo Ruiz Attending Unavailable Leonidas, Towner Referring Unavailable Gary, Devon Primary Care Unavailable Demiter, Guillaume Consulting Unavailable Leonidas, Nathanael Consulting Unavailable Gary, Deovn Referring Unavailable Gary, Devon Primary Care Unavailable Demiter, Guillaume Attending Unavailable Leonidas, Nathanael Attending Unavailable Gary, Devon Referring Unavailable Gary, Devon Primary Care Unavailable Tiffanie Andrade Attending Unavail able Gary, Devon Referring Unavailable Gary, Devon Primary Care Unavailable Gary, Devon Primary Care Unavailable Gary, Devon Referring Unavailable Roof HEAD OF CYTOGENETICS, Rob Downs Attending Unavailable Shantal Perrin NP Attending Unavailable Gary, Devon Referring Unavailable Gary, Devon Primary Care Unavailable Demiter, Guillaume Attending Unavailable Gary, Devon Referring Unavailable Gary, Devon Primary Care Unavailable Leonidas, Nathanael Attending Unavailable Gary, Devon Primary Care Unavailable Leonidas, Towner Attending Unavailable Leonidas, Nathanael Referring Unavailable Gary, Devon Primary Care Unavailable Demiter, Guillaume Consulting Unavailable Leonidas, Nathanael Consulting Unavailable Tiffanie Andrade Attending Unavail able Tiffanie Andrade Referring Unavail able Gary, Devon Primary Care Unavailable Gary, Devon Primary Care Unavailable Magan HEAD OF CYTOGENETICS, Rob Downs Attending Unavailable Magan HEAD OF CYTOGENETICS, Rob Downs Referring Unavailable Allergies Allergy Classification Reported Allergen(s) Allergy Type Date of Onset Reaction(s) Facility (11 sources) Naproxen; Translations: [NAPROXEN] Drug Allergy 03-12-2012 unknown [facility] Repository Medications Current Medications Medication Drug Class(es) [...] tablet Active 20 mg PO daily 180 December 12, 2024 9:44am Start: 09-22-2024 End: 12-12-2024 take 1 tablet by mouth twice daily Lisinopril 20 mg tablet Discontinued 20 mg PO TWICE A DAY 180 September 22, 2024 9:55am December 12, 2024 [...] tablet Active 20 mg PO daily 90 December 30, 2024 12:00am must administer with evening meal Completed/Discontinued Medications Medication Drug Class(es) Dates Sig (Normalized) Sig (Original) apixaban 5 mg oral tablet (11 sources) Factor Xa Inhibitor Start: 11-12-2024 End: 12-30-2024 take 1 tablet by mouth twice daily Apixaban (Eliquis) 5 mg tablet Discontinued 5 mg PO TWICE A DAY 180 November 14, 2024 4:28pm December 30, 2024 11:08am Faxing to [facility] Reference ID: [id number] Patient phone: [phone] aspirin 81 mg delayed release oral tablet [...] Active 20 M G PO AT BEDTIME 90 January 04, 2023 9:05am Start: 08-12-2021 End: [...] Essential hypertension; Translations: [Essential (primary) hypertension] Onset: 01-02-2025 Chronic Heart valve disorders (20 sources) Nonrheumatic mitral (valve) insufficiency; Translations: [Mitral valve prolapse] Onset: 04-09-2018 Chronic Other aftercare (3 sources) Patient encounter status; Translations: [Encounter for therapeutic drug level monitoring] 08-11-2021 Episodic Other aftercare (3 sources) Encounter for therapeutic drug level monitoring; Translations: [Encounter for therapeutic drug monitoring] Onset: 01-02-2025 Episodic Other aftercare (13 sources) Long-term current use of drug therapy; Translations: [Encounter for therapeutic drug level monitoring] 08-11-2021 Episodic Other aftercare (1 source) Other terminal manager (current) drug therapy; Translations: [Other terminal manager (current) drug therapy] Onset: 01-02-2025 Episodic Other lower respiratory disease (1 source) Other forms of dyspnea; Translations: [Other forms of dyspnea] Onset: 01-02-2025 Episodic Results Test Name Value Interpretation Reference Range Facility Basic Metabolic Profile (BMP )on 01-02-2025 BUN/CRE 22.4 RATIO High 10-20 [facility] Comment on above: Performed By: #### L 500.2500, L503.7505, L100.0100, L501.5200, L501.9520 #### [facility] [address] [place], [address] Calcium [Mass/Vol] 9.3 mg/dL Normal 7.6-11.0 [facility] Comment on above: Performed By: #### L 500.2500, L503.7505, L100.0100, L501.5200, L501.9520 #### [facility] [address] [place], [address] Chloride [Moles/Vol] 105 mmol/L Normal 98-108 [facility] Comment on above: Performed By: #### L 500.2500, L503.7505, L100.0100, L501.5200, L501.9520 #### [facility] [address] [place], [address] CO2 [Moles/Vol] 26.9 mmol/L Normal 21.0-32.0 [facility] Comment on above: Performed By: #### L 500.2500, L503.7505, L100.0100, L501.5200, L501.9520 #### [facility] [address] [place], [address] Creatinine [Mass/Vol] 0.98 mg/dL Normal 0.70-1.20 [facility] Comment on above: Performed By: #### L 500.2500, L503.7505, L100.0100, L501.5200, L501.9520 #### [facility] [address] [place], [address] GAP 8 Normal 5-15 [facility] Comment on above: Performed By: #### L 500.2500, L503.7505, L100.0100, L501.5200, L501.9520 #### [facility] [address] [place], [address] GFR/1.73 sq M.predicted among non-blacks MDRD (S/P/Bld) [Vol rate/Area] 82 mL/min/{1.73_m2} Normal >60 [facility] Comment on above: Result Comment: mL/m in/1.73m2 CKD-EPI Creatinine Equation (2020) Performed By: #### L 500.2500, L503.7505, L100.0100, L501.5200, L501.9520 #### [facility] [address] [place], [address] Glucose [Mass/Vol] 120 mg/dL High 70-99 [facility] Comment on above: Performed By: #### L 500.2500, L503.7505, L100.0100, L501.5200, L501.9520 #### [facility] [address] [place], [address] Potassium [Moles/Vol] 5.0 mmol/L Normal 3.3-5.1 [facility] Comment on above: Performed By: #### L 500.2500, L503.7505, L100.0100, L501.5200, L501.9520 #### [facility] [address] [place], [address] Sodium [Moles/Vol] 141 mmol/L Normal 133-145 [facility] Comment on above: Performed By: #### L 500.2500, L503.7505, L100.0100, L501.5200, L501.9520 #### [facility] [address] [place], [address] Urea nitrogen [Mass/Vol] 22 mg/dL High 4-19 [facility] Comment on above: Performed By: #### L 500.2500, L503.7505, L100.0100, L501.5200, L501.9520 #### [facility] [address] [place], [address] CBC W/Diff, Automatedon 08-0 1-2024 Absolute Lymph 1.29 X10 3/uL Normal 0.83-4.51 [facility] Comment on above: Performed By: #### L 500.2500, L503.7505, L100.0100, L501.5200, L501.9520 #### [facility] [address] [place], [address] Absolute Neut 6.3 X10 3/uL Normal 2.0-7.7 [facility] Comment on above: Performed By: #### L 500.2500, L503.7505, L100.0100, L501.5200, L501.9520 #### [facility] [address] [place], [address] Basophils/100 WBC (Bld) 0.3 % Normal 0-1 [facility] Comment on above: Performed By: #### L 500.2500, L503.7505, L100.0100, L501.5200, L501.9520 #### [facility] [address] [place], [address] Eosinophils/100 WBC (Bld) 1.5 % Normal 0-5 [facility] Comment on above: Performed By: #### L 500.2500, L503.7505, L100.0100, L501.5200, L501.9520 #### [facility] [address] [place], [address] Erythrocyte distribution width (RBC) [Ratio] 13.9 % Normal 11.6-14.6 [facility] Comment on above: Performed By: #### L 500.2500, L503.7505, L100.0100, L501.5200, L501.9520 #### [facility] [address] [place], [address] Hematocrit (Bld) [Volume fraction] 49.2 % Normal 40-54 [facility] Comment on above: Performed By: #### L 500.2500, L503.7505, L100.0100, L501.5200, L501.9520 #### [facility] [address] [place], [address] Hemoglobin (Bld) [Mass/Vol] 16.1 g/dL Normal 13.0-16.5 [facility] Comment on above: Performed By: #### L 500.2500, L503.7505, L100.0100, L501.5200, L501.9520 #### [facility] [address] [place], [address] IG% 0.500 Normal 0.0-0.9 [facility] Comment on above: Result Comment: IG% - Immature Granulocytes (promyelocytes, myelocytes and metamyelocytes) > 1% indicates that a LEFT SHIFT is Present. Performed By: #### L 500.2500, L503.7505, L100.0100, L501.5200, L501.9520 #### [facility] [address] [place], [address] Lymphocytes/100 WBC (Bld) 14.8 % Low 19-41 [facility] Comment on above: Performed By: #### L 500.2500, L503.7505, L100.0100, L501.5200, L501.9520 #### [facility] [address] [place], [address] MCH (RBC) [Entitic mass] 30.3 pg Normal 27.0-32.0 [facility] Comment on above: Performed By: #### L 500.2500, L503.7505, L100.0100, L501.5200, L501.9520 #### [facility] [address] [place], [address] MCHC (RBC) [Mass/Vol] 32.7 g/dL Normal 32-36 [facility] Comment on above: Performed By: #### L 500.2500, L503.7505, L100.0100, L501.5200, L501.9520 #### [facility] [address] [place], [address] MCV (RBC) [Entitic vol] 92.7 fL Normal 80-94 [facility] Comment on above: Performed By: #### L 500.2500, L503.7505, L100.0100, L501.5200, L501.9520 #### [facility] [address] [place], [address] Monocytes/100 WBC (Bld) 11.1 % High 0-10 [facility] Comment on above: Performed By: #### L 500.2500, L503.7505, L100.0100, L501.5200, L501.9520 #### [facility] [address] [place], [address] Neutrophils/100 WBC (Bld) 71.8 % High 47-70 [facility] Comment on above: Performed By: #### L 500.2500, L503.7505, L100.0100, L501.5200, L501.9520 #### [facility] [address] [place], [address] Nucleated RBC (Bld) [#/Vol] 0 10*3/uL Normal 0-5 [facility] Comment on above: Performed By: #### L 500.2500, L503.7505, L100.0100, L501.5200, L501.9520 #### [facility] [address] [place], [address] Platelet mean volume (Bld) [Entitic vol] 12.0 fL Normal 6.2-12.0 [facility] Comment on above: Performed By: #### L 500.2500, L503.7505, L100.0100, L501.5200, L501.9520 #### [facility] [address] [place], [address] Platelets (Bld) [#/Vol] 136 10*3/uL Low 150-450 [facility] Comment on above: Performed By: #### L 500.2500, L503.7505, L100.0100, L501.5200, L501.9520 #### [facility] [address] [place], [address] RBC (Bld) [#/Vol] 5.31 10*6/uL Normal 4.6-6.2 [facility] Comment on above: Performed By: #### L 500.2500, L503.7505, L100.0100, L501.5200, L501.9520 #### [facility] [address] [place], [address] RDW SD 46.8 fl High 35.1-43.9 [facility] Comment on above: Performed By: #### L 500.2500, L503.7505, L100.0100, L501.5200, L501.9520 #### [facility] [address] [place], [address] WBC (Bld) [#/Vol] 8.7 10*3/uL Normal 4.4-11.0 [facility] Comment on above: Performed By: #### L 500.2500, L503.7505, L100.0100, L501.5200, L501.9520 #### [facility] [address] [place], [address] Cardiology Visit Reporton Cardiology Visit Report [facility] [address] [place], [place] [address] OFFICE VISIT Date of Service: 01/02/25 MR#: [id number] Acct: [id number] Name: TOREY CARBAJAL Rep #: [id number] : 1950 Provider: CATY Melvin Age/Sex: 74/M Location: [facility] Status: Signed HPI HPI History of Present Illness Details: Torey Carbajal is a 74-year-old male with a history of atrial fibrillation, hypertension and mitral valve prolapse. He also has a history of PVCs. In September of this year patient was noted to have bradycardia. His propranolol was decreased. He was asked to obtain a 24-hour Holter monitor. Pt stopped propranolol in september d/t low HR. then developed Afib. then did DDCV, developed swelling and still low HR, fatigued, SOB, Patient then stopped his propranolol on his own. He presented to the office in November of this year where he was noted to be in atrial fibrillation with RVR. He was not anticoagulated at that time as it had been quite sometime since he has had atrial fibrillation. His Eliquis was started. His propranolol was also restarted. He underwent a cardioversion on 12/22/2024. He had called our office the following day and noted his heart rate was in the 40s. He also noted that he was more short of breath with exertion and also had new onset of orthopnea. He had a post cardioversion on 12/29 which demonstrated sinus bradycardia with first-degree AV block. He then called our office on December for first with concerns over a 15 pound weight gain, legs swollen. He is concerned that this was related to his Eliquis. He is here today for further evaluation of this. Preliminary EKG demonstrates AV disassociation with PVCs and a heart rate of 43. Intake Vital Signs 12/22/24 10:49 01/02/25 07:10 Height 6 ft 6 ft Weight: 217 lb BMI 29.4 BP 124/90 H Blood Pressure Location Lt brachial Position Sitting Respiration 18 Pulse 43 L Pulse Source Monitor Pulse Oximetry (%) 98 Intake Visit Reasons: See Clinical Note Colorer Machine Required: No Is patient in pain?: No Allergies naproxen Adverse Reaction (Verified 12/12/24 09:16) unknown Medications ???Medication ???Instructions ???Recorded ???Confirmed ???Type citalopram 10 mg tablet 10 mg PO QDAY 09/19/24 01/02/25 Hi story lisinopril 20 mg tablet 20 mg PO QDAY #180 tabs 12/12/24 0 01/02/25 Rx rivaroxaban 20 mg tablet (Xarelto) 20 mg PO QDAY #90 tabs 12/30/24 12/30/24 Rx furosemide 40 mg tablet (Lasix) 40 mg PO QAM #10 tabs 01/02/2506/28 Rx Ejection fraction %: 65 Have you fallen in the past year?: No Nurse's Note: taking Eliquis, not taking Xarelto because he has not got it yet. [facility] Medical History Multiple premature ventricular complexes Nonrheumatic mitral (valve) prolapse Renal stone Anxiety Incomplete right bundle branch block Essential hypertension Social History Smoking Status: Never smoker alcohol intake: current alcohol intake frequency: a few times a week substance use type: does not use caffeine: Yes Type: coffee Number of servings: 1 ROS Const Const: Positive for fatigue, weakness and headache(s); Negative for frequent falls Eyes Eyes: Negative for blurry vision ENT ENT: Positive for headache(s) and dizziness; Negative for Nosebleed/epistaxis Cardio Chest Pain: Yes Palpitations: No Edema: Bilateral and None Muscle aches with walking: None Resp Respiratory: Positive for SOB with activity; Negative for SOB at rest or SOB orthopnea SOB lying down GI GI: Positive for heartburn; Negative nausea, vomiting, bright, red blood in stools or black,tarry stools : Negative for hematuria Neuro Neuro: Positive for dizziness, lightheadedness, headache(s) and weakness; Negative for near syncope, syncope, frequent falls or blurry vision Endo Endo: Positive for fatigue Cardiology Exam Const Appearance: cooperative, comfortable, no acute distress and well developed; Negative diaphoretic Nutritional Appearance: average body habitus Orientation: alert [...] effort; Negative respiratory distress, audible wheezes or tachyp (more content not included)... Normal [facility] Magnesiumon 01-02-2025 Magnesium [Mass/Vol] 2.2 mg/dL Normal 1.5-2.2 [facility] Comment on above: Performed By: #### L 500.2500, L503.7505, L100.0100, L501.5200, L501.9520 #### [facility] [address] [place], [place], [id number] Pro- Brain NATRIURETIC PEPTI Disha 01-02-2025 Natriuretic peptide B (Bld) [Mass/Vol] 2709 pg/mL High <=900 [facility] Comment on above: Result Comment: Hear t Failure Unlikely: < 300 pg/mL Heart Failure Likely < 50 Years: > 450 pg/mL 50-75 Years: > 900 pg/mL >75 Years: > 1800 pg/mL Performed By: #### L 500.2500, L300.3900 #### [facility] [address] [place], [address] Thyroid Stim Hormone (TSH)on 01-02-2025 TSH 1.210 uIU/mL Normal 0.300-4.200 [facility] Comment on above: Performed By: #### L 500.2500, L503.7505, L100.0100, L501.5200, L501.9520 #### [facility] [address] [place], [place], [address] Procedure Reporton Procedure Report [facility] Medical Records Department [address] [place] [address] Procedure Report 12/22/24 1303 MR#: [id number] Acct: [id number] Name: TOREY CARBAJAL Rep #: [id number] : 1950 74 From: Flo Ruiz DO PCP: Dr. Devon Vega DO Status:REG [facility] Location: [facility] Procedures Pulmonary Pulmonary Procedures /Diagnostic Testin Con Sedation Non-invasive Procedural Procedure Information Date of Procedure: 12/22/24 Description of procedure: CONSCIOUS SEDATION REPORT DATE OF SERVICE: December 22, 2024 BRIEF HISTORY OF PRESENT ILLNESS: The patient is a 74-year-old male who presented to [facility] to undergo an elective outpatient cardioversion due [...] DO; Dr. Devon Vega DO Signed Normal [facility] Procedure Report [facility] Medical Records Department [address] [place] [address] Procedure Report 12/22/24 1212 MR#: [id number] Acct: [id number] Name: TOREY CARBAJAL Rep #: [id number] : 1950 74 From: Nathanael Lauren MD PCP: Dr. Devon Vega DO Status:REG [facility] Location: [facility] Non-invasive Procedural Procedure Information Date of Procedure: 12/22/24 Pre-Procedure Diagnosis: Atrial fibrillation Post-Procedure Diagnosis: Atrial fibrillation Procedure Performed:: DC cardioversion hospice office coordinator: No Procedure Time Out: 12:00 Procedure Start [...] MD; Dr. Devon Vega DO Signed Normal [facility] Anion gap in Serum or Plasma Ordered By: Guillaume Singh on 12-12-2024 Anion gap [Moles/Vol] 9 mmol/L 10-16 [facility] BUN/creatinine ratioOrdered By: Guillaume Singh on 12-12-2024 Urea nitrogen/Creatinine [Mass ratio] 19.3 mg/mg - [facility] Basic Metabolic Profile (BMP )on 12-12-2024 BUN/CRE 19.3 RATIO Normal 03-23 [facility] Comment on above: Performed By: #### L 500.2500, L300.3900 #### [facility] [address] [place], [address] Calcium [Mass/Vol] 9.1 mg/dL Normal 7.6-11.0 [facility] Comment on above: Performed By: #### L 500.2500, L300.3900 #### [facility] [address] [place], [address] Chloride [Moles/Vol] 106 mmol/L Normal 98-108 [facility] Comment on above: Performed By: #### L 500.2500, L300.3900 #### [facility] [address] [place], [address] CO2 [Moles/Vol] 26.3 mmol/L Normal 21.0-32.0 [facility] Comment on above: Performed By: #### L 500.2500, L300.3900 #### [facility] [address] [place], [address] Creatinine [Mass/Vol] 0.88 mg/dL Normal 0.70-1.20 [facility] Comment on above: Performed By: #### L 500.2500, L300.3900 #### [facility] [address] [place], [address] GAP 9 Normal 5-15 [facility] Comment on above: Performed By: #### L 500.2500, L300.3900 #### [facility] [address] [place], [address] GFR/1.73 sq M.predicted among non-blacks MDRD (S/P/Bld) [Vol rate/Area] 91 mL/min/{1.73_m2} Normal >60 [facility] Comment on above: Result Comment: mL/m in/1.73m2 CKD-EPI Creatinine Equation (2020) Performed By: #### L 500.2500, L300.3900 #### [facility] [address] [place], [address] Glucose [Mass/Vol] 93 mg/dL Normal 70-99 [facility] Comment on above: Performed By: #### L 500.2500, L300.3900 #### [facility] [address] [place], [address] Potassium [Moles/Vol] 4.2 mmol/L Normal 3.3-5.1 [facility] Comment on above: Performed By: #### L 500.2500, L300.3900 #### [facility] [address] [place], [address] Sodium [Moles/Vol] 141 mmol/L Normal 133-145 [facility] Comment on above: Performed By: #### L 500.2500, L300.3900 #### [facility] [address] [place], [address] Urea nitrogen [Mass/Vol] 17 mg/dL Normal 4-19 [facility] Comment on above: Performed By: #### L 500.2500, L300.3900 #### [facility] [address] [place], [address] Carbon dioxide, total [Moles /volume] in Central venous bloodOrdered By: Guillaume Singh on 12-12-2024 CO2 [Moles/Vol] 26.3 mmol/L 21.0-32.0 [facility] Cardiology Visit Reporton Cardiology Visit Report [facility] [address] [place] [address] OFFICE VISIT Date of Service: 12/12/24 MR#: [id number] Acct: [id number] Name: TOREY CABRAJAL Rep #: [id number] : 1950 Provider: CATY Manuel Age/Sex: 74/M Location: [facility] Status: Signed HPI HPI History of Present [...] air Intake Visit Reasons: 4 WK FU Colorer Machine Required: No Accompanied by: Self Is patient [...] tachypneic Au (more content not included)... Normal [facility] Chest PA and Lateralon 12-12 Chest PA and Lateral [facility] Imaging Services [address] [place] [address] Chest PA and Lateral MR#: [id number] Acct: [id number] Name: TOREY CARBAJAL Rep #: [id number] : 1950 M 74 From: Devon Beach MD PCP: Dr. Devon Vega DO Status: PRE SDC Study: Chest PA and Lateral Date of Exam: 12/12/24 Exam# [id number] Ordering Dr: Guillaume Singh EXAM: XR Chest, [...] IMPRESSION: No acute cardiopulmonary process. Reading [facility] CC: Dr. Devon Vega DO; CATY Manuel Lean [employer] Sigma Black Belt: Signed Normal [facility] Chloride assayOrdered By: Susanne Singh on 12-12-2024 Chloride [Moles/Vol] 106 mmol/L 98-108 [facility] Glomerular filtration rate ( GFR) estimation/1.73 sq m using serum, plasma, or whole bOrdered By: Guillaume Singh on 12-12-2024 GFR/1.73 sq M.predicted among non-blacks MDRD (S/P/Bld) [Vol rate/Area] 91 mL/min/{1.73_m2} >60 [facility] Comment on above: mL/min/1.73m2 CKD-EP I Creatinine Equation (2020) International normalized rat io (INR) calculationOrdered By: Guillaume Singh on 12-12-2024 INR Coag (Bld) [Relative time] 1.3 {INR} [facility] Potassium measurement (mass/ volume)Ordered By: Guillaume Singh on 12-12-2024 Potassium (Unsp spec) [Mass/Vol] 4.2 mmol/L 3.3-5.1 [facility] Prothrombin Time w/INRon INR Coag (PPP) [Relative time] 1.3 {INR} Normal [facility] Comment on above: Performed By: #### L 500.2500, L300.3900 #### [facility] Laboratory [address] [place], [address] PT Coag (PPP) [Time] 16.4 s High 11.7-14.9 [facility] Comment on above: Performed By: #### L 500.2500, L300.3900 #### [facility] [address] [place], [address] Prothrombin timeOrdered By: Guillaume Singh on 12-12-2024 PT Coag (PPP) [Time] 16.4 s High 11.7-14.9 [facility] Serum creatinine measurement (mass/volume)Ordered By: Guillaume Singh on 12-12-2024 Creatinine [Mass/Vol] 0.88 mg/dL 0.70-1.20 [facility] Serum glucose measurement (m ass/volume)Ordered By: Guillaume Singh on 12-12-2024 Glucose [Mass/Vol] 93 mg/dL 70-99 [facility] Serum or plasma calcium jaime urement (mass/volume)Ordered By: Guillaume Singh on 12-12-2024 Calcium [Mass/Vol] 9.1 mg/dL 7.6-11.0 [facility] Serum or plasma urea nitroge n measurement (mass/volume)Ordered By: Guillaume Singh on 12-12-2024 Urea nitrogen [Mass/Vol] 17 mg/dL 4-19 [facility] Sodium levelOrdered By: Catarina Signh on 12-12-2024 Sodium [Moles/Vol] 141 mmol/L 133-145 [facility] Absolute lymphocyte countOrd ered By: Guillaume Singh on 11-12-2024 Lymphocytes Auto (Unsp spec) [#/Vol] 2.02 10*3/uL 0.83-4.51 [facility] Absolute neutrophil countOrd ered By: Guillaume Singh on 11-12-2024 Neutrophils (Bld) [#/Vol] 5.0 10*3/uL 2.0-7.7 [facility] Anion gap in Serum or Plasma Ordered By: Guillaume Singh on 11-12-2024 Anion gap [Moles/Vol] 11 mmol/L 5-15 [facility] Automated lymphocyte count a s percentage of total leukocytesOrdered By: Guillaume Singh on 11-12-2024 Lymphocytes/100 WBC Auto (Unsp spec) 25.1 % -41 [facility] BUN/creatinine ratioOrdered By: Guillaume Singh on 11-12-2024 Urea nitrogen/Creatinine [Mass ratio] 22.2 mg/mg High 03-23 [facility] Basic Metabolic Profile (BMP )on 11-12-2024 BUN/CRE 22.2 RATIO High 03-23 [facility] Comment on above: Performed By: #### L 100.0100, L501.5200, L500.2500, L501.9520 #### [facility] [address] [place], [address] Calcium [Mass/Vol] 9.2 mg/dL Normal 7.6-11.0 [facility] Comment on above: Performed By: #### L 100.0100, L501.5200, L500.2500, L501.9520 #### [facility] [address] [place], [address] Chloride [Moles/Vol] 108 mmol/L Normal 98-108 [facility] Comment on above: Performed By: #### L 100.0100, L501.5200, L500.2500, L501.9520 #### [facility] [address] [place], [address] CO2 [Moles/Vol] 23.7 mmol/L Normal 21.0-32.0 [facility] Comment on above: Performed By: #### L 100.0100, L501.5200, L500.2500, L501.9520 #### [facility] [address] [place], [address] Creatinine [Mass/Vol] 0.87 mg/dL Normal 0.70-1.20 [facility] Comment on above: Performed By: #### L 100.0100, L501.5200, L500.2500, L501.9520 #### [facility] [address] [place], [address] GAP 11 Normal 5-15 [facility] Comment on above: Performed By: #### L 100.0100, L501.5200, L500.2500, L501.9520 #### [facility] [address] [place], [address] GFR/1.73 sq M.predicted among non-blacks MDRD (S/P/Bld) [Vol rate/Area] 92 mL/min/{1.73_m2} Normal >60 [facility] Comment on above: Result Comment: mL/m in/1.73m2 CKD-EPI Creatinine Equation (2020) Performed By: #### L 100.0100, L501.5200, L500.2500, L501.9520 #### [facility] [address] [place], [address] Glucose [Mass/Vol] 104 mg/dL High 70-99 [facility] Comment on above: Performed By: #### L 100.0100, L501.5200, L500.2500, L501.9520 #### [facility] [address] [place], [address] Potassium [Moles/Vol] 4.4 mmol/L Normal 3.3-5.1 [facility] Comment on above: Performed By: #### L 100.0100, L501.5200, L500.2500, L501.9520 #### [facility] [address] [place], [address] Sodium [Moles/Vol] 142 mmol/L Normal 133-145 [facility] Comment on above: Performed By: #### L 100.0100, L501.5200, L500.2500, L501.9520 #### [facility] [address] [place], [address] Urea nitrogen [Mass/Vol] 19 mg/dL Normal 4-19 [facility] Comment on above: Performed By: #### L 100.0100, L501.5200, L500.2500, L501.9520 #### [facility] [address] [place], [address] Basophil percentageOrdered B y: Guillaume Singh on 11-12-2024 Basophils/100 WBC (Bld) 0.5 % 0-1 [facility] CBC W/Diff, Automatedon 11-02-2024 Absolute Lymph 2.02 X10 3/uL Normal 0.83-4.51 [facility] Comment on above: Performed By: #### L 100.0100, L501.5200, L500.2500, L501.9520 #### [facility] [address] [place], [address] Absolute Neut 5.0 X10 3/uL Normal 2.0-7.7 [facility] Comment on above: Performed By: #### L 100.0100, L501.5200, L500.2500, L501.9520 #### [facility] [address] [place], [address] Basophils/100 WBC (Bld) 0.5 % Normal 0-1 [facility] Comment on above: Performed By: #### L 100.0100, L501.5200, L500.2500, L501.9520 #### [facility] [address] [place], [address] Eosinophils/100 WBC (Bld) 2.4 % Normal 0-5 [facility] Comment on above: Performed By: #### L 100.0100, L501.5200, L500.2500, L501.9520 #### [facility] [address] [place], [address] Erythrocyte distribution width (RBC) [Ratio] 13.1 % Normal 11.6-14.6 [facility] Comment on above: Performed By: #### L 100.0100, L501.5200, L500.2500, L501.9520 #### [facility] [address] [place], [address] Hematocrit (Bld) [Volume fraction] 47.7 % Normal 40-54 [facility] Comment on above: Performed By: #### L 100.0100, L501.5200, L500.2500, L501.9520 #### [facility] [address] [place], [address] Hemoglobin (Bld) [Mass/Vol] 16.1 g/dL Normal 13.0-16.5 [facility] Comment on above: Performed By: #### L 100.0100, L501.5200, L500.2500, L501.9520 #### [facility] [address] [place], [address] IG% 0.200 Normal 0.0-0.9 [facility] Comment on above: Result Comment: IG% - Immature Granulocytes (promyelocytes, myelocytes and metamyelocytes) > 1% indicates that a LEFT SHIFT is Present. Performed By: #### L 100.0100, L501.5200, L500.2500, L501.9520 #### [facility] [address] [place], [address] Lymphocytes/100 WBC (Bld) 25.1 % Normal 19-41 [facility] Comment on above: Performed By: #### L 100.0100, L501.5200, L500.2500, L501.9520 #### [facility] [address] [place], [address] MCH (RBC) [Entitic mass] 29.9 pg Normal 27.0-32.0 [facility] Comment on above: Performed By: #### L 100.0100, L501.5200, L500.2500, L501.9520 #### [facility] [address] [place], [address] MCHC (RBC) [Mass/Vol] 33.8 g/dL Normal 32-36 [facility] Comment on above: Performed By: #### L 100.0100, L501.5200, L500.2500, L501.9520 #### [facility] [address] [place], [address] MCV (RBC) [Entitic vol] 88.5 fL Normal 80-94 [facility] Comment on above: Performed By: #### L 100.0100, L501.5200, L500.2500, L501.9520 #### [facility] [address] [place], [address] Monocytes/100 WBC (Bld) 9.4 % Normal 0-10 [facility] Comment on above: Performed By: #### L 100.0100, L501.5200, L500.2500, L501.9520 #### [facility] [address] [place], [address] Neutrophils/100 WBC (Bld) 62.4 % Normal 47-70 [facility] Comment on above: Performed By: #### L 100.0100, L501.5200, L500.2500, L501.9520 #### [facility] [address] [place], [address] Nucleated RBC (Bld) [#/Vol] 0 10*3/uL Normal 0-5 [facility] Comment on above: Performed By: #### L 100.0100, L501.5200, L500.2500, L501.9520 #### [facility] [address] [place], [address] Platelet mean volume (Bld) [Entitic vol] 11.4 fL Normal 6.2-12.0 [facility] Comment on above: Performed By: #### L 100.0100, L501.5200, L500.2500, L501.9520 #### [facility] [address] [place], [address] Platelets (Bld) [#/Vol] 158 10*3/uL Normal 150-450 [facility] Comment on above: Performed By: #### L 100.0100, L501.5200, L500.2500, L501.9520 #### [facility] [address] [place], [address] RBC (Bld) [#/Vol] 5.39 10*6/uL Normal 4.6-6.2 [facility] Comment on above: Performed By: #### L 100.0100, L501.5200, L500.2500, L501.9520 #### [facility] [address] [place], [address] RDW SD 42.5 fl Normal 35.1-43.9 [facility] Comment on above: Performed By: #### L 100.0100, L501.5200, L500.2500, L501.9520 #### [facility] [address] [place], [address] WBC (Bld) [#/Vol] 8.1 10*3/uL Normal 4.4-11.0 [facility] Comment on above: Performed By: #### L 100.0100, L501.5200, L500.2500, L501.9520 #### [facility] [address] [place], [address] Carbon dioxide, total [Moles /volume] in Central venous bloodOrdered By: Guillaume Singh on 11-12-2024 CO2 [Moles/Vol] 23.7 mmol/L 21.0-32.0 [facility] Cardiology Visit Reporton Cardiology Visit Report [facility] [address] [place] [address] OFFICE VISIT Date of Service: 11/12/24 MR#: [id number] Acct: [id number] Name: TOREY CARBAJAL Rep #: [id number] : 1950 Provider: CATY Manuel Age/Sex: 74/M Location: [facility] Status: Signed HPI HPI History of Present [...] Visit Reasons: New onset a-fib?see clinical note Colorer Machine Required: No Is patient in pain?: No [...] Auscultation: Bi (more content not included)... Normal [facility] Chloride assayOrdered By: Susanne Singh on 11-12-2024 Chloride [Moles/Vol] 108 mmol/L 98-108 [facility] Eosinophil percentageOrdered By: Guillaume Singh on 11-12-2024 Eosinophils/100 WBC (Bld) 2.4 % 0-5 [facility] Erythrocyte distribution wid th ratioOrdered By: Guillaume Singh on 11-12-2024 Erythrocyte distribution width (RBC) [Ratio] 13.1 % 11.6-14.6 [facility] Erythrocyte distribution wid th standard deviationOrdered By: Guillaume Singh on 11-12-2024 Erythrocyte distribution width (RBC) [Ratio] 42.5 fl 35.1-43.9 [facility] Glomerular filtration rate ( GFR) estimation/1.73 sq m using serum, plasma, or whole bOrdered By: Guillaume Singh on 11-12-2024 GFR/1.73 sq M.predicted among non-blacks MDRD (S/P/Bld) [Vol rate/Area] 92 mL/min/{1.73_m2} >60 [facility] Comment on above: mL/min/1.73m2 CKD-EP I Creatinine Equation (2020) Hematocrit Auto (Bld) [Volum e fraction]Ordered By: Guillaume Singh on 11-12-2024 Hematocrit (Bld) [Volume fraction] 47.7 % 40-54 [facility] Hemoglobin measurementOrdere d By: Guillaume Singh on 11-12-2024 Hemoglobin (Bld) [Mass/Vol] 16.1 g/dL 13.0-16.5 [facility] Immature granulocytes/100 WB C Auto (Bld)Ordered By: Guillaume Singh on 11-12-2024 Immature granulocytes/100 WBC (Bld) 0.200 % 0.0-0.9 [facility] Comment on above: IG% - Immature Granu locytes (promyelocytes, myelocytes and metamyelocytes) > 1% indicates that a LEFT SHIFT is Present. MCV (mean corpuscular volume ) determinationOrdered By: Guillaume Singh on 11-12-2024 MCV (RBC) [Entitic vol] 88.5 fL 80-94 [facility] Magnesiumon 11-12-2024 Magnesium [Mass/Vol] 2.2 mg/dL Normal 1.5-2.2 [facility] Comment on above: Performed By: #### L 100.0100, L501.5200, L500.2500, L501.9520 #### [facility] [address] [place] [address], [id number] Magnesium measurement (mass/ volume)Ordered By: Guillaume Singh on 11-12-2024 Magnesium (Unsp spec) [Mass/Vol] 2.2 mg/dL 1.5-2.2 [facility] Mean corpuscular hemoglobin (MCH) determinationOrdered By: Guillaume Singh on 11-12-2024 MCH (RBC) [Entitic mass] 29.9 pg 27.0-32.0 [facility] Mean corpuscular hemoglobin concentration (MCHC) determinationOrdered By: Guillaume Singh on 11-12-2024 MCHC (RBC) [Mass/Vol] 33.8 g/dL 32-36 [facility] Mean platelet volume determi nationOrdered By: Guillaume Singh on 11-12-2024 Platelet mean volume (Bld) [Entitic vol] 11.4 fL 6.2-12.0 [facility] Monocyte percentageOrdered B y: Guillaume Singh on 11-12-2024 Monocytes/100 WBC (Bld) 9.4 % 0-10 [facility] Neutrophil percentageOrdered By: Guillaume Singh on 11-12-2024 Neutrophils/100 WBC (Bld) 62.4 % 47-70 [facility] Nucleated red blood cell per centageOrdered By: Guillaume Singh on 11-12-2024 Nucleated RBC/100 WBC (Bld) [Ratio] 0 % 0-5 [facility] Platelet countOrdered By: Susanne Singh on 11-12-2024 Platelets (Bld) [#/Vol] 158 10*3/uL 150-450 [facility] Potassium measurement (mass/ volume)Ordered By: Guillaume Singh on 11-12-2024 Potassium (Unsp spec) [Mass/Vol] 4.4 mmol/L 3.3-5.1 [facility] RBC Auto (Bld) [#/Vol]Ordere d By: Guillaume Singh on 11-12-2024 RBC (Bld) [#/Vol] 5.39 10*6/uL 4.6-6.2 [facility] Serum creatinine measurement (mass/volume)Ordered By: Guillaume Singh on 11-12-2024 Creatinine [Mass/Vol] 0.87 mg/dL 0.70-1.20 [facility] Serum glucose measurement (m ass/volume)Ordered By: Guillaume Singh on 11-12-2024 Glucose [Mass/Vol] 104 mg/dL High 70-99 [facility] Serum or plasma calcium jaime urement (mass/volume)Ordered By: Guillaume Singh on 11-12-2024 Calcium [Mass/Vol] 9.2 mg/dL 7.6-11.0 [facility] Serum or plasma urea nitroge n measurement (mass/volume)Ordered By: Guillaume Singh on 11-12-2024 Urea nitrogen [Mass/Vol] 19 mg/dL 4-19 [facility] Sodium levelOrdered By: Catarina Singh on 11-12-2024 Sodium [Moles/Vol] 142 mmol/L 133-145 [facility] TSH DL <= 0.005 mIU/L QnOrde red By: Guillaume Singh on 11-12-2024 TSH Qn 0.856 uIU/mL 0.300-4.200 [facility] Thyroid Stim Hormone (TSH)on 11-12-2024 TSH 0.856 uIU/mL Normal 0.300-4.200 [facility] Comment on above: Performed By: #### L 100.0100, L501.5200, L500.2500, L501.9520 #### [facility] [address] [place], [address] White blood cell (WBC) count Ordered By: Guillaume Singh on 11-12-2024 WBC (Bld) [#/Vol] 8.1 10*3/uL 4.4-11.0 [facility] 12 Lead EKG performed by [facility] on 09-19-2024 12 Lead EKG performed by [facility] [address] [place] [address] 12 Lead EKG performed by [facility] 09/19/24 0732 MR#: [id number] Acct: [id number] Name: TOREY CARBAJAL Rep #: [id number] : 1950 74 From: Shantal Perrin [facility]TOGENETICS [facility] Attending Dr: Shantal Perrin, [facility]TO[facility]ETICS-C Status: DEP A PEDRO Ordering Dr: Shantal Perrin HEAD OF CYTOGENETICS [facility]TOGENETICS-C Date: 09/19/24 Location: [facility] [place] Sex: M C Admitted: [facility]/12 Lead EKG performed by [facility] ECG Report Interpretation ------Sinus Bradycardia -First degree A-V block Dominguez = 242-Nonspecific QRS widening. -Poor R-wave progression -nonspecific -consider old anterior infarct. BORDERLINEElectronic ally signed on 09/24/2024 at 16:26 by Nathanael Lauren Software Version [id number] 09/24/24 1630 Date Shantal Perrin NP [facility] CYTOGENETICS-C CC: Dr. Devon Vega, Date Dictated: 09/19/24 0732 Date Transcribed: 09/19/24731 Lean [employer] Black Belt: KR Signed Normal [facility] Cardiology Visit Reporton Cardiology Visit Report [facility] [address] [place] [address] OFFICE VISIT Date of Service: 09/19/24 MR#: [id number] Acct: [id number] Name: TOREY CARBAJAL Rep #: [id number] : 1950 Provider: MALINDA squires Age/Sex: 74/M Location: [facility] [place] Status: Signed HPI HPI History of Present [...] 97 Intake Visit Reasons: 6 M FU Colorer Machine Required: No Is patient in pain?: No [...] gallop Murmur (more content not included)... Normal [facility] Echo Completeon 03-28-2024 Echo Complete [facility] [address] [place] [address] Echo Complete 03/28/24 0935 MR#: [id number] Acct: [id number] Name: TOREY CARBAJAL Rep #: [id number] : 1950 74 From: Nathanael Lauren MD Attending Dr: MALINDA Escobedo [facility]: Rob Carrero NP [facility] CYTOGENETICS-C Date: 03/28/24 Location: [facility] Sex: M C Admitted: Reason For Study: [...] 03/28/24 1232 Date Nathanael Lauren MD CC: [facility] CYTOGENETICS-C Rob Carrero; Dr. Devon Vega, Date Dictated: 03/28/2435 Date Transcribed: 03/28/24 123 [employer] Black Belt: Signed Normal [facility] Stress Reporton 03-28-2024 Stress Report [facility] [address] [place] [address] MR#: [id number] Acct: [id number] Name: TOREY CARBAJAL Rep #: [id number] : 1950 74 From: Nathanael Lauren MD Primary Care: Dr. Devon Vega, Status: REG CLI Referring Dr: Rob Carrero NP [facility] OF CYTOGENETICS-C Sex: M C Stress Test Report Exercise [...] at a moderate workload Preserved ejection fraction. 03/28/24 1529 Date Nathanael Lauren MD CC: [facility] CYTOGENETICS-C Rob Carrero; Dr. Devon Vega, DO Date Dictated: 03/28/241526 Date Transcribed: 03/28/241526 Lean [employer] Black Belt: [place] Signed [facility] 12 Lead EKG performed by [facility] on 03-17-2024 12 Lead EKG performed by [address] [place] [address] 12 Lead EKG performed by [facility] 03/17/24819 MR#: [id number] Acct: [id number] Name: TOREY CARBAJAL Rep #: [id number] : 1950 74 From: Rob Carrero NP HEAD OF CYTOGENETICS-C Attending Dr: MALINDA Escobedo Status: DEP AMB Ordering Dr: Rob Carrero NP HEAD OF CYTOGENETICS-C Date: 03/17/24 Location: [facility] [place] Sex: M C Admitted: [facility]/12 Lead EKG performed by [facility] ECG Report Interpretation ------Sinus Bradycardia -First degree A-V block Dominguez = 248-Incomplete right bundle branch block. ABNORMAL Electronically signed on 03/21/2024 at 09:57 by Nathanael Lauren Software Version [id number] 03/21/24 0958 Date Rob Carrero NP HEAD OF CYTOGENETICS-C CC: Dr. Devon Vega, DO Date Dictated: 03/17/24819 Date Transcribed: 03/17/24819 Lean [employer] Black Belt: JHR Signed Normal [facility] CBC W/Diff, Automatedon 10- Absolute Lymph 1.76 X10 3/uL Normal 0.83-4.51 [facility] Comment on above: Performed By: #### L 100.0100, L501.5200, L500.2500, L501.9520 #### [facility] [address] [place], [address] Absolute Neut 4.1 X10 3/uL Normal 2.0-7.7 [facility] Comment on above: Performed By: #### L 100.0100, L501.5200, L500.2500, L501.9520 #### [facility] [address] [place], [address] Basophils/100 WBC (Bld) 0.6 % Normal 0-1 [facility] Comment on above: Performed By: #### L 100.0100, L501.5200, L500.2500, L501.9520 #### [facility] [address] [place], [address] Eosinophils/100 WBC (Bld) 5.4 % High 0-5 [facility] Comment on above: Performed By: #### L 100.0100, L501.5200, L500.2500, L501.9520 #### [facility] [address] [place], [address] Erythrocyte distribution width (RBC) [Ratio] 12.8 % Normal 11.6-14.6 [facility] Comment on above: Performed By: #### L 100.0100, L501.5200, L500.2500, L501.9520 #### [facility] [address] [place], [address] Hematocrit (Bld) [Volume fraction] 47.1 % Normal 40-54 [facility] Comment on above: Performed By: #### L 100.0100, L501.5200, L500.2500, L501.9520 #### [facility] [address] [place], [address] Hemoglobin (Bld) [Mass/Vol] 15.3 g/dL Normal 13.0-16.5 [facility] Comment on above: Performed By: #### L 100.0100, L501.5200, L500.2500, L501.9520 #### [facility] [address] [place], [address] IG% 0.300 Normal 0.0-0.9 [facility] Comment on above: Result Comment: IG% - Immature Granulocytes (promyelocytes, myelocytes and metamyelocytes) > 1% indicates that a LEFT SHIFT is Present. Performed By: #### L 100.0100, L501.5200, L500.2500, L501.9520 #### [facility] [address] [place], [address] Lymphocytes/100 WBC (Bld) 24.8 % Normal 19-41 [facility] Comment on above: Performed By: #### L 100.0100, L501.5200, L500.2500, L501.9520 #### [facility] [address] [place], [address] MCH (RBC) [Entitic mass] 29.6 pg Normal 27.0-32.0 [facility] Comment on above: Performed By: #### L 100.0100, L501.5200, L500.2500, L501.9520 #### [facility] [address] [place], [address] MCHC (RBC) [Mass/Vol] 32.5 g/dL Normal 32-36 [facility] Comment on above: Performed By: #### L 100.0100, L501.5200, L500.2500, L501.9520 #### [facility] [address] [place], [address] MCV (RBC) [Entitic vol] 91.1 fL Normal 80-94 [facility] Comment on above: Performed By: #### L 100.0100, L501.5200, L500.2500, L501.9520 #### [facility] [address] [place], [address] Monocytes/100 WBC (Bld) 11.6 % High 0-10 [facility] Comment on above: Performed By: #### L 100.0100, L501.5200, L500.2500, L501.9520 #### [facility] [address] [place], [address] Neutrophils/100 WBC (Bld) 57.3 % Normal 47-70 [facility] Comment on above: Performed By: #### L 100.0100, L501.5200, L500.2500, L501.9520 #### [facility] [address] [place], [address] Nucleated RBC (Bld) [#/Vol] 0 10*3/uL Normal 0-5 [facility] Comment on above: Performed By: #### L 100.0100, L501.5200, L500.2500, L501.9520 #### [facility] [address] [place], [address] Platelet mean volume (Bld) [Entitic vol] 11.1 fL Normal 6.2-12.0 [facility] Comment on above: Performed By: #### L 100.0100, L501.5200, L500.2500, L501.9520 #### [facility] [address] [place], [address] Platelets (Bld) [#/Vol] 144 10*3/uL Low 150-450 [facility] Comment on above: Performed By: #### L 100.0100, L501.5200, L500.2500, L501.9520 #### [facility] [address] [place], [address] RBC (Bld) [#/Vol] 5.17 10*6/uL Normal 4.6-6.2 [facility] Comment on above: Performed By: #### L 100.0100, L501.5200, L500.2500, L501.9520 #### [facility] [address] [place], [address] RDW SD 42.9 fl Normal 35.1-43.9 [facility] Comment on above: Performed By: #### L 100.0100, L501.5200, L500.2500, L501.9520 #### [facility] [address] [place], [address] WBC (Bld) [#/Vol] 7.1 10*3/uL Normal 4.4-11.0 [facility] Comment on above: Performed By: #### L 100.0100, L501.5200, L500.2500, L501.9520 #### [facility] [address] [place], [address] Cardiology Visit Reporton Cardiology Visit Report [facility] [address] [place] [address] OFFICE VISIT Date of Service: 03/17/24 MR#: [id number] Acct: [id number] Name: TOREY CARBAJAL Rep #: [id number] : 1950 Provider: MALINDA gillis Age/Sex: 74/M Location: [facility] [place] Status: Signed [facility] History of Present Illness Details: 74-year-old man [...] 98 Intake Visit Reasons: 1 Y FU Colorer Machine Required: No Is patient in pain?: No [...] Chest inspec (more content not included)... Normal [facility] Comprehensive Metabolic Prof nena 03-17-2024 Albumin [Mass/Vol] 3.5 g/dL Normal 3.2-5.0 [facility] Comment on above: Performed By: #### L 100.0100, L501.5200, L500.2500, L501.8220 #### [facility] [address] [place], [address] Albumin/Globulin [Mass ratio] 1.1 {ratio} Normal 0.9-2.4 [facility] Comment on above: Performed By: #### L 100.0100, L501.5200, L500.2500, L501.9520 #### [facility] [address] [place], [address] ALK P 61 U/L Normal 45-117 [facility] Comment on above: Performed By: #### L 100.0100, L501.5200, L500.2500, L501.9520 #### [facility] [address] [place], [address] ALT [Catalytic activity/Vol] 21 U/L Normal 16-61 [facility] Comment on above: Performed By: #### L 100.0100, L501.5200, L500.2500, L501.9520 #### [facility] [address] [place], [address] AST [Catalytic activity/Vol] 14 U/L Low 15-37 [facility] Comment on above: Performed By: #### L 100.0100, L501.5200, L500.2500, L501.9520 #### [facility] [address] [place], [address] Bilirubin [Mass/Vol] 1.30 mg/dL High 0.20-1.00 [facility] Comment on above: Result Comment: For patients on eltrombopag therapy, use of Dimension [place] TBIL is not recommended. Performed By: #### L 100.0100, L501.5200, L500.2500, L501.9520 #### [facility] [address] [place], [address] BUN/CRE 18.0 RATIO Normal 10-20 [facility] Comment on above: Performed By: #### L 100.0100, L501.5200, L500.2500, L501.9520 #### [facility] [address] [place], [address] CA,Total 9.2 mg/dL Normal 8.5-10.1 [facility] Comment on above: Performed By: #### L 100.0100, L501.5200, L500.2500, L501.9520 #### [facility] [address] [place], [address] Chloride [Moles/Vol] 107 mmol/L Normal 98-107 [facility] Comment on above: Performed By: #### L 100.0100, L501.5200, L500.2500, L501.9520 #### [facility] [address] [place], [address] CO2 [Moles/Vol] 30.0 mmol/L Normal 21.0-32.0 [facility] Comment on above: Performed By: #### L 100.0100, L501.5200, L500.2500, L501.9520 #### [facility] [address] [place], [address] Creatinine [Mass/Vol] 0.89 mg/dL Normal 0.70-1.30 [facility] Comment on above: Result Comment: The validity of the calculated GFR GFRAA in patients over 70 years has not been determined. Clinical correlation is essential. Performed By: #### L 100.0100, L501.5200, L500.2500, L501.9520 #### [facility] [address] [place], [address] EST GFR - AA 109 mL/min Normal >60 [facility] Comment on above: Result Comment: Afri can Micronesian GFR Calc Performed By: #### L 100.0100, L501.5200, L500.2500, L501.9520 #### [facility] [address] [place], [address] GAP 2 Low 5-15 [facility] Comment on above: Performed By: #### L 100.0100, L501.5200, L500.2500, L501.9520 #### [facility] [address] [place], [address] GFR/1.73 sq M.predicted among non-blacks MDRD (S/P/Bld) [Vol rate/Area] 90 mL/min/{1.73_m2} Normal >60 [facility] Comment on above: Result Comment: Non- GFR Calc Performed By: #### L 100.0100, L501.5200, L500.2500, L501.9520 #### [facility] [address] [place], [address] Globulin (S) [Mass/Vol] 3.2 g/dL Normal 2.2-4.2 [facility] Comment on above: Performed By: #### L 100.0100, L501.5200, L500.2500, L501.9520 #### [facility] [address] [place], [address] Glucose [Mass/Vol] 79 mg/dL Normal 74-106 [facility] Comment on above: Performed By: #### L 100.0100, L501.5200, L500.2500, L501.9520 #### [facility] [address] [place], [address] Potassium [Moles/Vol] 4.4 mmol/L Normal 3.5-5.1 [facility] Comment on above: Performed By: #### L 100.0100, L501.5200, L500.2500, L501.9520 #### [facility] [address] [place], [address] Sodium [Moles/Vol] 139 mmol/L Normal 136-145 [facility] Comment on above: Performed By: #### L 100.0100, L501.5200, L500.2500, L501.9520 #### [facility] [address] [place], [address] T PROT 6.7 g/dL Normal 6.4-8.2 [facility] Comment on above: Performed By: #### L 100.0100, L501.5200, L500.2500, L501.9520 #### [facility] [address] [place], [address] Urea nitrogen [Mass/Vol] 16 mg/dL Normal 7-18 [facility] Comment on above: Performed By: #### L 100.0100, L501.5200, L500.2500, L501.9520 #### [facility] [address] [place], [address] Magnesiumon 03-17-2024 Magnesium [Mass/Vol] 2.1 mg/dL Normal 1.6-2.6 [facility] Comment on above: Performed By: #### L 100.0100, L501.5200, L500.2500, L501.9520 #### [facility] [address] [place], [address] T4 Free Directon 03-17-2024 T4 FREE DIRECT 0.94 ng/dL Normal 0.76-1.46 [facility] Comment on above: Performed By: #### L 100.0100, L501.5200, L500.2500, L501.9520 #### [facility] [address] [place], [address] Thyroid Stim Hormone (TSH)on 03-17-2024 TSH 0.666 uIU/mL Normal 0.358-3.740 [facility] Comment on above: Performed By: #### L 100.0100, L501.5200, L500.2500, L501.9520 #### [facility] [address] [place], [address] Provider Note - ED v3on 10-0 Provider [...] SIGNS: T PRBP SpO2O2(LPM) %FiO2 Method 08-Mar-2021 11:28:[id number] /87 98 MDM MDM/ED COURSE: This note [...] S1S2. No m/r/g. Musculoskeletal: Grossly normal. Integumentary: [place], warm, dry, and Intact. Normal skin turgor; [...] documents available (more content not included)... Normal [facility] Provider Note - ED v2on 12 Provider Note - ED v2 Provider Note [...] SIGNS: T PRBP SpO2O2(LPM) %FiO2 Method 07-May-2020 13:46:[id number] /78 97 PHYSICAL EXAM CONSTITUTIONAL: Well appearing, [...] ill patient: no Electronic Signatures: Amy Walker (JACK TAMP OPERATOR-EDGE BONDER) (Signed 07-May-2020 14:22) Authored: HPI, PMH, ROS, PE, Results/Vital Signs, MDM/ED Course, Clinical Impression, Attestation, Chart Review, Scores Last Updated: 07-May-2020 14:22 by Amy Walker (JACK TAMP OPERATOR-EDGE BONDER) References: 1. Data Referenced From Provider Note - ED v2 07-May-2020 14:07 [facility] Provider Note - ED v2 This report has be en cancelled. [facility] CNOVon 09-09-2018 CNOV Office Visit (CAWSTR) TOREY CARBAJAL ([id number]) 1950 M Date Time Provider Department 09/09/18 9:45 AM RITIKA VELÁSQUEZ During your visit today, [...] N/A Beta bhupendra for ASHD with prior [place] or prior LVEF<40 (NQF 0070) - N/A [...] - lifestyle recommendation form CLINICAL IMPRESSION/PLAN: Torey Cabrajal is doing well. His palpitations are probably [...] provider on file. Referring Provider: RITIKA VELÁSQUEZ [[id number]] Allergies As of Date: 09/09/2018 Noted Allergy [...] Status:Closed by RITIKA VELÁSQUEZ MD on 09/09/18 [facility] PROGRESSon 09-09-2018 Protein mass conc HNO ID: [id number] Author: Ritika Velásquez Service: ? Author Type: Physician Type: Progress Notes Filed: 09/09/2018 4:32 PM Note Text: PERTINENT CARDIAC HISTORY Palpitations - VPDs Anxiety HTN HL MVP - mild MR Pericardial cyst ADHERENCE TO GUIDELINES AR-I or ARB for HF with prior LVEF<40 (NQF 0081) - N/A ASA or Plavix for ASHD (NQF 0067) - N/A Beta bhupendra for ASHD with prior [place] or prior LVEF<40 (NQF 0070) - N/A [...] No primary care provider on file. Normal [facility] Basic Metabolic Panlon 04-09 Anion gap molar conc 8 mmol/L Low 9-18 [facility] Calcium mass conc 10.0 mg/dL Normal 8.5-10.2 [facility] Chloride molar conc 101 mmol/L Normal 97-105 [facility] CO2 molar conc 30 mmol/L Normal 22-30 [facility] Creatinine mass conc 0.85 mg/dL Normal 0.73-1.22 [facility] eGFR- Amer. >60 Normal [facility] GFR/1.73 sq M predicted among non-blacks MDRD vol rate/area (S/P/Bld) mL/min/{1.73_m2} Normal [facility] Comment on above: Result Comment: eGFR [...] Glucose mass conc 82 mg/dL Normal 74-99 [facility] Potassium molar conc 4.6 mmol/L Normal 3.7-5.1 [facility] Sodium molar conc 139 mmol/L Normal 136-144 [facility] Urea nitrogen mass conc 13 mg/dL Normal 7-21 [facility] CNNURSEon 04-09-2018 [facility] Nurse Visit (CAWSTR) TOREY CARBAJAL ([id number]) 1950 M Date Time Provider Department 04/09/18 1:00 PM NURSE CARD ADMIN [facility] CAWSTR During your visit today, we recorded the following information about you: Thomas Flowers RN 04/09/2018 10:08 AM Signed Ekg completed per order. Pt tolerated procedure without distress. Thomas Flowers RN Referring Provider: RITIKA VELÁSQUEZ [[id number]] Allergies As of Date: 04/09/2018 Noted Allergy Reaction NAPROXEN 03/12/2012 5 - Intolerance Comments: Headache, not feeling well with it Date Reviewed: 04/09/2018 Reviewed by: Thomas Flowers RN - Fully Assessed Reason for Visit: Nurse Visit [792] Visit Diagnoses:Palpitatio ns [R00.2] Non-rheumatic mitral regurgitation [I34.0] Order(s):ECG COMPLETE W INTERPRETATION [ECG01] Order #: [id number] Prescriptions as of 04/09/2018 Sig: LISINOPRIL 20 [...] Status:Closed by THOMAS FLOWERS RN on 04/09/18 [facility] CNOVon 04-09-2018 CNOV Office Visit (CAWSTR) LISSETTE CARBAJALEN Vane ([id number]) 1950 M Date Time Provider Department 04/09/18 8:45 AM RITIKA VELÁSQUEZ CAWSTR During your visit today, we recorded the following information about you: Pulse Blood pressure Weight 59/minute 172/87 93.9 kg Ritika Velásquez MD 04/09/2018 9:45 AM Signed LIFESTYLE CHANGE A healthy lifestyle is the most important component of your overall treatment plan. Please give serious thought to the following areas and commit to making terminal manager changes. EAT A WHOLE FOOD, PLANT [...] N/A Beta bhupendra for ASHD with prior [place] or prior LVEF<40 (NQF 0070) - N/A [...] provider on file. Referring Provider: RITIKA VELÁSQUEZ [[id number]] Allergies As of Date: 04/09/2018 Noted Allergy Reaction NAPROXEN 03/12/2012 5 - Intolerance Comments: Headache, not feeling well with it Date Reviewed: 04/09/2018 Reviewed by: Thomas Flowers RN - Fully Assessed Reason for Visit: Recheck [92] Primary Visit Diagnosis:Palpitatio ns [R00.2] Other Visit Diagnosis:Non-rheuma tic mitral regurgitation [I34.0] Order(s):ECG COMPLETE W INTERPRETATION [ECG01] Order #: [id number] FUTURE BASIC METABOLIC PNL [SQBMP] Order #: [id number] FUTURE MAGNESIUM BLD [SQMG1] Order #: [id number] FUTURE lisinopril (ZESTRIL, PRINIVIL) 20 mg tabletTake 1 tablet by mouth twice daily.Disp: 180 tabletRfl: 3 TSH BLD [SQTSH] Order #: [id number] FUTURE Prescriptions as of 04/09/2018 Sig: LISINOPRIL [...] the following areas and commit to making terminal manager changes. EAT A WHOLE FOOD, PLANT [...] Status:Closed by RITIKA VELÁSQUEZ MD on 04/09/18 [facility] EKG1on 04-09-2018 EKG1 NAME : TOREY CARBAJAL PID : [id number] : 1950 Gender : Male Race : [...] ms QTC Calculation(Bezet) : 399 ms P Gordon : 58 degrees R Gordon : 36 degrees T Gordon : 43 degrees Test Reason : Location : 136 : [place] Overread By : RITIKA VELÁSQUEZ MD Edited By : RITIKA VELÁSQUEZ MD Referred By : RITIKA VELÁSQUEZ Acquired by : Veronique KASPER [facility] EKG1 NAME : TOREY CARBAJAL PID : [id number] : 1950 Gender : Male Race : [...] ms QTC Calculation(Bezet) : 393 ms P Gordon : 65 degrees R Gordon : 49 degrees T Gordon : 47 degrees Test Reason : Location : 136 : [place] Overread By : RITIKA VELÁSQUEZ MD Edited By : RITIKA VELÁSQUEZ MD Referred By : RITIKA VELÁSQUEZ Acquired by : Veronique KASPER [facility] Magnesiumon 04-09-2018 Magnesium mass conc 2.2 mg/dL Normal 1.7-2.3 [facility] PROGRESSon 04-09-2018 Protein mass conc HNO ID: [id number] Author: Ritika Velásquez Service: (none) Author Type: Physician Type: Progress Notes Filed: 04/09/2018 5:33 PM Note Text: PERTINENT CARDIAC HISTORY Palpitations - VPDs Anxiety HTN HL MVP - mild MR Pericardial cyst ADHERENCE TO GUIDELINES AR-I or ARB for HF with prior LVEF<40 (NQF 0081) - N/A ASA or Plavix for ASHD (NQF 0067) - N/A Beta bhupendra for ASHD with prior WI or prior LVEF<40 (NQF 0070) - N/A [...] No primary care provider on file. Normal [facility] TSHon 04-09-2018 Thyrotropin Qn 1.200 uU/mL Normal 0.400-5.500 [facility] Comment on above: Performed By: #### T #### [facility] [address] [place], [place] [address] OBSOLETEon 03-15-2017 OBSOLETE Refill (AGCARDWST)--------- CAREN CARBAJAL ([id number]) 1950 MDate Time Provider Ncdimgbwlu36/12/17 RITIKA VELÁSQUEZ AGCARDWST During your visit today, we recorded the [...] Status:Closed by GLORIA HARVEY MA on 03/15/17 [facility] Vital Signs Date Time Vital Sign Value Performing Clinician Frank quiñonez 01-02-2025 07:10-0400 Body height 182.[address] Devon Vega DO Work Phone: [facility] 01-02-2025 07:10-0400 Body mass index (BMI) [Ratio] 29.4 kg/m2 Dr. Devon Vega DO Work Phone: [facility] 01-02-2025 07:10-0400 Body weight 98.[address] Devon Vega DO Work Phone: [facility] 01-02-2025 07:10-0400 Diastolic blood pressure 90 mm[Hg] Dr. Devon Vega DO Work Phone: [facility] 01-02-2025 07:10-0400 Heart rate 43 /min Dr. Devon Vega DO Work Phone: [facility] 01-02-2025 07:10-0400 Respiratory rate 18 /min Dr. Devon Vega DO Work Phone: [facility] 01-02-2025 07:10-0400 SaO2% (BldA) [Mass fraction] 98 % Dr. Devon Vega DO Work Phone: [facility] 01-02-2025 07:10-0400 Systolic blood pressure 124 mm[Hg] Dr. Devon Vega DO Work Phone: [facility] 12-22-2024 10:49-0400 Body height 182.[address] Devon Vega DO Work Phone: [facility] 12-22-2024 10:49-0400 Body weight 93.[address] Devon Vega DO Work Phone: [facility] 12-19-2024 08:52-0400 Body mass index (BMI) [Ratio] 28 kg/m2 Dr. Devon Vega DO Work Phone: [facility] 12-12-2024 09:16-0400 Body height 182.[address] Devon Vega DO Work Phone: [facility] 12-12-2024 09:16-0400 Body mass index (BMI) [Ratio] 28 kg/m2 Dr. Devon Vega DO Work Phone: [facility] 12-12-2024 09:16-0400 Body weight 93.[address] Devon Vega DO Work Phone: [facility] 12-12-2024 09:16-0400 Diastolic blood pressure 88 mm[Hg] Dr. Devon Vega DO Work Phone: [facility] 12-12-2024 09:16-0400 Heart rate 77 /min Dr. Devon Vega DO Work Phone: [facility] 12-12-2024 09:16-0400 Respiratory rate 18 /min Dr. Devon Vega DO Work Phone: [facility] 12-12-2024 09:16-0400 SaO2% (BldA) [Mass fraction] 95 % Dr. Devon Vega DO Work Phone: [facility] 12-12-2024 09:16-0400 Systolic blood pressure 127 mm[Hg] Dr. Devon Vega DO Work Phone: [facility] 11-12-2024 06:48-0400 Body height 182.[address] Devon Vega DO Work Phone: [facility] 11-12-2024 06:48-0400 Body mass index (BMI) [Ratio] 28 kg/m2 Dr. Devon Vega DO Work Phone: [facility] 11-12-2024 06:48-0400 Body weight 93.[address] Devon Vega DO Work Phone: [facility] 11-12-2024 06:48-0400 Diastolic blood pressure 93 mm[Hg] Dr. Devon Vega DO Work Phone: [facility] 11-12-2024 06:48-0400 Heart rate 113 /min Dr. Devon Vega DO Work Phone: [facility] 11-12-2024 06:48-0400 Respiratory rate 18 /min Dr. Devon Vega DO Work Phone: [facility] 11-12-2024 06:48-0400 SaO2% (BldA) [Mass fraction] 96 % Dr. Devon Vega DO Work Phone: [facility] 11-12-2024 06:48-0400 Systolic blood pressure 136 mm[Hg] Dr. Devon Vega DO Work Phone: [facility] 09-19-2024 07:33-0400 Body mass index (BMI) [Ratio] 27.9 kg/m2 Dr. Devon Vega DO Work Phone: [facility] 09-19-2024 07:33-0400 Body weight 93.[address] Devon Vega DO Work Phone: [facility] 09-19-2024 07:33-0400 Diastolic blood pressure 78 mm[Hg] Dr. Devon Vega DO Work Phone: [facility] 09-19-2024 07:33-0400 Heart rate 56 /min Dr. Devon Vega DO Work Phone: [facility] 09-19-2024 07:33-0400 Respiratory rate 18 /min Dr. Devon Vega DO Work Phone: [facility] 09-19-2024 07:33-0400 SaO2% (BldA) [Mass fraction] 97 % Dr. Devon Vega DO Work Phone: [facility] 09-19-2024 07:33-0400 Systolic blood pressure 132 mm[Hg] Dr. Devon Vega DO Work Phone: [facility] 01-04-2023 09:06-0400 Body weight 92.[address] Sami Gonzalez Work Phone: 2(520)[phone] [place] [address] 01-04-2023 09:06-0400 Diastolic blood pressure 78 mm[Hg] Dr. Sami Gonzalez Work Phone: 0(291)[phone] [place] [address] 01-04-2023 09:06-0400 Heart rate 47 /min Dr. Sami Gonzalez Work Phone: 4(759)[phone] [address] 01-04-2023 09:06-0400 Respiratory rate 18 /min Dr. Sami Gonzalez Work Phone: 1(846)952-090062 [address] 01-04-2023 09:06-0400 Systolic blood pressure 143 mm[Hg] Dr. Sami Gonzalez Work Phone: 1(902)327-796162 [place] [address] 01-04-2023 08:37-0400 Body height 182.[address] Sami Gonzalez Work Phone: 1(970)[phone] [place] [address] 08-12-2021 10:15-0500 Body height 182.[address] Sami Gonzalez Work Phone: 9(817)[phone] [address] Work Phone: 08-12-2021 10:15-0500 Body mass index (BMI) [Ratio] 28.6 kg/m2 Dr. Sami Gonzalez Work Phone: [facility] Work Phone: 08-12-2021 10:15-0500 Body weight 95.[address] Sami Gonzalez Work Phone: 7(697)[phone] [address] Work Phone: 08-12-2021 10:15-0500 Diastolic blood pressure 85 mm[Hg] Dr. Sami Gonzalez Work Phone: [facility] Work Phone: 08-12-2021 10:15-0500 Heart rate 54 /min Dr. Sami Gonzalez Work Phone: [facility] Work Phone: 08-12-2021 10:15-0500 Respiratory rate 16 /min Dr. Sami Gonzalez Work Phone: [facility] Work Phone: 08-12-2021 10:15-0500 SaO2% (BldA) [Mass fraction] 97 % Dr. Sami Gonzalez Work Phone: [facility] Work Phone: 08-12-2021 10:15-0500 Systolic blood pressure 156 mm[Hg] Dr. Sami Gonzalez Work Phone: [facility] Work Phone: Encounters Encounter Date Encounter Type Care Provider Facility Start: 01-05-2025 ambulatory Nathanael Lauren Facility:[facility] Start: 01-02-2025 ambulatory Tiffanie BYRNE Facility:[facility] Start: 01-02-2025 End: 01-02-2025 Patient encounter procedure Tiffanie BYRNE -[facility] Work Phone: Start: 01-02-2025 End: 01-02-[address] Devon Vega DO Work Phone: -[facility] Start: 12-29-2024 End: 12-29-[address] Nathanael Lauren MD -[facility] Work Phone: Start: 12-29-2024 End: 12-29-[address] Devon Vega DO Work Phone: -[facility] Start: 12-22-2024 ambulatory Flo Ruiz Facility:[facility] Start: 12-22-2024 Non-patient / Non-visit Dr. Flo briggs DO -[facility] Start: 12-22-2024 End: 12-22-2024 Admission to same day surgery center Dr. Nathanael Lauren MD -[facility] Work Phone: Start: 12-22-2024 End: 12-22-[address] Devon Vega DO Work Phone: -[facility] Start: 12-12-2024 End: 12-12-2024 Patient encounter procedure Guillaume BYRNE -[facility] Work Phone: Start: 12-12-2024 End: 12-12-[address] Devon Vega DO Work Phone: -[facility] Start: 11-12-2024 End: 11-12-[address] Devon Vega DO Work Phone: [facility] Work Phone: Start: 11-12-2024 End: 11-12-2024 Patient encounter procedure Guillaume Singh PA -Laboratory Work Phone: Start: 11-12-2024 End: 11-12-2024 Patient encounter procedure Guillaume Singh PA -[facility] Work Phone: Start: 11-12-2024 End: 11-12-[address] Devon Vega DO Work Phone: [facility] Work Phone: Start: 11-12-2024 End: 11-12-2024 ambulatory Guillaume Singh Facility:[facility] Start: 09-19-2024 End: 09-19-2024 Patient encounter procedure Shantal Perrin HEAD OF CYTOGENETICS-C -[facility] Work Phone: Start: 09-19-2024 End: 09-19-2024 ambulatory Shantal Perrin NP Facility:[facility] Start: 03-28-2024 ambulatory Nathanael Lauren Facility:[facility] Start: 03-28-2024 End: 03-28-2024 ambulatory [facility] Facility:[facility] Start: 03-17-2024 End: 03-17-2024 ambulatory [facility] Facility:[facility] Start: 03-17-2024 End: 03-17-2024 ambulatory [facility] Facility:[facility] Start: 01-15-2023 End: 01-15-[address] Sami Gonzalez Work Phone: [facility] Work Phone: Start: 01-15-2023 End: 01-15-[address] Sami Gonzalez Work Phone: [facility]-Pulmonary Services/Neurology Work Phone: Start: 01-04-2023 End: 01-04-[address] Sami Gonzalez Work Phone: [facility] Work Phone: Start: 09-16-2021 Non-patient / Non-visit Dr. Becky Gonzalez Work Phone: [facility] Start: 09-16-2021 End: 09-16-[address] [facility] Start: 09-05-2021 Non-patient / Non-visit Dr. Becky Gonzalez Work Phone: [facility] Start: 09-05-2021 End: 09-05-[address] Sami Gonzalez Work Phone: [facility] Start: 08-12-2021 End: 08-12-[address] Sami Gonzalez Work Phone: [facility] Start: 09-09-2018 End: 09-10-2018 Patient encounter procedure RITIKA E [facility] Start: 04-09-2018 End: 04-09-2018 Patient encounter procedure RITIKA Carmichael [facility] Start: 04-09-2018 End: 04-11-2018 Patient encounter procedure RITIKA Amol [facility] Procedures Date Procedure Procedure Detail Performing [...] 01-02-2025 Evaluation of diagno stic study results [facility] Start: 12-29-2024 Evaluation of diagno stic study results [facility] Start: 12-22-2024 Patient discharge [facility] Start: 12-12-2024 Evaluation of diagno [facility] study results [facility] Start: 11-12-2024 [facility] Basic metabolic 2007 panel with ionized calcium - Serum or Plasma [facility] Basic metabolic 2008 panel with ionized calcium - Serum or Plasma [facility] Basic metabolic 2008 panel with ionized calcium - Serum or Plasma [facility] Cardioversion [facility] CBC W Auto Different ial panel - Blood [facility] CBC W Auto Different ial panel - Blood [facility] Electrocardiographic procedure [facility] Magnesium measurement [facility] Magnesium measurement [facility] Natriuretic peptide. B prohormone N-Terminal [Mass/volume] in Serum or Plasma [facility] Prothrombin time [facility] Thyroid stimulating hormone measurement [facility] Thyroid stimulating hormone measurement [facility] XR Chest PA and Lateral [facility] Payers Date Payer Category Payer Self-pay [id number] 2024 Medicare [id number] 2024 Private Health Insurance [id number] Unknown [id number] Unknown [id number] 2.16.8 [id number] Unknown [id number] 2.16.8 [id number] Unknown [id number] 2.16.8 [id number] Unknown [id number] 2.16.8 [id number] Unknown [id number] 2.16.8 [id number] Unknown [id number] 2.16.8 [id number] Unknown [id number] 2.16.8 [id number] Unknown [id number] 2.16.8 40.1.802133.3.579.2.462 Unknown [id number] 2.16.8 40.1.175178.3.579.2.462 Unknown [id number] 2.16.8 40.1.650771.3.579.2.462 Unknown [id number] 2.16.8 [id number] Unknown [id number] 2.16.8 40.1.752861.3.579.2.462 Unknown [id number] 2.16.8 40.1.960078.3.579.2.462 Unknown [id number] 2.16.8 [id number] Unknown [id number] 2.16.8 [id number] Social History Date Type Detail Facility Start: 08-12-2021 End: 01-04-2023 Tobacco smoking status NHIS Unknown if ever smoked [facility] Start: 1950 Sex Assigned At Male [facility] Start: 02-05-2024 End: 12-22-2024 Tobacco smoking status NHIS Never smoked tobacco (finding) [facility] Procedure note 12-22-2024 Note Date & Type Note Facility 12-22-2024 Procedure note [facility] Procedure note 12-22-2024 Note Date & Type Note Facility 12-22-2024 Procedure note [facility] Radiology Diagnostic study note 12-12-2024 Note Date & Type Note Facility 12-12-2024 Radiology Diagnostic study note [facility] Imaging Services [address] [place] [address] Chest PA and Lateral MR#: [id number] Acct: [id number] Name: TOREY CARBAJAL Rep #: [id number] : 1950 M 74 From: [place] MD PCP: Dr. Devon Vega DO Status: PRE [facility] Study:Chest PA and Lateral Date of Exam: 12/12/24 Exam# [id number] Ordering Dr: Guillaume Singh EXAM: XR Chest, [...] IMPRESSION: No acute cardiopulmonary process. Reading [facility] CC: Dr. Devon Vega DO; CATY Manuel ~ [employer]: Signed [facility] Evaluation note 09-19-2024 Note Date & Type Note Facility 09-19-2024 Evaluation note Diagnosis Onset Date Resolution Encounter for monitoring flecainide therapy acute September 19, 2024 8:53am Multiple premature ventricular complexes acute September 8:53am Essential hypertension chronic Ap ril 2024 8:53am Nonrheumatic mitral (valve) prolapse chronic September 19 8:53am [facility] Work Phone: Evaluation note 09-19-2024 [...] (valve) prolapse chronic November 12, 2024 2:30pm [facility] Work Phone: Evaluation note 09-19-2024 Note Date [...] (valve) prolapse chronic December 12, 2024 9:09am [employer] Work Phone: Evaluation note 09-19-2024 Note Date [...] mitral (valve) prolapse chronic January 02 9:16am [employer] Work Phone: Evaluation note Note Date & Type Note Facility Evaluation note Diagnosis Onset Date Encounter for monitoring flecainide therapy acute Essential hypertension acute Multiple premature ventricular complexes acute Nonrheumatic mitral (valve) prolapse [facility] Work Phone: Evaluation note Note Date & Type Note Facility Evaluation note Diagnosis Onset Date Multiple premature ventricular complexes acute Essential hypertension chron ic Nonrheumatic mitral (valve) prolapse [facility] Work Phone: Reason for referral (narrative) Note Date & Type Note Facility Reason for referral (narrative) No reason for referral information available [employer] [facility] Work Phone: Summary Purpose Family History No Family History Records FoundNo Family History Records FoundNo Family History Records FoundNo Family History Records Found Advance Directives No Advanced Directives Records Found Advance Directive Response Recorded Date/ Time Advance Directives on File No December 22, 2024 10:49am Living Will Yes December 22, 2024 10:49am Do you have a Healthcare Power of Entry Tech? Yes December 22, 2024 10:49am Name of Medical Power of Entry Tech spouse December 22, 2024 10:49am Advance Directives [...] 12, 2024 2:30pm Nonrheumatic mitral (valve) prolapse Nov 2:30pm Chief Complaint Admit Date 8 M [...] 12, 2024 2:30pm Nonrheumatic mitral (valve) prolapse Nov 2:30pm New onset atrial fibrillation December 12, 2024 9:09am Essential hypertension December 12, 2024 9 :09am Multiple premature ventricular complexes December 12, 2024 9:09am Nonrheumatic mitral (valve) prolapse Dec 9:09am Chief Complaint Admit Date 6 M [...] 12, 2024 2:30pm Nonrheumatic mitral (valve) prolapse Nov 2:30pm New onset atrial fibrillation December 12, 2024 9:09am Essential hypertension December 12, 2024 9 :09am Multiple premature ventricular complexes December 12, 2024 9:09am Nonrheumatic mitral (valve) prolapse Hussein 2024 9:09am Encounter for monitoring flecainide ther apy January 02, 2025 9:16am New onset atrial fibrillation January 9:16am Essential hypertension January 02, 2025 9:16am Nonrheumatic mitral (valve) prolapse Aug ust 2024 9:16am Additional Source Comments (unrecognized sect ion and content) No Status Records FoundNo Status Records FoundNo Status Records FoundNo Status Records Found INFORMATION SOURCE (unrecogn ized section and content) DATE CREATED AUTHOR 11/27/2017 [facility] DATE CREATED AUTHOR AUTHOR'S ORGANIZ ATION 09/11/2018 [facility] DATE CREATED AUTHOR AUTHOR'S ORGANIZ ATION 03/17/2021 [facility] DATE CREATED AUTHOR AUTHOR'S ORGANIZ ATION 01/04/2025 [facility] Goals (unrecognized section and content) Goals [...] 2024 End: September 19, 2024 Shantal Perrin HEAD OF CYTOGENETICS, [employer] OF CYTOGENETICS-C Attending Provider Active Start: September 19, 2024 [...] 2024 End: September 19, 2024 Shantal Perrin HEAD OF CYTOGENETICS, HEAD OF CYTOGENETICS-C Attending Provider Active Start: September 19, 2024 [...] BE BASED ON THE PRIMARY CLINICAL RECORDS. [facility]. provides no warranty or guarantee of the accuracy or completeness of information in this document.
== END | disposition home or self-care (01) ==
LOC: PSN 07:03
PROVIDERS: PCP Family Medicine; Referring Provider Internal Medicine Cardiovascular Disease; Visit Provider Internal Medicine Cardiovascular Disease
DX: I49.3 Ventricular premature depolarization (principal); I48.91 Unspecified atrial fibrillation; R42 Dizziness and giddiness; Z51.81 Encounter for therapeutic drug level monitoring; Z79.899 Other long term (current) drug therapy; I10 Essential (primary) hypertension; I34.1 Nonrheumatic mitral (valve) prolapse
CPT/HCPCS: 93005; 93225; 93226

== ENCOUNTER → 2025-01-20 | Outpatient (CLI) | payer MEDICARE, OTHER, SELFPAY ==
[2025-01-20 13:40] LABS: Anion Gap 11 (5-15); BUN 15 mg/dL (4-19); BUN/Creat Ratio 15.4 RATIO (10-20); Calcium,Total 9.1 mg/dL (7.6-11.0); Carbon Dioxide 24.0 mmol/L (21.0-32.0); Chloride 105 mmol/L (98-108); Glucose 104 mg/dL (70-99); Potassium 4.6 mmol/L (3.3-5.1)
--- OUTSIDE RECORDS SUMMARY | 2025-01-20 21:27 | XMS RPT_ITS | CCD ---
Author Organization [facility] Team Providers Care Cured Meat Packing Supervisor Name Role Phone JORGE VELÁSQUEZ E Attending Unavailable CHRISTEN, JORGE E Referring Unavailable CHRISTEN, JORGE E Referring Unavailable CHRISTEN, JORGE E Referring Unavailable CHRISTEN, JORGE E Attending Unavailable CHRISTEN, JORGE E Referring Unavailable Dr. Sami Gonzalez Primary Care Provider Dr. Sami Gonzalez Referring Provider Dr. Nathanael Lauren Attending Provider [phone] Nathanael Lauren Referring Provider Dr. Nathanael Lauren Other Provider Dr. Sami Gonzalez Referring Provider Dr. Nathanael Lauren Attending Provider Dr. Devon Vega Primary Care Provider Dr. Devon Vega DO Primary Care Provider Dr. Devon Vega DO Referring Provider [phone] Shantal Olivas Attending Provider [phone] Guillaume Ruby Attending Provider [phone] Guillaume Ruby Referring Provider [phone] Dr. Nathanael Lauren MD Attending Provider [phone] Dr. Nathanael Lauren MD Referring Provider [phone] Guillaume Ruby Other Provider Dr. Nathanael Lauren MD Other Provider Dr. Flo Ruiz DO Attending Provider Tiffanie Andrade Attending Provider Tiffanie Andrade Referring Provider Unavailable Primary Care Provider Unavailabl e Gary, Devon Referring Unavailable Shantal Perrin Attending Unavailable Gary, Devon Primary Care Unavailable Gary, Devon Referring Unavailable Roof CASHIER PARKING LOT, Rob Downs Attending Unavailable Gary, Devon Primary Care Unavailable Gary, Devon Referring Unavailable Demiter, Guillaume Attending Unavailable Gary, Devon Primary Care Unavailable Gary, Devon Primary Care Unavailable Leonidas, Nathanael Attending Unavailable Tiffanie Andrade Referring Unavail able Gary, Devon Referring Unavailable Leonidas, [place] Attending Unavailable Gary, Devon Primary Care Unavailable Gary, Devon Primary Care Unavailable Gary, Devon Referring Unavailable Tiffanie Andrade Attending Unavail able Gary, Devon Primary Care Unavailable Gary, Devon Referring Unavailable Tiffanie Andrade Attending Unavail able Gary, Devon Referring Unavailable Gary, Devon Primary Care Unavailable Tiffanie Andrade Attending Unavail able Gary, Devon Referring Unavailable Demiter, Guillaume Attending Unavailable Gary, Devon Primary Care Unavailable Leonidas, Nathanael Attending Unavailable Gary, Devon Primary Care Unavailable Leonidas, Nathanael Referring Unavailable Gary, Devon Primary Care Unavailable Leonidas, Nathanael Attending Unavailable Demiter, Guillaume Consulting Unavailable Leonidas, Nathanael Attending Unavailable Leonidas, [place] Referring Unavailable Gary, Devon Primary Care Unavailable Leonidas, Nathanael Consulting Unavailable Flo Ruiz Attending Unavailable Demiter, Guillaume Consulting Unavailable Leonidas, Nathanael Referring Unavailable Gary, Devon Primary Care Unavailable Leonidas, Nathanael Consulting Unavailable Demiter, Guillaume Consulting Unavailable Gary, Devon Primary Care Unavailable Leonidas, [place] Attending Unavailable Leonidas, Nathanael Referring Unavailable Roof CASHIER PARKING [employer], Rob H Referring Unavailable Roof CASHIER [employer]ARKING [employer], Rob H Attending Unavailable Gary, Devon Primary Care Unavailable Roof C[employer]ARKING [employer], Rob H Referring Unavailable Roof CASHIER [employer]ARKING [employer], Rob H Attending Unavailable Gary, Devon Primary Care Unavailable Gary, Devon Primary Care Unavailable Leonidas, [place] Attending Unavailable Leonidas, Nathanael Referring Unavailable Gary, Devon Primary Care Unavailable Tiffanie Andrade Referring Unavail able Tiffanie Andrade Attending Unavail able Demiter, Guillaume Referring Unavailable Guillaume Singh Attending Unavailable Devon Vega Primary Care Unavailable Allergies Allergy Classification Reported Allergen(s) Allergy Type Date of Onset Reaction(s) Facility (16 sources) Naproxen; Translations: [NAPROXEN] Drug Allergy 03-12-2012 Intolerance [facility] Repository Medications Current Medications Medication Drug Class(es) Dates Sig (Normalized) Sig (Original) amiodarone hydrochloride 200 mg oral tablet (5 sources) Antiarrhythmic Start: 01-15-2025 Amiodarone 200 mg tablet Active 200 mg PO .COMPLEX 37 January 15, 2025 10:04am 200 mg orally twice a day for 7 days, then once a day Start: 01-08-2025 End: 01-15-2025 take 1 tablet by mouth once daily Amiodarone 200 mg tablet Discontinued 200 mg PO daily 30 January 08, 2025 12:00am January 15, 2025 10:05am apixaban 5 mg oral tablet (20 sources) Factor Xa Inhibitor Start: 01-08-2025 take 1 tablet by mouth twice daily Apixaban (Eliquis) 5 mg tablet Active 5 mg PO TWICE A DAY January 08, 2025 12:00am Start: 11-12-2024 End: 12-30-2024 take 1 tablet by mouth twice daily Apixaban (Eliquis) 5 mg tablet Discontinued 5 mg PO TWICE A DAY 180 3 November 14, 2024 4:28pm December 30, 2024 11:08am Faxing to [facility] Reference ID: [id number] Patient phone: [phone] citalopram 10 mg oral tablet (10 sources) Serotonin Reuptake Inhibitor Start: 09-19-2024 take 1 tablet by mouth once daily Citalopram 10 mg tablet Active 10 mg PO daily September 19, 2024 12:00am ibuprofen 200 mg oral tablet (1 source) Nonsteroidal Anti-inflammatory Drug Start: 02-24-2005 IBUPROFEN 200 MG ORAL TAB as needed 0 02/24/2005 Active lisinopril 20 mg oral tablet (20 sources) Angiotensin Converting Enzyme Inhibitor Start: 12-12-2024 End: 12-12-2024 take 1 tablet by mouth once daily Lisinopril 20 mg tablet Active 20 mg PO daily 180 0 December 12, 2024 9:44am Start: 03-31-2024 End: 09-22-2024 take 2 tablets by mouth once daily Lisinopril 20 mg tablet Discontinued 40 mg PO DAILY 90 3 March 31, 2024 11:06am September 22, 2024 9:56am Start: 09-05-2021 End: 03-31-2024 take 1 tablet by mouth once daily Lisinopril 20 mg tablet Discontinued 20 mg PO DAILY 90 October 30, 2023 10:41am March 31, 2024 11:06am Start: 04-09-2018 End: 12-12-2024 take 1 tablet by mouth twice daily Lisinopril 20 mg tablet Discontinued 20 mg PO TWICE A DAY 180 3 September 22, 2024 9:55am December 12, 2024 9:19am mupirocin 0.02 mg/mg topical ointment (1 source) RNA Synthetase Inhibitor Antibacterial Start: 09-29-2016 mupirocin (BACTROBAN) 2 % ointment Indications: Local infection of skin and subcutaneous tissue Apply 1 application to affected area three times daily. 1 Tube 09/29/2016 Active nitroglycerin 0.4 mg sublingual tablet (1 source) Nitrate Vasodilator Start: 09-09-2018 nitroglycerin sublingual (NITROQUICK) 0.4 mg SL tablet Dissolve 1 tablet under the tongue every 5 minutes as needed. FOR CHEST PAIN. IF NO RELIEF after two doses, CALL 911 1 Bottle of 25 5 09/09/2018 Active rivaroxaban 20 mg oral tablet (9 sources) Factor Xa Inhibitor Start: 12-30-2024 End: 01-08-2025 take 1 tablet by mouth once daily Rivaroxaban (Xarelto) 20 mg tablet Active 20 mg PO daily January 08, 2025 9:31am Will start once he receives it and stop eliquis Completed/Discontinued Medications Medication Drug Class(es) Dates Sig (Normalized) Sig (Original) aspirin 81 mg delayed release oral tablet (10 sources) Platelet Aggregation Inhibitor, Nonsteroidal Anti-inflammatory Drug [...] tablet Discontinued 100 mg PO Q12H 180 3 September 22, 2024 9:56am January 02, 2025 10:13am Start: 03-14-2018 take 1 tablet by fatmata th twice daily flecainide (TAMBOCOR) 100 mg tablet Take 1 tablet by mouth twice daily. 180 tablet 3 03/14/2018 Active furosemide 40 mg oral tablet (9 sources) Loop Diuretic Start: 01-02-2025 End: 01-15-2025 take 1 tablet by mouth once daily in the morning as needed Furosemide (Lasix) 40 mg tablet Discontinued 40 mg PO EVERY MORNING as needed January 08, 2025 9:30am January 15, 2025 9:18am omeprazole 40 mg delayed release oral capsule (14 sources) Proton Pump Inhibitor Start: 08-11-2021 End: 08-12-2021 take 1 capsule by mouth once daily Omeprazole 40 mg capsule,delayed release(DR/EC) Discontinued 40 mg PO DAILY August 11, 2021 1:00am August 12, 2021 12:15pm take 2 capsules by mouth once da narinder omeprazole (PRILOSEC) 20 mg capsule Take 40 mg by mouth once daily. Active propranolol hydrochloride 10 mg oral tablet (20 sources) beta-Adrenergic Urvashi Start: 12-12-2024 End: 12-12-2024 take 1 tablet by mouth once daily in the evening Propranolol 10 mg tablet Discontinued 10 mg PO EVERY EVENING December 12, 2024 9:18am December 12, 2024 9:46am Start: 09-19-2024 End: 11-12-2024 take 1 tablet by mouth at bedtime Propranolol 10 mg tablet Discontinued 10 mg PO AT BEDTIME 30 3 September 19, 2024 9:29am November 12, 2024 3:51pm Start: 09-19-2024 End: 01-02-2025 take 1 tablet by mouth twice daily Propranolol 10 mg tablet Discontinued 10 mg PO TWICE A DAY December 12, 2024 9:45am January 02, 2025 10:13am Start: 10-30-2023 End: 09-19-2024 take 1 tablet by mouth at bedtime Propranolol 20 mg tablet Discontinued 20 mg PO AT BEDTIME 90 3 October 30, 2023 10:41am September 19, 2024 9:32am Start: 09-05-2021 End: 10-30-2023 Propranolol 40 mg tablet Discontinued 20 mg PO AT BEDTIME 90 3 September 16, 2021 1:20pm January 04, 2023 [...] 11, 2021 1:00am August 12, 2021 12:15pm Start: 03-14-2018 take 0.5 tablet by m outh twice daily propranolol (INDERAL) 40 mg tablet Take 0.5 tablets by mouth twice daily. 90 tablet 3 03/14/2018 Active Problems Problem Classification Problem Date Documented Da te Episodic/Chronic Cardiac dysrhythmias (20 sources) Multiple premature ventricular complexes; Translations: [Ventricular premature depolarization] Onset: 06-05-2007 Resolved: 03-12-2012 Chronic Cardiac dysrhythmias (15 sources) Palpitations; Translations: [Intermittent palpitations] Onset: 04-09-2018 08-11-2021 Episodic Conduction disorders (14 sources) Incomplete right bundle branch block; Translations: [Unspecified right bundle-branch block] Onset: 12-29-2024 08-11-2021 Chronic Essential hypertension (20 sources) Essential hypertension; Translations: [Essential (primary) hypertension] Onset: 01-08-2025 Chronic Heart valve disorders (20 sources) Nonrheumatic mitral (valve) insufficiency; Translations: [Mitral valve prolapse] Onset: 06-05-2007 Chronic Other aftercare (3 sources) Patient encounter status; Translations: [Encounter for therapeutic drug level monitoring] 08-11-2021 Episodic Other aftercare (3 sources) Encounter for therapeutic drug level monitoring; Translations: [Encounter for therapeutic drug monitoring] Onset: 01-02-2025 Episodic Other aftercare (20 sources) Long-term current use of drug therapy; Translations: [Encounter for therapeutic drug level monitoring] 08-11-2021 Episodic Other aftercare (1 source) Other long term care phlebotomist (current) drug therapy; Translations: [Other long term care phlebotomist (current) drug therapy] Onset: 01-02-2025 Episodic Other lower respiratory disease (1 source) Other forms of dyspnea; Translations: [Other forms of dyspnea] Onset: 01-02-2025 Episodic Thyroid disorders (1 source) Non-toxic uninodular goiter; Translations: [Nontoxic single thyroid nodule] Onset: 02-24-2005 09-30-2024 Chronic Unclassified (4 sources) New onset atrial fibrillation Unclassified (8 sources) I48.91 - Unspecified atrial fibrillation Results Test Name Value Interpretation Reference Range Facility Cardiology Visit Reporton Cardiology Visit Report [facility] [address] [place] [address] OFFICE VISIT Date of Service: 01/15/25 MR#: [id number] Acct: [id number] Name: MARK CARBAJAL Rep #: [id number] : 1950 Provider: CATY Melvin Age/Sex: 74/M [place] [facility] Status: Signed HPI HPI History of Present Illness Details: Mark Carbajal is a 74-year-old male with a history of atrial fibrillation, hypertension and mitral valve prolapse. He also has a history of PVCs. He was put on flecainide for his PVCs. In September of this year patient was noted to have bradycardia. His propranolol was decreased. He was asked to obtain a 24-hour Holter monitor. In November 2024 he presented to the office with palpitations and was noted to be in atrial fibrillation. EKG demonstrated atrial fibrillation/flutter with RVR and aberrantly conducted complexes. His QRS was noted to be slightly wider than previous. At that time it was noted that he stopped his propranolol on his own due to his bradycardia that he noted at home. He was then started on Eliquis with plans of a cardioversion after he had been anticoagulated for 30 days. His propranolol was restarted at 10 mg daily. He did undergo a successful cardioversion. EKG on December 29 demonstrated sinus rhythm with first-degree AV block. QRS complex was more narrow. However after the cardioversion he had continued to call our office with concerns over palpitations, weight gain and shortness of breath. He then did present to the office on January 02, 2025 and was noted to have bradycardia with a heart rate of 43 . EKG demonstrated wide complex QRS rhythm with frequent PVCs, AV disassociation, right bundle branch block. With his EKG his flecainide and propranolol was stopped. He was continued with his Eliquis. He was also given a short course of Lasix because he had gained 10 pounds and his proBNP was elevated. January 05, 2025 EKG demonstrated sinus rhythm with occasional premature ventricular complexes. Incomplete right bundle branch block. Possible anterior infarct. QRS was more narrow.He presented to the hospital on Sunday for an EKG. 01/05/2025-He underwent a 24-hour Holter monitor. This demonstrated sinus rhythm with periods of paroxysmal atrial fibrillation, PACs and PVCs with aberrancy noted. Average heart rate was 99, minimum heart rate 54 bpm and sinus bradycardia, maximum heart rate 171 bpm in atrial fibrillation. He did have atrial fibrillation 47% of the time. He presented back to the office on January 08, 2025. EKG demonstrated atrial fibrillation with RVR with PVCs. QRS was more narrow. Heart rate is 112. He did lose weight. He did feel better than when he did the previous week. Because of his continued atrial fibrillation we he was started on amiodarone 200 mg. We also reviewed for him to EP. Pt notes he has not heard back from EP yet, however admits to not answering blocked calls. He does occasionally have SOB but not like he did before. He is able to do chores without problems. He does have some GI upset with the amiodarone and does have some swelling in his ankles. Weight has stayed the same. Intake Vital Signs 01/08/25 09:26 01/15/25 09:17 Height 6 ft 6 ft Weight: 207 lb 206 lb BMI 28.0 27.9 BP 115/84 H 131/82 H Blood Pressure Location Lt brachial Rt brachial Position Sitting Sitting Respiration 18 16 Pulse 67 94 Pulse Source NIBP Monitor Intake Visit Reasons: 1 WK FU/Needs EKG Accompanied by: Self Is patient in pain?: No Allergies naproxen Adverse Reaction (Verified 01/15/25 09:17) unknown Medications ???Medication ???Instructions ???Recorded ???Confirmed ???Type citalopram 10 mg tablet 10 mg PO QDAY 09/19/24 01/15/25 Hi story lisinopril 20 mg tablet 20 mg PO QDAY #180 tabs 12/12/24 0 01/15/25 Rx apixaban 5 mg tablet (Eliquis) 5 mg PO BID 01/08/25 01/15/25 Hist ory rivaroxaban 20 mg tablet (Xarelto) 20 mg PO QDAY 01/08/25 History amiodarone 200 mg tablet 200 mg PO .COMPLEX #37 tabs 01/15/25 Rx Ejection fraction %: 65 Have you fallen in the past year?: Yes (1. standing on chair and fell off) PFSH Medical History PAF (paroxysmal atrial fibrillation) Multiple premature ventricular complexes Nonrheumatic mitral (valve) prolapse Renal stone Anxiety Incomplete right bundle branch block Essential hypertension Surgical History Hx of eye surgery Hx of hernia repair History of cardioversion ( 12/22/24) Social History Smoking Status: Never smoker alcohol intake: current alcohol intake frequency: a few times a week substance use type: does not use caffeine: Yes Type: coffee Number of servings: 1 (more content not included)... Normal [facility] Cardiology Visit Reporton Cardiology Visit Report [facility] [address] [place], [place] [address]. [address] [place] [address] OFFICE VISIT Date of Service: 01/08/25 MR#: [id number] Acct: [id number] Name: MARK CABRAJAL Rep #: [id number] : 1950 Provider: CATY Melvin Age/Sex: 74/M Location[place] [facility] Status: Signed HPI HPI History of Present Illness Details: Mrak Carbajal is a 74-year-old male with a history of atrial fibrillation, hypertension and mitral valve prolapse. He also has a history of PVCs. He was put on flecainide for his PVCs. In September of this year patient was noted to have bradycardia. His propranolol was decreased. He was asked to obtain a 24-hour Holter monitor. In November 2024 he presented to the office with palpitations and was noted to be in atrial fibrillation. EKG demonstrated atrial fibrillation/flutter with RVR and aberrantly conducted complexes. His QRS was noted to be slightly wider than previous. At that time it was noted that he stopped his propranolol on his own due to his bradycardia that he noted at home. He was then started on Eliquis with plans of a cardioversion after he had been anticoagulated for 30 days. His propranolol was restarted at 10 mg daily. He did undergo a successful cardioversion. EKG on December 29 demonstrated sinus rhythm with first-degree AV block. QRS complex was more narrow. However after the cardioversion he had continued to call our office with concerns over palpitations, weight gain and shortness of breath. He then did present to the office on January 02, 2025 and was noted to have bradycardia with a heart rate of 43 . EKG demonstrated wide complex QRS rhythm with frequent PVCs, AV disassociation, right bundle branch block. With his EKG his flecainide and propranolol was stopped. He was continued with his Eliquis. He was also given a short course of Lasix because he had gained 10 pounds and his proBNP was elevated. He presented to the hospital on Sunday for an EKG. EKG then did demonstrate sinus rhythm He underwent a 24-hour Holter monitor. This demonstrated sinus rhythm with periods of paroxysmal atrial fibrillation, PACs and PVCs with aberrancy noted. Average heart rate was 99, minimum heart r ate 54 bpm and sinus bradycardia, maximum heart rate 171 bpm in atrial fibrillation. He did have atrial fibrillation 47% of the time. He presents here today EKG does demonstrate atrial fibrillation with RVR with PVCs. His heart rate is 112. He does feel better. He still feels his palpitations and his heart racing at times. However since he is lost his 10 pounds he does feel significantly better he is back to base weight. He does not have any lightheadedness or dizziness and he feels that his exercise tolerance has improved. He however is still concerned about his atrial fibrillation Intake Vital Signs 01/02/25 07:10 01/08/25 09:26 Height 6 ft 6 ft Weight: 217 lb 207 lb BMI 29.4 28.0 BP 124/90 H 115/84 H Blood Pressure Location Lt brachial Lt brachial Position Sitting Sitting Respiration 18 18 Pulse 43 L 67 Pulse Source Monitor NIBP Pulse Oximetry (%) 98 Intake Visit Reasons: 1 W FU Dietary Worker Required: No Is patient in pain?: No Allergies naproxen Adverse Reaction (Verified 01/08/25 09:29) unknown Medications ???Medication ???Instructions ???Recorded ???Confirmed ???Type citalopram 10 mg tablet 10 mg PO QDAY 09/19/24 01/08/25 Hi story lisinopril 20 mg tablet 20 mg PO QDAY #180 tabs 12/12/24 0 01/08/25 Rx amiodarone 200 mg tablet 200 mg PO QDAY #30 tabs 01/08/25 0 01/08/25 Rx apixaban 5 mg tablet (Eliquis) 5 mg PO BID 01/08/25 01/08/25 Hist ory furosemide 40 mg tablet (Lasix) 40 mg PO QAM PRN 01/08/25 History rivaroxaban 20 mg tablet (Xarelto) 20 mg PO QDAY 01/08/25 History Ejection fraction %: 65 Have you fallen in the past year?: No [facility] Medical History (Updated 01/08/25 @ 10:11 by Tiffanie BYRNE, PA) PAF (paroxysmal atrial fibrillation) Multiple premature ventricular complexes Nonrheumatic mitral (valve) prolapse Renal stone Anxiety Incomplete right bundle branch block Essential hypertension Surgical History History of cardioversion ( 12/22/24) Social History Smoking Status: Never smoker alcohol intake: current alcohol intake frequency: a few times a week substance use type: does not use caffeine: Yes Type: coffee Number of servings: 1 ROS Const Const: Negative for fatigue or weakness Eyes Eyes: Negative for change in vision ENT ENT: Negative for dizziness or balance problems Cardio Chest Pain: No Palpitations: Yes feels like its: skipping Edema: Bilateral Resp Respiratory: Negative for SOB with activity, SOB at rest or SOB orthopnea SOB lyi (more content not included)... Normal [facility] 12 Lead EKGon 01-05-2025 12 Lead EKG [facility] [address] [place] [address] 12 Lead EKG 01/05/25 0713 MR#: [id number] Acct: [id number] Name: MARK CARBAJAL Rep #: [id number] : 1950 74 From: Nathanael Lauren MD Attending Dr: Dr. Nathanael Lauren MD Status: REG C Ordering Dr: Tiffanie Patel PA Date: 09/26 Location: PSN Sex: M C Admitted: Test Reason : PVC'S Blood Pressure : */* mmHG Vent. Rate : 61 BPM Atrial Rate : 61 BPM P-R Int : 188 ms QRS Dur : 108 ms QT Int : 426 ms P-R-T Axes : 45 30 71 degrees QTcB Int : 428 ms Sinus rhythm with occasional Premature ventricular complexes Possible Left atrial enlargement Incomplete right bundle branch block Possible Anterior infarct , age undetermined Abnormal ECG Confirmed by NATHANAEL LAUREN MD ([id number]), editorial director LIZ FLORES ([id number]) on 01/05/2025 8:23:54 AM Referred By: Nathanael Lauren Confirmed By: NATHANAEL LAUREN MD 01/05/25822 Date Nathanael Lauren MD CC: Dr. Nathanael Lauren MD; Dr. Devon Vega DO; Tiffanie Patel PA Signed Normal [facility] Electrocardiogram reportOrde red By: Nathanael Lauren on 01-05-2025 EKG study [facility] [address] [place] [address] 12 Lead EKG 01/05/25 0713 MR#: [id number] Acct: [id number] Name: MARK CARBAJAL Rep #:[id number] : 1950 74 From: Nathanael Lauren MD Attending Dr: Dr. Nathanael Lauren MD S tatus: REG CLI Ordering Dr: Tiffanie Patel Date: 01/05/25 Location: N Sex: M C Admitted: Test Reason : PVC'S Blood Pressure : */* mmHG Vent. Rate : 61 BPM Atrial Rate : 61 BPM P-R Int : 188 ms QRS Dur : 108 ms QT Int : 426 ms P-R-T Axes : 45 30 71 degrees QTcB Int : 428 ms Sinus rhythm with occasional Premature ventricular complexes Possible Left atrial enlargement Incomplete right bundle branch block Possible Anterior infarct , age undetermined Abnormal ECG Confirmed by NATHANAEL LAUREN MD ([id number]), editorial director LIZ FLORES ([id number]) on 01/05/2025 8:23:54 AM Referred By: Nathanael Lauren Confirmed By: NATHANAEL LAUREN MD 01/05/25822 Date _ Nathanael Lauren MD CC: Dr. Nathanael Lauren MD; Dr. Devon Vega DO; CATY Patel ~ Signed [facility] Work Phone: Absolute lymphocyte countOrd ered By: Tiffanie Patel on 01-02-2025 Lymphocytes Auto (Unsp spec) [#/Vol] 1.29 10*3/uL 0.83-4.51 [facility] Absolute neutrophil countOrd ered By: Tiffanie Patel on 01-02-2025 Neutrophils (Bld) [#/Vol] 6.3 10*3/uL 2.0-7.7 [facility] Anion gap in Serum or Plasma Ordered By: Tiffanie Patel on 01-02-2025 Anion gap [Moles/Vol] 8 mmol/L 5-15 [facility] Automated lymphocyte count a s percentage of total leukocytesOrdered By: Tiffanie Patel on 01-02-2025 Lymphocytes/100 WBC Auto (Unsp spec) 14.8 % Low 19-41 [facility] BUN/creatinine ratioOrdered By: Tiffanie Patel on 01-02-2025 Urea nitrogen/Creatinine [Mass ratio] 22.4 mg/mg High 10 [facility] Basic Metabolic Profile (BMP )on 01-02-2025 BUN/CRE 22.4 RATIO High 10- [facility] Comment on above: Performed By: #### L 500.2500, L503.7505, L100.0100, L501.5200, L501.9520 ####[facility] [address] [place], [address] Calcium [Mass/Vol] 9.3 mg/dL Normal 7.6-11.0 [facility] Comment on above: Performed By: #### L 500.2500, L503.7505, L100.0100, L501.5200, L501.9520 ####[facility] [address] [place], [address] Chloride [Moles/Vol] 105 mmol/L Normal 98-108 [facility] Comment on above: Performed By: #### L 500.2500, L503.7505, L100.0100, L501.5200, L501.9520 ####[facility] [address] [place], [address] CO2 [Moles/Vol] 26.9 mmol/L Normal 21.0-32.0 [facility] Comment on above: Performed By: #### L 500.2500, L503.7505, L100.0100, L501.5200, L501.9520 ####[facility] [address] [place], [address] Creatinine [Mass/Vol] 0.98 mg/dL Normal 0.70-1.20 [facility] Comment on above: Performed By: #### L 500.2500, L503.7505, L100.0100, L501.5200, L501.9520 ####[facility] [address] [place], [address] GAP 8 Normal 5-15 [facility] Comment on above: Performed By: #### L 500.2500, L503.7505, L100.0100, L501.5200, L501.9520 ####[facility] [address] [place], [address] GFR/1.73 sq M.predicted among non-blacks MDRD (S/P/Bld) [Vol rate/Area] 82 mL/min/{1.73_m2} Normal >60 [facility] Comment on above: Result Comment: mL/m in/1.73m2 CKD-EPI Creatinine Equation (2020) Performed By: #### L 500.2500, L503.7505, L100.0100, L501.5200, L501.9520 ####[facility] [address] [place], [address] Glucose [Mass/Vol] 120 mg/dL High 70-99 [facility] Comment on above: Performed By: #### L 500.2500, L503.7505, L100.0100, L501.5200, L501.9520 ####[facility] [address] [place], [address] Potassium [Moles/Vol] 5.0 mmol/L Normal 3.3-5.1 [facility] Comment on above: Performed By: #### L 500.2500, L503.7505, L100.0100, L501.5200, L501.9520 ####[facility] [address] [place], [address] Sodium [Moles/Vol] 141 mmol/L Normal 133-145 [facility] Comment on above: Performed By: #### L 500.2500, L503.7505, L100.0100, L501.5200, L501.9520 ####[facility] [address] [place], [address] Urea nitrogen [Mass/Vol] 22 mg/dL High 4-19 [facility] Comment on above: Performed By: #### L 500.2500, L503.7505, L100.0100, L501.5200, L501.9520 ####[facility] [address] [place], [address] Basophil percentageOrdered B y: Tiffanie Patel on 01-02-2025 Basophils/100 WBC (Bld) 0.3 % 0-1 [facility] CBC W/Diff, Automatedon Absolute Lymph 1.29 X10 3/uL Normal 0.83-4.51 [facility] Comment on above: Performed By: #### L 500.2500, L503.7505, L100.0100, L501.5200, L501.9520 ####[facility] [address] [place], [address] Absolute Neut 6.3 X10 3/uL Normal 2.0-7.7 [facility] Comment on above: Performed By: #### L 500.2500, L503.7505, L100.0100, L501.5200, L501.9520 ####[facility] [address] [place], [address] Basophils/100 WBC (Bld) 0.3 % Normal 0-1 [facility] Comment on above: Performed By: #### L 500.2500, L503.7505, L100.0100, L501.5200, L501.9520 ####[facility] [address] [place], [address] Eosinophils/100 WBC (Bld) 1.5 % Normal 0-5 [facility] Comment on above: Performed By: #### L 500.2500, L503.7505, L100.0100, L501.5200, L501.9520 ####[facility] [address] [place], [address] Erythrocyte distribution width (RBC) [Ratio] 13.9 % Normal 11.6-14.6 [facility] Comment on above: Performed By: #### L 500.2500, L503.7505, L100.0100, L501.5200, L501.9520 ####[facility] [address] [place], [address] Hematocrit (Bld) [Volume fraction] 49.2 % Normal 40-54 [facility] Comment on above: Performed By: #### L 500.2500, L503.7505, L100.0100, L501.5200, L501.9520 ####[facility] [address] [place], [address] Hemoglobin (Bld) [Mass/Vol] 16.1 g/dL Normal 13.0-16.5 [facility] Comment on above: Performed By: #### L 500.2500, L503.7505, L100.0100, L501.5200, L501.9520 ####[facility] [address] [place], [address] IG% 0.500 Normal 0.0-0.9 [facility] Comment on above: Result Comment: IG% - Immature Granulocytes (promyelocytes, myelocytes and metamyelocytes) > 1% indicates that a LEFT SHIFT is Present. Performed By: #### L 500.2500, L503.7505, L100.0100, L501.5200, L501.9520 ####[facility] [address] [place], [address] Lymphocytes/100 WBC (Bld) 14.8 % Low 19-41 [facility] Comment on above: Performed By: #### L 500.2500, L503.7505, L100.0100, L501.5200, L501.9520 ####[facility] [address] [place], [address] MCH (RBC) [Entitic mass] 30.3 pg Normal 27.0-32.0 [facility] Comment on above: Performed By: #### L 500.2500, L503.7505, L100.0100, L501.5200, L501.9520 ####[facility] [address] [place], [address] MCHC (RBC) [Mass/Vol] 32.7 g/dL Normal 32-36 [facility] Comment on above: Performed By: #### L 500.2500, L503.7505, L100.0100, L501.5200, L501.9520 ####[facility] [address] [place], [address] MCV (RBC) [Entitic vol] 92.7 fL Normal 80-94 [facility] Comment on above: Performed By: #### L 500.2500, L503.7505, L100.0100, L501.5200, L501.9520 ####[facility] [address] [place], [address] Monocytes/100 WBC (Bld) 11.1 % High 0-10 [facility] Comment on above: Performed By: #### L 500.2500, L503.7505, L100.0100, L501.5200, L501.9520 ####[facility] [address] [place], [address] Neutrophils/100 WBC (Bld) 71.8 % High 47-70 [facility] Comment on above: Performed By: #### L 500.2500, L503.7505, L100.0100, L501.5200, L501.9520 ####[facility] [address] [place], [address] Nucleated RBC (Bld) [#/Vol] 0 10*3/uL Normal 0-5 [facility] Comment on above: Performed By: #### L 500.2500, L503.7505, L100.0100, L501.5200, L501.9520 ####[facility] [address] [place], [address] Platelet mean volume (Bld) [Entitic vol] 12.0 fL Normal 6.2-12.0 [facility] Comment on above: Performed By: #### L 500.2500, L503.7505, L100.0100, L501.5200, L501.9520 ####[facility] [address] [place], [address] Platelets (Bld) [#/Vol] 136 10*3/uL Low 150-450 [facility] Comment on above: Performed By: #### L 500.2500, L503.7505, L100.0100, L501.5200, L501.9520 ####[facility] [address] [place], [address] RBC (Bld) [#/Vol] 5.31 10*6/uL Normal 4.6-6.2 [facility] Comment on above: Performed By: #### L 500.2500, L503.7505, L100.0100, L501.5200, L501.9520 ####[facility] [address] [place], [address] RDW SD 46.8 fl High 35.1-43.9 [facility] Comment on above: Performed By: #### L 500.2500, L503.7505, L100.0100, L501.5200, L501.9520 ####[facility] [address] [place], [address] WBC (Bld) [#/Vol] 8.7 10*3/uL Normal 4.4-11.0 [facility] Comment on above: Performed By: #### L 500.2500, L503.7505, L100.0100, L501.5200, L501.9520 ####[facility] [address] [place], [address] Carbon dioxide, total [Moles /volume] in Central venous bloodOrdered By: Tiffanie Patel on 01-02-2025 CO2 [Moles/Vol] 26.9 mmol/L 21.0-32.0 [facility] Cardiology Visit Reporton Cardiology Visit Report [facility] [address] [place], [place] [address] OFFICE VISIT Date of Service: 01/02/25 MR#: [id number] Acct: [id number] Name: MARK CARBAJAL Rep #: [id number] : 1950 Provider: CATY Melvin Age/Sex: 74/M [place] [facility] Status: Signed HPI HPI History of Present Illness Details: Mark Carbajal is a 74-year-old male with a [...] 98 Intake Visit Reasons: See Clinical Note Dietary Worker Required: No Is patient in pain?: No [...] because he has not got it yet. [facility] Medical History Multiple premature ventricular complexes [...] or tachyp (more content not included)... Normal [facility] Chloride assayOrdered By: Sapna Patel on 01-02-2025 Chloride [Moles/Vol] 105 mmol/L 98-108 [facility] Eosinophil percentageOrdered By: Tiffanie Patel on 01-02-2025 Eosinophils/100 WBC (Bld) 1.5 % 0-5 [facility] Erythrocyte distribution wid th ratioOrdered By: Tiffanie Patel on 01-02-2025 Erythrocyte distribution width (RBC) [Ratio] 13.9 % 11.6-14.6 [facility] Erythrocyte distribution wid th standard deviationOrdered By: Tiffanie Patel on 01-02-2025 Erythrocyte distribution width (RBC) [Ratio] 46.8 fl High 35.1-43.9 [facility] Glomerular filtration rate ( GFR) estimation/1.73 sq m using serum, plasma, or whole bOrdered By: Tiffanie Patel on 01-02-2025 GFR/1.73 sq M.predicted among non-blacks MDRD (S/P/Bld) [Vol rate/Area] 82 mL/min/{1.73_m2} >60 [facility] Comment on above: mL/min/1.73m2 CKD-EP I Creatinine Equation (2020) Hematocrit Auto (Bld) [Volum e fraction]Ordered By: Tiffanie Patel on 01-02-2025 Hematocrit (Bld) [Volume fraction] 49.2 % 40-54 [facility] Hemoglobin measurementOrdere d By: Tiffanie Paetl on 01-02-2025 Hemoglobin (Bld) [Mass/Vol] 16.1 g/dL 13.0-16.5 [facility] Immature granulocytes/100 WB C Auto (Bld)Ordered By: Tiffanie Patel on 01-02-2025 Immature granulocytes/100 WBC (Bld) 0.500 % 0.0-0.9 [facility] Comment on above: IG% - Immature Granu locytes (promyelocytes, myelocytes and metamyelocytes) > 1% indicates that a LEFT SHIFT is Present. MCV (mean corpuscular volume ) determinationOrdered By: Tiffanie Patel on 01-02-2025 MCV (RBC) [Entitic vol] 92.7 fL 80-94 [facility] Magnesiumon 01-02-2025 Magnesium [Mass/Vol] 2.2 mg/dL Normal 1.5-2.2 [facility] Comment on above: Performed By: #### L 500.2500, L503.7505, L100.0100, L501.5200, L501.9520 ####[facility] [address] [place], [address] Magnesium measurement (mass/ volume)Ordered By: Tiffanie Patel on 01-02-2025 Magnesium (Unsp spec) [Mass/Vol] 2.2 mg/dL 1.5-2.2 [facility] Mean corpuscular hemoglobin (MCH) determinationOrdered By: Tiffanie Patel on 01-02-2025 MCH (RBC) [Entitic mass] 30.3 pg 27.0-32.0 [facility] Mean corpuscular hemoglobin concentration (MCHC) determinationOrdered By: Tiffanie Patel on 01-02-2025 MCHC (RBC) [Mass/Vol] 32.7 g/dL 32-36 [facility] Mean platelet volume determi nationOrdered By: Tiffanie Patel on 01-02-2025 Platelet mean volume (Bld) [Entitic vol] 12.0 fL 6.2-12.0 [facility] Monocyte percentageOrdered B y: Tiffanie Patel on 01-02-2025 Monocytes/100 WBC (Bld) 11.1 % High 0-10 [facility] Natriuretic peptide.B prohor julio N-Terminal [Mass/volume] in Serum or PlasmaOrdered By: Tiffanie Patel on 01-02-2025 Natriuretic peptide.B prohormone N-Terminal [Mass/Vol] 2709 pg/mL High <900 [facility] Comment on above: Heart Failure Unlike ly: < 300 pg/mLHeart Failure Likely< 50 Years: > 450 pg/mL50-75 Years: > 900 pg/mL>75 Years: > 1800 pg/mL Neutrophil percentageOrdered By: Tiffanie Patel on 01-02-2025 Neutrophils/100 WBC (Bld) 71.8 % High 47-70 [facility] Nucleated red blood cell per centageOrdered By: Tiffanie Patel on 01-02-2025 Nucleated RBC/100 WBC (Bld) [Ratio] 0 % 0-5 [facility] Platelet countOrdered By: Sapna Patel on 01-02-2025 Platelets (Bld) [#/Vol] 136 10*3/uL Low 150-450 [facility] Potassium measurement (mass/ volume)Ordered By: Tiffanie Patel on 01-02-2025 Potassium (Unsp spec) [Mass/Vol] 5.0 mmol/L 3.3-5.1 [facility] Pro- Brain NATRIURETIC PEPTI Disha 01-02-2025 Natriuretic peptide B (Bld) [Mass/Vol] 2709 pg/mL High <=900 [facility] Comment on above: Result Comment: Hear t Failure Unlikely: < 300 pg/mL Heart Failure Likely < 50 Years: > 450 pg/mL 50-75 Years: > 900 pg/mL >75 Years: > 1800 pg/mL Performed By: #### L 500.2500, L503.7505, L100.0100, L501.5200, L501.9520 ####[facility] [address] [place], [address] RBC Auto (Bld) [#/Vol]Ordere d By: Tiffanie Patel on 01-02-2025 RBC (Bld) [#/Vol] 5.31 10*6/uL 4.6-6.2 [facility] Serum creatinine measurement (mass/volume)Ordered By: Tiffanie Patel on 01-02-2025 Creatinine [Mass/Vol] 0.98 mg/dL 0.70-1.20 [facility] Serum glucose measurement (m ass/volume)Ordered By: Tiffanie Patel on 01-02-2025 Glucose [Mass/Vol] 120 mg/dL High 70-99 [facility] Serum or plasma calcium jaime urement (mass/volume)Ordered By: Tiffanie Patel on 01-02-2025 Calcium [Mass/Vol] 9.3 mg/dL 7.6-11.0 [facility] Serum or plasma urea nitroge n measurement (mass/volume)Ordered By: Tiffanie Patel on 01-02-2025 Urea nitrogen [Mass/Vol] 22 mg/dL High 4-19 [facility] Sodium levelOrdered By: Nick Patel on 01-02-2025 Sodium [Moles/Vol] 141 mmol/L 133-145 [facility] TSH DL <= 0.005 mIU/L QnOrde red By: Tiffanie Patel on 01-02-2025 TSH Qn 1.210 uIU/mL 0.300-4.200 [facility] Thyroid Stim Hormone (TSH)on 01-02-2025 TSH 1.210 uIU/mL Normal 0.300-4.200 [facility] Comment on above: Performed By: #### L 500.2500, L503.7505, L100.0100, L501.5200, L501.9520 ####[facility] [address] [place], [address] White blood cell (WBC) count Ordered By: Tiffanie Patel on 01-02-2025 WBC (Bld) [#/Vol] 8.7 10*3/uL 4.4-11.0 [facility] Procedure Reporton Procedure Report [facility] Medical Records Department [address] [place] [address] Procedure Report 12/22/24 1303 MR#: [id number] Acct: [id number] Name: MARK CARBAJAL Rep #: [id number] : 1950 74 From: Flo Ruiz DO PCP: Dr. Devon eVga, Status:[facility] [place] [place] Location: [facility] Procedures Pulmonary Pulmonary Procedures /Diagnostic Testin Con Sedation Non-invasive Procedural Procedure Information Date of Procedure: 12/22/24 Description of procedure: CONSCIOUS SEDATION REPORT DATE OF SERVICE: December 22, 2024 BRIEF HISTORY OF PRESENT ILLNESS: The patient is a 74-year-old male who presented to [facility] to undergo an elective outpatient cardioversion due [...] DO; Dr. Devon Vega DO Signed Normal [facility] Procedure Report [facility] Medical Records Department [address] [place] [address] Procedure Report 12/22/24 1212 MR#: [id number] Acct: [id number] Name: MARK CARBAJAL Rep #: [id number] : 1950 74 From: Nathanael Lauren MD PCP: Dr. Devon Vega DO Status:[facility] Location: [facility] Non-invasive Procedural Procedure Information Date of Procedure: 12/22/24 Pre-Procedure Diagnosis: Atrial fibrillation Post-Procedure Diagnosis: Atrial fibrillation Procedure Performed:: DC cardioversion broom bundler: No Procedure Time Out: 12:00 Procedure Start [...] MD; Dr. Devon Vega DO Signed Normal [facility] Anion gap in Serum or Plasma Ordered By: Guillaume Singh on 12-12-2024 Anion gap [Moles/Vol] 9 mmol/L 5-15 [facility] BUN/creatinine ratioOrdered By: Guillaume Singh on 12-12-2024 Urea nitrogen/Creatinine [Mass ratio] 19.3 mg/mg 10- [facility] Basic Metabolic Profile (BMP )on 12-12-2024 BUN/CRE 19.3 RATIO Normal - [facility] Comment on above: Performed By: #### L 500.2500, L300.3900 ####[facility] [address] [place], [address] Calcium [Mass/Vol] 9.1 mg/dL Normal 7.6-11.0 [facility] Comment on above: Performed By: #### L 500.2500, L300.3900 ####[facility] [address] [place], [address] Chloride [Moles/Vol] 106 mmol/L Normal 98-108 [facility] Comment on above: Performed By: #### L 500.2500, L300.3900 ####[facility] [address] [place], [address] CO2 [Moles/Vol] 26.3 mmol/L Normal 21.0-32.0 [facility] Comment on above: Performed By: #### L 500.2500, L300.3900 ####[facility] [address] [place], [address] Creatinine [Mass/Vol] 0.88 mg/dL Normal 0.70-1.20 [facility] Comment on above: Performed By: #### L 500.2500, L300.3900 ####[facility] [address] [place], [address] GAP 9 Normal 5-15 [facility] Comment on above: Performed By: #### L 500.2500, L300.3900 ####[facility] [address] [place], [address] GFR/1.73 sq M.predicted among non-blacks MDRD (S/P/Bld) [Vol rate/Area] 91 mL/min/{1.73_m2} Normal >60 [facility] Comment on above: Result Comment: mL/m in/1.73m2 CKD-EPI Creatinine Equation (2020) Performed By: #### L 500.2500, L300.3900 ####[facility] [address] [place], [address] Glucose [Mass/Vol] 93 mg/dL Normal 70-99 [facility] Comment on above: Performed By: #### L 500.2500, L300.3900 ####[facility] [address] [place], [address] Potassium [Moles/Vol] 4.2 mmol/L Normal 3.3-5.1 [facility] Comment on above: Performed By: #### L 500.2500, L300.3900 ####[facility] [address] [place], [address] Sodium [Moles/Vol] 141 mmol/L Normal 133-145 [facility] Comment on above: Performed By: #### L 500.2500, L300.3900 ####[facility] [address] [place], [address] Urea nitrogen [Mass/Vol] 17 mg/dL Normal 4-19 [facility] Comment on above: Performed By: #### L 500.2500, L300.3900 ####[facility] [address] [place], [address] Carbon dioxide, total [Moles /volume] in Central venous bloodOrdered By: Guillaume Singh on 12-12-2024 CO2 [Moles/Vol] 26.3 mmol/L 21.0-32.0 [facility] Cardiology Visit Reporton Cardiology Visit Report [facility] [address] [place] [address] OFFICE VISIT Date of Service: 12/12/24 MR#: [id number] Acct: [id number] Name: MARK CARBAJAL Rep #: [id number] : 1950 Provider: CATY Manuel Age/Sex: 74/M [place] [facility] [place] Status: Signed HPI HPI History of Present Illness Details: Mark Carbajal is a 74-year-old male who presents [...] PVCs which was treated with flecainide and beta-urvashi in the past and a history of [...] air Intake Visit Reasons: 4 WK FU Dietary Worker Required: No Accompanied by: Self Is patient [...] tachypneic Au (more content not included)... Normal [facility] Chest PA and Lateralon 12-12 Chest PA and Lateral [facility] Services [address] [place], [place] [address] Chest PA and Lateral MR#: [id number] Acct: [id number] Name: MARK CARBAJAL Rep #: [id number] : 1950 M 74 From: Devon Beach MD PCP: Dr. Devon Vega DO Status: PRE SDC Study: Chest PA and Lateral Date of Exam: 12/12/24 Exam# [id number] Ordering Dr: Guillaume Singh EXAM: XR Chest, [...] IMPRESSION: No acute cardiopulmonary process. Reading [facility] CC: Dr. Devon Vega DO; CATY Manuel Medical Billing Specialist: Signed Normal [facility] Chloride assayOrdered By: Susanne Singh on 12-12-2024 Chloride [Moles/Vol] 106 mmol/L 98-108 [facility] Glomerular filtration rate ( GFR) estimation/1.73 sq m using serum, plasma, or whole bOrdered By: Guillaume Singh on 12-12-2024 GFR/1.73 sq M.predicted among non-blacks MDRD (S/P/Bld) [Vol rate/Area] 91 mL/min/{1.73_m2} >60 [facility] Comment on above: mL/min/1.73m2 CKD-EP I Creatinine Equation (2020) International normalized rat io (INR) calculationOrdered By: Guillaume Singh on 12-12-2024 INR Coag (Bld) [Relative time] 1.3 {INR} [facility] Potassium measurement (mass/ volume)Ordered By: Guillaume Singh on 12-12-2024 Potassium (Unsp spec) [Mass/Vol] 4.2 mmol/L 3.3-5.1 [facility] Prothrombin Time w/INRon INR Coag (PPP) [Relative time] 1.3 {INR} Normal [facility] Comment on above: Performed By: #### L 500.2500, L300.3900 ####[facility] [address] [place], [place], [id number] PT Coag (PPP) [Time] 16.4 s High 11.7-14.9 [facility] Comment on above: Performed By: #### L 500.2500, L300.3900 ####[facility] [address] [place], [address] Prothrombin timeOrdered By: Guillaume Singh on 12-12-2024 PT Coag (PPP) [Time] 16.4 s High 11.7-14.9 [facility] Serum creatinine measurement (mass/volume)Ordered By: Guillaume Singh on 12-12-2024 Creatinine [Mass/Vol] 0.88 mg/dL 0.70-1.20 [facility] Serum glucose measurement (m ass/volume)Ordered By: Guillaume Singh on 12-12-2024 Glucose [Mass/Vol] 93 mg/dL 70-99 [facility] Serum or plasma calcium jaime urement (mass/volume)Ordered By: Guillaume Singh on 12-12-2024 Calcium [Mass/Vol] 9.1 mg/dL 7.6-11.0 [facility] Serum or plasma urea nitroge n measurement (mass/volume)Ordered By: Guillaume Singh on 12-12-2024 Urea nitrogen [Mass/Vol] 17 mg/dL 4-19 [facility] Sodium levelOrdered By: Catarina Singh on 07-11-2025 Sodium [Moles/Vol] 141 mmol/L 133-145 [facility] Absolute lymphocyte countOrd ered By: Guillaume Singh on 11-12-2024 Lymphocytes Auto (Unsp spec) [#/Vol] 2.02 10*3/uL 0.83-4.51 [facility] Absolute neutrophil countOrd ered By: Guillaumejemal Singh on 11-12-2024 Neutrophils (Bld) [#/Vol] 5.0 10*3/uL 2.0-7.7 [facility] Anion gap in Serum or Plasma Ordered By: Guillaumejemal Singh on 11-12-2024 Anion gap [Moles/Vol] 11 mmol/L 5-15 [facility] Automated lymphocyte count a s percentage of total leukocytesOrdered By: Guillaume Singh on 11-12-2024 Lymphocytes/100 WBC Auto (Unsp spec) 25.1 % 19-41 [facility] BUN/creatinine ratioOrdered By: Guillaumejemal Singh on 11-12-2024 Urea nitrogen/Creatinine [Mass ratio] 22.2 mg/mg High 10-20 [facility] Basic Metabolic Profile (BMP )on 11-12-2024 BUN/CRE 22.2 RATIO High 10- [facility] Comment on above: Performed By: #### L 100.0100, L501.5200, L500.2500, L501.9520 #### [facility] [address] [place], [address] Calcium [Mass/Vol] 9.2 mg/dL Normal 7.6-11.0 [facility] Comment on above: Performed By: #### L 100.0100, L501.5200, L500.2500, L501.9520 #### [facility] [address] [place], [address] Chloride [Moles/Vol] 108 mmol/L Normal 98-108 [facility] Comment on above: Performed By: #### L 100.0100, L501.5200, L500.2500, L501.9520 #### [facility] [address] [place], [address] CO2 [Moles/Vol] 23.7 mmol/L Normal 21.0-32.0 [facility] Comment on above: Performed By: #### L 100.0100, L501.5200, L500.2500, L501.9520 #### [facility] [address] [place], [address] Creatinine [Mass/Vol] 0.87 mg/dL Normal 0.70-1.20 [facility] Comment on above: Performed By: #### L 100.0100, L501.5200, L500.2500, L501.9520 #### [facility] [address] [place], [address] GAP 11 Normal 5-15 [facility] Comment on above: Performed By: #### L 100.0100, L501.5200, L500.2500, L501.9520 #### [facility] Laboratory [address] [place], [address] GFR/1.73 sq M.predicted among non-blacks MDRD (S/P/Bld) [Vol rate/Area] 92 mL/min/{1.73_m2} Normal >60 [facility] Comment on above: Result Comment: mL/m in/1.73m2 CKD-EPI Creatinine Equation (2020) Performed By: #### L 100.0100, L501.5200, L500.2500, L501.9520 #### [facility] Laboratory [address] [place], [address] Glucose [Mass/Vol] 104 mg/dL High 70-99 [facility] Comment on above: Performed By: #### L 100.0100, L501.5200, L500.2500, L501.9520 #### [facility] Laboratory [address] [place], [address] Potassium [Moles/Vol] 4.4 mmol/L Normal 3.3-5.1 [facility] Comment on above: Performed By: #### L 100.0100, L501.5200, L500.2500, L501.9520 #### [facility] [address] [place], [address] Sodium [Moles/Vol] 142 mmol/L Normal 133-145 [facility] Comment on above: Performed By: #### L 100.0100, L501.5200, L500.2500, L501.9520 #### [facility] [address] [place], [address] Urea nitrogen [Mass/Vol] 19 mg/dL Normal 4-19 [facility] Comment on above: Performed By: #### L 100.0100, L501.5200, L500.2500, L501.9520 #### [facility] Laboratory [address] [place], [address] Basophil percentageOrdered B y: Guillaume Adameiter on 11-12-2024 Basophils/100 WBC (Bld) 0.5 % 0-1 [facility] CBC W/Diff, Automatedon 11-02 Absolute Lymph 2.02 X10 3/uL Normal 0.83-4.51 [facility] Comment on above: Performed By: #### L 100.0100, L501.5200, L500.2500, L501.9520 #### [facility] Laboratory [address] [place], [address] Absolute Neut 5.0 X10 3/uL Normal 2.0-7.7 [facility] Comment on above: Performed By: #### L 100.0100, L501.5200, L500.2500, L501.9520 #### [facility] Laboratory [address] [place], [address] Basophils/100 WBC (Bld) 0.5 % Normal 0-1 [facility] Comment on above: Performed By: #### L 100.0100, L501.5200, L500.2500, L501.9520 #### [facility] [address] [place], [address] Eosinophils/100 WBC (Bld) 2.4 % Normal 0-5 [facility] Comment on above: Performed By: #### L 100.0100, L501.5200, L500.2500, L501.9520 #### [facility] [address] [place], [address] Erythrocyte distribution width (RBC) [Ratio] 13.1 % Normal 11.6-14.6 [facility] Comment on above: Performed By: #### L 100.0100, L501.5200, L500.2500, L501.9520 #### [facility] [address] [place], [address] Hematocrit (Bld) [Volume fraction] 47.7 % Normal 40-54 [facility] Comment on above: Performed By: #### L 100.0100, L501.5200, L500.2500, L501.9520 #### [facility] [address] [place], [address] Hemoglobin (Bld) [Mass/Vol] 16.1 g/dL Normal 13.0-16.5 [facility] Comment on above: Performed By: #### L 100.0100, L501.5200, L500.2500, L501.9520 #### [facility] [address] [place], [address] IG% 0.200 Normal 0.0-0.9 [facility] Comment on above: Result Comment: IG% - Immature Granulocytes (promyelocytes, myelocytes and metamyelocytes) > 1% indicates that a LEFT SHIFT is Present. Performed By: #### L 100.0100, L501.5200, L500.2500, L501.9520 #### [facility] [address] [place], [address] Lymphocytes/100 WBC (Bld) 25.1 % Normal 19-41 [facility] Comment on above: Performed By: #### L 100.0100, L501.5200, L500.2500, L501.9520 #### [facility] Laboratory [address] [place], [address] MCH (RBC) [Entitic mass] 29.9 pg Normal 27.0-32.0 [facility] Comment on above: Performed By: #### L 100.0100, L501.5200, L500.2500, L501.9520 #### [facility] [address] [place], [address] MCHC (RBC) [Mass/Vol] 33.8 g/dL Normal 32-36 [facility] Comment on above: Performed By: #### L 100.0100, L501.5200, L500.2500, L501.9520 #### [facility] [address] [place], [address] MCV (RBC) [Entitic vol] 88.5 fL Normal 80-94 [facility] Comment on above: Performed By: #### L 100.0100, L501.5200, L500.2500, L501.9520 #### [facility] [address] [place], [address] Monocytes/100 WBC (Bld) 9.4 % Normal 0-10 [facility] Comment on above: Performed By: #### L 100.0100, L501.5200, L500.2500, L501.9520 #### [facility] [address] [place], [address] Neutrophils/100 WBC (Bld) 62.4 % Normal 47-70 [facility] Comment on above: Performed By: #### L 100.0100, L501.5200, L500.2500, L501.9520 #### [facility] [address] [place], [address] Nucleated RBC (Bld) [#/Vol] 0 10*3/uL Normal 0-5 [facility] Comment on above: Performed By: #### L 100.0100, L501.5200, L500.2500, L501.9520 #### [facility] [address] [place], [address] Platelet mean volume (Bld) [Entitic vol] 11.4 fL Normal 6.2-12.0 [facility] Comment on above: Performed By: #### L 100.0100, L501.5200, L500.2500, L501.9520 #### [facility] [address] [place], [address] Platelets (Bld) [#/Vol] 158 10*3/uL Normal 150-450 [facility] Comment on above: Performed By: #### L 100.0100, L501.5200, L500.2500, L501.9520 #### [facility] [address] [place], [address] RBC (Bld) [#/Vol] 5.39 10*6/uL Normal 4.6-6.2 [facility] Comment on above: Performed By: #### L 100.0100, L501.5200, L500.2500, L501.9520 #### [facility] [address] [place], [address] RDW SD 42.5 fl Normal 35.1-43.9 [facility] Comment on above: Performed By: #### L 100.0100, L501.5200, L500.2500, L501.9520 #### [facility] [address] [place], [address] WBC (Bld) [#/Vol] 8.1 10*3/uL Normal 4.4-11.0 [facility] Comment on above: Performed By: #### L 100.0100, L501.5200, L500.2500, L501.9520 #### [facility] [address] [place], [address] Carbon dioxide, total [Moles /volume] in Central venous bloodOrdered By: Guillaume Singh on 11-12-2024 CO2 [Moles/Vol] 23.7 mmol/L 21.0-32.0 [facility] Cardiology Visit Reporton Cardiology Visit Report [facility] [address] [place] [address] OFFICE VISIT Date of Service: 11/12/24 MR#: [id number] Acct: [id number] Name: MARK CARBAJAL Rep #: [id number] : 1950 Provider: CATY Manuel Age/Sex: 74/M Location: [facility] Status: Signed HPI HPI History of Present Illness Details: Mark Carbajal is a 74-year-old male who presents [...] PVCs which was treated with flecainide and beta-urvashi in the past and a history of [...] Visit Reasons: New onset a-fib?see clinical note Dietary Worker Required: No Is patient in pain?: No [...] Auscultation: Bi (more content not included)... Normal [facility] Chloride assayOrdered By: Susanne Singh on 11-12-2024 Chloride [Moles/Vol] 108 mmol/L 98-108 [facility] Eosinophil percentageOrdered By: Guillaume Singh on 11-12-2024 Eosinophils/100 WBC (Bld) 2.4 % 0-5 [facility] Erythrocyte distribution wid th ratioOrdered By: Guillaume Singh on 11-12-2024 Erythrocyte distribution width (RBC) [Ratio] 13.1 % 11.6-14.6 [facility] Erythrocyte distribution wid th standard deviationOrdered By: Guillaume Singh on 11-12-2024 Erythrocyte distribution width (RBC) [Ratio] 42.5 fl 35.1-43.9 [facility] Glomerular filtration rate ( GFR) estimation/1.73 sq m using serum, plasma, or whole bOrdered By: Guillaume Singh on 11-12-2024 GFR/1.73 sq M.predicted among non-blacks MDRD (S/P/Bld) [Vol rate/Area] 92 mL/min/{1.73_m2} >60 [facility] Comment on above: mL/min/1.73m2 CKD-EP I Creatinine Equation (2020) Hematocrit Auto (Bld) [Volum e fraction]Ordered By: Guillaume Singh on 11-12-2024 Hematocrit (Bld) [Volume fraction] 47.7 % 40-54 [facility] Hemoglobin measurementOrdere d By: Guillaume Singh on 11-12-2024 Hemoglobin (Bld) [Mass/Vol] 16.1 g/dL 13.0-16.5 [facility] Immature granulocytes/100 WB C Auto (Bld)Ordered By: Guillaume Singh on 11-12-2024 Immature granulocytes/100 WBC (Bld) 0.200 % 0.0-0.9 [facility] Comment on above: IG% - Immature Granu locytes (promyelocytes, myelocytes and metamyelocytes) > 1% indicates that a LEFT SHIFT is Present. MCV (mean corpuscular volume ) determinationOrdered By: Guillaume Singh on 11-12-2024 MCV (RBC) [Entitic vol] 88.5 fL 80-94 [facility] Magnesiumon 11-12-2024 Magnesium [Mass/Vol] 2.2 mg/dL Normal 1.5-2.2 [facility] Comment on above: Performed By: #### L 100.0100, L501.5200, L500.2500, L501.9520 ####[facility] [address] [place], [address] Magnesium measurement (mass/ volume)Ordered By: Guillaume Singh on 11-12-2024 Magnesium (Unsp spec) [Mass/Vol] 2.2 mg/dL 1.5-2.2 [facility] Mean corpuscular hemoglobin (MCH) determinationOrdered By: Guillaumejemal Singh on 11-12-2024 MCH (RBC) [Entitic mass] 29.9 pg 27.0-32.0 [facility] Mean corpuscular hemoglobin concentration (MCHC) determinationOrdered By: Guillaumejemal Singh on 11-12-2024 MCHC (RBC) [Mass/Vol] 33.8 g/dL 32-36 [facility] Mean platelet volume determi nationOrdered By: Guillaume Singh on 11-12-2024 Platelet mean volume (Bld) [Entitic vol] 11.4 fL 6.2-12.0 [facility] Monocyte percentageOrdered B y: Guillaume Singh on 11-12-2024 Monocytes/100 WBC (Bld) 9.4 % 0-10 [facility] Neutrophil percentageOrdered By: Guillaume Singh on 11-12-2024 Neutrophils/100 WBC (Bld) 62.4 % 47-70 [facility] Nucleated red blood cell per centageOrdered By: Guillaume Singh on 11-12-2024 Nucleated RBC/100 WBC (Bld) [Ratio] 0 % 0-5 [facility] Platelet countOrdered By: Susanne Singh on 11-12-2024 Platelets (Bld) [#/Vol] 158 10*3/uL 150-450 [facility] Potassium measurement (mass/ volume)Ordered By: Guillaume Singh on 11-12-2024 Potassium (Unsp spec) [Mass/Vol] 4.4 mmol/L 3.3-5.1 [facility] RBC Auto (Bld) [#/Vol]Ordere d By: Guillaume Singh on 11-12-2024 RBC (Bld) [#/Vol] 5.39 10*6/uL 4.6-6.2 [facility] Serum creatinine measurement (mass/volume)Ordered By: Guillaume Singh on 11-12-2024 Creatinine [Mass/Vol] 0.87 mg/dL 0.70-1.20 [facility] Serum glucose measurement (m ass/volume)Ordered By: Guillaume Singh on 11-12-2024 Glucose [Mass/Vol] 104 mg/dL High 70-99 [facility] Serum or plasma calcium jaime urement (mass/volume)Ordered By: Guillaume Singh on 11-12-2024 Calcium [Mass/Vol] 9.2 mg/dL 7.6-11.0 [facility] Serum or plasma urea nitroge n measurement (mass/volume)Ordered By: Guillaume Singh on 11-12-2024 Urea nitrogen [Mass/Vol] 19 mg/dL 4-19 [facility] Sodium levelOrdered By: Catarina Singh on 11-12-2024 Sodium [Moles/Vol] 142 mmol/L 133-145 [facility] TSH DL <= 0.005 mIU/L QnOrde red By: Guillaume Singh on 11-12-2024 TSH Qn 0.856 uIU/mL 0.300-4.200 [facility] Thyroid Stim Hormone (TSH)on 11-12-2024 TSH 0.856 uIU/mL Normal 0.300-4.200 [facility] Comment on above: Performed By: #### L 100.0100, L501.5200, L500.2500, L501.9520 ####[facility] [address] [place], [address] White blood cell (WBC) count Ordered By: Guillaume Singh on 11-12-2024 WBC (Bld) [#/Vol] 8.1 10*3/uL 4.4-11.0 [facility] 12 Lead EKG performed by [facility] on 09-19-2024 12 Lead EKG performed by [facility] [address] [place] [address] 12 Lead EKG performed by [facility] 09/19/24 0732 MR#: [id number] Acct: [id number] Name: MARK CARBAJAL Rep #: [id number] : 1950 74 From: Shantal Perrin NP [facility] Attending Dr: Shantal Perrin [facility] Status: DEP A PEDRO Ordering Dr: Shantal Perrin [facility] Date: 09/19/24 Location: [facility] Sex: M C Admitted: [facility]/12 Lead EKG performed by [facility] ECG Report Interpretation ------Sinus Bradycardia -First degree A-V block Dominguez = 242-Nonspecific QRS widening. -Poor R-wave progression -nonspecific -consider old anterior infarct. [employer]ORDER[employer] ally signed on 09/24/2024 at 16:26 by Nathanael Lauren Software Version [id number] 09/24/24 1246 Date Shantal PETTY CC: Dr. Devon Vega, DO Date Dictated: 09/19/24731 Date Transcribed: 09/19/24731 Medical Billing Specialist: LUISITO Signed Normal [facility] Cardiology Visit Reporton Cardiology Visit Report [facility] [address] [place] [address] OFFICE VISIT Date of Service: 09/19/24 MR#: [id number] Acct: [id number] Name: MARK CARBAJAL Rep #: [id number] : 1950 Provider: MALINDA squires Age/Sex: 74/M Location: [facility] Status: Signed HPI HPI History of Present Illness Details: This is a 74-year-old man who presents today for a cardiovascular outpatient follow-up. He initially established in August 2021. He apparently had premature ventricular complexes many years ago with mild mitral valve prolapse and was put on flecainide as well as a beta-urvashi. He says that he has tolerated this [...] 97 Intake Visit Reasons: 6 M FU Dietary Worker Required: No Is patient in pain?: No [...] gallop Murmur (more content not included)... Normal [facility] Echo Completeon 03-28-2024 Echo Complete [facility] [address] [place] [address] Echo Complete 03/28/24 0935 MR#: [id number] Acct: [id number] Name: MARK CARBAJAL Rep #: [id number] : 1950 74 From: Nathanael Lauren MD Attending Dr: MALINDA Escobedo Status: REG CLI Ordering Dr: Rob Carrero NP [facility] Date: 03/28/24 Location: [facility] Sex: M C [...] sec Doppler Measurements Calculations MV E max ab: 74.6 cm/sec Lat Peak E' Ab: 13.7 cm/sec Med Peak E' Ab: 6.2 cm/sec MV A max ab: 60.1 cm/sec E/E' lat: 5.5 E/E' med: [...] PA V2 max: 104.1 cm/sec TR max ab: 302.7 cm/sec LV V1 max P.7 mmHg [...] 03/28/24 1232 Date Nathanael Lauren MD CC: [facility] Rob Carrero; Dr. Devon Vega, Date Dictated: 03/28/2435 Date Transcribed: 03/28/241231 Medical Billing Specialist: Signed Normal [facility] Stress Reporton 03-28-2024 Stress Report [facility] Services [address] [place] [address] MR#: [id number] Acct: [id number] Name: MARK CARBAJAL Rep #: [id number] : 1950 74 From: Nathanael Lauren MD Primary Care: Dr. Devon Vega, DO Status: REG CLI Referring Dr: Rob Carrero [facility] Sex: M C Stress Test Report Exercise [...] fraction. 03/28/241528 Date Nathanael Lauren MD CC: [facility] Rob Carrero; Dr. Devon Vega, Date Dictated: 03/28/241526 Date Transcribed: 03/28/241526 Medical Billing Specialist: CO Signed Normal [facility] 12 Lead EKG performed by [facility] on 03-17-2024 12 Lead EKG performed by [id number] [place] [address] 12 Lead EKG performed by [facility] 03/17/24 0820 MR#: [id number] Acct: [id number] Name: MARK CARBAJAL Rep #: [id number] : 1950 74 From: Rob Carrero NP [facility] Attending Dr: MALINDA Escobedo Status: DEP AMB Ordering Dr: Rob Carrero NP [facility] Date: 03/17/24 Location: [facility] Sex: M C Admitted: [facility]/12 Lead EKG performed by [facility] ECG Report Interpretation ------Sinus Bradycardia -First degree A-V block Dominguez = 248-Incomplete right bundle branch block. ABNORMAL Electronically signed on 03/21/2024 at 09:57 by Nathanael Lauren Software Version [id number] 03/21/24 0958 Date Rob Yareli Magan MANCILLA [facility] CC: Dr. Devon Vega, DO Date Dictated: 03/17/24819 Date Transcribed: 03/17/24819 Medical Billing Specialist: JHR Signed Normal [facility] CBC W/Diff, Automatedon 03-04 Absolute Lymph 1.76 X10 3/uL Normal 0.83-4.51 [facility] Comment on above: Performed By: #### L 501.9520, L500.4050, L506.0400, L100.0100, L501.5200 ####[facility] [address] [place], [address] Absolute Neut 4.1 X10 3/uL Normal 2.0-7.7 [facility] Comment on above: Performed By: #### L 501.9520, L500.4050, L506.0400, L100.0100, L501.5200 ####[facility] [address] [place], [address] Basophils/100 WBC (Bld) 0.6 % Normal 0-1 [facility] Comment on above: Performed By: #### L 501.9520, L500.4050, L506.0400, L100.0100, L501.5200 ####[facility] [address] [place], [address] Eosinophils/100 WBC (Bld) 5.4 % High 0-5 [facility] Comment on above: Performed By: #### L 501.9520, L500.4050, L506.0400, L100.0100, L501.5200 ####[facility] [address] [place], [address] Erythrocyte distribution width (RBC) [Ratio] 12.8 % Normal 11.6-14.6 [facility] Comment on above: Performed By: #### L 501.9520, L500.4050, L506.0400, L100.0100, L501.5200 ####[facility] [address] [place], [address] Hematocrit (Bld) [Volume fraction] 47.1 % Normal 40-54 [facility] Comment on above: Performed By: #### L 501.9520, L500.4050, L506.0400, L100.0100, L501.5200 ####[facility] [address] [place], [address] Hemoglobin (Bld) [Mass/Vol] 15.3 g/dL Normal 13.0-16.5 [facility] Comment on above: Performed By: #### L 501.9520, L500.4050, L506.0400, L100.0100, L501.5200 ####[facility] [address] [place], [address] IG% 0.300 Normal 0.0-0.9 [facility] Comment on above: Result Comment: IG% - Immature Granulocytes (promyelocytes, myelocytes and metamyelocytes) > 1% indicates that a LEFT SHIFT is Present. Performed By: #### L 501.9520, L500.4050, L506.0400, L100.0100, L501.5200 ####[facility] [address] [place], [address] Lymphocytes/100 WBC (Bld) 24.8 % Normal 19-41 [facility] Comment on above: Performed By: #### L 501.9520, L500.4050, L506.0400, L100.0100, L501.5200 ####[facility] [address] [place], [address] MCH (RBC) [Entitic mass] 29.6 pg Normal 27.0-32.0 [facility] Comment on above: Performed By: #### L 501.9520, L500.4050, L506.0400, L100.0100, L501.5200 ####[facility] [address] [place], [address] MCHC (RBC) [Mass/Vol] 32.5 g/dL Normal 32-36 [facility] Comment on above: Performed By: #### L 501.9520, L500.4050, L506.0400, L100.0100, L501.5200 ####[facility] [address] [place], [address] MCV (RBC) [Entitic vol] 91.1 fL Normal 80-94 [facility] Comment on above: Performed By: #### L 501.9520, L500.4050, L506.0400, L100.0100, L501.5200 ####[facility] [address] [place], [address] Monocytes/100 WBC (Bld) 11.6 % High 0-10 [facility] Comment on above: Performed By: #### L 501.9520, L500.4050, L506.0400, L100.0100, L501.5200 ####[facility] [address] [place], [address] Neutrophils/100 WBC (Bld) 57.3 % Normal 47-70 [facility] Comment on above: Performed By: #### L 501.9520, L500.4050, L506.0400, L100.0100, L501.5200 ####[facility] [address] [place], [address] Nucleated RBC (Bld) [#/Vol] 0 10*3/uL Normal 0-5 [facility] Comment on above: Performed By: #### L 501.9520, L500.4050, L506.0400, L100.0100, L501.5200 ####[facility] [address] [place], [address] Platelet mean volume (Bld) [Entitic vol] 11.1 fL Normal 6.2-12.0 [facility] Comment on above: Performed By: #### L 501.9520, L500.4050, L506.0400, L100.0100, L501.5200 ####[facility] [address] [place], [address] Platelets (Bld) [#/Vol] 144 10*3/uL Low 150-450 [facility] Comment on above: Performed By: #### L 501.9520, L500.4050, L506.0400, L100.0100, L501.5200 ####[facility] [address] [place], [address] RBC (Bld) [#/Vol] 5.17 10*6/uL Normal 4.6-6.2 [facility] Comment on above: Performed By: #### L 501.9520, L500.4050, L506.0400, L100.0100, L501.5200 ####[facility] [address] [place], [address] RDW SD 42.9 fl Normal 35.1-43.9 [facility] Comment on above: Performed By: #### L 501.9520, L500.4050, L506.0400, L100.0100, L501.5200 ####[facility] [address] [place], [address] WBC (Bld) [#/Vol] 7.1 10*3/uL Normal 4.4-11.0 [facility] Comment on above: Performed By: #### L 501.9520, L500.4050, L506.0400, L100.0100, L501.5200 ####[facility] [address] [place], [address] Cardiology Visit Reporton Cardiology Visit Report [facility] [address] [place] [address] OFFICE VISIT Date of Service: 03/17/24 MR#: [id number] Acct: [id number] Name: MARK CARBAJAL Rep #: [id number] : 1950 Provider: MALINDA gillis Age/Sex: 74/M Location[place] [facility] Status: Signed [facility] History of Present Illness Details: 74-year-old man who is here for a cardiovascular outpatient follow-up. He initially established in August 2021. He apparently had premature ventricular complexes many years ago with mild mitral valve prolapse and was put on flecainide as well as a beta-urvashi. He says that he has tolerated this [...] 98 Intake Visit Reasons: 1 Y FU Dietary Worker Required: No Is patient in pain?: No [...] Chest inspec (more content not included)... Normal [facility] Comprehensive Metabolic Prof ilon 03-17-2024 Albumin [Mass/Vol] 3.5 g/dL Normal 3.2-5.0 [facility] Comment on above: Performed By: #### L 501.9520, L500.4050, L506.0400, L100.0100, L501.5200 ####[facility] [address] [place], [address] Albumin/Globulin [Mass ratio] 1.1 {ratio} Normal 0.9-2.4 [facility] Comment on above: Performed By: #### L 501.9520, L500.4050, L506.0400, L100.0100, L501.5200 ####[facility] [address] [place], [address] ALK P 61 U/L Normal 45-117 [facility] Comment on above: Performed By: #### L 501.9520, L500.4050, L506.0400, L100.0100, L501.5200 ####[facility] [address] [place], [address] ALT [Catalytic activity/Vol] 21 U/L Normal 16-61 [facility] Comment on above: Performed By: #### L 501.9520, L500.4050, L506.0400, L100.0100, L501.5200 ####[facility] [address] [place], [address] AST [Catalytic activity/Vol] 14 U/L Low 15-37 [facility] Comment on above: Performed By: #### L 501.9520, L500.4050, L506.0400, L100.0100, L501.5200 ####[facility] [address] [place], [address] Bilirubin [Mass/Vol] 1.30 mg/dL High 0.20-1.00 [facility] Comment on above: Result Comment: For patients on eltrombopag therapy, use of Dimension Medora TBIL is not recommended. Performed By: #### L 501.9520, L500.4050, L506.0400, L100.0100, L501.5200 ####[facility] [address] [place], [address] BUN/CRE 18.0 RATIO Normal 10-20 [facility] Comment on above: Performed By: #### L 501.9520, L500.4050, L506.0400, L100.0100, L501.5200 ####[facility] [address] [place], [address] CA,Total 9.2 mg/dL Normal 8.5-10.1 [facility] Comment on above: Performed By: #### L 501.9520, L500.4050, L506.0400, L100.0100, L501.5200 ####[facility] [address] [place], [address] Chloride [Moles/Vol] 107 mmol/L Normal 98-107 [facility] Comment on above: Performed By: #### L 501.9520, L500.4050, L506.0400, L100.0100, L501.5200 ####[facility] [address] [place], [address] CO2 [Moles/Vol] 30.0 mmol/L Normal 21.0-32.0 [facility] Comment on above: Performed By: #### L 501.9520, L500.4050, L506.0400, L100.0100, L501.5200 ####[facility] [address] [place], [address] Creatinine [Mass/Vol] 0.89 mg/dL Normal 0.70-1.30 [facility] Comment on above: Result Comment: The validity of the calculated GFR GFRAA in patients over 70 years has not been determined. Clinical correlation is essential. Performed By: #### L 501.9520, L500.4050, L506.0400, L100.0100, L501.5200 ####[facility] [address] [place], [address] EST GFR - AA 109 mL/min Normal >60 [facility] Comment on above: Result Comment: Afri can Mexican GFR Calc Performed By: #### L 501.9520, L500.4050, L506.0400, L100.0100, L501.5200 ####[facility] [address] [place], [address] GAP 2 Low 5-15 [facility] Comment on above: Performed By: #### L 501.9520, L500.4050, L506.0400, L100.0100, L501.5200 ####[facility] [address] [place], [address] GFR/1.73 sq M.predicted among non-blacks MDRD (S/P/Bld) [Vol rate/Area] 90 mL/min/{1.73_m2} Normal >60 [facility] Comment on above: Result Comment: Non- GFR Calc Performed By: #### L 501.9520, L500.4050, L506.0400, L100.0100, L501.5200 ####[facility] [address] [place], [address] Globulin (S) [Mass/Vol] 3.2 g/dL Normal 2.2-4.2 [facility] Comment on above: Performed By: #### L 501.9520, L500.4050, L506.0400, L100.0100, L501.5200 ####[facility] [address] [place], [address] Glucose [Mass/Vol] 79 mg/dL Normal 74-106 [facility] Comment on above: Performed By: #### L 501.9520, L500.4050, L506.0400, L100.0100, L501.5200 ####[facility] [address] [place], [address] Potassium [Moles/Vol] 4.4 mmol/L Normal 3.5-5.1 [facility] Comment on above: Performed By: #### L 501.9520, L500.4050, L506.0400, L100.0100, L501.5200 ####[facility] [address] [place], [address] Sodium [Moles/Vol] 139 mmol/L Normal 136-145 [facility] Comment on above: Performed By: #### L 501.9520, L500.4050, L506.0400, L100.0100, L501.5200 ####[facility] [address] [place], [address] T PROT 6.7 g/dL Normal 6.4-8.2 [facility] Comment on above: Performed By: #### L 501.9520, L500.4050, L506.0400, L100.0100, L501.5200 ####[facility] [address] [place], [address] Urea nitrogen [Mass/Vol] 16 mg/dL Normal 7-18 [facility] Comment on above: Performed By: #### L 501.9520, L500.4050, L506.0400, L100.0100, L501.5200 ####[facility] [address] [place], [address] Magnesiumon 03-17-2024 Magnesium [Mass/Vol] 2.1 mg/dL Normal 1.6-2.6 [facility] Comment on above: Performed By: #### L 501.9520, L500.4050, L506.0400, L100.0100, L501.5200 ####[facility] [address] [place], [address] T4 Free Directon 03-17-2024 T4 FREE DIRECT 0.94 ng/dL Normal 0.76-1.46 [facility] Comment on above: Performed By: #### L 501.9520, L500.4050, L506.0400, L100.0100, L501.5200 ####[facility] [address] [place], [address] Thyroid Stim Hormone (TSH)on 03-17-2024 TSH 0.666 uIU/mL Normal 0.358-3.740 [facility] Comment on above: Performed By: #### L 501.9520, L500.4050, L506.0400, L100.0100, L501.5200 ####[facility] [address] [place], [address] Provider Note - ED v3on Provider Note - ED v3 Provider Note: Chart Review HISTORY OF PRESENTING ILLNESS MARK is a 71 year old Male and [...] SIGNS: T PRBP SpO2O2(LPM) %FiO2 Method 08-Mar-2021 11:28:[id number] /87 98 MDM MDM/ED COURSE: This note [...] S1S2. No m/r/g. Musculoskeletal: Grossly normal. Integumentary: [place], warm, dry, and Intact. Normal skin turgor; [...] documents available (more content not included)... Normal [facility] Provider Note - ED v2on 12-0 Provider Note - ED v2 Provider Note - ED v2: Chart Review: HISTORY OF PRESENTING ILLNESS MARK is a 70 year old Male and [...] SIGNS: T PRBP SpO2O2(LPM) %FiO2 Method 07-May-2020 13:46:[id number] /78 97 PHYSICAL EXAM CONSTITUTIONAL: Well appearing, [...] ill patient: no Electronic Signatures: Amy Walker (TRAY LINE SUPERVISOR-UNISAW OPERATOR) (Signed 07-May-2020 14:22) Authored: HPI, PMH, ROS, PE, Results/Vital Signs, MDM/ED Course, Clinical Impression, Attestation, Chart Review, Scores Last Updated: 07-May-2020 14:22 by Amy Walker ([employer]AY LINE SUPERVISOR-UNISAW OPERATOR) References: 1. Data Referenced From Provider Note - ED v2 07-May-2020 14:07 [facility] Provider Note - ED v2 This report has be en cancelled. [facility] CNOVon 09-09-2018 CNOV Office Visit (CAWSTR) MARK CARBAJAL ([id number]) 1950 M Date Time Provider Department 09/09/18 9:45 AM JORGE VELÁSQUEZTR During your visit today, we recorded the following information about you: Pulse Blood pressure Weight 55/minute 133/87 95.9 kg Jorge Velásquez MD 09/09/2018 4:32 PM Signed PERTINENT CARDIAC HISTORY Palpitations - VPDs Anxiety HTN HL MVP - mild MR Pericardial cyst ADHERENCE TO GUIDELINES AR-I or ARB for HF with prior LVEF<40 (NQF 0081) - N/A ASA or Plavix for ASHD (NQ 0067) - N/A Beta urvashi for ASHD with prior NM or prior LVEF<40 (NQ 0070) - N/A Beta urvashi for HF with prior LVEF<40 (NQ 0083) - N/A AR-I or ARB for ASHD with DM or prior LVEF<40 (NQ 0066) - N/A Statin therapy for ASHD or FHL or DM - N/A BMI documented and plan if >25 (NQ 0421) - lifestyle recommendation form Tobacco use screening and referral (NQ 0028) - lifestyle recommendation form Recommendation for whole food, plant based diet - lifestyle recommendation form CLINICAL IMPRESSION/PLAN: Mark Carbajal is doing well. His palpitations are [...] VISIT: Palpitations Hypertension HISTORY OF PRESENT ILLNESS Mark Carbajal returns for follow-up of his multiple [...] Magnesium and TSH are normal Electronically Signed: Jorge Velásquez MD September 09, 2018 10:00 AM CC: No primary care provider on file. Referring Provider: JORGE VELÁSQUEZ [[id number]] Allergies As of Date: 09/09/2018 Noted Allergy [...] is not on file. Encounter Status:Closed by JORGE VELÁSQUEZ MD on 09/09/18 Normal [facility] PROGRESSon 09-09-2018 Protein mass conc HNO ID: [id number] Author: Jorge Velásquez Service: ? Author Type: Physician Type: Progress Notes Filed: 09/09/2018 4:32 PM Note Text: PERTINENT CARDIAC HISTORY Palpitations - VPDs Anxiety HTN HL MVP - mild MR Pericardial cyst ADHERENCE TO GUIDELINES AR-I or ARB for HF with prior LVEF<40 (NQF 0081) - N/A ASA or Plavix for ASHD (NQF 0067) - N/A Beta urvashi for ASHD with prior NM or prior LVEF<40 (NQF 0070) - N/A [...] diet - lifestyle recommendation form CLINICAL IMPRESSION/PLAN: Mark Carbajal is doing well. His palpitations are [...] VISIT: Palpitations Hypertension HISTORY OF PRESENT ILLNESS Mark Carbajal returns for follow-up of his multiple [...] Magnesium and TSH are normal Electronically Signed: Jorge Velásquez MD September 09, 2018 10:00 AM CC: No primary care provider on file. Normal [facility] Panlon 04-09 Anion gap molar conc 8 mmol/L Low 9-18 [facility] Calcium mass conc 10.0 mg/dL Normal 8.5-10.2 [facility] Chloride molar conc 101 mmol/L Normal 97-105 [facility] CO2 molar conc 30 mmol/L Normal 22-30 [facility] Creatinine mass conc 0.85 mg/dL Normal 0.73-1.22 [facility] eGFR- Amer. >60 Normal [facility] GFR/1.73 sq M predicted among non-blacks MDRD vol rate/area (S/P/Bld) mL/min/{1.73_m2} Normal [facility] Comment on above: Result Comment: eGFR [...] Glucose mass conc 82 mg/dL Normal 74-99 [facility] Potassium molar conc 4.6 mmol/L Normal 3.7-5.1 [facility] Sodium molar conc 139 mmol/L Normal 136-144 [facility] Urea nitrogen mass conc 13 mg/dL Normal 7-21 [facility] CNNURSEon 04-09-2018 CNNURSE Nurse Visit (CAWSTR) MARK CARBAJAL ([id number]) 1950 M Date Time Provider Department 04/09/18 1:[address] [facility] [facility] During your visit today, we recorded the following information about you: Thomas Flowers RN 04/09/2018 10:08 AM Signed Ekg completed per order. Pt tolerated procedure without distress. Thomas Flowers RN Referring Provider: JORGE VELÁSQUEZ [[id number]] Allergies As of Date: 04/09/2018 Noted Allergy Reaction NAPROXEN 03/12/2012 5 - Intolerance Comments: Headache, not feeling well with it Date Reviewed: 04/09/2018 Reviewed by: Thomas Flowers RN - Fully Assessed Reason for Visit: Nurse Visit [792] Visit Diagnoses:Palpitatio ns [R00.2] Non-rheumatic mitral regurgitation [I34.0] Order(s):ECG COMPLETE W INTERPRETATION [ECG01] Order #: [id number] Prescriptions as of 04/09/2018 Sig: LISINOPRIL 20 [...] per order. Pt tolerated procedure without distress. Tohmas Flowers RN Encounter Status:Closed by THOMAS FLOWERS RN on 04/09/18 [facility] Jus 04-09-2018 CNOV Office Visit (CAWSTR) MARK CARBAJAL ([id number]) 1950 M Date Time Provider Department 04/09/18 8:45 AM JORGE VELÁSQUEZ During your visit today, we recorded the following information about you: Pulse Blood pressure Weight 59/minute 172/87 93.9 kg Jorge Velásquez MD 04/09/2018 9:45 AM Signed LIFESTYLE CHANGE A healthy lifestyle is the most important component of your overall treatment plan. Please give serious thought to the following areas and commit to making senior living changes. EAT A WHOLE FOOD, PLANT BASED [...] family physician about programs in your area. Jorge Velásquez MD 04/09/2018 5:33 PM Signed PERTINENT CARDIAC HISTORY Palpitations - VPDs Anxiety HTN HL MVP - mild MR Pericardial cyst ADHERENCE TO GUIDELINES AR-I or ARB for HF with prior LVEF<40 (NQF 0081) - N/A ASA or Plavix for ASHD (NQF 0067) - N/A Beta urvashi for ASHD with prior NM or prior LVEF<40 (NQF 0070) - N/A [...] diet - lifestyle recommendation form CLINICAL IMPRESSION/PLAN: Mark Carbajal is doing well. He was reassured [...] Ventricular arrhythmia Hypertension HISTORY OF PRESENT ILLNESS Mark Carbajal returns for follow-up of his palpitations [...] was no evidence of ischemia. Electronically Signed: Jorge Velásquez MD April 09, 2018 9:45 AM CC: No primary care provider on file. Referring Provider: JORGE VELÁSQUEZ [[id number]] Allergies As of Date: 04/09/2018 Noted Allergy Reaction NAPROXEN 03/12/2012 5 - Intolerance Comments: Headache, not feeling well with it Date Reviewed: 04/09/2018 Reviewed by: Thomas Flowers RN - Fully Assessed Reason for Visit: Recheck [92] Primary Visit Diagnosis:Palpitatio ns [R00.2] Other Visit Diagnosis:Non-rheuma tic mitral regurgitation [I34.0] Order(s):ECG COMPLETE W INTERPRETATION [ECG01] Order #: [id number] FUTURE BASIC METABOLIC PNL [SQBMP] Order #: [id number] FUTURE MAGNESIUM BLD [SQMG1] Order #: [id number] FUTURE lisinopril (ZESTRIL, PRINIVIL) 20 mg tabletTake 1 tablet by mouth twice daily.Disp: 180 tabletRfl: 3 TSH BLD [SQTSH] Order #: [id number] FUTURE Prescriptions as of 04/09/2018 Sig: LISINOPRIL [...] the following areas and commit to making long term care phlebotomist changes. EAT A WHOLE FOOD, PLANT BASED [...] is not on file. Encounter Status:Closed by JORGE VELÁSQUEZ MD on 04/09/18 Normal [facility] EKG1on 04-09-2018 EKG1 NAME : MARK CARBAJAL PID : [id number] : 1950 Gender : Male Race : ORD : Procedure Date : Apr 09 2018 10:24:38 Edit Date : Apr 10 2018 08:29:52 Diagnosis:SINUS BRADYCARDIA WITH 1ST DEGREE AV BLOCK INCOMPLETE RIGHT BUNDLE BRANCH BLOCK BORDERLINE ECG NO SIGNIFICANT CHANGE FROM PREVIOUS ECG Confirmed by JORGE VELÁSQUEZ MD ([id number]) on 04/10/2018 8:29:47 AM Ventricular Rate : 57 BPM Atrial Rate : 57 BPM P-R Interval : 218 ms QRS Duration : 116 ms Q-T Interval : 410 ms QTC Calculation(Bezet) : 399 ms P Franklin : 58 degrees R Franklin : 36 degrees T Franklin : 43 degrees Test Reason : Location : 136 : [place] Overread By : JORGE VELÁSQUEZ MD Edited By : JORGE VELÁSQUEZ MD Referred By : JORGE VELÁSQUEZ Acquired by : Veronique KASPER [facility] EKG1 NAME : MARK CARBAJAL PID : [id number] : 1950 Gender : Male Race : ORD : Procedure Date : Apr 09 2018 10:24:53 Edit Date : Apr 10 2018 08:29:55 Diagnosis:SINUS BRADYCARDIA WITH 1ST DEGREE AV BLOCK POSSIBLE LEFT ATRIAL ENLARGEMENT INCOMPLETE RIGHT BUNDLE BRANCH BLOCK BORDERLINE ECG Confirmed by JORGE VELÁSQUEZ MD ([id number]) on 04/10/2018 8:29:52 AM Ventricular Rate : 57 BPM Atrial Rate : 57 BPM P-R Interval : 216 ms QRS Duration : 118 ms Q-T Interval : 404 ms QTC Calculation(Bezet) : 393 ms P Franklin : 65 degrees R Franklin : 49 degrees T Franklin : 47 degrees Test Reason : Location : 136 : [place] Overread By : JORGE VELÁSQUEZ MD Edited By : JORGE VELÁSQUEZ MD Referred By : JORGE VELÁSQUEZ Acquired by : Veronique KASPER [facility] Magnesiumon 04-09-2018 Magnesium mass conc 2.2 mg/dL Normal 1.7-2.3 [facility] PROGRESSon 04-09-2018 Protein mass conc HNO ID: [id number] Author: Jorge Velásquez Service: (none) Author Type: Physician Type: Progress Notes Filed: 04/09/2018 5:33 PM Note Text: PERTINENT CARDIAC HISTORY Palpitations - VPDs Anxiety HTN HL MVP - mild MR Pericardial cyst ADHERENCE TO GUIDELINES AR-I or ARB for HF with prior LVEF<40 (NQF 0081) - N/A ASA or Plavix for ASHD (NQF 0067) - N/A Beta urvashi for ASHD with prior NM or prior LVEF<40 (NQF 0070) - N/A Beta urvashi for HF with prior LVEF<40 (NQF 0083) - N/A AR-I or ARB for ASHD with DM or prior LVEF<40 (NQF 0066) - N/A Statin therapy for ASHD or FHL or DM - N/A BMI documented and plan if >25 (NQ 0421) - lifestyle recommendation form Tobacco use screening and referral ([facility] 0028) - lifestyle recommendation form Recommendation for whole food, plant based diet - lifestyle recommendation form CLINICAL IMPRESSION/PLAN: Mark Carbajal is doing well. He was reassured [...] Ventricular arrhythmia Hypertension HISTORY OF PRESENT ILLNESS Mark Carbajal returns for follow-up of his palpitations [...] was no evidence of ischemia. Electronically Signed: Jorge Velásquez MD April 09, 2018 9:45 AM CC: No primary care provider on file. Normal [facility] TSHon 04-09-2018 Thyrotropin Qn 1.200 uU/mL Normal 0.400-5.500 [facility] Comment on above: Performed By: #### T #### [facility] [address] [place], [place] [address] OBSOLETEon 03-15-2017 OBSOLETE Refill (AGCARDWST)--------- CAREN CARBAJAL ([id number]) 1950 [facility] Time Provider Lgdbgaivks63/12/17 JORGE VELÁSQUEZ AGCARDGEOVANNA During your visit today, we recorded the following information about you:Ricarda Harvey MA 03/15/2017 9:00 AM SignedPatient phones [...] mouth once daily. SABINA: No Authorizing Provider: JORGE VELÁSQUEZ propranolol (INDERAL) 40 mg tablet 90 tablet 3 Sig: Take 0.5 tablets by mouth twice daily. SABINA: No Authorizing Provider: JORGE VELÁSQUEZ flecainide (TAMBOCOR) 100 mg tablet 180 tablet 3 Sig: Take 1 tablet by mouth twice daily. SABINA: No Authorizing Provider: JORGE VELÁSQUEZ MDAllergies As of Date: 03/15/2017 Noted [...] discontinue is not on file. Status:Closed by RICARDA HARVEY MA on 03/15/17 Normal [facility] Vital Signs Date Time Vital Sign Value Performing Clinician Frank quiñonez 01-15-2025 09:040 Body height 182.[address] Devon Vega DO Work Phone: [facility] 01-15-2025 09:0400 Body mass index (BMI) [Ratio] 27.9 kg/m2 Dr. Devon Vega DO Work Phone: [facility] 01-15-2025 09:17-0400 Body weight 93.[address] Devon Vega DO Work Phone: [facility] 01-15-2025 09:17-0400 Diastolic blood pressure 82 mm[Hg] Dr. Devon Vega DO Work Phone: [facility] 01-15-2025 09:17-0400 Heart rate 94 /min Dr. Devon Vega DO Work Phone: [facility] 01-15-2025 09:17-0400 Respiratory rate 16 /min Dr. Devon Vega DO Work Phone: [facility] 01-15-2025 09:17-0400 Systolic blood pressure 131 mm[Hg] Dr. Devon Vega DO Work Phone: [facility] 01-08-2025 09:26-0400 Body height 182.[address] Devon Vega DO Work Phone: [facility] 01-08-2025 09:26-0400 Body mass index (BMI) [Ratio] 28 kg/m2 Dr. Devon Vega DO Work Phone: [facility] 01-08-2025 09:26-0400 Body weight 93.[address] Devon Vega DO Work Phone: [facility] 01-08-2025 09:26-0400 Diastolic blood pressure 84 mm[Hg] Dr. Devon Vega DO Work Phone: [facility] 01-08-2025 09:26-0400 Heart rate 67 /min Dr. Devon Vega DO Work Phone: [facility] 01-08-2025 09:26-0400 Respiratory rate 18 /min Dr. Devon Vega DO Work Phone: [facility] 01-08-2025 09:26-0400 Systolic blood pressure 115 mm[Hg] Dr. Devon Vega DO Work Phone: [facility] 01-02-2025 07:10-0400 Body height 182.[address] Devon Vega DO Work Phone: [facility] 01-02-2025 07:10-0400 Body mass index (BMI) [Ratio] 29.4 kg/m2 Dr. Devon Vega DO Work Phone: [facility] 01-02-2025 07:10-0400 Body weight 98.[address] Devon Vega DO Work Phone: [facility] 01-02-2025 07:10-0400 Diastolic blood pressure 90 mm[Hg] Dr. Devon Vega DO Work Phone: [facility] 01-02-2025 07:10-0400 Heart rate 43 /min Dr. Devon Vega DO Work Phone: [facility] 01-02-2025 07:10-0400 Respiratory rate 18 /min Dr. Devon Vega DO Work Phone: [facility] 01-02-2025 07:10-0400 SaO2% (BldA) [Mass fraction] 98 % Dr. Devon Vega DO Work Phone: [facility] 01-02-2025 07:10-0400 Systolic blood pressure 124 mm[Hg] Dr. Devon Vega DO Work Phone: [facility] 12-22-2024 10:49-0400 Body height 182.[address] Devon Vega DO Work Phone: [facility] 12-22-2024 10:49-0400 Body weight 93.[address] Devon Vega DO Work Phone: [facility] 12-19-2024 08:52-0400 Body mass index (BMI) [Ratio] 28 kg/m2 Dr. Devon Vega DO Work Phone: [facility] 12-12-2024 09:16-0400 Body height 182.[address] Devon Vega DO Work Phone: [facility] 12-12-2024 09:16-0400 Body mass index (BMI) [Ratio] 28 kg/m2 Dr. Devon Vega DO Work Phone: [facility] 12-12-2024 09:16-0400 Body weight 93.[address] Devon Vega DO Work Phone: [facility] 12-12-2024 09:16-0400 Diastolic blood pressure 88 mm[Hg] Dr. Devon Vega DO Work Phone: [facility] 12-12-2024 09:16-0400 Heart rate 77 /min Dr. Devon Vega DO Work Phone: [facility] 12-12-2024 09:16-0400 Respiratory rate 18 /min Dr. Devon Vega DO Work Phone: [facility] 12-12-2024 09:16-0400 SaO2% (BldA) [Mass fraction] 95 % Dr. Devon Vega DO Work Phone: [facility] 12-12-2024 09:16-0400 Systolic blood pressure 127 mm[Hg] Dr. Devon Vega DO Work Phone: [facility] 11-12-2024 06:48-0400 Body height 182.[address] Devon Vega DO Work Phone: [facility] 11-12-2024 06:48-0400 Body mass index (BMI) [Ratio] 28 kg/m2 Dr. Devon Vega DO Work Phone: [facility] 11-12-2024 06:48-0400 Body weight 93.[address] Devon Vega DO Work Phone: [facility] 11-12-2024 06:48-0400 Diastolic blood pressure 93 mm[Hg] Dr. Devon Vega DO Work Phone: [facility] 11-12-2024 06:48-0400 Heart rate 113 /min Dr. Devon Vega DO Work Phone: [facility] 11-12-2024 06:48-0400 Respiratory rate 18 /min Dr. Devon Vega DO Work Phone: [facility] 11-12-2024 06:48-0400 SaO2% (BldA) [Mass fraction] 96 % Dr. Devon Vega DO Work Phone: [facility] 11-12-2024 06:48-0400 Systolic blood pressure 136 mm[Hg] Dr. Devon Vega DO Work Phone: [facility] 09-19-2024 07:33-0400 Body mass index (BMI) [Ratio] 27.9 kg/m2 Dr. Devon Vega DO Work Phone: [facility] 09-19-2024 07:33-0400 Body weight 93.[address] Devon Vega DO Work Phone: [facility] 09-19-2024 07:33-0400 Diastolic blood pressure 78 mm[Hg] Dr. Devon Vega DO Work Phone: [facility] 09-19-2024 07:33-0400 Heart rate 56 /min Dr. Devon Vega DO Work Phone: [facility] 09-19-2024 07:33-0400 Respiratory rate 18 /min Dr. Devon Vega DO Work Phone: [facility] 09-19-2024 07:33-0400 SaO2% (BldA) [Mass fraction] 97 % Dr. Devon Vega DO Work Phone: [facility] 09-19-2024 07:33-0400 Systolic blood pressure 132 mm[Hg] Dr. Devon Vega DO Work Phone: [facility] 01-04-2023 09:06-0400 Body weight 92.[address] Sami Gonzalez Work Phone: [facility] 01-04-2023 09:06-0400 Diastolic blood pressure 78 mm[Hg] Dr. Sami Gonzalez Work Phone: 5(441)222-112338 [address] 01-04-2023 09:06-0400 Heart rate 47 /min Dr. Sami Gonzalez Work Phone: 9(239)875-702938 [address] 01-04-2023 09:06-0400 Respiratory rate 18 /min Dr. Sami Gonzalez Work Phone: 0(963)250-972538 [address] 01-04-2023 09:06-0400 Systolic blood pressure 143 mm[Hg] Dr. Sami Gonzalez Work Phone: 7(170)421-661938 [address] 01-04-2023 08:37-0400 Body height 182.[address] Sami Gonzalez Work Phone: 0(058)781-471801 [place] [address] 08-12-2021 10:15-0500 Body height 182.[address] Sami Gonzalez Work Phone: 5(581)192-580138 [address] Work Phone: 08-12-2021 10:15-0500 Body mass index (BMI) [Ratio] 28.6 kg/m2 Dr. Sami Gonzalez Work Phone: 6(879)183-369496 [place] [address] Work Phone: 08-12-2021 10:15-0500 Body weight 95.[address] Sami Gonzalez Work Phone: 5(577)065-423296 [place] [address] Work Phone: 08-12-2021 10:15-0500 Diastolic blood pressure 85 mm[Hg] Dr. Sami Gonzalez Work Phone: [facility] Work Phone: 08-12-2021 10:15-0500 Heart rate 54 /min Dr. Sami Gonzalez Work Phone: [facility] Work Phone: 08-12-2021 10:15-0500 Respiratory rate 16 /min Dr. Sami Gonzalez Work Phone: 3(725)[phone] [place] [address] Work Phone: 08-12-2021 10:15-0500 SaO2% (BldA) [Mass fraction] 97 % Dr. Sami Gonzalez Work Phone: [facility] Work Phone: 08-12-2021 10:15-0500 Systolic blood pressure 156 mm[Hg] Dr. Sami Gonzalez Work Phone: [facility] Work Phone: Encounters Encounter Date Encounter Type Care Provider Facility Start: 01-15-2025 End: 01-15-2025 Patient encounter procedure Tiffanie BYRNE -[facility] Work Phone: Start: 01-15-2025 End: 01-15-[address] Devon Vega DO Work Phone: -[facility] Start: 01-08-2025 End: 01-15-2025 Patient encounter procedure Tiffanie BYRNE -[facility] Work Phone: Start: 01-08-2025 End: 01-08-[address] Devon Vega DO Work Phone: [facility] Start: 01-05-2025 Non-patient / Non-visit Dr. Oliveira MD -[facility] Work Phone: Start: 01-05-2025 End: 01-05-[address] Devon Vega DO Work Phone: -Pulmonary Services/Neurology Start: 01-05-2025 End: 01-05-[address] Nathanael Lauren MD -Pulmonary Services/Neurology Work Phone: Start: 01-05-2025 End: 01-05-2025 ambulatory Devon Vega Facility:[facility] Start: 01-02-2025 End: 01-02-[address] Devon Vega DO Work Phone: -Laboratory Start: 01-02-2025 End: 01-02-2025 Patient encounter procedure Tiffanie BYRNE -Laboratory Work Phone: Start: 01-02-2025 End: 01-02-2025 Patient encounter procedure Tiffanie Patel ND -[facility] Work Phone: Start: 01-02-2025 End: 01-02-[address] Devon Vega DO Work Phone: -[facility] Start: 01-02-2025 End: 01-02-2025 ambulatory Devon Vgea Facility:[facility] Start: 12-29-2024 End: 12-29-[address] Nathanael Lauren MD -[facility] Work Phone: Start: 12-29-2024 End: 12-29-[address] Devon Vega DO Work Phone: -[facility] Start: 12-22-2024 ambulatory Flo Ruiz Facility:[facility] Start: 12-22-2024 Non-patient / Non-visit Dr. Flo briggs DO -[facility] Start: 12-22-2024 End: 12-22-2024 Admission to same day surgery center Dr. Nathanael Lauren MD -[employer] [facility] Work Phone: Start: 12-22-2024 End: 12-22-[address] Devon Vega DO Work Phone: -[employer] [facility]/Special Procedures Start: 12-12-2024 End: 12-12-2024 Patient encounter procedure Guillaume Singh ND -[facility] Work Phone: Start: 12-12-2024 End: 12-12-[address] Devon Vega DO Work Phone: -[facility] Start: 11-12-2024 End: 11-12-[address] Devon Vega DO Work Phone: [facility] Work Phone: Start: 11-12-2024 End: 11-12-2024 Patient encounter procedure Guillaume BYRNE -Laboratory Work Phone: Start: 11-12-2024 End: 11-12-2024 Patient encounter procedure Guillaume Singh PA -[facility] Work Phone: Start: 11-12-2024 End: 11-12-[address] Devon Vega DO Work Phone: [facility] Work Phone: Start: 11-12-2024 End: 11-12-2024 ambulatory Guillaumejemal Singh Facility:[facility] Start: 09-19-2024 End: 09-19-2024 Patient encounter procedure Shantal Perrin [employer] -[facility] Work Phone: Start: 09-19-2024 End: 09-19-2024 ambulatory Devon Vega Facility:[facility] Start: 03-28-2024 ambulatory Devon Vega Facility: [facility] Start: 03-28-2024 End: 03-28-2024 ambulatory Rob Carrero NP Facility:[facility] Start: 03-17-2024 End: 03-17-2024 ambulatory Devon Vega Facility:[facility] Start: 03-17-2024 End: 03-17-2024 ambulatory Rob Carrero [employer] Facility:[facility] Start: 01-15-2023 End: 01-15-[address] Sami Gonzalez Work Phone: [facility] Work Phone: Start: 01-15-2023 End: 01-15-[address] Sami Gonzalez Work Phone: [facility]-Pulmonary Services/Neurology Work Phone: Start: 01-04-2023 End: 01-04-[address] Sami Gonzalez Work Phone: [facility] Work Phone: Start: 09-16-2021 Non-patient / Non-visit Dr. Becky Gonzalez Work Phone: [facility] Start: 09-16-2021 End: 09-16-[address] Sami Gonzalez Work Phone: [facility]-Cardiovascular Services Start: 09-05-2021 Non-patient / Non-visit Dr. Becky Gonzalez Work Phone: [facility] Start: 09-05-2021 End: 09-05-[address] Sami Gonzalez Work Phone: [facility]-Cardiovascular Services Start: 08-12-2021 End: 08-12-[address] Sami Gonzalez Work Phone: [facility] Start: 09-09-2018 End: 09-10-2018 Patient encounter procedure JORGE VELÁSQUEZ [facility] Start: 04-09-2018 End: 04-09-2018 Patient encounter procedure JORGE Carmichael CHRISTEN [facility] Start: 04-09-2018 End: 04-11-2018 Patient encounter procedure JORGE Carmichael CHRISTEN [facility] Procedures Date Procedure Procedure Detail Performing Clinician Start: 12-12-2024 X-ray of chest, PA a nd lateral views Dr. Devon Vega DO Work Phone: Start: 09-19-2024 Evaluation of diagno stic study results Dr. Devon Vega DO Work Phone: Start: 09-16-2021 Radionuclide imaging of perfusion of myocardium under exercise stress Dr. Sami Gonzalez Work Phone: Start: 08-31-2016 Lipid 1996 panel - S ulices or Plasma [facility] Provider Plan of Treatment Date Care Activity Detail Author Start: 02-28-2027 RSV Vaccine (1 - 1-dose 75+ series) RSV Vaccine (1 - 1-dose 75+ series) [facility] Start: 02-02-2025 Influenza vaccination Influenza Vaccine (#1) [facility] Start: 01-15-2025 Evaluation of diagnostic study results [facility] Start: 01-08-2025 Evaluation of diagnostic study results [facility] Start: 01-02-2025 Evaluation of diagnostic study results [facility] Start: 12-29-2024 Evaluation of diagnostic study results [facility] Start: 12-22-2024 Patient discharge [facility] Start: 12-12-2024 Evaluation of diagnostic study results [facility] Start: 11-12-2024 Evaluation of diagnostic study results [facility] Start: 06-04-2024 Advance Directive Discussion Advance Directive Discussion [facility] Start: 08-31-2021 Lipid panel Lipid Screening [facility] Start: 04-09-2021 Diabetes Screening Diabetes Screening [facility] Start: 01-05-2021 Shingrix Vaccine (3 of 3) Shingrix Vaccine (3 of 3) [facility] Start: 02-28-1997 Screening for malignant neoplasm of colon [facility] Start: 02-28-1971 Urine microalbumin profile DTaP,Tdap,Td Vaccine (1 - Tdap) [facility] Start: 02-28-1970 Anxiety Screening Anxiety Screening [facility] Start: 02-28-1970 Depression Screening Depression Screening [facility] Start: 02-28-1970 Hepatitis C screening Hepatitis C Screening [facility] Basic metabolic 2007 panel with ionized calcium - Serum or Plasma [facility] Basic metabolic 2007 panel with ionized calcium - Serum or Plasma [facility] Basic metabolic 2007 panel with ionized calcium - Serum or Plasma [facility] Basic metabolic 2007 panel with ionized calcium - Serum or Plasma [facility] Cardioversion [place] CBC W Auto Different ial panel - Blood [facility] CBC W Auto Different ial panel - Blood [facility] Electrocardiographic procedure [facility] Magnesium measurement [facility] Magnesium measurement [facility] Natriuretic peptide. B prohormone N-Terminal [Mass/volume] in Serum or Plasma [facility] Prothrombin time [facility] Thyroid stimulating hormone measurement [facility] Thyroid stimulating hormone measurement [facility] US Heart [facility] XR Chest PA and Lateral [facility] Immunizations Immunization Date Immunization Notes Care Provider [facility] 11-10-2020 zoster vaccine recombinant [facility] Provi renato [facility] 04-12-2018 pneumococcal polysac charide vaccine, 23 valent [facility] Provider [facility] 04-02-2018 influenza, high dose seasonal, preservative-free [facility] Provider [facility] 04-02-2018 influenza virus vacc ine, unspecified formulation [facility] Provider [facility] 07-16-2017 influenza, high dose seasonal, preservative-free [facility] Provider [facility] 04-10-2014 zoster vaccine, live [facility] Provider [facility] Payers Date Payer Category Payer Self-pay [id number] 2024 Medicare [id number] 2024 Private Health Insurance [id number] 2017 Medicare MEDICARE [id number] Unknown [id number] Unknown [id number] .2.462 Unknown [id number] [id number] .2.462 Unknown [id number] 2.840.1.615513.3.579 .2.462 Unknown [id number] 2.0.1.852618.3.579 .2.462 Unknown [id number] 2.840.1.016705.3.579 .2.462 Unknown [id number] 2.840.1.157765.3.579 .2.462 Unknown [id number] 2.16840.1.847853.3.579 .2.462 Unknown [id number] 2.840.1.876312.3.579 .2.462 Unknown [id number] 2.16840.1.128351.3.579 .2.462 Unknown [id number] 2.16.840.1.128418.3.579 .2.462 Unknown [id number] 2.16.840.1.824623.3.579 .2.462 Unknown [id number] 2.16.840.1.429834.3.579 .2.462 Unknown [id number] 2.16.840.1.424326.3.579 .2.462 Unknown [id number] 2.16.840.1.495599.3.579 .2.462 Unknown [id number] 2.16.840.1.377168.3.579 .2.462 Unknown [id number] 2.16.840.1.540524.3.579 .2.462 Unknown [id number] 2.16.840.1.812720.3.579 .2.462 Unknown [id number] 2.16.840.1.421801.3.579 .2.462 Unknown [id number] 2.16.840.1.539562.3.579 .2.462 Social History Date Type Detail Facility Start: 08-12-2021 End: 01-04-2023 Tobacco smoking status [facility] Unknown if ever smoked [facility] Start: 1950 Sex Assigned At Male W [facility] Start: 09-25-2011 End: 02-05-2024 Tobacco smoking status MAIS Never smoked tobacco (finding) [facility] Start: 09-25-2011 Tobacco use and exposure Smokeless tobacco non-user [facility] Start: 09-09-2018 Alcoholic beverage intake Current drinker of alcohol (finding) [facility] Start: 09-09-2018 End: 05-11-2020 History of Social function [facility] Start: 09-09-2018 End: 05-11-2020 Tobacco use panel [facility] Start: 05-05-2012 National Score (1-10 0), lower number is lower risk Not on file [facility] Start: 1950 Sex assigned at Not on file C [facility] Functional Status Date Assessment Result Facility 02-23-2014 Are you deaf, or do you have serious difficulty hearing No 02/23/2014 11:43 AM EDT Angelina Ivy RN No [facility] 02-23-2014 Are you blind, or do you have serious difficulty seeing, even when wearing glasses No 02/23/2014 11:43 AM EDT Angelina Ivy RN No [facility] 02-23-2014 Do you have serious difficulty walking or climbing stairs No 02/23/2014 11:43 AM EDT Angelina Ivy RN No [facility] 02-23-2014 Do you have difficul ty dressing or bathing No 02/23/2014 11:43 AM EDT Angelina Ivy RN No [facility] 02-23-2014 Because of a physica l, mental, or emotional condition, do you have difficulty doing errands alone such as visiting a physician's office or shopping No 02/23/2014 11:43 AM EDT BijuAngelina mcknight RN No [facility] Mental Status Date Assessment Result Facility 02-23-2014 Because of a physica l, mental, or emotional condition, do you have serious difficulty concentrating, remembering, or making decisions No 02/23/2014 11:43 AM EDT Angelina Ivy RN No [facility] Clinical Notes 09-19-2024 to 12-22-2024 Note Date & Type Note Facility 12-22-2024 Procedure note [facility] 12-22-2024 Procedure note [facility] 12-12-2024 Radiology Diagnostic study note [facility] Imaging Services [address] [place] [address] Chest PA and Lateral MR#: [id number] Acct: [id number] Name: MARK CARBAJAL Rep #: [id number] : 1950 M 74 From: [place] MD PCP: Dr. Devon Vega, DO Status: PRE NVC Study:Chest PA and Lateral Date of Exam: 12/12/24 Exam# [id number] Ordering Dr: Guillaume Singh PA EXAM: XR Chest, 2 Views CLINICAL INDICATION: ATRIAL FIBRILLATION, PREPROCEDURAL FOR DCCV TECHNIQUE: Frontal and lateral views of the chest. COMPARISON: No relevant prior studies available. FINDINGS: LUNGS AND PLEURAL SPACES: Unremarkable. No consolidation. No pneumothorax. HEART: Unremarkable. No cardiomegaly. MEDIASTINUM: Unremarkable. Normal mediastinal contour. BONES/JOINTS: Unremarkable. No acute fracture. RAD/Chest PA and Lateral IMPRESSION: No acute cardiopulmonary process. [facility] CC: Dr. Devon Vega DO; CATY Manuel ~ Medical Billing Specialist: Signed [facility] 09-19-2024 Evaluation note Diagnosis Onset Date Resolution Encounter for monitoring flecainide therapy acute September 19, 2024 8:53am Multiple premature ventricular complexes acute September 8:53am Essential hypertension chronic Ap ril 2024 8:53am Nonrheumatic mitral (valve) prolapse chronic September 19 8:53am [facility] Work Phone: 1(599) 124-123204-18-2025 Evaluation note* Diagnosis Onset Date Resolution Status Admit Date Encounter for monitoring flecainide therapy acute September 19, 2 025 8:53am Essential hypertension chronic Ap ril 2024 8:53am Multiple premature ventricul ar complexes chronic September 19, 2024 8:53am Nonrheumatic mitral (valve) prolapse chronic September 19, 2024 8:53am New onset atrial fibrillation acute November 12, 2024 2:30pm Essential hypertension chronic Ju ne 2024 2:30pm Multiple premature ventricul ar complexes chronic November 12, 2024 2:30pm Nonrheumatic mitral (valve) prolapse chronic November 12, 2024 2:30pm [facility] Work Phone: 1(674) 722-513304-18-2025 Evaluation note* Diagnosis Onset Date Resolution Status Admit Date Encounter for monitoring flecainide therapy acute September 19, 2 025 8:53am Essential hypertension chronic Ap ril 2024 8:53am Multiple premature ventricul ar complexes chronic September 19, 2024 8:53am Nonrheumatic mitral (valve) prolapse chronic September 19, 2024 8:53am New onset atrial fibrillation acute November 12, 2024 2:30pm Essential hypertension chronic Ju ne 2024 2:30pm Multiple premature ventricul ar complexes chronic Jennifer 11th, 2025 2:30pm Nonrheumatic mitral (valve) prolapse chronic November 12, 2024 2:30pm New onset atrial fibrillation acute December 12, 2024 9:09am Essential hypertension chronic Ju ly 2024 9:09am Multiple premature ventricul ar complexes chronic December 12, 2024 9:09am Nonrheumatic mitral (valve) prolapse chronic December 12, 2024 9:09am [facility] [employer] Work Phone: 1(157) 686-982304-18-2025 Evaluation note* Diagnosis Onset Date Resolution Status Admit Date Encounter for monitoring flecainide therapy acute September 19, 025 8:53am Essential hypertension chronic Ap ril 2024 8:53am Multiple premature ventricul ar complexes chronic September 19, 2024 8:53am Nonrheumatic mitral (valve) prolapse chronic September 19, 2024 8:53am New onset atrial fibrillation acute November 12, 2024 2:30pm Essential hypertension chronic Ju ne 2024 2:30pm Multiple premature ventricul ar complexes chronic November 12, 2024 2:30pm Nonrheumatic mitral (valve) prolapse chronic November 12, 2024 2:30pm New onset atrial fibrillation acute December 12, 2024 9:09am Essential hypertension chronic Ju ly 2024 9:09am Multiple premature ventricul ar complexes chronic December 12, 2024 9:09am Nonrheumatic mitral (valve) prolapse chronic December 12, 2024 9:09am Encounter for monitoring flecainide therapy acute January 02 025 9:16am New onset atrial fibrillation acute January 02, 2025 9:16am Essential hypertension chronic Au 2024 9:16am Nonrheumatic mitral (valve) prolapse chronic January 02, 2025 9:16am [facility] [employer] Work Phone: 1(458) 645-950304-18-2025 Evaluation note* Diagnosis Onset Date Resolution Status Admit Date Encounter for monitoring flecainide therapy acute September 19, 2 025 8:53am Essential hypertension chronic Ap ril 2024 8:53am Multiple premature ventricul ar complexes chronic September 19, 2024 8:53am Nonrheumatic mitral (valve) prolapse chronic September 19, 2024 8:53am New onset atrial fibrillation acute November 12, 2024 2:30pm Essential hypertension chronic Ju ne 2024 2:30pm Multiple premature ventricul ar complexes chronic November 12, 2024 2:30pm Nonrheumatic mitral (valve) prolapse chronic November 12, 2024 2:30pm New onset atrial fibrillation acute December 12, 2024 9:09am Essential hypertension chronic Ju ly 2024 9:09am Multiple premature ventricul ar complexes chronic December 12, 2024 9:09am Nonrheumatic mitral (valve) prolapse chronic December 12, 2024 9:09am Encounter for monitoring flecainide therapy acute January 02 025 9:16am New onset atrial fibrillation acute January 02, 2025 9:16am Essential hypertension chronic 2024 9:16am Nonrheumatic mitral (valve) prolapse chronic January 02, 2025 9:16am Encounter for monitoring flecainide therapy acute January 08 025 9:10am New onset atrial fibrillation acute January 08, 2025 9:10am Essential hypertension chronic 2024 9:10am Nonrheumatic mitral (valve) prolapse chronic January 08, 2025 9:10am [facility] [employer] Work Phone: 1(626) 458-228404-18-2025 Evaluation note* Diagnosis Onset Date Resolution Status Admit Date Encounter for monitoring flecainide therapy acute September 19, 025 8:53am Essential hypertension chronic Ap ril 2024 8:53am Multiple premature ventricul ar complexes chronic September 19, 2024 8:53am Nonrheumatic mitral (valve) prolapse chronic September 19, 2024 8:53am New onset atrial fibrillation acute November 12, 2024 2:30pm Essential hypertension chronic Ju ne 2024 2:30pm Multiple premature ventricul ar complexes chronic November 12, 2024 2:30pm Nonrheumatic mitral (valve) prolapse chronic November 12, 2024 2:30pm New onset atrial fibrillation acute December 12, 2024 9:09am Essential hypertension chronic Ju ly 2024 9:09am Multiple premature ventricul ar complexes chronic December 12, 2024 9:09am Nonrheumatic mitral (valve) prolapse chronic December 12, 2024 9:09am Encounter for monitoring flecainide therapy acute January 02 025 9:16am New onset atrial fibrillation acute January 02, 2025 9:16am Essential hypertension chronic [facility] 2024 9:16am Nonrheumatic mitral (valve) prolapse chronic January 02, 2025 9:16am PAF (paroxysmal atrial fibrillation) acute January 08, 2025 9:10am Essential hypertension chronic [facility] 2024 9:10am Multiple premature ventricul ar complexes chronic January 08, 2025 9:10am Nonrheumatic mitral (valve) prolapse chronic January 08, 2025 9:10am [facility] Work Phone: 1(889) 904-624504-18-2025 Evaluation note* Diagnosis Onset Date Resolution Status Admit Date Encounter for monitoring flecainide therapy acute September 19 8:53am Essential hypertension chronic 2024 8:53am Multiple premature ventricul ar complexes chronic September 19, 2024 8:53am Nonrheumatic mitral (valve) prolapse chronic September 19, 2024 8:53am New onset atrial fibrillation acute November 12, 2024 2:30pm Essential hypertension chronic [facility] 2024 2:30pm Multiple premature ventricul ar complexes chronic November 12, 2024 2:30pm Nonrheumatic mitral (valve) prolapse chronic November 12, 2024 2:30pm New onset atrial fibrillation acute December 12, 2024 9:09am Essential hypertension [facility] 2024 9:09am Multiple premature ventricul ar complexes chronic December 12, 2024 9:09am Nonrheumatic mitral (valve) prolapse chronic December 12, 2024 9:09am Encounter for monitoring flecainide therapy acute January 02 9:16am New onset atrial fibrillation acute January 02, 2025 9:16am Essential hypertension chronic [facility] 2024 9:16am Nonrheumatic mitral (valve) prolapse chronic January 02, 2025 9:16am PAF (paroxysmal atrial fibrillation) acute January 08, 2025 9:10am Essential hypertension chronic [facility] 2024 9:10am Multiple premature ventricul ar complexes chronic January 08, 2025 9:10am Nonrheumatic mitral (valve) prolapse chronic January 08, 2025 9:10am PAF (paroxysmal atrial fibrillation) acute January 15 9:09am Essential hypertension chronic [facility] 2024 9:09am Multiple premature ventricul ar complexes chronic January 15 9:09am Nonrheumatic mitral (valve) prolapse chronic January 15 9:09am Bethany [employer] [facility] Work Phone: Evaluation note* Diagnosis Onset Date Resolution Status Encounter for monitoring flecainide therapy acute Essential hypertension acute Multiple premature ventricular complexes acute Nonrheumatic mitral (valve) prolapse chronic [facility] Work Phone: Evaluation note* Diagnosis Onset Date Resolution Status Multiple premature ventricular complexes acute Essential hypertension chron ic Nonrheumatic mitral (valve) prolapse chronic [facility] Work Phone: Hospital Discharge instructionsAmbulatory Orders* Electrophysiology Location: None Selected [facility] [employer] [facility] Work Phone: Reason for referral (narrative)No reason for referral information availableBlEl [facility] Work Phone: Summary Purpose Family History No Family History Records FoundNo Family History Records FoundNo Family History Records FoundNo Family History Records Found Advance Directives No Advanced Directives Records Found Advance Directive Response Recorded Date/ Time Advance Directives on File No December 22, 2024 10:49am Living Will Yes December 22, 2024 10:49am Do you have a Healthcare Power of Advice Nurse? Yes December 22, 2024 10:49am Name of Medical Power of Advice Nurse spouse December 22, 2024 10:49am Advance Directives [...] 2025 9:16am Nonrheumatic mitral (valve) prolapse Aug us2024 9:16am Chief Complaint Admit Date 6 M FU [...] Clinical Note January 02, 2025 9:1 6am E ORDERS January 02, 2025 10: 39am multiple PVC's January 05, 2025 7:0 2am 1 W FU January 08, 2025 9:1 0am Reason for Visit Admit Date Encounter for [...] 9:16am Nonrheumatic mitral (valve) prolapse Jan 9:16am Encounter for monitoring flecainide ther apy January 08, 2025 9:10am New onset atrial fibrillation January 9:10am Essential hypertension January 08, 2025 9:10am Nonrheumatic mitral (valve) prolapse Jan 9:10am Reason for Visit Admit Date Encounter for [...] 9:16am Nonrheumatic mitral (valve) prolapse Jan 9:16am PAF (paroxysmal atrial fibrillation) Jan 9:10am Essential hypertension January 08, 2025 9:10am Multiple premature ventricular complexes January 08, 2025 9:10am Nonrheumatic mitral (valve) prolapse Jan 9:10am Chief Complaint Admit Date 6 M FU [...] Clinical Note January 02, 2025 9:1 6am E ORDERS January 02, 2025 10: 39am multiple PVC's January 05, 2025 7:0 2am PVC'S January 05, 2025 7:1 3am multiple PVC's January 05, 2025 7:2 6am 1 W FU January 08, 2025 9:1 0am 1 WK FU/Needs EKG January 15, 2025 9: 09am Reason for Visit Admit Date Encounter for [...] 9:16am Nonrheumatic mitral (valve) prolapse Jan 9:16am PAF (paroxysmal atrial fibrillation) Jan 9:10am Essential hypertension January 08, 2025 9:10am Multiple premature ventricular complexes January 08, 2025 9:10am Nonrheumatic mitral (valve) prolapse Jan 9:10am PAF (paroxysmal atrial fibrillation) Jan 9:09am Essential hypertension January 15, 2025 9:09am Multiple premature ventricular complexes January 15, 2025 9:09am Nonrheumatic mitral (valve) prolapse Aug ust 2024 9:09am Additional Source Comments (unrecognized sect ion and content) No Status Records FoundNo Status Records FoundNo Status Records FoundNo Status Records Found INFORMATION SOURCE (unrecogn ized section and content) DATE CREATED AUTHOR 11/27/2017 [facility] DATE CREATED AUTHOR AUTHOR'S ORGANIZ ATION 09/11/2018 [facility] DATE CREATED AUTHOR AUTHOR'S ORGANIZ ATION 03/17/2021 [facility] DATE CREATED AUTHOR AUTHOR'S ORGANIZ ATION 01/17/2025 [facility] Goals (unrecognized section and content) Goals [...] 2024 End: September 19, 2024 Shantal Perrin [employer], [employer] Attending Provider Active Start: September 19, 2024 [...] End: September 19, 2024 Shantal Perrin NP, [employer] Attending Provider Active Start: September 19, 2024 [...] Status: Inactive Member Role/Relationship Status Dates Dr. Deovn Vega DO Primary Care Provider Active Start: December 29, 2024 End: December 29, 2024 Dr. Devon Vega DO Referring Provider Active Start: December 29, 2024 End: December 29, 2024 Dr. Nathanael Lauren MD Attending Provider Active S tart: December 29, 2024 End: December 29, 2024 Team Status: Inactive Member Role/Relationship Status Dates Dr. Devon Veag DO Primary Care Provider Active Start: January 02, 2025 End: January 02, 2025 Dr. Devon Vega DO Referring Provider Active Start: January 02, 2025 End: January 02, 2025 Tiffanie BYRNE PA Attending Provider Active Start: January 02, 2025 End: January 02, 2025 Team Status: Active Member Role/Relationship Status Dates Dr. Devon Vega DO Primary Care Provider Active Start: January 02, 2025 Tiffanie BYRNE, PA Attending Provider Active Start: January 02, 2025 Tiffanie Patel PA, PA Referring Provider Active Start: January 02, 2025 Team Status: Active Member Role/Relationship Status Dates Dr. Devon Vega DO Primary Care Provider Active Start: January 05, 2025 Dr. Nathanael Lauren MD Attending Provider Active S tart: January 05, 2025 Dr. Nathanael Lauren MD Referring Provider Active S tart: January 05, 2025 Team Status: Inactive Member Role/Relationship Status Dates Dr. Devon Vega DO Primary Care Provider Active Start: January 08, 2025 End: January 08, 2025 Dr. Devon Vega DO Referring Provider Active Start: January 08, 2025 End: January 08, 2025 Tiffanie BYRNE PA Attending Provider Active Start: January 08, 2025 End: January 08, 2025 Team Status: Inactive Member Role/Relationship Status Dates Dr. Devon Vega DO Primary Care Provider Active Start: January 02, 2025 End: January 02, 2025 Tiffanie BYRNE, PA Attending Provider Active Start: January 02, 2025 End: January 02, 2025 Tiffanie Patel PA, PA Referring Provider Active Start: January 02, 2025 End: January 02, 2025 Team Status: Inactive Member Role/Relationship Status Dates Dr. Devon Vega DO Primary Care Provider Active Start: January 05, 2025 End: January 05, 2025 Dr. Nathanael Lauren MD Attending Provider Active S tart: January 05, 2025 End: January 05, 2025 Dr. Nathanael Lauren MD Referring Provider Active S tart: January 05, 2025 End: January 05, 2025 Team Status: Active Member Role/Relationship Status Dates Dr. Devon Vega DO Primary Care Provider Active Start: January 05, 2025 Dr. Nathanael Lauren MD Attending Provider Active S tart: January 05, 2025 CATY Lopez Referring Provider Active Start: January 05, 2025 Team Status: Active Member Role/Relationship Status Dates Dr. Devon Vega DO Primary Care Provider Active Start: January 05, 2025 Dr. Nathanael Lauren MD Attending Provider Active S tart: January 05, 2025 Dr. Nathanael Lauren MD Referring Provider Active S tart: January 05, 2025 Team Status: Inactive Member Role/Relationship Status Dates Dr. Devon Vega DO Primary Care Provider Active Start: January 08, 2025 End: January 08, 2025 Dr. Devon Vega DO Referring Provider Active Start: January 08, 2025 End: January 08, 2025 CATY Lopez Attending Provider Active Start: January 08, 2025 End: January 08, 2025 Team Status: Inactive Member Role/Relationship Status Dates Dr. Devon Vega DO Primary Care Provider Active Start: January 15, 2025 End: January 15, 2025 Dr. Devon Vega DO Referring Provider Active Start: January 15, 2025 End: January 15, 2025 CATY Lopez Attending Provider Active Start: January 15, 2025 End: January 15, 2025 Source Comments (unrecognize d section and content) In the event this informatio n is protected by the Federal Confidentiality of Alcohol and Drug Abuse Patient Records regulations: The Federal rules restrict any use of the information to criminally investigate or prosecute any alcohol or drug abuse patient.[facility] FOR RECORDS PERTAINING TO PATIENTS WHO ARE [...] BE BASED ON THE PRIMARY CLINICAL RECORDS. [facility]. provides no warranty or guarantee of the accuracy or completeness of information in this document.
== END | disposition home or self-care (01) ==
PROVIDERS: PCP Family Medicine; Referring Provider Physician Assistant Medical; Visit Provider Physician Assistant Medical
DX: I48.0 Paroxysmal atrial fibrillation (principal)
CPT/HCPCS: 36415; 80048

== ENCOUNTER → 2025-01-24 | Outpatient (CLI) | payer MEDICARE, OTHER, SELFPAY ==
--- OUTSIDE RECORDS SUMMARY | 2025-01-24 09:42 | XMS RPT_ITS | CCD ---
Author Organization [facility] Team Providers Care Molecular Physicist Name Role Phone JORGE VELÁSQUEZ Attending Unavailable CHRISTEN, JORGE E Referring Unavailable CHRISTEN, JORGE E Referring Unavailable CHRISTEN, JORGE E Referring Unavailable CHRISTEN, JORGE E Attending Unavailable JORGE VELÁSQUEZ Referring Unavailable Dr. Sami Gonzalez Primary [...] Attending Provider Tiffanie Andrade Attending Provider [phone] Tiffanie Andrade Referring Provider [phone] Unavailable Primary Care Provider Unavailabl e Gary, Devon Primary Care Unavailable Gary, Devon Referring Unavailable Leonidas, [place] Attending Unavailable Gary, Devon Referring Unavailable Gary, Devon Primary Care Unavailable Tiffanie Patel Attending Unavailabl e Gary, Devon Referring Unavailable Gary, Devon Primary Care Unavailable Tiffanie Patel Attending Unavailabl e Gary, Devon Primary Care Unavailable Demiter, Guillaume Consulting Unavailable Leonidas, Nathanael Attending Unavailable Leonidas, Nathanael Referring Unavailable Leonidas, Nathanael Consulting Unavailable Gary, Devon Referring Unavailable Aydin MANCILLA, Shantal Attending Unavailable Gary, Devon Primary Care Unavailable Gary, Devon Referring Unavailable Demiter, Guillaume Attending Unavailable Gary, Devon Primary Care Unavailable Leonidas, [place] Attending Unavailable Gary, Devon Primary Care Unavailable Tiffanie Patel Referring Unavailabl e Leonidas, Nathanael Attending Unavailable Gary, Devon Primary Care Unavailable Leonidas, Nathanael Referring Unavailable Gary, Devon Primary Care Unavailable Leonidas, [place] Attending Unavailable Gary, Devon Primary Care Unavailable Tiffanie Patel Attending Unavailabl e Tiffanie Patel Referring Unavailabl e Gary, Devon Primary Care Unavailable Flo Ruiz Attending Unavailable Demiter, Guillaume Consulting Unavailable Leonidas, Nathanael Referring Unavailable Leonidas, [place] Consulting Unavailable Gary, Devon Primary Care Unavailable Gary, Devon Referring Unavailable Tiffanie Patel Attending Unavailabl e Demiter, Guillaume Consulting Unavailable Leonidas, Nathanael Attending Unavailable Leonidas, Nathanael Referring Unavailable Gary, Devon Primary Care Unavailable Gayr, Devon Primary Care Unavailable Leonidas, [place] Referring Unavailable Leonidas, Nathanael Attending Unavailable Magan FLUME MAKER, Rob Downs Referring Unavailable Magan FLUME MAKER, Rob Downs Attending Unavailable Gary, Devon Primary Care Unavailable Demiter, Guillaume Referring Unavailable Demiter, Guillaume Attending Unavailable Gary, Devon Primary Care Unavailable Gary, Devon Primary Care Unavailable Tiffanie Patel Attending Unavailabl Tiffanie Bundy Referring Unavailabl e Roof FLUME MAKER, Rob Downs Referring Unavailable Roof FLUME MAKER, Rob Downs Attending Unavailable Gary, Devon Primary Care Unavailable Gary, Devon Referring Unavailable Roof Rob MANCILLA Attending Unavailable Devon Vega Primary Care Unavailable Devon Vega Primary Care Unavailable Devon Vega Referring Unavailable Guillaume Singh Attending Unavailable Allergies Allergy Classification Reported Allergen(s) Allergy Type Date of Onset Reaction(s) Facility (16 sources) Naproxen; Translations: [NAPROXEN] Drug Allergy 03-12-2012 Intolerance [facility] Repository Medications Current Medications Medication Drug [...] 4:28pm December 30, 2024 11:08am Faxing to [facility] Reference ID: [id number] Patient phone: [phone] citalopram 10 mg oral tablet (10 sources) [...] tablet Discontinued 20 mg PO DAILY 90 3 October 30, 2023 10:41am March 31, 2024 [...] 08-11-2021 Episodic Other aftercare (1 source) Other chcf (current) drug therapy; Translations: [Other oysterman (current) drug therapy] Onset: 01-02-2025 Episodic Other [...] Range Facility Basic Metabolic Profile (BMP )on 01-20-2025 BUN/CRE 15.4 RATIO Normal 10-20 [facility] Comment on above: Performed By: #### L 500.2500 ####[facility] [address] [place], [address] Calcium [Mass/Vol] 9.1 mg/dL Normal 7.6-11.0 [facility] Comment on above: Performed By: #### L 500.2500 ####[facility] [address] [place], [address] Chloride [Moles/Vol] 105 mmol/L Normal 98-108 [facility] Comment on above: Performed By: #### L 500.2500 ####[facility] [address] [place], [address] CO2 [Moles/Vol] 24.0 mmol/L Normal 21.0-32.0 [facility] Comment on above: Performed By: #### L 500.2500 ####[facility] [address] [place], [address] Creatinine [Mass/Vol] 0.94 mg/dL Normal 0.70-1.20 [facility] Comment on above: Performed By: #### L 500.2500 ####[facility] [address] [place], [address] GAP 11 Normal 5-15 [facility] Comment on above: Performed By: #### L 500.2500 ####[facility] [address] [place], [address] GFR/1.73 sq M.predicted among non-blacks MDRD (S/P/Bld) [Vol rate/Area] 86 mL/min/{1.73_m2} Normal >60 [facility] Comment on above: Result Comment: mL/m in/1.73m2 CKD-EPI Creatinine Equation (2020) Performed By: #### L 500.2500 ####[facility] [address] [place], [address] Glucose [Mass/Vol] 104 mg/dL High 70-99 [facility] Comment on above: Performed By: #### L 500.2500 ####[facility] [address] [place], [address] Potassium [Moles/Vol] 4.6 mmol/L Normal 3.3-5.1 [facility] Comment on above: Performed By: #### L 500.2500 ####[facility] [address] [place], [address] Sodium [Moles/Vol] 140 mmol/L Normal 133-145 [facility] Comment on above: Performed By: #### L 500.2500 ####[facility] [address] [place], [address] Urea nitrogen [Mass/Vol] 15 mg/dL Normal 4-19 [facility] Comment on above: Performed By: #### L 500.2500 ####[facility] [address] [place], [address] Cardiology Visit Reporton Cardiology Visit Report [facility] [address] [place] [address] OFFICE VISIT Date of Service: 01/15/25 MR#: [id number] Acct: [id number] Name: MARK CARBAJAL Rep #: [id number] : 1950 Provider: CATY Melvin Age/Sex: 74/M Location: [facility] Status: Signed HPI HPI History of Present [...] servings: 1 (more content not included)... Normal [facility] Cardiology Visit Reporton Cardiology Visit Report [facility] [address] [place] [address] OFFICE VISIT Date of Service: 01/08/25 MR#: [id number] Acct: [id number] Name: MARK CARBAJAL Rep #: [id number] : 1950 Provider: CATY Melvin Age/Sex: 74/M Location: [facility] Status: Signed HPI HPI History of Present [...] 98 Intake Visit Reasons: 1 W FU Domestic Technician Required: No Is patient in pain?: No [...] the past year?: No PFSH Medical History (Updated 01/08/25 @ 10:11 by Tiffanie Patel PA, PA) PAF (paroxysmal atrial fibrillation) Multiple premature [...] SOB lyi (more content not included)... Normal [facility] 12 Lead EKGon 01-05-2025 12 Lead EKG [facility] [address] [place] [address] 12 Lead EKG 01/05/25 07 MR#: [id number] Acct: [id number] Name: MARK CARBAJAL Rep #: [id number] : 1950 74 From: Nathanael Lauren MD Attending Dr: Dr. Nathanael Lauren MD Status: REG C LI Ordering Dr: Tiffanie Patel Date: 09/26 Location: PSN Sex: M C [...] , age undetermined Abnormal ECG Confirmed by LEONIDAS LENNON, NATHANAEL ([id number]), book editor LIZ FLORES ([id number]) on 01/05/2025 8:23:54 AM Referred By: Nathanael Lauren Confirmed By: NATHANAEL LAUREN MD 01/05/25822 Date Nathanael Lauren MD CC: Dr. Nathanael Lauren MD; Dr. Devon Vega DO; CATY Patel Signed Normal [facility] Electrocardiogram reportOrde red By: Nathanael Lauren on 01-05-2025 EKG study [facility] [address] [place] [address] 12 Lead EKG 01/05/25 0713 MR#: [id number] Acct: [id number] Name: MARK CARBAJAL Rep #:[id number] : 1950 74 From: Nathanael Lauren MD Attending Dr: Dr. Nathanael Lauren MD S tatus: REG CLI Ordering Dr: Tiffanie Patel Date: 01/05/25 Location: PSN Sex: M C Admitted: Test [...] , age undetermined Abnormal ECG Confirmed by LEONIDAS LENNON, NATHANAEL ([id number]), book editor LIZ FLORES ([id number]) on 01/05/2025 8:23:54 AM Referred By: Nathanael Lauren Confirmed By: NATHANAEL LAUREN MD 01/05/25822 Date _ Nathanael Lauren MD CC: Dr. Nathanael Lauren MD; Dr. Devon Vega DO; CATY Patel ~ Signed [facility] Work Phone: Absolute lymphocyte countOrd ered By: Tiffanie Patel on 01-02-2025 Lymphocytes Auto (Unsp spec) [#/Vol] 1.29 10*3/uL 0.83-4.51 [facility] Absolute neutrophil countOrd ered By: Tiffanie Patel on 01-02-2025 Neutrophils (Bld) [#/Vol] 6.3 10*3/uL 2.0-7.7 [facility] Anion gap in Serum or Plasma Ordered By: Tiffanie Patel on 01-02-2025 Anion gap [Moles/Vol] 8 mmol/L 5-15 [facility] Automated lymphocyte count a s percentage of total leukocytesOrdered By: Tiffanie Patel on 01-02-2025 Lymphocytes/100 WBC Auto (Unsp spec) 14.8 % Low 19-41 [facility] BUN/creatinine ratioOrdered By: Tiffanie Patel on 01-02-2025 Urea nitrogen/Creatinine [Mass ratio] 22.4 mg/mg High 10-20 [facility] Basic Metabolic Profile (BMP )on 01-02-2025 BUN/CRE 22.4 RATIO High 03-23 [facility] Comment on above: Performed By: #### L 500.2500, L503.7505, L100.0100, L501.5200, L501.9520 ####[facility] [address] [place], [address] Calcium [Mass/Vol] 9.3 mg/dL Normal 7.6-11.0 [facility] Comment on above: Performed By: #### L 500.2500, L503.7505, L100.0100, L501.5200, L501.9520 ####[facility] [address] [place], [address] Chloride [Moles/Vol] 105 mmol/L Normal 98-108 [facility] Comment on above: Performed By: #### L 500.2500, L503.7505, L100.0100, L501.5200, L501.9520 ####[facility] [address] [place], [address] CO2 [Moles/Vol] 26.9 mmol/L Normal 21.0-32.0 [facility] Comment on above: Performed By: #### L 500.2500, L503.7505, L100.0100, L501.5200, L501.9520 ####[facility] [address] [place], [address] Creatinine [Mass/Vol] 0.98 mg/dL Normal 0.70-1.20 [facility] Comment on above: Performed By: #### L 500.2500, L503.7505, L100.0100, L501.5200, L501.9520 ####[facility] [address] [place], [address] GAP 8 Normal 5-15 [facility] Comment on above: Performed By: #### L 500.2500, L503.7505, L100.0100, L501.5200, L501.9520 ####[facility] [address] [place], [address] GFR/1.73 sq M.predicted among non-blacks MDRD (S/P/Bld) [Vol rate/Area] 82 mL/min/{1.73_m2} Normal >60 [facility] Comment on above: Result Comment: mL/m in/1.73m2 CKD-EPI Creatinine Equation (2020) Performed By: #### L 500.2500, L503.7505, L100.0100, L501.5200, L501.9520 ####[facility] [address] [place], [address] Glucose [Mass/Vol] 120 mg/dL High 70-99 [facility] Comment on above: Performed By: #### L 500.2500, L503.7505, L100.0100, L501.5200, L501.9520 ####[facility] [address] [place], [address] Potassium [Moles/Vol] 5.0 mmol/L Normal 3.3-5.1 [facility] Comment on above: Performed By: #### L 500.2500, L503.7505, L100.0100, L501.5200, L501.9520 ####[facility] [address] [place], [address] Sodium [Moles/Vol] 141 mmol/L Normal 133-145 [facility] Comment on above: Performed By: #### L 500.2500, L503.7505, L100.0100, L501.5200, L501.9520 ####[facility] [address] [place], [address] Urea nitrogen [Mass/Vol] 22 mg/dL High 4-19 [facility] Comment on above: Performed By: #### L 500.2500, L503.7505, L100.0100, L501.5200, L501.9520 ####[facility] [address] [place], [address] Basophil percentageOrdered B y: Tiffanie Patel on 01-02-2025 Basophils/100 WBC (Bld) 0.3 % 0-1 [facility] CBC W/Diff, Automatedon 08-0 -2024 Absolute Lymph 1.29 X10 3/uL Normal 0.83-4.51 [facility] Comment on above: Performed By: #### L 500.2500, L503.7505, L100.0100, L501.5200, L501.9520 ####[facility] [address] [place], [address] Absolute Neut 6.3 X10 3/uL Normal 2.0-7.7 [facility] Comment on above: Performed By: #### L 500.2500, L503.7505, L100.0100, L501.5200, L501.9520 ####[facility] [address] [place], [address] Basophils/100 WBC (Bld) 0.3 % Normal 0-1 [facility] Comment on above: Performed By: #### L 500.2500, L503.7505, L100.0100, L501.5200, L501.9520 ####[facility] [address] [place], [address] Eosinophils/100 WBC (Bld) 1.5 % Normal 0-5 [facility] Comment on above: Performed By: #### L 500.2500, L503.7505, L100.0100, L501.5200, L501.9520 ####[facility] [address] [place], [address] Erythrocyte distribution width (RBC) [Ratio] 13.9 % Normal 11.6-14.6 [facility] Comment on above: Performed By: #### L 500.2500, L503.7505, L100.0100, L501.5200, L501.9520 ####[facility] [address] [place], [address] Hematocrit (Bld) [Volume fraction] 49.2 % Normal 40-54 [facility] Comment on above: Performed By: #### L 500.2500, L503.7505, L100.0100, L501.5200, L501.9520 ####[facility] [address] [place], [address] Hemoglobin (Bld) [Mass/Vol] 16.1 g/dL Normal 13.0-16.5 [facility] Comment on above: Performed By: #### L 500.2500, L503.7505, L100.0100, L501.5200, L501.9520 ####[facility] [address] [place], [address] IG% 0.500 Normal 0.0-0.9 [facility] Comment on above: Result Comment: IG% - Immature Granulocytes (promyelocytes, myelocytes and metamyelocytes) > 1% indicates that a LEFT SHIFT is Present. Performed By: #### L 500.2500, L503.7505, L100.0100, L501.5200, L501.9520 ####[facility] [address] [place], [address] Lymphocytes/100 WBC (Bld) 14.8 % Low 19-41 [facility] Comment on above: Performed By: #### L 500.2500, L503.7505, L100.0100, L501.5200, L501.9520 ####[facility] [address] [place], [address] MCH (RBC) [Entitic mass] 30.3 pg Normal 27.0-32.0 [facility] Comment on above: Performed By: #### L 500.2500, L503.7505, L100.0100, L501.5200, L501.9520 ####[facility] [address] [place], [address] MCHC (RBC) [Mass/Vol] 32.7 g/dL Normal 32-36 [facility] Comment on above: Performed By: #### L 500.2500, L503.7505, L100.0100, L501.5200, L501.9520 ####[facility] [address] [place], [address] MCV (RBC) [Entitic vol] 92.7 fL Normal 80-94 [facility] Comment on above: Performed By: #### L 500.2500, L503.7505, L100.0100, L501.5200, L501.9520 ####[facility] [address] [place], [address] Monocytes/100 WBC (Bld) 11.1 % High 0-10 [facility] Comment on above: Performed By: #### L 500.2500, L503.7505, L100.0100, L501.5200, L501.9520 ####[facility] [address] [place], [address] Neutrophils/100 WBC (Bld) 71.8 % High 47-70 [facility] Comment on above: Performed By: #### L 500.2500, L503.7505, L100.0100, L501.5200, L501.9520 ####[facility] [address] [place], [address] Nucleated RBC (Bld) [#/Vol] 0 10*3/uL Normal 0-5 [facility] Comment on above: Performed By: #### L 500.2500, L503.7505, L100.0100, L501.5200, L501.9520 ####[facility] [address] [place], [address] Platelet mean volume (Bld) [Entitic vol] 12.0 fL Normal 6.2-12.0 [facility] Comment on above: Performed By: #### L 500.2500, L503.7505, L100.0100, L501.5200, L501.9520 ####[facility] [address] [place], [address] Platelets (Bld) [#/Vol] 136 10*3/uL Low 150-450 [facility] Comment on above: Performed By: #### L 500.2500, L503.7505, L100.0100, L501.5200, L501.9520 ####[facility] [address] [place], [address] RBC (Bld) [#/Vol] 5.31 10*6/uL Normal 4.6-6.2 [facility] Comment on above: Performed By: #### L 500.2500, L503.7505, L100.0100, L501.5200, L501.9520 ####[facility] [address] [place], [address] RDW SD 46.8 fl High 35.1-43.9 [facility] Comment on above: Performed By: #### L 500.2500, L503.7505, L100.0100, L501.5200, L501.9520 ####[facility] [address] [place], [address] WBC (Bld) [#/Vol] 8.7 10*3/uL Normal 4.4-11.0 [facility] Comment on above: Performed By: #### L 500.2500, L503.7505, L100.0100, L501.5200, L501.9520 ####[facility] [address] [place], [address] Carbon dioxide, total [Moles /volume] in Central venous bloodOrdered By: Tiffanie Patel on 01-02-2025 CO2 [Moles/Vol] 26.9 mmol/L 21.0-32.0 [facility] Cardiology Visit Reporton Cardiology Visit Report [facility] [address] [place] [address] OFFICE VISIT Date of Service: 01/02/25 MR#: [id number] Acct: [id number] Name: MARK CARBAJAL Rep #: [id number] : 1950 Provider: CATY Melvin Age/Sex: 74/M Location: [facility] Status: Signed HPI HPI History of Present [...] 98 Intake Visit Reasons: See Clinical Note Domestic Technician Required: No Is patient in pain?: No [...] because he has not got it yet. [facility] Medical History Multiple premature ventricular complexes Nonrheumatic [...] or tachyp (more content not included)... Normal [facility] Chloride assayOrdered By: Sapna Patel on 01-02-2025 Chloride [Moles/Vol] 105 mmol/L 98-108 [facility] Eosinophil percentageOrdered By: Tiffanie Patel on 01-02-2025 Eosinophils/100 WBC (Bld) 1.5 % 0-5 [facility] Erythrocyte distribution wid th ratioOrdered By: Tiffanie Patel on 01-02-2025 Erythrocyte distribution width (RBC) [Ratio] 13.9 % 11.6-14.6 [facility] Erythrocyte distribution wid th standard deviationOrdered By: Tiffanie Patel on 01-02-2025 Erythrocyte distribution width (RBC) [Ratio] 46.8 fl High 35.1-43.9 [facility] Glomerular filtration rate ( GFR) estimation/1.73 sq m using serum, plasma, or whole bOrdered By: Tiffanie Patel on 01-02-2025 GFR/1.73 sq M.predicted among non-blacks MDRD (S/P/Bld) [Vol rate/Area] 82 mL/min/{1.73_m2} >60 [facility] Comment on above: mL/min/1.73m2 CKD-EP I Creatinine Equation (2020) Hematocrit Auto (Bld) [Volum e fraction]Ordered By: Tiffanie Patel on 01-02-2025 Hematocrit (Bld) [Volume fraction] 49.2 % 40-54 [facility] Hemoglobin measurementOrdere d By: Tiffanie Patel on 01-02-2025 Hemoglobin (Bld) [Mass/Vol] 16.1 g/dL 13.0-16.5 [facility] Immature granulocytes/100 WB C Auto (Bld)Ordered By: Tiffanie Patel on 01-02-2025 Immature granulocytes/100 WBC (Bld) 0.500 % 0.0-0.9 [facility] Comment on above: IG% - Immature Granu locytes (promyelocytes, myelocytes and metamyelocytes) > 1% indicates that a LEFT SHIFT is Present. MCV (mean corpuscular volume ) determinationOrdered By: Tiffanie Patel on 01-02-2025 MCV (RBC) [Entitic vol] 92.7 fL 80-94 [facility] Magnesiumon 01-02-2025 Magnesium [Mass/Vol] 2.2 mg/dL Normal 1.5-2.2 [facility] Comment on above: Performed By: #### L 500.2500, L503.7505, L100.0100, L501.5200, L501.9520 ####[facility] [address] [place], [address] Magnesium measurement (mass/ volume)Ordered By: Tiffanie Patel on 01-02-2025 Magnesium (Unsp spec) [Mass/Vol] 2.2 mg/dL 1.5-2.2 [facility] Mean corpuscular hemoglobin (MCH) determinationOrdered By: Tiffanie Patel on 01-02-2025 MCH (RBC) [Entitic mass] 30.3 pg 27.0-32.0 [facility] Mean corpuscular hemoglobin concentration (MCHC) determinationOrdered By: Tiffanie Patel on 01-02-2025 MCHC (RBC) [Mass/Vol] 32.7 g/dL 32-36 [facility] Mean platelet volume determi nationOrdered By: Tiffanie Patel on 01-02-2025 Platelet mean volume (Bld) [Entitic vol] 12.0 fL 6.2-12.0 [facility] Monocyte percentageOrdered B y: Tiffanie Patel on 01-02-2025 Monocytes/100 WBC (Bld) 11.1 % High 0-10 [facility] Natriuretic peptide.B prohor julio N-Terminal [Mass/volume] in Serum or PlasmaOrdered By: Tiffanie Patel on 01-02-2025 Natriuretic peptide.B prohormone N-Terminal [Mass/Vol] 2709 pg/mL High <900 [facility] Comment on above: Heart Failure Unlike ly: < 300 pg/mLHeart Failure Likely< 50 Years: > 450 pg/mL50-75 Years: > 900 pg/mL>75 Years: > 1800 pg/mL Neutrophil percentageOrdered By: Tiffanie Patel on 01-02-2025 Neutrophils/100 WBC (Bld) 71.8 % High 47-70 [facility] Nucleated red blood cell per centageOrdered By: Tiffanie Patel on 01-02-2025 Nucleated RBC/100 WBC (Bld) [Ratio] 0 % 0-5 [facility] Platelet countOrdered By: Sapna Patel on 01-02-2025 Platelets (Bld) [#/Vol] 136 10*3/uL Low 150-450 [facility] Potassium measurement (mass/ volume)Ordered By: Tiffanie Patel on 01-02-2025 Potassium (Unsp spec) [Mass/Vol] 5.0 mmol/L 3.3-5.1 [facility] Pro- Brain NATRIURETIC PEPTI Disha 01-02-2025 Natriuretic peptide B (Bld) [Mass/Vol] 2709 pg/mL High <=900 [facility] Comment on above: Result Comment: Hear t Failure Unlikely: < 300 pg/mL Heart Failure Likely < 50 Years: > 450 pg/mL 50-75 Years: > 900 pg/mL >75 Years: > 1800 pg/mL Performed By: #### L 500.2500, L503.7505, L100.0100, L501.5200, L501.9520 ####[facility] [address] [place], [address] RBC Auto (Bld) [#/Vol]Ordere d By: Tiffanie Patel on 01-02-2025 RBC (Bld) [#/Vol] 5.31 10*6/uL 4.6-6.2 [facility] Serum creatinine measurement (mass/volume)Ordered By: Tiffanie Patel on 01-02-2025 Creatinine [Mass/Vol] 0.98 mg/dL 0.70-1.20 [facility] Serum glucose measurement (m ass/volume)Ordered By: Tiffanie Patel on 01-02-2025 Glucose [Mass/Vol] 120 mg/dL High 70-99 [facility] Serum or plasma calcium jaime urement (mass/volume)Ordered By: Tiffanie Patel on 01-02-2025 Calcium [Mass/Vol] 9.3 mg/dL 7.6-11.0 [facility] Serum or plasma urea nitroge n measurement (mass/volume)Ordered By: Tiffanie Patel on 01-02-2025 Urea nitrogen [Mass/Vol] 22 mg/dL High 4-19 [facility] Sodium levelOrdered By: Nick Patel on 01-02-2025 Sodium [Moles/Vol] 141 mmol/L 133-145 [facility] TSH DL <= 0.005 mIU/L QnOrde red By: Tiffanie Patel on 01-02-2025 TSH Qn 1.210 uIU/mL 0.300-4.200 [facility] Thyroid Stim Hormone (TSH)on 01-02-2025 TSH 1.210 uIU/mL Normal 0.300-4.200 [facility] Comment on above: Performed By: #### L 500.2500, L503.7505, L100.0100, L501.5200, L501.9520 ####[facility] [address] [facility] [place], [address] White blood cell (WBC) count Ordered By: Tiffanie Patel on 01-02-2025 WBC (Bld) [#/Vol] 8.7 10*3/uL 4.4-11.0 [facility] [facility] Procedure Reporton 5 Procedure Report [facility] Medical Records Department [address] [place] [address] Procedure Report 12/22/24 1303 MR#: [id number] Acct: [id number] Name: MARK CARBAJAL Rep #: [id number] : 1950 74 From: Flo Ruiz DO PCP: Dr. Devon Vega, DO Status:REG [facility] Location: [facility] Procedures Pulmonary Pulmonary Procedures /Diagnostic Testin Con Sedation Non-invasive Procedural Procedure Information Date of Procedure: 12/22/24 Description of procedure: CONSCIOUS SEDATION REPORT DATE OF SERVICE: December 22, 2024 BRIEF HISTORY OF PRESENT ILLNESS: The patient is a 74-year-old male who presented to [facility] to undergo an elective outpatient cardioversion [...] DO; Dr. Devon Vega DO Signed Normal [facility] Procedure Report [facility] Medical Records Department [address] [place] [address] Procedure Report 12/22/24 1212 MR#: [id number] Acct: [id number] Name: MARK CARBAJAL Rep #: [id number] : 1950 74 From: Nathanael Lauren MD PCP: Dr. Devon Vega DO Status:REG [facility] Location: [facility] Non-invasive Procedural Procedure Information Date of Procedure: 12/22/24 Pre-Procedure Diagnosis: Atrial fibrillation Post-Procedure Diagnosis: Atrial fibrillation Procedure Performed:: DC cardioversion blacktop paver operator: No Procedure Time Out: 12:00 Procedure Start [...] MD; Dr. Devon Vega DO Signed Normal [facility] Anion gap in Serum or Plasma Ordered By: Guillaume Singh on 12-12-2024 Anion gap [Moles/Vol] 9 mmol/L 10-16 [facility] BUN/creatinine ratioOrdered By: Guillaume Singh on 12-12-2024 Urea nitrogen/Creatinine [Mass ratio] 19.3 mg/mg 03-23 [facility] Basic Metabolic Profile (BMP )on 12-12-2024 BUN/CRE 19.3 RATIO Normal 03-23 [facility] Comment on above: Performed By: #### L 500.2500, L300.3900 ####[facility] [address] [place], [address] Calcium [Mass/Vol] 9.1 mg/dL Normal 7.6-11.0 [facility] Comment on above: Performed By: #### L 500.2500, L300.3900 ####[facility] [address] [place], [address] Chloride [Moles/Vol] 106 mmol/L Normal 98-108 [facility] Comment on above: Performed By: #### L 500.2500, L300.3900 ####[facility] [address] [place], [address] CO2 [Moles/Vol] 26.3 mmol/L Normal 21.0-32.0 [facility] Comment on above: Performed By: #### L 500.2500, L300.3900 ####[facility] [address] [place], [address] Creatinine [Mass/Vol] 0.88 mg/dL Normal 0.70-1.20 [facility] Comment on above: Performed By: #### L 500.2500, L300.3900 ####[facility] [address] [place], [address] GAP 9 Normal 5-15 [facility] Comment on above: Performed By: #### L 500.2500, L300.3900 ####[facility] [address] [place], [address] GFR/1.73 sq M.predicted among non-blacks MDRD (S/P/Bld) [Vol rate/Area] 91 mL/min/{1.73_m2} Normal >60 [facility] Comment on above: Result Comment: mL/m in/1.73m2 CKD-EPI Creatinine Equation (2020) Performed By: #### L 500.2500, L300.3900 ####[facility] [address] [place], [address] Glucose [Mass/Vol] 93 mg/dL Normal 70-99 [facility] Comment on above: Performed By: #### L 500.2500, L300.3900 ####[facility] [address] [place], [address] Potassium [Moles/Vol] 4.2 mmol/L Normal 3.3-5.1 [facility] Comment on above: Performed By: #### L 500.2500, L300.3900 ####[facility] [address] [place], [address] Sodium [Moles/Vol] 141 mmol/L Normal 133-145 [facility] Comment on above: Performed By: #### L 500.2500, L300.3900 ####[facility] [address] [place], [address] Urea nitrogen [Mass/Vol] 17 mg/dL Normal 4-19 [facility] Comment on above: Performed By: #### L 500.2500, L300.3900 ####[facility] [address] [place], [address] Carbon dioxide, total [Moles /volume] in Central venous bloodOrdered By: Guillaume Singh on 12-12-2024 CO2 [Moles/Vol] 26.3 mmol/L 21.0-32.0 [facility] Cardiology Visit Reporton Cardiology Visit Report [facility] [address] [place], [place] [address] OFFICE VISIT Date of Service: 12/12/24 MR#: [id number] Acct: [id number] Name: MARK CARBAJAL Rep #: [id number] [...] air Intake Visit Reasons: 4 WK FU Domestic Technician Required: No Accompanied by: Self Is patient [...] tachypneic Au (more content not included)... Normal [facility] Chest PA and Lateralon 12-12 Chest PA and Lateral [facility] Imaging Services [address] [place], [place] [id number] Chest PA and Lateral MR#: [id number] Acct: [id number] Name: MARK CARBAJAL Rep #: [id number] : 1950 M 74 From: Devon Beach MD PCP: Dr. Devon Vega, DO Status: PRE [facility] Study: Chest PA and Lateral Date of Exam: 12/12/24 Exam# [id number] Ordering Dr: Guillaume Singh EXAM: XR Chest, [...] IMPRESSION: No acute cardiopulmonary process. Reading [facility] CC: Dr. Devon Vega, DO; CATY Manuel Sorority Mother: Signed Normal [facility] Chloride assayOrdered By: Susanne Singh on 12-12-2024 Chloride [Moles/Vol] 106 mmol/L 98-108 [facility] Glomerular filtration rate ( GFR) estimation/1.73 sq m using serum, plasma, or whole bOrdered By: Guillaume Singh on 12-12-2024 GFR/1.73 sq M.predicted among non-blacks MDRD (S/P/Bld) [Vol rate/Area] 91 mL/min/{1.73_m2} >60 [facility] Comment on above: mL/min/1.73m2 CKD-EP I Creatinine Equation (2020) International normalized rat io (INR) calculationOrdered By: Guillaume Singh on 12-12-2024 INR Coag (Bld) [Relative time] 1.3 {INR} [facility] Potassium measurement (mass/ volume)Ordered By: Guillaume Singh on 12-12-2024 Potassium (Unsp spec) [Mass/Vol] 4.2 mmol/L 3.3-5.1 [facility] Prothrombin Time w/INRon INR Coag (PPP) [Relative time] 1.3 {INR} Normal [facility] Comment on above: Performed By: #### L 500.2500, L300.3900 ####[facility] [address] [place], [place], [address] PT Coag (PPP) [Time] 16.4 s High 11.7-14.9 [facility] Comment on above: Performed By: #### L 500.2500, L300.3900 ####[facility] [address] [place], [address] Prothrombin timeOrdered By: Guillaume Singh on 12-12-2024 PT Coag (PPP) [Time] 16.4 s High 11.7-14.9 [facility] Serum creatinine measurement (mass/volume)Ordered By: Guillaume Singh on 12-12-2024 Creatinine [Mass/Vol] 0.88 mg/dL 0.70-1.20 [facility] Serum glucose measurement (m ass/volume)Ordered By: Guillaume Singh on 12-12-2024 Glucose [Mass/Vol] 93 mg/dL 70-99 [facility] Serum or plasma calcium jaime urement (mass/volume)Ordered By: Guillaume Singh on 12-12-2024 Calcium [Mass/Vol] 9.1 mg/dL 7.6-11.0 [facility] Serum or plasma urea nitroge n measurement (mass/volume)Ordered By: Guillaume Singh on 12-12-2024 Urea nitrogen [Mass/Vol] 17 mg/dL 4-19 [facility] Sodium levelOrdered By: Catarina Singh on 12-12-2024 Sodium [Moles/Vol] 141 mmol/L 133-145 [facility] Absolute lymphocyte countOrd ered By: Guillaume Singh on 11-12-2024 Lymphocytes Auto (Unsp spec) [#/Vol] 2.02 10*3/uL 0.83-4.51 [facility] Absolute neutrophil countOrd ered By: Guillaume Singh on 11-12-2024 Neutrophils (Bld) [#/Vol] 5.0 10*3/uL 2.0-7.7 [facility] Anion gap in Serum or Plasma Ordered By: Guillaume Singh on 11-12-2024 Anion gap [Moles/Vol] 11 mmol/L 5-15 [facility] Automated lymphocyte count a s percentage of total leukocytesOrdered By: Guillaume Singh on 11-12-2024 Lymphocytes/100 WBC Auto (Unsp spec) 25.1 % 19-41 [facility] BUN/creatinine ratioOrdered By: Guillaume Singh on 11-12-2024 Urea nitrogen/Creatinine [Mass ratio] 22.2 mg/mg High 10-20 [facility] Basic Metabolic Profile (BMP )on 11-12-2024 BUN/CRE 22.2 RATIO High 10-20 [facility] Comment on above: Performed By: #### L 501.9520, L100.0100, L501.5200, L500.2500 ####[facility] [address] [place], [address] Calcium [Mass/Vol] 9.2 mg/dL Normal 7.6-11.0 [facility] Comment on above: Performed By: #### L 501.9520, L100.0100, L501.5200, L500.2500 ####[facility] [address] [place], [address] Chloride [Moles/Vol] 108 mmol/L Normal 98-108 [facility] Comment on above: Performed By: #### L 501.9520, L100.0100, L501.5200, L500.2500 ####[facility] [address] [place], [address] CO2 [Moles/Vol] 23.7 mmol/L Normal 21.0-32.0 [facility] Comment on above: Performed By: #### L 501.9520, L100.0100, L501.5200, L500.2500 ####[facility] [address] [place], [address] Creatinine [Mass/Vol] 0.87 mg/dL Normal 0.70-1.20 [facility] Comment on above: Performed By: #### L 501.9520, L100.0100, L501.5200, L500.2500 ####[facility] [address] [place], [address] GAP 11 Normal 5-15 [facility] Comment on above: Performed By: #### L 501.9520, L100.0100, L501.5200, L500.2500 ####[facility] [address] [place], [address] GFR/1.73 sq M.predicted among non-blacks MDRD (S/P/Bld) [Vol rate/Area] 92 mL/min/{1.73_m2} Normal >60 [facility] Comment on above: Result Comment: mL/m in/1.73m2 CKD-EPI Creatinine Equation (2020) Performed By: #### L 501.9520, L100.0100, L501.5200, L500.2500 ####[facility] [address] [place], [address] Glucose [Mass/Vol] 104 mg/dL High 70-99 [facility] Comment on above: Performed By: #### L 501.9520, L100.0100, L501.5200, L500.2500 ####[facility] [address] [place], [address] Potassium [Moles/Vol] 4.4 mmol/L Normal 3.3-5.1 [facility] Comment on above: Performed By: #### L 501.9520, L100.0100, L501.5200, L500.2500 ####[facility] [address] [place], [address] Sodium [Moles/Vol] 142 mmol/L Normal 133-145 [facility] Comment on above: Performed By: #### L 501.9520, L100.0100, L501.5200, L500.2500 ####[facility] [address] [place], [address] Urea nitrogen [Mass/Vol] 19 mg/dL Normal 4-19 [facility] Comment on above: Performed By: #### L 501.9520, L100.0100, L501.5200, L500.2500 ####[facility] [address] [place], [address] Basophil percentageOrdered B y: Guillaume Demiter on 11-12-2024 Basophils/100 WBC (Bld) 0.5 % 0-1 [facility] CBC W/Diff, Automatedon 11-02 Absolute Lymph 2.02 X10 3/uL Normal 0.83-4.51 [facility] Comment on above: Performed By: #### L 501.9520, L100.0100, L501.5200, L500.2500 ####[facility] [address] [place], [address] Absolute Neut 5.0 X10 3/uL Normal 2.0-7.7 [facility] Comment on above: Performed By: #### L 501.9520, L100.0100, L501.5200, L500.2500 ####[facility] [address] [place], [address] Basophils/100 WBC (Bld) 0.5 % Normal 0-1 [facility] Comment on above: Performed By: #### L 501.9520, L100.0100, L501.5200, L500.2500 ####[facility] [address] [place], [address] Eosinophils/100 WBC (Bld) 2.4 % Normal 0-5 [facility] Comment on above: Performed By: #### L 501.9520, L100.0100, L501.5200, L500.2500 ####[facility] [address] [place], [address] Erythrocyte distribution width (RBC) [Ratio] 13.1 % Normal 11.6-14.6 [facility] Comment on above: Performed By: #### L 501.9520, L100.0100, L501.5200, L500.2500 ####[facility] [address] [place], [address] Hematocrit (Bld) [Volume fraction] 47.7 % Normal 40-54 [facility] Comment on above: Performed By: #### L 501.9520, L100.0100, L501.5200, L500.2500 ####[facility] [address] [place], [address] Hemoglobin (Bld) [Mass/Vol] 16.1 g/dL Normal 13.0-16.5 [facility] Comment on above: Performed By: #### L 501.9520, L100.0100, L501.5200, L500.2500 ####[facility] [address] [place], [address] IG% 0.200 Normal 0.0-0.9 [facility] Comment on above: Result Comment: IG% - Immature Granulocytes (promyelocytes, myelocytes and metamyelocytes) > 1% indicates that a LEFT SHIFT is Present. Performed By: #### L 501.9520, L100.0100, L501.5200, L500.2500 ####[facility] [address] [place], [address] Lymphocytes/100 WBC (Bld) 25.1 % Normal 19-41 [facility] Comment on above: Performed By: #### L 501.9520, L100.0100, L501.5200, L500.2500 ####[facility] [address] [place], [address] MCH (RBC) [Entitic mass] 29.9 pg Normal 27.0-32.0 [facility] Comment on above: Performed By: #### L 501.9520, L100.0100, L501.5200, L500.2500 ####[facility] [address] [place], [address] MCHC (RBC) [Mass/Vol] 33.8 g/dL Normal 32-36 [facility] Comment on above: Performed By: #### L 501.9520, L100.0100, L501.5200, L500.2500 ####[facility] [address] [place], [address] MCV (RBC) [Entitic vol] 88.5 fL Normal 80-94 [facility] Comment on above: Performed By: #### L 501.9520, L100.0100, L501.5200, L500.2500 ####[facility] [address] [place], [address] Monocytes/100 WBC (Bld) 9.4 % Normal 0-10 [facility] Comment on above: Performed By: #### L 501.9520, L100.0100, L501.5200, L500.2500 ####[facility] [address] [place], [address] Neutrophils/100 WBC (Bld) 62.4 % Normal 47-70 [facility] Comment on above: Performed By: #### L 501.9520, L100.0100, L501.5200, L500.2500 ####[facility] [address] [place], [address] Nucleated RBC (Bld) [#/Vol] 0 10*3/uL Normal 0-5 [facility] Comment on above: Performed By: #### L 501.9520, L100.0100, L501.5200, L500.2500 ####[facility] [address] [place], [address] Platelet mean volume (Bld) [Entitic vol] 11.4 fL Normal 6.2-12.0 [facility] Comment on above: Performed By: #### L 501.9520, L100.0100, L501.5200, L500.2500 ####[facility] [address] [place], [address] Platelets (Bld) [#/Vol] 158 10*3/uL Normal 150-450 [facility] Comment on above: Performed By: #### L 501.9520, L100.0100, L501.5200, L500.2500 ####[facility] [address] [place], [address] RBC (Bld) [#/Vol] 5.39 10*6/uL Normal 4.6-6.2 [facility] Comment on above: Performed By: #### L 501.9520, L100.0100, L501.5200, L500.2500 ####[facility] [address] [place], [address] RDW SD 42.5 fl Normal 35.1-43.9 [facility] Comment on above: Performed By: #### L 501.9520, L100.0100, L501.5200, L500.2500 ####[facility] [address] [place], [address] WBC (Bld) [#/Vol] 8.1 10*3/uL Normal 4.4-11.0 [facility] Comment on above: Performed By: #### L 501.9520, L100.0100, L501.5200, L500.2500 ####[facility] [address] [place], [address] Carbon dioxide, total [Moles /volume] in Central venous bloodOrdered By: Guillaume Singh on 11-12-2024 CO2 [Moles/Vol] 23.7 mmol/L 21.0-32.0 [facility] Cardiology Visit Reporton Cardiology Visit Report [facility] [address] [place] [address] OFFICE VISIT Date of Service: 11/12/24 MR#: [id number] Acct: [id number] Name: MARK CARBAJAL Rep #: [id number] : 1950 Provider: CATY Manuel Age/Sex: 74/M Location: [facility] Status: Signed HPI HPI History of Present [...] Visit Reasons: New onset a-fib?see clinical note Domestic Technician Required: No Is patient in pain?: No [...] Auscultation: Bi (more content not included)... Normal [facility] Chloride assayOrdered By: Susanne Singh on 11-12-2024 Chloride [Moles/Vol] 108 mmol/L 98-108 [facility] Eosinophil percentageOrdered By: Guillaume Singh on 11-12-2024 Eosinophils/100 WBC (Bld) 2.4 % 0-5 [facility] Erythrocyte distribution wid th ratioOrdered By: Guillaume Singh on 11-12-2024 Erythrocyte distribution width (RBC) [Ratio] 13.1 % 11.6-14.6 [facility] Erythrocyte distribution wid th standard deviationOrdered By: Guillaume Singh on 11-12-2024 Erythrocyte distribution width (RBC) [Ratio] 42.5 fl 35.1-43.9 [facility] Glomerular filtration rate ( GFR) estimation/1.73 sq m using serum, plasma, or whole bOrdered By: Guillaume Singh on 11-12-2024 GFR/1.73 sq M.predicted among non-blacks MDRD (S/P/Bld) [Vol rate/Area] 92 mL/min/{1.73_m2} >60 [facility] Comment on above: mL/min/1.73m2 CKD-EP I Creatinine Equation (2020) Hematocrit Auto (Bld) [Volum e fraction]Ordered By: Guillaume Singh on 11-12-2024 Hematocrit (Bld) [Volume fraction] 47.7 % 40-54 [facility] Hemoglobin measurementOrdere d By: Guillaume Singh on 11-12-2024 Hemoglobin (Bld) [Mass/Vol] 16.1 g/dL 13.0-16.5 [facility] Immature granulocytes/100 WB C Auto (Bld)Ordered By: Guillaume Singh on 11-12-2024 Immature granulocytes/100 WBC (Bld) 0.200 % 0.0-0.9 [facility] Comment on above: IG% - Immature Granu locytes (promyelocytes, myelocytes and metamyelocytes) > 1% indicates that a LEFT SHIFT is Present. MCV (mean corpuscular volume ) determinationOrdered By: Guillaume Singh on 11-12-2024 MCV (RBC) [Entitic vol] 88.5 fL 80-94 [facility] Magnesiumon 11-12-2024 Magnesium [Mass/Vol] 2.2 mg/dL Normal 1.5-2.2 [facility] Comment on above: Performed By: #### L 501.9520, L100.0100, L501.5200, L500.2500 ####[facility] [address] [place], [address] Magnesium measurement (mass/ volume)Ordered By: Guillaume Singh on 11-12-2024 Magnesium (Unsp spec) [Mass/Vol] 2.2 mg/dL 1.5-2.2 [facility] Mean corpuscular hemoglobin (MCH) determinationOrdered By: Guillaume Singh on 11-12-2024 MCH (RBC) [Entitic mass] 29.9 pg 27.0-32.0 [facility] Mean corpuscular hemoglobin concentration (MCHC) determinationOrdered By: Guillaume Singh on 11-12-2024 MCHC (RBC) [Mass/Vol] 33.8 g/dL 32-36 [facility] Mean platelet volume determi nationOrdered By: Guillaume Singh on 11-12-2024 Platelet mean volume (Bld) [Entitic vol] 11.4 fL 6.2-12.0 [facility] Monocyte percentageOrdered B y: Guillaume Singh on 11-12-2024 Monocytes/100 WBC (Bld) 9.4 % 0-10 [facility] Neutrophil percentageOrdered By: Guillaume Singh on 11-12-2024 Neutrophils/100 WBC (Bld) 62.4 % 47-70 [facility] Nucleated red blood cell per centageOrdered By: Guillaume Singh on 11-12-2024 Nucleated RBC/100 WBC (Bld) [Ratio] 0 % 0-5 [facility] Platelet countOrdered By: Susanne Singh on 11-12-2024 Platelets (Bld) [#/Vol] 158 10*3/uL 150-450 [facility] Potassium measurement (mass/ volume)Ordered By: Guillaume Singh on 11-12-2024 Potassium (Unsp spec) [Mass/Vol] 4.4 mmol/L 3.3-5.1 [facility] RBC Auto (Bld) [#/Vol]Ordere d By: Guillaume Singh on 11-12-2024 RBC (Bld) [#/Vol] 5.39 10*6/uL 4.6-6.2 [facility] Serum creatinine measurement (mass/volume)Ordered By: Guillaume Singh on 11-12-2024 Creatinine [Mass/Vol] 0.87 mg/dL 0.70-1.20 [facility] Serum glucose measurement (m ass/volume)Ordered By: Guillaume Singh on 11-12-2024 Glucose [Mass/Vol] 104 mg/dL High 70-99 [facility] Serum or plasma calcium jaime urement (mass/volume)Ordered By: Guillaume Singh on 11-12-2024 Calcium [Mass/Vol] 9.2 mg/dL 7.6-11.0 [facility] Serum or plasma urea nitroge n measurement (mass/volume)Ordered By: Guillaume Singh on 11-12-2024 Urea nitrogen [Mass/Vol] 19 mg/dL 4-19 [facility] Sodium levelOrdered By: Catarina Singh on 11-12-2024 Sodium [Moles/Vol] 142 mmol/L 133-145 [facility] TSH DL <= 0.005 mIU/L QnOrde red By: Guillaume Singh on 11-12-2024 TSH Qn 0.856 uIU/mL 0.300-4.200 [facility] Thyroid Stim Hormone (TSH)on 11-12-2024 TSH 0.856 uIU/mL Normal 0.300-4.200 [facility] Comment on above: Performed By: #### L 501.3690, L100.0100, L501.5200, L500.2500 ####[facility] [address] [place], [place], [address] White blood cell (WBC) count Ordered By: Guillaume Singh on 11-12-2024 WBC (Bld) [#/Vol] 8.1 10*3/uL 4.4-11.0 [facility] 12 Lead EKG performed by [facility] on 09-19-2024 12 Lead EKG performed by [facility] [address] [place] [address] 12 Lead EKG performed by [facility] 09/19/24 0732 MR#: [id number] Acct: [id number] Name: MARK CARBAJAL Rep #: [id number] : 1950 74 From: Shantal Perrin NP [employer]C Attending Dr: Shantal Perrin, [employer]C Status: DEP A PEDRO Ordering Dr: Shantal Perrin NP [employer] Date: 09/19/24 Location: [facility] Sex: M C Admitted: BMS/12 Lead EKG performed by [facility] ECG Report Interpretation ------Sinus Bradycardia -First degree A-V block Dominguez = 242-Nonspecific QRS widening. -Poor R-wave progression -nonspecific -consider old anterior infarct. [employer] ally signed on 09/24/2024 at 16:26 by Nathanael Lauren Software Version [id number] 09/24/24 1630 Date Shantal Perrin NP [employer] CC: Dr. Devon Vega, Date Dictated: 09/19/2432 Date Transcribed: 09/19/24731 Sorority Mother: LUISITO Signed Normal [facility] Cardiology Visit Reporton Cardiology Visit Report [facility] [address] [place] [address] OFFICE VISIT Date of Service: 09/19/24 MR#: [id number] Acct: [id number] Name: MARK CARBAJAL Rep #: [id number] : 1950 Provider: MALINDA squires Age/Sex: 74/M Location: [facility] Status: Signed HPI HPI History of Present [...] 97 Intake Visit Reasons: 6 M FU Domestic Technician Required: No Is patient in pain?: No [...] gallop Murmur (more content not included)... Normal [facility] Echo Completeon 03-28-2024 Echo Complete [facility] [place] [address] Echo Complete 03/28/24 0935 MR#: [id number] Acct: [id number] Name: MARK CARBAJAL Rep #: [id number] : 1950 74 From: Nathanael Lauren MD Attending Dr: Rob Carrero, [employer] Status: REG CLI Ordering Dr: Rob Carrero FLUME MAKER [employer] Date: 03/28/24 Location: [facility] Sex: M C [...] 03/28/24 1232 Date Nathanael Lauren MD CC: [employer] Rob Carrero; Dr. Devon Vega DO Date Dictated: 03/28/24 0935 Date Transcribed: 03/28/24 1232 Sorority Mother: Signed Normal [facility] Stress Reporton 03-28-2024 Stress Report [facility] Cardiovascular [place] [address] MR#: [id number] Acct: [id number] Name: MARK CARBAJAL Rep #: [id number] : 1950 74 From: Nathanael Lauren MD Primary Care: Dr. Devon Vega, DO Status: REG CLI Referring Dr: Rob Carrero FLUME MAKER FLUME MAKER-C Sex: M C Stress Test Report Exercise [...] 03/28/24 1529 Date Nathanael Lauren MD CC: FLUME MAKER-C Rob Carrero; Dr. Devon Vega, DO Date Dictated: 03/28/241526 Date Transcribed: 03/28/241526 Sorority Mother: CO Signed Normal [facility] 12 Lead EKG performed by [facility] on 03-17-2024 12 Lead EKG performed by [facility] [address] [place] [address] 12 Lead EKG performed by [facility] 03/17/24819 MR#: [id number] Acct: [id number] Name: MARK CARBAJAL Rep #: [id number] : 1950 74 From: Rob Carrero NP FLUME MAKER-C Attending Dr: Rob Carrero, FLUME MAKER-C Status: DEP AMB Ordering Dr: Rob Carrero NP FLUME MAKER-C Date: 03/17/24 Location: [facility] Sex: M C Admitted: [facility]/12 Lead EKG performed by [facility] ECG Report Interpretation ------Sinus Bradycardia -First degree A-V block Dominguez = 248-Incomplete right bundle branch block. ABNORMAL Electronically signed on 03/21/2024 at 09:57 by Nathanael Lauren Software Version [id number] 03/21/2458 Date Rob Carrero FLUME MAKER FLUME MAKER-C CC: Dr. Devon Vega, DO Date Dictated: 03/17/24819 Date Transcribed: 03/17/24819 Sorority Mother: JHR Signed Normal [facility] CBC W/Diff, Automatedon 03-04 Absolute Lymph 1.76 X10 3/uL Normal 0.83-4.51 [facility] Comment on above: Performed By: #### L 501.9520, L500.4050, L506.0400, L100.0100, L501.5200 #### [facility] [address] [place], [address] Absolute Neut 4.1 X10 3/uL Normal 2.0-7.7 [facility] Comment on above: Performed By: #### L 501.9520, L500.4050, L506.0400, L100.0100, L501.5200 #### [facility] [address] [place], [address] Basophils/100 WBC (Bld) 0.6 % Normal 0-1 [facility] Comment on above: Performed By: #### L 501.9520, L500.4050, L506.0400, L100.0100, L501.5200 #### [facility] [address] [place], [address] Eosinophils/100 WBC (Bld) 5.4 % High 0-5 [facility] Comment on above: Performed By: #### L 501.9520, L500.4050, L506.0400, L100.0100, L501.5200 #### [facility] [address] [place], [address] Erythrocyte distribution width (RBC) [Ratio] 12.8 % Normal 11.6-14.6 [facility] Comment on above: Performed By: #### L 501.9520, L500.4050, L506.0400, L100.0100, L501.5200 #### [facility] [address] [place], [address] Hematocrit (Bld) [Volume fraction] 47.1 % Normal 40-54 [facility] Comment on above: Performed By: #### L 501.9520, L500.4050, L506.0400, L100.0100, L501.5200 #### [facility] [address] [place], [address] Hemoglobin (Bld) [Mass/Vol] 15.3 g/dL Normal 13.0-16.5 [facility] Comment on above: Performed By: #### L 501.9520, L500.4050, L506.0400, L100.0100, L501.5200 #### [facility] [address] [place], [address] IG% 0.300 Normal 0.0-0.9 [facility] Comment on above: Result Comment: IG% - Immature Granulocytes (promyelocytes, myelocytes and metamyelocytes) > 1% indicates that a LEFT SHIFT is Present. Performed By: #### L 501.9520, L500.4050, L506.0400, L100.0100, L501.5200 #### [facility] [address] [place], [address] Lymphocytes/100 WBC (Bld) 24.8 % Normal 19-41 [facility] Comment on above: Performed By: #### L 501.9520, L500.4050, L506.0400, L100.0100, L501.5200 #### [facility] [address] [place], [address] MCH (RBC) [Entitic mass] 29.6 pg Normal 27.0-32.0 [facility] Comment on above: Performed By: #### L 501.9520, L500.4050, L506.0400, L100.0100, L501.5200 #### [facility] [address] [place], [address] MCHC (RBC) [Mass/Vol] 32.5 g/dL Normal 32-36 [facility] Comment on above: Performed By: #### L 501.9520, L500.4050, L506.0400, L100.0100, L501.5200 #### [facility] [address] [place], [address] MCV (RBC) [Entitic vol] 91.1 fL Normal 80-94 [facility] Comment on above: Performed By: #### L 501.9520, L500.4050, L506.0400, L100.0100, L501.5200 #### [facility] [address] [place], [address] Monocytes/100 WBC (Bld) 11.6 % High 0-10 [facility] Comment on above: Performed By: #### L 501.9520, L500.4050, L506.0400, L100.0100, L501.5200 #### [facility] [address] [place], [address] Neutrophils/100 WBC (Bld) 57.3 % Normal 47-70 [facility] Comment on above: Performed By: #### L 501.9520, L500.4050, L506.0400, L100.0100, L501.5200 #### [facility] [address] [place], [address] Nucleated RBC (Bld) [#/Vol] 0 10*3/uL Normal 0-5 [facility] Comment on above: Performed By: #### L 501.9520, L500.4050, L506.0400, L100.0100, L501.5200 #### [facility] [address] [place], [address] Platelet mean volume (Bld) [Entitic vol] 11.1 fL Normal 6.2-12.0 [facility] Comment on above: Performed By: #### L 501.9520, L500.4050, L506.0400, L100.0100, L501.5200 #### [facility] [address] [place], [address] Platelets (Bld) [#/Vol] 144 10*3/uL Low 150-450 [facility] Comment on above: Performed By: #### L 501.9520, L500.4050, L506.0400, L100.0100, L501.5200 #### [facility] [address] [place], [address] RBC (Bld) [#/Vol] 5.17 10*6/uL Normal 4.6-6.2 [facility] Comment on above: Performed By: #### L 501.9520, L500.4050, L506.0400, L100.0100, L501.5200 #### [facility] [address] [place], [address] RDW SD 42.9 fl Normal 35.1-43.9 [facility] Comment on above: Performed By: #### L 501.9520, L500.4050, L506.0400, L100.0100, L501.5200 #### [facility] [address] [place], [address] WBC (Bld) [#/Vol] 7.1 10*3/uL Normal 4.4-11.0 [facility] Comment on above: Performed By: #### L 501.9520, L500.4050, L506.0400, L100.0100, L501.5200 #### [facility] [address] [place], [address] Cardiology Visit Reporton Cardiology Visit Report [facility] 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 Normal [facility] Comprehensive Metabolic Prof nena 03-17-2024 Albumin [Mass/Vol] 3.5 g/dL Normal 3.2-5.0 [facility] Comment on above: Performed By: #### L 501.9520, L500.4050, L506.0400, L100.0100, L501.5200 #### [facility] [address] [place], [address] Albumin/Globulin [Mass ratio] 1.1 {ratio} Normal 0.9-2.4 [facility] Comment on above: Performed By: #### L 501.9520, L500.4050, L506.0400, L100.0100, L501.5200 #### [facility] [address] [place], [address] ALK P 61 U/L Normal 45-117 [facility] Comment on above: Performed By: #### L 501.9520, L500.4050, L506.0400, L100.0100, L501.5200 #### [facility] [address] [place], [address] ALT [Catalytic activity/Vol] 21 U/L Normal 16-61 [facility] Comment on above: Performed By: #### L 501.9520, L500.4050, L506.0400, L100.0100, L501.5200 #### [facility] [address] [place], [address] AST [Catalytic activity/Vol] 14 U/L Low 15-37 [facility] Comment on above: Performed By: #### L 501.9520, L500.4050, L506.0400, L100.0100, L501.5200 #### [facility] [address] [place], [address] Bilirubin [Mass/Vol] 1.30 mg/dL High 0.20-1.00 [facility] Comment on above: Result Comment: For patients on eltrombopag therapy, use of Dimension [place] TBIL is not recommended. Performed By: #### L 501.9520, L500.4050, L506.0400, L100.0100, L501.5200 #### [facility] [address] [place], [address] BUN/CRE 18.0 RATIO Normal 10-20 [facility] Comment on above: Performed By: #### L 501.9520, L500.4050, L506.0400, L100.0100, L501.5200 #### [facility] [address] [place], [address] CA,Total 9.2 mg/dL Normal 8.5-10.1 [facility] Comment on above: Performed By: #### L 501.9520, L500.4050, L506.0400, L100.0100, L501.5200 #### [facility] [address] [place], [address] Chloride [Moles/Vol] 107 mmol/L Normal 98-107 [facility] Comment on above: Performed By: #### L 501.9520, L500.4050, L506.0400, L100.0100, L501.5200 #### [facility] [address] [place], [address] CO2 [Moles/Vol] 30.0 mmol/L Normal 21.0-32.0 [facility] Comment on above: Performed By: #### L 501.9520, L500.4050, L506.0400, L100.0100, L501.5200 #### [facility] [address] [place], [address] Creatinine [Mass/Vol] 0.89 mg/dL Normal 0.70-1.30 [facility] Comment on above: Result Comment: The validity of the calculated GFR GFRAA in patients over 70 years has not been determined. Clinical correlation is essential. Performed By: #### L 501.9520, L500.4050, L506.0400, L100.0100, L501.5200 #### [facility] [address] [place], [address] EST GFR - AA 109 mL/min Normal >60 [facility] Comment on above: Result Comment: Afri can Algerian GFR Calc Performed By: #### L 501.9520, L500.4050, L506.0400, L100.0100, L501.5200 #### [facility] [address] [place], [address] GAP 2 Low 5-15 [facility] Comment on above: Performed By: #### L 501.9520, L500.4050, L506.0400, L100.0100, L501.5200 #### [facility] [address] [place], [address] GFR/1.73 sq M.predicted among non-blacks MDRD (S/P/Bld) [Vol rate/Area] 90 mL/min/{1.73_m2} Normal >60 [facility] Comment on above: Result Comment: Non- GFR Calc Performed By: #### L 501.9520, L500.4050, L506.0400, L100.0100, L501.5200 #### [facility] [address] [place], [address] Globulin (S) [Mass/Vol] 3.2 g/dL Normal 2.2-4.2 [facility] Comment on above: Performed By: #### L 501.9520, L500.4050, L506.0400, L100.0100, L501.5200 #### [facility] [address] [place], [address] Glucose [Mass/Vol] 79 mg/dL Normal 74-106 [facility] Comment on above: Performed By: #### L 501.9520, L500.4050, L506.0400, L100.0100, L501.5200 #### [facility] [address] [place], [address] Potassium [Moles/Vol] 4.4 mmol/L Normal 3.5-5.1 [facility] Comment on above: Performed By: #### L 501.9520, L500.4050, L506.0400, L100.0100, L501.5200 #### [facility] [address] [place], [address] Sodium [Moles/Vol] 139 mmol/L Normal 136-145 [facility] Comment on above: Performed By: #### L 501.9520, L500.4050, L506.0400, L100.0100, L501.5200 #### [facility] [address] [place], [address] T PROT 6.7 g/dL Normal 6.4-8.2 [facility] Comment on above: Performed By: #### L 501.9520, L500.4050, L506.0400, L100.0100, L501.5200 #### [facility] [address] [place], [address] Urea nitrogen [Mass/Vol] 16 mg/dL Normal 7-18 [facility] Comment on above: Performed By: #### L 501.9520, L500.4050, L506.0400, L100.0100, L501.5200 #### [facility] [address] [place], [address] Magnesiumon 03-17-2024 Magnesium [Mass/Vol] 2.1 mg/dL Normal 1.6-2.6 [facility] Comment on above: Performed By: #### L 501.9520, L500.4050, L506.0400, L100.0100, L501.5200 #### [facility] [address] [place], [address] T4 Free Directon 03-17-2024 T4 FREE DIRECT 0.94 ng/dL Normal 0.76-1.46 [facility] Comment on above: Performed By: #### L 501.9520, L500.4050, L506.0400, L100.0100, L501.5200 ####[facility] [address] [place], [place], [address] Thyroid Stim Hormone (TSH)on 03-17-2024 TSH 0.666 uIU/mL Normal 0.358-3.740 [facility] Comment on above: Performed By: #### L 501.9520, L500.4050, L506.0400, L100.0100, L501.5200 ####[facility] [address] [place], [place], [address] Provider Note - ED v3on Provider Note [...] SIGNS: T PRBP SpO2O2(LPM) %FiO2 Method 08-Mar-2021 11:28:[id number] /87 98 MDM MDM/ED COURSE: This note [...] S1S2. No m/r/g. Musculoskeletal: Grossly normal. Integumentary: [place], warm, dry, and Intact. Normal skin turgor; [...] documents available (more content not included)... Normal [facility] Provider Note - ED v2on 12-0 [...] SIGNS: T PRBP SpO2O2(LPM) %FiO2 Method 07-May-2020 13:46:[id number] /78 97 PHYSICAL EXAM CONSTITUTIONAL: Well appearing, [...] ill patient: no Electronic Signatures: Amy Walker (TIPPLE MECHANIC-AUTOMATIC GLUING MACHINE OPERATOR) (Signed 07-May-2020 14:22) Authored: HPI, PMH, ROS, PE, Results/Vital Signs, MDM/ED Course, Clinical Impression, Attestation, Chart Review, Scores Last Updated: 07-May-2020 14:22 by Amy Walker (TIPPLE MECHANIC-[facility]) References: 1. Data Referenced From Provider Note - ED v2 07-May-2020 14:07 [facility] Provider Note - ED v2 This report has be en cancelled. [facility] CNOVon 09-09-2018 CNOV Office Visit (CAWSTR) MARK CARBAJAL ([id number]) 1950 M Date Time Provider Department 09/09/18 9:45 AM JORGE VELÁSQUEZ CAWSTR During your visit today, we [...] N/A Beta urvashi for ASHD with prior [place] or prior LVEF<40 (NQF 0070) - N/A [...] provider on file. Referring Provider: JORGE VELÁSQUEZ [[id number]] Allergies As of Date: 09/09/2018 Noted Allergy [...] by JORGE VELÁSQUEZ MD on 09/09/18 Normal [facility] PROGRESSon 09-09-2018 Protein mass conc HNO ID: [id number] Author: Jorge Velásquez Service: ? Author Type: Physician Type: Progress Notes Filed: 09/09/2018 4:32 PM Note Text: PERTINENT CARDIAC HISTORY Palpitations - VPDs Anxiety HTN HL MVP - mild MR Pericardial cyst ADHERENCE TO GUIDELINES AR-I or ARB for HF with prior LVEF<40 (NQF 0081) - N/A ASA or Plavix for ASHD (NQF 0067) - N/A Beta urvashi for ASHD with prior [place] or prior LVEF<40 (NQF 0070) - N/A [...] No primary care provider on file. Normal [facility] Basic Metabolic Panlon 04-09 Anion gap molar conc 8 mmol/L Low 9-18 [facility] Calcium mass conc 10.0 mg/dL Normal 8.5-10.2 [facility] Chloride molar conc 101 mmol/L Normal 97-105 [facility] CO2 molar conc 30 mmol/L Normal 22-30 [facility] Creatinine mass conc 0.85 mg/dL Normal 0.73-1.22 [facility] eGFR- Amer. >60 Normal [facility] GFR/1.73 sq M predicted among non-blacks MDRD vol rate/area (S/P/Bld) mL/min/{1.73_m2} Normal [facility] Comment on above: Result Comment: eGFR (Estimated [...] Glucose mass conc 82 mg/dL Normal 74-99 [facility] Potassium molar conc 4.6 mmol/L Normal 3.7-5.1 [facility] Sodium molar conc 139 mmol/L Normal 136-144 [facility] Urea nitrogen mass conc 13 mg/dL Normal 7-21 [facility] CNNURSEon 04-09-2018 [facility] Nurse Visit (CAWSTR) MARK CARBAJAL ([id number]) 1950 M Date Time Provider Department 04/09/18 1:00 PM [facility] During your visit today, we recorded the following information about you: Thomas Flowers RN 04/09/2018 10:08 AM Signed Ekg completed per order. Pt tolerated procedure without distress. Thomas Flowers RN Referring Provider: JORGE VELÁSQUEZ [[id number]] Allergies As of Date: 04/09/2018 Noted Allergy Reaction NAPROXEN 03/12/2012 5 - Intolerance Comments: Headache, not feeling well with it Date Reviewed: 04/09/2018 Reviewed by: Thomas Flowers RN - Fully Assessed Reason for Visit: Nurse Visit [792] Visit Diagnoses:Palpitatio ns [R00.2] Non-rheumatic mitral regurgitation [I34.0] Order(s):ECG COMPLETE W INTERPRETATION [ECG01] Order #: [id number] Prescriptions as of 04/09/2018 Sig: LISINOPRIL 20 [...] Status:Closed by THOMAS FLOWERS RN on 04/09/18 [facility] CNOVon 04-09-2018 CNOV Office Visit (CAWSTR) MARK CARBAJAL ([id number]) 1950 M Date Time Provider Department 04/09/18 8:45 AM JORGE VELÁSQUEZWSBECKIE During your visit today, we recorded the following information about you: Pulse Blood pressure Weight 59/minute 172/87 93.9 kg Jorge Velásquez MD 04/09/2018 9:45 AM Signed LIFESTYLE CHANGE A healthy lifestyle is the most important component of your overall treatment plan. Please give serious thought to the following areas and commit to making oysterman changes. EAT A WHOLE FOOD, PLANT BASED [...] N/A Beta urvashi for ASHD with prior [place] or prior LVEF<40 (NQF 0070) - N/A [...] provider on file. Referring Provider: JORGE VELÁSQUEZ [[id number]] Allergies As of Date: 04/09/2018 Noted Allergy Reaction NAPROXEN 03/12/2012 5 - Intolerance Comments: Headache, not feeling well with it Date Reviewed: 04/09/2018 Reviewed by: Thomas Flowers RN - Fully Assessed Reason for Visit: Recheck [92] Primary Visit Diagnosis:Palpitatio ns [R00.2] Other Visit Diagnosis:Non-rheuma tic mitral regurgitation [I34.0] Order(s):ECG COMPLETE W INTERPRETATION [ECG01] Order #: [id number] FUTURE BASIC METABOLIC PNL [SQBMP] Order #: [id number] FUTURE MAGNESIUM BLD [SQMG1] Order #: [id number] FUTURE lisinopril (ZESTRIL, PRINIVIL) 20 mg tabletTake 1 tablet by mouth twice daily.Disp: 180 tabletRfl: 3 TSH BLD [SQTSH] Order #: [id number] FUTURE Prescriptions as of 04/09/2018 Sig: LISINOPRIL [...] the following areas and commit to making oysterman changes. EAT A WHOLE FOOD, PLANT BASED [...] Status:Closed by JORGE VELÁSQUEZ MD on 04/09/18 [facility] EKG1on 04-09-2018 EKG1 NAME : MARK CARBAJAL PID : [id number] : 1950 Gender : Male Race : [...] ms QTC Calculation(Bezet) : 399 ms P [place] : 58 degrees R [place] : 36 degrees T [place] : 43 degrees Test Reason : Location : 136 : [place] Overread By : JORGE VELÁSQUEZ MD Edited By : JORGE VELÁSQUEZ MD Referred By : JORGE VELÁSQUEZ Acquired by : Veronique KASPER [facility] EKG1 NAME : MARK CARBAJAL PID : [id number] : 1950 Gender : Male Race : [...] ms QTC Calculation(Bezet) : 393 ms P [place] : 65 degrees R [place] : 49 degrees T [place] : 47 degrees Test Reason : Location : 136 : [place] Overread By : JORGE VELÁSQUEZ MD Edited By : JORGE VELÁSQUEZ MD Referred By : JORGE VELÁSQUEZ Acquired by : MAJO, Veronique [facility] Magnesiumon 04-09-2018 Magnesium mass conc 2.2 mg/dL Normal 1.7-2.3 [facility] PROGRESSon 04-09-2018 Protein mass conc HNO ID: [id number] Author: Jorge Velásquez Service: (none) Author Type: Physician Type: Progress Notes Filed: 04/09/2018 5:33 PM Note Text: PERTINENT CARDIAC HISTORY Palpitations - VPDs Anxiety HTN HL MVP - mild MR Pericardial cyst ADHERENCE TO GUIDELINES AR-I or ARB for HF with prior LVEF<40 (NQF 0081) - N/A ASA or Plavix for ASHD (NQF 0067) - N/A Beta urvashi for ASHD with prior [place] or prior LVEF<40 (NQF 0070) - N/A [...] No primary care provider on file. Normal [facility] TSHon 04-09-2018 Thyrotropin Qn 1.200 uU/mL Normal 0.400-5.500 [facility] Comment on above: Performed By: #### T SH #### [facility] [address] [place], [place] [address] OBSOLETEon 03-15-2017 OBSOLETE Refill (AGCARDWST)--------- CAREN CARBAJAL ([id number]) 1950 MDate Time Provider Ldljyuiipt89/12/17 JORGE VELÁSQUEZ AGCARDWST During your visit today, we [...] Status:Closed by RICARDA HARVEY MA on 03/15/17 [facility] Vital Signs Date Time Vital Sign Value Performing Clinician Faci lity 01-15-2025 09:17-0400 Body height 182.[address] Devon Vega DO Work Phone: [facility] 01-15-2025 09:17-0400 Body mass index (BMI) [Ratio] 27.9 kg/m2 Dr. Devon Vega DO Work Phone: [facility] 01-15-2025 09:17-0400 Body weight 93.[address] Devon Vega DO Work Phone: [facility] 01-15-2025 09:17-0400 Diastolic blood pressure 82 mm[Hg] Dr. Devon Vega DO Work Phone: [facility] 01-15-2025 09:17-0400 Heart rate 94 /min Dr. Devon Vega DO Work Phone: [facility] 01-15-2025 09:17-0400 Respiratory rate 16 /min Dr. Devon Vega DO Work Phone: [facility] 01-15-2025 09:17-0400 Systolic blood pressure 131 mm[Hg] Dr. Devon Vega DO Work Phone: [facility] 01-08-2025 09:26-0400 Body height 182.[address] Devon Vega DO Work Phone: [facility] 01-08-2025 09:26-0400 Body mass index (BMI) [Ratio] 28 kg/m2 Dr. Devon Vega DO Work Phone: [facility] 01-08-2025 09:26-0400 Body weight 93.[address] Devon Vega DO Work Phone: [facility] 01-08-2025 09:26-0400 Diastolic blood pressure 84 mm[Hg] Dr. Devon Vega DO Work Phone: [facility] 01-08-2025 09:26-0400 Heart rate 67 /min Dr. Devon Vega DO Work Phone: [facility] 01-08-2025 09:26-0400 Respiratory rate 18 /min Dr. Devon Vega DO Work Phone: [facility] 01-08-2025 09:26-0400 Systolic blood pressure 115 mm[Hg] Dr. Devon Vega DO Work Phone: [facility] 01-02-2025 07:10-0400 Body height 182.[address] Devon Vega DO Work Phone: [facility] 01-02-2025 07:10-0400 Body mass index (BMI) [Ratio] 29.4 kg/m2 Dr. Devon Vega DO Work Phone: [facility] 01-02-2025 07:10-0400 Body weight 98.[address] Devon Vega DO Work Phone: [facility] 01-02-2025 07:10-0400 Diastolic blood pressure 90 mm[Hg] Dr. Devon Vega DO Work Phone: [facility] 01-02-2025 07:10-0400 Heart rate 43 /min Dr. Devon Vega DO Work Phone: [facility] 01-02-2025 07:10-0400 Respiratory rate 18 /min Dr. Devon Vega DO Work Phone: [facility] 01-02-2025 07:10-0400 SaO2% (BldA) [Mass fraction] 98 % Dr. Devon Vega DO Work Phone: [facility] 01-02-2025 07:10-0400 Systolic blood pressure 124 mm[Hg] Dr. Devon Vega DO Work Phone: [facility] 12-22-2024 10:49-0400 Body height 182.[address] Devon Vega DO Work Phone: [facility] 12-22-2024 10:49-0400 Body weight 93.[address] Devon Vega DO Work Phone: [facility] 12-19-2024 08:52-0400 Body mass index (BMI) [Ratio] 28 kg/m2 Dr. Devon Vega DO Work Phone: [facility] 12-12-2024 09:16-0400 Body height 182.[address] Devon Vega DO Work Phone: [facility] 12-12-2024 09:16-0400 Body mass index (BMI) [Ratio] 28 kg/m2 Dr. Devon Vega DO Work Phone: [facility] 12-12-2024 09:16-0400 Body weight 93.[address] Devon Vega DO Work Phone: [facility] 12-12-2024 09:16-0400 Diastolic blood pressure 88 mm[Hg] Dr. Devon Vega DO Work Phone: [facility] 12-12-2024 09:16-0400 Heart rate 77 /min Dr. Devon Vega DO Work Phone: [facility] 12-12-2024 09:16-0400 Respiratory rate 18 /min Dr. Devon Vega DO Work Phone: [facility] 12-12-2024 09:16-0400 SaO2% (BldA) [Mass fraction] 95 % Dr. Devon Vega DO Work Phone: [facility] 12-12-2024 09:16-0400 Systolic blood pressure 127 mm[Hg] Dr. Devon Vega DO Work Phone: [facility] 11-12-2024 06:48-0400 Body height 182.[address] Devon Vega DO Work Phone: [facility] 11-12-2024 06:48-0400 Body mass index (BMI) [Ratio] 28 kg/m2 Dr. Devon Vega DO Work Phone: [facility] 11-12-2024 06:48-0400 Body weight 93.[address] Devon Vega DO Work Phone: [facility] 11-12-2024 06:48-0400 Diastolic blood pressure 93 mm[Hg] Dr. Devon Vega DO Work Phone: [facility] 11-12-2024 06:48-0400 Heart rate 113 /min Dr. Devon Vega DO Work Phone: [facility] 11-12-2024 06:48-0400 Respiratory rate 18 /min Dr. Devon Vega DO Work Phone: [facility] 11-12-2024 06:48-0400 SaO2% (BldA) [Mass fraction] 96 % Dr. Devon Vega DO Work Phone: [facility] 11-12-2024 06:48-0400 Systolic blood pressure 136 mm[Hg] Dr. Devon Vega DO Work Phone: [facility] 09-19-2024 07:33-0400 Body mass index (BMI) [Ratio] 27.9 kg/m2 Dr. Devon Vega DO Work Phone: [facility] 09-19-2024 07:33-0400 Body weight 93.[address] Devon Vega DO Work Phone: [facility] 09-19-2024 07:33-0400 Diastolic blood pressure 78 mm[Hg] Dr. Devon Vega DO Work Phone: [facility] 09-19-2024 07:33-0400 Heart rate 56 /min Dr. Devon Vega DO Work Phone: [facility] 09-19-2024 07:33-0400 Respiratory rate 18 /min Dr. Devon Vega DO Work Phone: [facility] 09-19-2024 07:33-0400 SaO2% (BldA) [Mass fraction] 97 % Dr. Devon Vega DO Work Phone: [facility] 09-19-2024 07:33-0400 Systolic blood pressure 132 mm[Hg] Dr. Devon Vega DO Work Phone: [facility] 01-04-2023 09:06-0400 Body weight 92.[address] Sami Gonzalez Work Phone: [facility] 01-04-2023 09:06-0400 Diastolic blood pressure 78 mm[Hg] Dr. Sami Gonzalez Work Phone: [facility] 01-04-2023 09:06-0400 Heart rate 47 /min Dr. Sami Gonzalez Work Phone: [facility] 01-04-2023 09:06-0400 Respiratory rate 18 /min Dr. Sami Gonzalez Work Phone: [facility] 01-04-2023 09:06-0400 Systolic blood pressure 143 mm[Hg] Dr. Sami Gonzalez Work Phone: [facility] 01-04-2023 08:37-0400 Body height 182.[address] Sami Gonzalez Work Phone: [facility] 08-12-2021 10:15-0500 Body height 182.[address] Sami Goznalez Work Phone: [facility] Work Phone: 08-12-2021 10:15-0500 Body mass index (BMI) [Ratio] 28.6 kg/m2 Dr. Sami Gonzalez Work Phone: [facility] Work Phone: 08-12-2021 10:15-0500 Body weight 95.[address] Sami Gonzalez Work Phone: [facility] Work Phone: 08-12-2021 10:15-0500 Diastolic blood pressure 85 mm[Hg] Dr. Sami Gonzalez Work Phone: [facility] Work Phone: 08-12-2021 10:15-0500 Heart rate 54 /min Dr. Sami Gonzalez Work Phone: [facility] Work Phone: 08-12-2021 10:15-0500 Respiratory rate 16 /min Dr. Sami Gonzalez Work Phone: [facility] Work Phone: 08-12-2021 10:15-0500 SaO2% (BldA) [Mass fraction] 97 % Dr. Sami Gonzalez Work Phone: [facility] Work Phone: 08-12-2021 10:15-0500 Systolic blood pressure 156 mm[Hg] Dr. Sami Gonzalez Work Phone: [facility] Work Phone: Encounters Encounter Date Encounter Type Care Provider Facility Start: 01-20-2025 ambulatory Devon Vega Facility: [facility] Start: 01-15-2025 End: 01-15-2025 Patient encounter procedure Tiffanie BYRNE -[facility] Work Phone: Start: 01-15-2025 End: 01-15-[address] Devon Vega DO Work Phone: -[facility] Start: 01-08-2025 End: 01-15-2025 Patient encounter procedure Tiffanie BYRNE -[facility] Work Phone: Start: 01-08-2025 End: 01-08-[address] Devon Vega DO Work Phone: -[facility] Start: 01-05-2025 Non-patient / Non-visit Dr. Roxanne LENNON -[facility] Work Phone: Start: 01-05-2025 End: 01-05-[address] Devon Vega DO Work Phone: -Pulmonary Services/Neurology Start: 01-05-2025 End: 01-05-[address] Nathanael Lauren MD -Pulmonary Services/Neurology Work Phone: Start: 01-05-2025 End: 01-05-2025 ambulatory [facility] Facility:[facility] Start: 01-02-2025 End: 01-02-[address] Devon Vega DO Work Phone: -Laboratory Start: 01-02-2025 End: 01-02-2025 Patient encounter procedure Tiffanie Patel PA -Laboratory Work Phone: Start: 01-02-2025 End: 01-02-2025 Patient encounter procedure Tiffanie Patel PA -[facility] Work Phone: Start: 01-02-2025 End: 01-02-[address] Devon Vega DO Work Phone: -[facility] Start: 01-02-2025 End: 01-02-2025 ambulatory [facility] Facility:[facility] Start: 12-29-2024 End: 12-29-[address] Nathanael Lauren MD -[facility] Work Phone: Start: 12-29-2024 End: 12-29-[address] Devon Vega DO Work Phone: -[facility] Start: 12-22-2024 ambulatory Devon [facility] Facility: [facility] Start: 12-22-2024 Non-patient / Non-visit Dr. Flo briggs DO -[facility] Start: 12-22-2024 End: 12-22-2024 Admission to same day surgery center Dr. Nathanael Lauren MD -[employer]/Special Procedures Work Phone: Start: 12-22-2024 End: 12-22-[address] Devon Vega DO Work Phone: -[employer]/Special Procedures Start: 12-12-2024 End: 12-12-2024 Patient encounter procedure Guillaume Singh PA -[facility] Work Phone: Start: 12-12-2024 End: 12-12-[address] Devon Vega DO Work Phone: -[facility] Start: 11-12-2024 End: 11-12-[address] Devon Vega DO Work Phone: [facility] Work Phone: Start: 11-12-2024 End: 11-12-2024 Patient encounter procedure Guillaume Singh PA -Laboratory Work Phone: Start: 11-12-2024 End: 11-12-2024 Patient encounter procedure Guillaume Francisco PA -[facility] Work Phone: Start: 11-12-2024 End: 11-12-[address] Devon Vega DO Work Phone: [facility] Work Phone: Start: 11-12-2024 End: 11-12-[address] [facility] Start: 09-19-2024 End: 09-19-2024 Patient encounter procedure Shantal PETTY -[facility] Work Phone: Start: 09-19-2024 End: 09-19-2024 ambulatory [facility] Facility:[facility] Start: 03-28-2024 ambulatory [facility] Facility: [facility] Start: 03-28-2024 End: 03-28-2024 ambulatory Rob H Magan [employer] Facility:[facility] Start: 03-17-2024 End: 03-17-2024 ambulatory Devon Vega Facility:[facility] Start: 03-17-2024 End: 03-17-2024 ambulatory Rob Downs Magan [employer] Facility:[facility] Start: 01-15-2023 End: 01-15-[address] Sami Gonzalez Work Phone: [facility] Work Phone: Start: 01-15-2023 End: 01-15-[address] Sami Gonzalez Work Phone: [facility]-Pulmonary Services/Neurology Work Phone: Start: 01-04-2023 End: 01-04-[address] Sami Gonzalez Work Phone: [facility] Work Phone: Start: 09-16-2021 Non-patient / Non-visit Dr. Becky Gonzalez Work Phone: [facility] Start: 09-16-2021 End: 09-16-[address] [facility] Start: 09-05-2021 Non-patient / Non-visit Dr. Becky Gonzalez Work Phone: [facility] Start: 09-05-2021 End: 09-05-[address] [facility] Gonzalez [facility] Start: 08-12-2021 End: 08-12-[address] Sami Gonzalez Work Phone: [facility] Start: 09-09-2018 End: 09-10-2018 Patient encounter procedure JORGE VELÁSQUEZ [facility] Start: 04-09-2018 End: 04-09-2018 Patient encounter procedure JORGE VELÁSQUEZ [facility] Start: 04-09-2018 End: 04-11-2018 Patient encounter procedure JORGE VELÁSQUEZ [facility] Procedures Date Procedure Procedure Detail Performing Clinician [...] RSV Vaccine (1 - 1-dose 75+ series) [facility] Start: 02-02-2025 Influenza vaccination Influenza Vaccine (#1) [facility] Start: 01-15-2025 Evaluation of diagnostic study results [facility] Start: 01-08-2025 Evaluation of diagnostic study results [facility] Start: 01-02-2025 Evaluation of diagnostic study results [facility] Start: 12-29-2024 Evaluation of diagnostic study results [facility] Start: 12-22-2024 Patient discharge [facility] Start: 12-12-2024 Evaluation of diagnostic study results [facility] Start: 11-12-2024 Evaluation of diagnostic study results [facility] Start: 06-04-2024 Advance Directive Discussion Advance Directive Discussion [facility] Start: 08-31-2021 Lipid panel Lipid Screening [facility] Start: 04-09-2021 Diabetes Screening Diabetes Screening [facility] Start: 01-05-2021 Shingrix Vaccine (3 of 3) Shingrix Vaccine (3 of 3) [facility] Start: 02-28-1997 Screening for malignant neoplasm of colon [facility] Start: 02-28-1971 Urine microalbumin profile DTaP,Tdap,Td Vaccine (1 - Tdap) [facility] Start: 02-28-1970 Anxiety Screening Anxiety Screening [facility] Start: 02-28-1970 Depression Screening Depression Screening [facility] Start: 02-28-1970 Hepatitis C screening Hepatitis C Screening [facility] Basic metabolic 2008 panel with ionized calcium - Serum or Plasma [facility] Basic metabolic 2007 panel with ionized calcium - Serum or Plasma [facility] Basic metabolic 2008 panel with ionized calcium - Serum or Plasma [facility] Basic metabolic 2007 panel with ionized calcium - Serum or Plasma [facility] Cardioversion [facility] CBC W Auto Different ial panel - Blood [facility] CBC W Auto Different ial panel - Blood [facility] Electrocardiographic procedure [facility] Magnesium measurement [facility] Magnesium measurement [facility] Natriuretic peptide. B prohormone N-Terminal [Mass/volume] in Serum or Plasma [facility] Prothrombin time [facility] Thyroid stimulating hormone measurement [facility] Thyroid stimulating hormone measurement [facility] US Heart [facility] XR Chest PA and Lateral [facility] Immunizations Immunization Date Immunization Notes Care Provider Dakota huggins 11-10-2020 zoster vaccine recombinant [facility] Provi [facility] 04-12-2018 pneumococcal polysac charide vaccine, 23 valent [facility] Provider [facility] 04-02-2018 influenza, high dose seasonal, preservative-free [facility] Provider [facility] 04-02-2018 influenza virus vacc ine, unspecified formulation [facility] Provider [facility] 07-16-2017 influenza, high dose seasonal, preservative-free [facility] Provider [facility] 04-10-2014 zoster vaccine, live [facility] Provider [facility] Payers Date Payer Category Payer Self-pay [id number] 2024 Medicare [id number] 2024 Private Health Insurance [id number] 2017 Medicare MEDICARE [id number] Unknown [id number] Unknown [id number] [id number] .2.462 Unknown [id number] 2.16.840.1.747169.3.579 .2.462 Unknown [id number] 2.16.840.1.856327.3.579 .2.462 Unknown [id number] 2.16.840.1.753919.3.579 .2.462 Unknown [id number] 2.16.840.1.351420.3.579 .2.462 Unknown [id number] 2.16.840.1.993219.3.579 .2.462 Unknown [id number] 2.16.840.1.079803.3.579 .2.462 Unknown [id number] 2.16.840.1.183207.3.579 .2.462 Unknown [id number] 2.16.840.1.138873.3.579 .2.462 Unknown [id number] 2.16.840.1.002301.3.579 .2.462 Unknown [id number] 2.16.840.1.485181.3.579 .2.462 Unknown [id number] 2.16.840.1.731623.3.579 .2.462 Unknown [id number] 2.16.840.1.976427.3.579 .2.462 Unknown [id number] 2.16.840.1.883625.3.579 .2.462 Unknown [id number] 2.16.840.1.980689.3.579 .2.462 Unknown [id number] 2.16.840.1.810878.3.579 .2.462 Unknown [id number] 2.16.840.1.993386.3.579 .2.462 Unknown [id number] 2.16.840.1.412621.3.579 .2.462 Unknown [id number] 2.16.840.1.020482.3.579 .2.462 Unknown [id number] 2.0.1.637391.3.579 .2.462 Social History Date Type Detail Facility Start: 08-12-2021 End: 01-04-2023 Tobacco smoking status ALIS Unknown if ever smoked [facility] Start: 1950 Sex Assigned At Male [facility] Start: 09-25-2011 End: 02-05-2024 Tobacco smoking status NHIS Never smoked tobacco (finding) [facility] Start: 09-25-2011 Tobacco use and exposure Smokeless tobacco non-user [facility] Start: 09-09-2018 Alcoholic beverage intake Current drinker of alcohol (finding) [facility] Start: 09-09-2018 End: 05-11-2020 History of Social function [facility] Start: 09-09-2018 End: 05-11-2020 Tobacco use panel [facility] Start: 05-05-2012 National Score (1-10 0), lower number is lower risk Not on file [facility] Start: 1950 Sex assigned at Not on file [facility] Functional Status Date Assessment Result Facility 02-23-2014 Are you deaf, or do you have serious difficulty hearing No 02/23/2014 11:43 AM Angelina Mckeon RN No [facility] 02-23-2014 Are you blind, or do you have serious difficulty seeing, even when wearing glasses No 02/23/2014 11:43 AM Angelina Mckeon RN No [facility] 02-23-2014 Do you have serious difficulty walking or climbing stairs No 02/23/2014 11:43 AM Angelina Mckeon RN No [facility] 02-23-2014 Do you have difficul ty dressing or bathing No 02/23/2014 11:43 AM Angelina Mckeon RN No [facility] 02-23-2014 Because of a physica l, mental, or emotional condition, do you have difficulty doing errands alone such as visiting a physician's office or shopping No 02/23/2014 11:43 AM EDT Angelina Ivy RN No [facility] Mental Status Date Assessment Result Facility 02-23-2014 Because of a physica l, mental, or emotional condition, do you have serious difficulty concentrating, remembering, or making decisions No 02/23/2014 11:43 AM EDT Angelina Ivy RN No [facility] Clinical Notes 09-19-2024 to 12-22-2024 Note Date & Type Note Facility 12-22-2024 Procedure note [facility] 12-22-2024 Procedure note [facility] 12-12-2024 Radiology Diagnostic study note [facility] Imaging Services [address], [place] [address] Chest PA and Lateral MR#: [id number] Acct: [id number] Name: MARK CARBAJAL Rep #: [id number] : 1950 M 74 From: [place] MD PCP: Dr. Devon Vega DO Status: PRE SDC Study:Chest PA and Lateral Date of Exam: 12/12/24 Exam# [id number] Ordering Dr: Guillaume Singh EXAM: XR Chest, [...] IMPRESSION: No acute cardiopulmonary process. Reading [facility] CC: Dr. Devon Vega DO; CATY Manuel ~ Sorority Mother: Signed [facility] 09-19-2024 Evaluation note Diagnosis Onset Date Resolution Encounter for monitoring flecainide therapy acute September 19, 2024 8:53am Multiple premature ventricular complexes acute September 8:53am Essential hypertension chronic Ap ril 2024 8:53am Nonrheumatic mitral (valve) prolapse chronic September 19 8:53am [place] [employer] Work Phone: 1(592) 469-559104-18-2025 Evaluation note* Diagnosis Onset Date Resolution Status [...] (valve) prolapse chronic November 12, 2024 2:30pm [facility] Work Phone: 1(901) 944-198804-18-2025 Evaluation note* Diagnosis Onset Date Resolution Status [...] (valve) prolapse chronic December 12, 2024 9:09am [place] [employer] [facility] Work Phone: 1(553) 573-473404-18-2025 Evaluation note* Diagnosis Onset Date Resolution Status [...] (valve) prolapse chronic January 02, 2025 9:16am [facility] Work Phone: 1(974) 107-780004-18-2025 Evaluation note* Diagnosis Onset Date Resolution Status [...] for monitoring flecainide therapy acute January 08 9:10am New onset atrial fibrillation acute January 08, 2025 9:10am Essential hypertension chronic 2024 9:10am Nonrheumatic mitral (valve) prolapse chronic January 08, 2025 9:10am [facility] Work Phone: 1(276) 183-339904-18-2025 Evaluation note* Diagnosis Onset Date Resolution Status Admit Date Encounter for monitoring flecainide therapy acute September 19 8:53am Essential hypertension chronic Ap 2024 8:53am Multiple premature ventricul ar complexes chronic September 19, 2024 8:53am Nonrheumatic mitral (valve) prolapse chronic September 19, 2024 8:53am New onset atrial fibrillation acute November 12, 2024 2:30pm Essential hypertension chronic [facility] 2024 2:30pm Multiple premature ventricul ar complexes chronic November 12, 2024 2:30pm Nonrheumatic mitral (valve) prolapse chronic November 12, 2024 2:30pm New onset atrial fibrillation acute December 12, 2024 9:09am Essential hypertension chronic [facility] 2024 9:09am Multiple premature ventricul ar [...] January 08, 2025 9:10am Essential hypertension chronic [facility] 2024 9:10am Multiple premature ventricul ar complexes chronic January 08, 2025 9:10am Nonrheumatic mitral (valve) prolapse chronic January 08, 2025 9:10am [facility] Work Phone: 1(281) 711-191804-18-2025 Evaluation note* Diagnosis Onset Date Resolution Status [...] 2025 9:10am Essential hypertension chronic 2024 9:10am Multiple premature ventricul ar complexes chronic January 08, 2025 9:10am Nonrheumatic mitral (valve) prolapse chronic January 08, 2025 9:10am PAF (paroxysmal atrial fibrillation) acute January 15 9:09am Essential hypertension chronic 2024 9:09am Multiple premature ventricul ar complexes chronic January 15 9:09am Nonrheumatic mitral (valve) prolapse chronic January 15 9:09am [facility] Work Phone: Evaluation note* Diagnosis Onset Date Resolution Status Encounter for monitoring flecainide therapy acute Essential hypertension acute Multiple premature ventricular complexes acute Nonrheumatic mitral (valve) prolapse [facility] Work Phone: Evaluation note* Diagnosis Onset Date Resolution Status Multiple premature ventricular complexes acute Essential hypertension chron ic Nonrheumatic mitral (valve) prolapse [facility] Work Phone: Hospital Discharge instructionsAmbulatory Orders* Electrophysiology Location: None Selected [facility] Work Phone: Reason for referral (narrative)No reason for referral information availableK[facility] Work Phone: Summary Purpose Family History No Family History Records FoundNo Family History Records FoundNo Family History Records FoundNo Family History Records Found Advance Directives No Advanced Directives Records Found Advance Directive Response Recorded Date/ Time Advance Directives on File No December 22, 2024 10:49am Living Will Yes December 22, 2024 10:49am Do you have a Healthcare Power of Abstract Checker? Yes December 22, 2024 10:49am Name of Medical Power of Abstract Checker spouse December 22, 2024 10:49am Advance Directives [...] mitral (valve) prolapse Ruben e 2024 2:30pm Chief Complaint Admit Date 6 [...] 2024 8:53am Nonrheumatic mitral (valve) prolapse Apr il 2024 8:53am New onset atrial fibrillation November [...] Nonrheumatic mitral (valve) prolapse Aug us2024 9:16am PAF (paroxysmal atrial fibrillation) Jan us2024 9:10am Essential hypertension January 08, 2025 9:10am Multiple premature ventricular complexes January 08, 2025 9:10am Nonrheumatic mitral (valve) prolapse Jan ust 2024 9:10am Chief Complaint Admit Date 6 M [...] 15, 2025 9:09am Nonrheumatic mitral (valve) prolapse Jan 9:09am Additional Source Comments (unrecognized sect ion and content) No Status Records FoundNo Status Records FoundNo Status Records FoundNo Status Records Found INFORMATION SOURCE (unrecogn ized section and content) DATE CREATED AUTHOR 11/27/2017 [facility] DATE CREATED AUTHOR AUTHOR'S ORGANIZ ATION 09/11/2018 [facility] DATE CREATED AUTHOR AUTHOR'S ORGANIZ ATION 03/17/2021 [facility] DATE CREATED AUTHOR AUTHOR'S ORGANIZ ATION 01/22/2025 [facility] Goals (unrecognized section and content) Goals [...] Inactive Member Role Status Dates Dr. Sami Gonazlez MD Referring Provider Active Dr. Nathanael Lauren [...] 2024 End: September 19, 2024 Shantal Perrin [employer]ER, [employer]ER-C Attending Provider Active Start: September 19, 2024 [...] 2024 End: September 19, 2024 Shantal Perrin [employer], [employer]ER-C Attending Provider Active Start: September 19, 2024 [...] Provider Active Start : December 22, 2024 Guillaume Singh PA Other Provider Active Start: December 22, 2024 Team Status: Active Member Role/Relationship Status Dates Dr. Devon Vega DO Primary Care Provider Active Start: December 22, 2024 Dr. Nathanael Lauren MD Referring Provider Active S tart: December 22, 2024 Dr. Nathanael Lauren MD Other Provider Active Start : December 22, 2024 Guillaume Singh PA Other Provider Active Start: December 22, 2024 [...] January 02, 2025 Tiffanie Patel PA, PA Attending Provider Active Start: January 02, 2025 End: January 02, 2025 Team Status: Active Member Role/Relationship Status Dates Dr. Devon Vega DO Primary Care Provider Active Start: January 02, 2025 Tiffanie Patel PA, PA Attending Provider Active Start: January 02, [...] 08, 2025 End: January 08, 2025 Tiffanie Patel PA, PA Attending Provider Active Start: January 08, 2025 End: January 08, 2025 Team Status: Inactive Member Role/Relationship Status Dates Dr. Devon Vega DO Primary Care Provider Active Start: January 02, 2025 End: January 02, 2025 Tiffanie Patel PA, PA Attending Provider Active Start: January 02, [...] Provider Active S tart: January 05, 2025 Tiffanie Patel PA, PA Referring Provider Active Start: January 05, 2025 Team Status: Active Member Role/Relationship Status Dates Dr. Devon Vega DO Primary Care Provider Active Start: January 05, 2025 Dr. Nathanael Lauren MD Attending Provider Active S tart: January 05, 2025 Dr. Nathanael Lauren MD Referring Provider Active S tart: January 05, 2025 Team Status: Inactive Member Role/Relationship Status Dates Dr. Devon Gary , DO Primary Care Provider Active Start: January 08, 2025 End: January 08, 2025 Dr. Devon Vega , Referring Provider Active Start: January 08, 2025 End: January 08, 2025 CATY Lopez Attending Provider Active Start: January 08, 2025 End: January 08, 2025 Team Status: Inactive Member Role/Relationship Status Dates Dr. Devon Vega DO Primary Care Provider Active Start: January 15, 2025 End: January 15, 2025 Dr. Devon Vega , Referring Provider Active Start: January 15, 2025 [...] or prosecute any alcohol or drug abuse patient.[facility] FOR RECORDS PERTAINING TO PATIENTS WHO [...] BE BASED ON THE PRIMARY CLINICAL RECORDS. [employer] provides no warranty or guarantee of the accuracy or completeness of information in this document.
--- NOTE | 2025-01-24 09:43 | ECHOD_ITS ---
Reason For Study Reason For Study: NONRHEUMATIC MVP Procedure This was a 2D Doppler, Color Flow transthoracic echocardiogram. The study was technically difficult. Due to arrhythmias. Exam performed in department. Left Ventricle Normal LV size. The left ventricular ejection fraction is 55 %. No regional wall motion abnormalities noted. Right Ventricle Normal RV size. Normal systolic function. Atria The left atrium is severely enlarged. The right atrium is moderately enlarged. Mitral Valve Bileaflet diffuse mitral valve thickening. Mild mitral valve prolapse. Moderate (2+) posteriorly directed mitral valve insufficiency. Tricuspid Valve Normal tricuspid valve. Mild tricuspid valve insufficiency. Pulmonary artery systolic pressure is 30 mmHg. Aortic Valve Trisinus/trileaflet aortic valve. Mild (1+) eccentric aortic valve insufficiency. Pulmonic Valve Normal pulmonic valve. Great Vessels Normal aortic root. The pulmonary artery is normal size. Inferior vena cava collapse with respiration. Pericardium/Pleural No pericardial effusion. MMode/2D Measurements & Calculations LVIDd: 6.2 cm IVSd: 1.4 cm Ao root diam: 3.5 cm LVIDs: 4.5 cm LVPWd: 1.4 cm RVDd: 3.7 cm FS: 27.6 % LAV(MOD-bp): 135.8 ml LVAd ap4: 36.0 cm2 SV(MOD-sp4): 87.6 ml LAV(MOD-bp) Indexed: 62.9 ml/m2 LVLd ap4: 8.6 cm SI(MOD-sp4): 40.6 ml/m2 LAV(MOD-sp2): 134.2 ml EDV(MOD-sp4): 130.0 ml LAV(MOD-sp4): 134.6 ml EDV(sp4-el): 128.6 ml LVAs ap4: 17.7 cm2 LVLs ap4: 6.3 cm ESV(MOD-sp4): 42.3 ml ESV(sp4-el): 42.0 ml EF(MOD-sp4): 67.4 % EF(sp4-el): 67.4 % SV(sp4-el): 86.7 ml LA A4 area: 33.5 cm2 LA dimension(2D): 5.0 cm RA A4 area: 25.2 cm2 TAPSE: 2.4 cm Doppler Measurements & Calculations MV E max ab: 105.9 cm/sec Ao V2 max: 87.4 cm/sec AI max ab: 445.4 cm/sec Ao max P.1 mmHg AI max P.5 mmHg Ao V2 mean: 56.8 cm/sec Ao mean P.4 mmHg AI dec slope: 157.0 cm/sec2 Ao V2 VTI: 10.8 cm AI P1/2t: 830.8 msec AV (velocity ratio): 0.81 LV V1 max: 61.1 cm/sec MR max ab: 566.6 cm/sec PA V2 max: 84.0 cm/sec LV V1 max P.5 mmHg MR max P.7 mmHg PA V2 mean: 53.8 cm/sec LV V1 mean P.63 mmHg MR mean ab: 434.1 cm/sec PA V2 VTI: 12.2 cm LV V1 mean: 37.2 cm/sec MR mean P.7 mmHg LV V1 VTI: 8.8 cm MR VTI: 142.5 cm TR max ab: 263.4 cm/sec PI dec slope: 312.4 cm/sec2 TR max P.8 mmHg ECHO/Echo Complete Interpretation Summary Normal LV size. The left ventricular ejection fraction is 55 %. Bileaflet diffuse mitral valve thickening. Mild mitral valve prolapse. Moderate (2+) posteriorly directed mitral valve insufficiency. Pulmonary artery systolic pressure is 30 mmHg. Patient's rhythm is atrial fibrillation now. Ordering Physician: Tiffanie Patel Referring Physician: Devon Vega Performed By: Darshana Ballard, ЮЛИЯ, RVT
== END | disposition home or self-care (01) ==
LOC: CVS 09:39
PROVIDERS: PCP Family Medicine; Referring Provider Physician Assistant Medical; Visit Provider Physician Assistant Medical
DX: I34.1 Nonrheumatic mitral (valve) prolapse (principal)
CPT/HCPCS: 93306

== ENCOUNTER → 2025-03-18 | Outpatient (CLI) | payer MEDICARE, OTHER, SELFPAY ==
[2025-03-18 11:47] LABS: Hematocrit 48.1 % (40-54); Hemoglobin 15.6 g/dL (13.0-16.5); Immature Granulocytes Count 0.030 X10^3/uL (0.0-0.0); Mean Corp Hgb Conc 32.4 g/dL (32-36); Mean Corpuscular Volume 90.2 fL (80-94); Mean Platelet Vol. 11.1 fl (6.2-12.0); NRBC Flagged by Analyzer 0 % (0-5); Platelet Count 128 K/mm3 (150-450); RBC Distribution Width CV 14.2 % (11.6-14.6); RBC Distribution Width SD 46.6 fl (35.1-43.9); Red Blood Count 5.33 M/mm3 (4.6-6.2); White Blood Count 6.8 K/mm3 (4.4-11.0)
[2025-03-18 12:15] LABS: Anion Gap 8 (5-15); BUN 19 mg/dL (4-19); BUN/Creat Ratio 18.6 RATIO (10-20); Calcium,Total 9.1 mg/dL (7.6-11.0); Carbon Dioxide 26.1 mmol/L (21.0-32.0); Chloride 107 mmol/L (98-108); Glucose 97 mg/dL (70-99); Potassium 4.7 mmol/L (3.3-5.1)
== END | disposition home or self-care (01) ==
LOC: LAB 11:29
PROVIDERS: PCP Family Medicine; Referring Provider Physician Assistant Medical; Visit Provider Physician Assistant Medical
DX: I34.0 Nonrheumatic mitral (valve) insufficiency (principal)
CPT/HCPCS: 36415; 80048; 85025

== ENCOUNTER 2025-03-25 10:17 | Day surgery (SDC) | payer MEDICARE, OTHER, SELFPAY ==
[2025-03-24 11:20] VITALS: BMI 27.3
--- NOTE | 2025-03-25 10:21 | ECHOTEE_ITS ---
Reason For Study Reason For Study: MITRAL VALVE PROLAPSE Medication SEAN probe 6VT-D (SN [id number]) passed without difficulty. No complications were noted. Cetacaine Topical [place] given X3 orally. Versed 2.0 mg given slow IVP. Fentanyl 50.0 mcg given slow IVP. Performed a rapid injection of agitated mix of 9 cc saline and 1cc air to assess for atrial septal defect. Left Ventricle Normal left ventricle. Left ventricular systolic function is normal. The left ventricular ejection fraction is 65 %. No regional wall motion abnormalities noted. Right Ventricle Normal RV size. Normal systolic function. Atria Intact atrial septum. The left atrium is moderately enlarged. No thrombus is detected in the left atrial appendage. Normal right atrium. Mitral Valve Anterior leaflet mitral valve prolapse. Moderate-Severe (3+) eccentric mitral valve insufficiency. Tricuspid Valve Normal tricuspid valve. Mild (1+) tricuspid valve insufficiency. Aortic Valve Normal aortic valve. Trisinus/trileaflet aortic valve. Pulmonic Valve Normal pulmonic valve. Vessels Normal aortic root. The pulmonary artery is normal size. Pulmonary venous flow normal. Pericardium No pericardial effusion. ECHO/Echo Transesophageal (SEAN) Interpretation Summary Normal left ventricle. Left ventricular systolic function is normal. The left ventricular ejection fraction is 65 %. The left atrium is moderately enlarged. No thrombus is detected in the left atrial appendage. Anterior leaflet mitral valve prolapse. Moderate-Severe (3+) eccentric mitral valve insufficiency. Ordering Physician: Tiffanie Patel Referring Physician: Nathanael Lauren Performed By: Nathanael Lauren MD
--- NOTE | 2025-03-25 13:19 | CL.D_ITS ---
Patient Name: TOREY RAMÍREZ Study Date: 03/25/2025 Performing: Nathanael Lauren MD Ht: 72 inches 182.88 cm : 1950 Wt: 202.01 lbs 91.63 kg Age: 75 Gender: male BSA: 2.14 PROCEDURE(S) PERFORMED [id number]-([id number])[facility] CLINICAL PROFILE AND INDICATIONS Indications: Cardiac Arrythmia, Valvular Disease Heart Failure: None Stress/Imaging Stress/Image Study Performed: No CONCLUSIONS Normal coronary arteries Normal LV size, wall motion,and systolic function Mitral Valve Prolapse Moderate Mitral Valve Insufficiency Moderate RECOMMENDATIONS Consider mitral valve surgery and intraoperative ablation If surgery cannot be expedited then consider pulmonary vein isolation and then eventual mitral valve surgery. DESCRIPTION OF PROCEDURE The patient arrived to the procedure lab. The risks and benefits of the procedure as well as a full description of our services here and current unavailability of surgical backup were fully explained to the patient and/or their significant other prior to the catheterization. The Timeout was completed, verifying the correct patient and procedure. The patient's procedural site was prepped and draped in the usual fashion. Local anesthetic was given subcutaneously to right radial region with Lidocaine 2%. Using a modified Seldinger technique, arterial access was obtained via the right radial artery, a 6Fr sheath was inserted. Left Coronary Artery selective angiography was performed in multiple views using a 5 Fr. 4.0 [place] catheter. Right Coronary Artery selective angiography was then performed in multiple views using a 5 Fr. 4.0 [place] catheter.The arterial sheath was pulled and a TR Band was applied for hemostasis. 9cc air CORONARY ANGIOGRAPHY DOMINANCE: Left Dominant LEFT HEART ASSESSMENT Left Ventricular Ejection Fraction: by Echo 60 % Normal LV wall motion Normal Left Ventricular systolic function LEFT MAIN: Angiographically normal LEFT ANTERIOR DESCENDING ARTERY: Angiographically normal CIRCUMFLEX ARTERY: No significant disease noted RIGHT CORONARY ARTERY: Angiographically normal VALVE FINDINGS: Mitral Valve Prolapse Moderate Mitral Valve Insufficiency - Grade 3 COMPLICATIONS No Complications PROCEDURE MEDICATIONS Fentanyl 50 mcg IV Versed 1 mg IV Oxygen: 2 L/min via nasal cannula Aspirin (325mg) 1 Tabs PO @ 03/25/2025 11:05:26 Heparin given IA 03/25/2025 12:54:27 Metoprolol 2.5 mg 03/25/2025 13:04:04 Metoprolol 2.5 mg 03/25/2025 13:04:04 Verapamil 2.5mg, Ntg 100mcgs, 3000 units of Heparin given IA 03/25/2025 12:54:27 SUMMARY OF HEMODYNAMIC DATA Time AIR REST ECG 11:03:47 AO 102/72 (90) SA 13:01:25 AO 134/62 (83) 13:05:04 AIR REST 13:18:16 Signed By Nathanael Lauren MD On 03/25/2025 13:18:55 Nathanael Lauren MD
== END 2025-03-25 14:45 | disposition home or self-care (01) ==
PROVIDERS: PCP Family Medicine; Referring Provider Internal Medicine Cardiovascular Disease; Visit Provider Internal Medicine Cardiovascular Disease
DX: I34.1 Nonrheumatic mitral (valve) prolapse (principal); I48.0 Paroxysmal atrial fibrillation; I48.92 Unspecified atrial flutter; I49.3 Ventricular premature depolarization; I34.0 Nonrheumatic mitral (valve) insufficiency; I10 Essential (primary) hypertension; Z79.899 Other long term (current) drug therapy; R93.1 Abnormal findings on diagnostic imaging of heart and coronary circulation
CPT/HCPCS: 93312; 93320; 93325; 93454; 99152; 99153; Q9967; A4216; C1769; C1894